=== PATIENT | male | born 1955 | race Caucasian/White ===

== ENCOUNTER 2018-03-05 14:26 | Inpatient (IN) | payer MEDICARE, MEDICAID ==
--- NOTE | 2018-03-05 14:53 | ED Physician Chart ---
ED Chief Complaint/HPI - Patient Information Date Seen:: 03/05/18 Time Seen:: 14:30 Chief Complaint:: Agitation History of Present Illness:: onset x 3 days of agitation and uncooperative behavior; no report of trauma, SIs , H/As, S/T, neck pain, C/P, SOB, Abd. Pain, A/N/V/D/C, fever,chills, or urinary s/s Allergies:: Allergies Allergy/AdvReac Type Severity Reaction Status Date / Time iodine Allergy Verified 03/05/18 14:30 Vitals:: Vital Signs - 8 hr 03/05/18 14:30 Temp 97.4 F HR 84 RR 16 BP 111/72 Historian:: Patient, EMS Review:: Nurse's Note Reviewed, Old Chart Reviewed, EMS run form Reviewed ED Review of Systems - Review of Systems General/Constitutional: Fever, No chills, No weight loss, No weakness, No diaphoresis, No edema, No loss of appetite Skin: No skin lesions, No rash, No bruising Head: No headache, No light-headedness Eyes: No loss of vision, No pain, No diplopia ENT: No earache, Nasal drainage, No sore throat, No tinnitus Neck: No neck pain, No swelling, No thyromegaly, No stiffness, No mass noted Cardio Vascular: No chest pain, No palpitations, No PND, No orthopnea, No edema Pulmonary: No SOB, Cough, No sputum, No wheezing GI: No nausea, No vomiting, No diarrhea, No pain, No melena, No hematochezia, No constipation, No hematemesis G/U: No dysuria, No frequency, No hematuria, No nacturia Musculoskeletal: No bone or joint pain, No back pain, No muscle pain Endocrine: No polyuria, No polydipsia Psychiatric: Prior psych history, No depression, Anxiety, No suicidal ideation, No homicidal ideation, Auditory hallucination, No visual hallucination Hematopoietic: No bruising, No lymphadenopathy Allergic/Immuno: No urticaria, No angioedema Neurological: No syncope, No focal symptoms, No weakness, No paresthesia, No headache, No seizure, No dizziness, No confusion, No vertigo ED Past Medical History - Past Medical History Obtainable: Yes Past Medical History: HTN Family History: HTN Social History: Smoker, Alcohol, No Drug Use, Single, Care Facility Surgical History: None Psychiatricy History: Schizophrenia Medication: Reviewed Family Medical History - Family Member Mother History Unknown: Yes ED Physical Exam - Physical Examination General/Constitutional: Awake, Well-developed, well-nourished, Alert, No distress, GCS 15, Non-toxic appearing, Ambulatory Head: Atraumatic Eyes: Lids, conjuctiva normal, PERRL, EOMI Skin: Nl inspection, No rash, No skin lesions, No ecchymosis, Well hydrated, No lymphadenopathy ENMT: External ears, nose nl, TM canals nl, Nasal exam nl, Lips, teeth, gums nl , Oropharynx nl, Tonsils nl Neck: Nontender, Full ROM w/o pain, No JVD, No nuchal rigidity, No bruit, No mass, No stridor Respiratory: Nl effort/Exclusion, Clear to Auscultation, No Wheeze/Rhonchi/Rales Cardio Vascular: RRR, No murmur, gallop, rubs, NL S1 S2, Carotid/Femoral/Distal pulses equal bilaterally GI: No tenderness/rebounding/guarding, No organomegaly, No hernia, Normal BS's, Nondistended, No mass/bruits, No McBurney tenderness Other GI comments:: no pulsatile masses : No CVA tenderness Extremities: No tenderness or effusion, Full ROM, normal strength in all extremities, No edema, Normal digits & nails Neuro/Psych: Alert/oriented, DTR's symmetric, Normal sensory exam, Normal motor strength, Judgement/insight normal, Mood normal, Normal gait, No focal deficits Other Neuro/Psych comments:: + Psychomotor Agitation; no SIs; Mood/Affect: Labile Misc: Normal back, No paraspinal tenderness ED Labs/Radiology/EKG Results - Lab Results Comments:: unremarkable - Radiology Results Comments:: NAD - EKG Interpretations EKG Time:: 14:59 Rate & Rhythm: 65; NSR Comments:: non-specific st-t changes ED Septic Shock - . Is Septic Shock (SBP<90, OR Lactate>4 mmol\L) present?: No - <6hrs of presentation: Vital Signs: Vital Signs - 8 hr 18 14:30 Temp 97.4 F HR 84 RR 16 BP 111/72 ED Reassessment (Disposition) - Reassessment Reassessment Condition:: Improved - Diagnosis Diagnosis:: Dx: Agitation; Psychosis; Medical Clearance; Paranoid Schizophrenia - Aftercare/Follow up Instructions Aftercare/Follow-Up Instructions:: Counseled pt regarding lab results/diagnosis & need follow up, Counseled pt & family regarding lab results/diagnosis & need follow up - Patient Disposition Discharge/Transfer:: Acute Care w/in this hosp Admitted to:: [facility] Condition at Disposition:: Stable, Improved
[2018-03-05 15:01] LABS: URINE MICROSCOPIC INDICATED? YES; URINE SOURCE MIDSTREAM
[2018-03-05 15:05] LABS: % BASOPHILS 0.7 % (0.0-2.0); % EOSINOPHILS 2.4 % (0.0-5.0); % LYMPHOCYTES 18.7 % (20.0-50.0); % MONOCYTES 7.6 % (2.0-10.0); % NEUTROPHILS 70.6 % (40.0-80.0); BASOPHILE ABSOLUTE 0.1 Th/cumm (0-0.2); EOSINOPHILE ABSOLUTE 0.2 Th/cmm (0.1-0.4); HEMATOCRIT 31.5 % (41.0-60); HEMOGLOBIN 10.6 gm/dL (12-16); LYMPHOCYTE ABSOLUTE 1.4 Th/cmm (1.5-3.0); MEAN CELL VOLUME 86.8 fl (80-99); MEAN CORPUSCULAR HEMOGLOBIN 29.1 pg (26.0-30.0); MEAN CORPUSCULAR HGB CONC 33.6 pg (28.0-36.0); MEAN PLATELET VOLUME 8.6 fl; MONOCYTE ABSOLUTE 0.6 Th/cmm (0.3-1.0); PLATELET COUNT 207 Th/cmm (150-400); RED BLOOD COUNT 3.63 Mil/cmm (4.30-5.70); RED CELL DISTRIBUTION WIDTH 13.7 % (11.5-20.0); WHITE BLOOD COUNT 7.3 Th/cmm (4.8-10.8)
[2018-03-05 15:06] LABS: URINE BILIRUBIN NEGATIVE (NEGATIVE); URINE BLOOD NEGATIVE (NEGATIVE); URINE GLUCOSE (UA) NEGATIVE (NEGATIVE); URINE KETONE NEGATIVE (NEGATIVE); URINE LEUKOCYTE ESTERASE NEGATIVE (NEGATIVE); URINE NITRATE NEGATIVE (NEGATIVE); URINE PROTEIN NEGATIVE (NEGATIVE); URINE UROBILINOGEN 0.2 E.U./dL (0.2 - 1.0)
[2018-03-05 15:07] LABS: URINE BACTERIA NONE SEEN /hpf (NONE SEEN); URINE CLARITY CLEAR (CLEAR); URINE COLOR YELLOW; URINE EPITHELIAL CELLS NONE SEEN /lpf (FEW); URINE RBC NONE SEEN /hpf (0-5); URINE WBC NONE SEEN /hpf (0-5)
[2018-03-05 15:20] LABS: INR 1.06 (0.5-1.4)
[2018-03-05 15:26] LABS: ALB/GLOB RATIO 1.7 (1.0-1.8); ALBUMIN 4.1 gm/dL (4.2-5.5); ALKALINE PHOSPHATASE 58 U/L (34-104); ANION GAP 10.8 (7.0-16.0); BILIRUBIN,TOTAL 0.4 mg/dL (0.3-1.0); BUN - UREA NITROGEN 27 mg/dL (7-25); CALCIUM SERUM 9.8 mg/dL (8.6-10.3); CARBON DIOXIDE 26.7 mEq/L (21.0-31.0); CHLORIDE 104 mEq/L (98-107); CREATININE KINASE 27 U/L (30-223); GFR AFRICAN-AMERICAN > 60.0 ml/min (>90); GFR NON AFRICAN-AMERICAN > 60.0 ml/min; GLUCOSE 138 mg/dL (70-105); POTASSIUM SERUM 4.5 mEq/L (3.5-5.1); SGOT 16 U/L (13-39); SGPT/ALT 21 U/L (7-52); SODIUM SERUM 137 mEq/L (136-145); TOTAL PROTEIN,SERUM 6.5 gm/dL (6.0-8.3)
[2018-03-05 17:48] LABS: ACETAMINOPHEN < 10.0 ug/mL (10.0-30.0); SALICYLATES (ASPIRIN) < 25.0 mg/L (30.0-100.0)
[2018-03-05 18:29] VITALS: BP 159/80
[2018-03-05 21:41] LABS: A1C % 4.7 % (4.0-6.0)
--- NOTE | 2018-03-05 22:41 | History & Physical ---
ADMIT DATE: 03/05/2018 HISTORY OF PRESENT ILLNESS: The patient is a 62-year-old male with long history of diabetes mellitus, hypertension, hyperlipidemia, dementia, and psychosis; admitted to [facility] under Dr. Joseph's service. The patient denies any chest pain, shortness of breath, nausea, vomiting, fever, or chills. PAST MEDICAL HISTORY: Significant for hypertension, diabetes mellitus, hyperlipidemia, dementia, and psychosis. PAST SURGICAL HISTORY: No recent surgery. ALLERGIES: IODINE. MEDICATIONS: Follow admission reconciliation. SOCIAL HISTORY: No smoking, no alcohol, no drug. FAMILY HISTORY: Noncontributory. REVIEW OF SYSTEMS: IMMUNOSYSTEM: No history of chronic renal disorder. CARDIOVASCULAR SYSTEM: No coronary artery disease. ENDOCRINE: He has diabetes mellitus. No thyroid problem. GASTROINTESTINAL SYSTEM: No upper or lower gastrointestinal bleed. NEUROLOGICAL SYSTEM: No seizure disorder. SKELETOMUSCULAR SYSTEM: No muscular dystrophy. HEMATOLOGICAL SYSTEM: History of anemia. GENITOURINARY: No dysuria or hematuria. PHYSICAL EXAMINATION: GENERAL: He is awake, mildly confused. VITAL SIGNS: Temperature is 98.9, heart rate 75, and blood pressure 145/65. HEENT: Normocephalic. Pupils reacting to light and accommodation. Sclerae clear. NECK: Supple. Negative for lymphadenopathy, JVD, or bruit. CHEST: Entry of air bilateral normal. No rhonchi or wheezing. HEART: S1, S2 normal, no gallop rhythm. ABDOMEN: Soft, bowel sounds positive. EXTREMITIES: No edema. NEUROLOGIC: Awake, not coherent. No focal motor or sensory deficits. LABORATORY DATA: White blood 7.3, hemoglobin 10.6, hematocrit 31.5, and platelet 207. Sodium 137, potassium 4.5, BUN 27, and creatinine 1.0. ASSESSMENT: 1. Diabetes mellitus. 2. Hypertension. 3. Hyperlipidemia. 4. Anemia. 5. Dementia. PLAN: The patient admitted to the hospital under Dr. Joseph's service. Medical problems addressed during hospitalization, psychosis and dementia problems. Medical problems to be addressed at discharge, diabetes mellitus, hypertension, hyperlipidemia, and anemia. The patient is medically stable for activity. Thank you Dr. Joseph for asking me to see your patient. JOB# [id number]
[2018-03-06] MEDS: INSULIN ASPART SLIDING SCALE 100 UNITS/ML UNIT SUBQ SCH ×4 (06:51→21:37)
--- NOTE | 2018-03-06 07:13 | Diagnostic Imaging Report ---
Portable chest x-ray HISTORY: Pain The heart size is normal. Atherosclerotic calcification seen in the aorta. The lungs are somewhat hyperexpanded that may be associated with changes of COPD. No acute focal pulmonary processes. Old right rib fractures noted. IMPRESSION: 1. No acute abnormalities 2. Pulmonary hyperexpansion. Findings may be associated with COPD 3. Atherosclerotic vascular changes
[2018-03-06] MEDS: Potassium Chloride 20 mEq ER Tab PO SCH (08:15)
[2018-03-06] MEDS: Benztropine 1 MG TAB PO SCH ×2 (08:15→16:58)
--- NOTE | 2018-03-06 14:35 | Psychosocial Evaluation ---
DATE OF SERVICE: 03/05/2018 PSYCHIATRIC INITIAL EVALUATION AND MENTAL STATUS EXAM PATIENT'S AGE: 62-year-old SEX: Male. PHYSICIAN: Junior Joseph MD, MPH CHIEF COMPLAINT: Agitation. HISTORY OF PRESENT ILLNESS: The patient is a 62-year-old male who is living in [facility]. The patient has been agitated and aggressive for the last 3 days prior to his admission and has not been cooperative with the staff and has been in angry and in irritable mood. The patient also has been not able to follow directions. He also has been suspicious and paranoid. PAST PSYCHIATRIC HISTORY: The patient has history of schizophrenia. PAST MEDICAL HISTORY: The patient has history of hypertension. SOCIAL HISTORY: The patient lives in [facility]. No known alcohol or drug use. MENTAL STATUS EXAMINATION: The patient appears slightly older than his stated age. Disheveled. Irritable mood. Angry. Seems to be suspicious and paranoid and thought processes are circumstantial and with flight of ideas. The patient denied auditory or visual hallucinations, but seems to be responding to stimuli. The patient denied suicidal or homicidal ideations. The patient is alert and oriented to time, place, person, and situation. Intact immediate, recent and remote memories. Poor insight and poor judgment. ASSESSMENT: PRIMARY DIAGNOSIS: Chronic paranoid schizophrenia with acute exacerbation. TREATMENT PLAN: We will monitor the patient's behavior and condition closely. We will adjust psychotropic medications. We will work on his poor impulse control. ESTIMATED LENGTH OF STAY: 5-7 days. THE PATIENT'S STRENGTHS AND WEAKNESSES: The patient seems to be in relatively fair health. Weaknesses is his poor impulse control and his psychosis. AFTER DISCHARGE PLAN: Outpatient treatment and followup will continue as an outpatient. CRITERIA FOR DISCHARGE: Better impulse control and stabilizing psychotropic medications and establish outpatient treatment plans. JOB# [id number]
--- NOTE | 2018-03-06 19:13 | Internal Medicine Prog Note ---
Internal Medicine Subjective - Subjective Service Date: 03/06/18 Patient seen and examined:: with staff Patient is:: awake, verbal, silke chair, talking Per staff patient has:: no adverse event Internal Medicine Objective - Results Result Diagrams: 03/05/18 14:50 03/05/18 14:50 Recent Labs: Laboratory Last Values WBC 7.3 Th/cmm (4.8-10.8) 03/05/18 14:50 RBC 3.63 Mil/cmm (4.30-5.70) L 03/05/18 14:50 Hgb 10.6 gm/dL (12-16) L 03/05/18 14:50 Hct 31.5 % (41.0-60) L 03/05/18 14:50 MCV 86.8 fl (80-99) 03/05/18 14:50 MCH 29.1 pg (26.0-30.0) 03/05/18 14:50 MCHC Differential 33.6 pg (28.0-36.0) 03/05/18 14:50 RDW 13.7 % (11.5-20.0) 03/05/18 14:50 Plt Count 207 Th/cmm (150-400) 03/05/18 14:50 MPV 8.6 fl 03/05/18 14:50 Neutrophils % 70.6 % (40.0-80.0) 03/05/18 14:50 Lymphocytes % 18.7 % (20.0-50.0) L 03/05/18 14:50 Monocytes % 7.6 % (2.0-10.0) 03/05/18 14:50 Eosinophils % 2.4 % (0.0-5.0) 03/05/18 14:50 Basophils % 0.7 % (0.0-2.0) 03/05/18 14:50 PT 11.0 SECONDS (9.5-11.5) 03/05/18 14:50 INR 1.06 (0.5-1.4) 03/05/18 14:50 PTT (Actin FS) 28.3 SECONDS (26.0-38.0) 03/05/18 14:50 Sodium 137 mEq/L (136-145) 03/05/18 14:50 Potassium 4.5 mEq/L (3.5-5.1) 03/05/18 14:50 Chloride 104 mEq/L (98-107) 03/05/18 14:50 Carbon Dioxide 26.7 mEq/L (21.0-31.0) 03/05/18 14:50 Anion Gap 10.8 (7.0-16.0) 03/05/18 14:50 BUN 27 mg/dL (7-25) H 03/05/18 14:50 Creatinine 1.0 mg/dL (0.7-1.3) 03/05/18 14:50 Est GFR ( Amer) > 60.0 ml/min (>90) 03/05/18 14:50 Est GFR (Non-Af Amer) > 60.0 ml/min 03/05/18 14:50 BUN/Creatinine Ratio 27.0 03/05/18 14:50 Glucose 138 mg/dL (70-105) H 03/05/18 14:50 POC Glucose 123 MG/DL (70 - 105) H 03/06/18 06:49 Hemoglobin A1c % 4.7 % (4.0-6.0) 03/05/18 14:50 Whole Bld Lactic Acid 1.13 mmol/L (0.60-1.99) 03/05/18 14:50 Calcium 9.8 mg/dL (8.6-10.3) 03/05/18 14:50 Total Bilirubin 0.4 mg/dL (0.3-1.0) 03/05/18 14:50 AST 16 U/L (13-39) 03/05/18 14:50 ALT 21 U/L (7-52) 03/05/18 14:50 Alkaline Phosphatase 58 U/L (34-104) 03/05/18 14:50 Creatine Kinase 27 U/L (30-223) L 03/05/18 14:50 Troponin I 0.01 ng/mL (0.01-0.05) 03/05/18 14:50 Total Protein 6.5 gm/dL (6.0-8.3) 03/05/18 14:50 Albumin 4.1 gm/dL (4.2-5.5) L 03/05/18 14:50 Globulin 2.4 gm/dL 03/05/18 14:50 Albumin/Globulin Ratio 1.7 (1.0-1.8) 03/05/18 14:50 TSH 1.03 uIU/ml (0.34-5.60) 03/05/18 14:50 Urine Source MIDSTREAM 03/05/18 14:30 Urine Color YELLOW 03/05/18 14:30 Urine Clarity CLEAR (CLEAR) 03/05/18 14:30 Urine pH 7.0 (4.6 - 8.0) 03/05/18 14:30 Ur Specific [place] 1.010 (1.005-1.030) 03/05/18 14:30 Urine Protein NEGATIVE mg/dL (NEGATIVE) 03/05/18 14:30 Urine Glucose (UA) NEGATIVE mg/dL (NEGATIVE) 03/05/18 14:30 Urine Ketones NEGATIVE mg/dL (NEGATIVE) 03/05/18 14:30 Urine Blood NEGATIVE (NEGATIVE) 03/05/18 14:30 Urine Nitrate NEGATIVE (NEGATIVE) 03/05/18 14:30 Urine Bilirubin NEGATIVE (NEGATIVE) 03/05/18 14:30 Urine Urobilinogen 0.2 E.U./dL (0.2 - 1.0) 03/05/18 14:30 Ur Leukocyte Esterase NEGATIVE (NEGATIVE) 03/05/18 14:30 Urine RBC NONE SEEN /hpf (0-5) 03/05/18 14:30 Urine WBC NONE SEEN /hpf (0-5) 03/05/18 14:30 Ur Epithelial Cells NONE SEEN /lpf (FEW) 03/05/18 14:30 Urine Bacteria NONE SEEN /hpf (NONE SEEN) 03/05/18 14:30 Salicylates < 25.0 mg/L (30.0-100.0) L 03/05/18 14:50 Acetaminophen < 10.0 ug/mL (10.0-30.0) L 03/05/18 14:50 Ethyl Alcohol < 10 mg/dL (0-10) 03/05/18 14:50 - Physical Exam Vitals and I&O: Vital Signs Temp 97.5 F 03/06/18 14:00 Pulse 67 03/06/18 16:39 Resp 18 03/06/18 14:00 BP 134/73 03/06/18 16:39 Pulse Ox 97 03/06/18 14:00 Intake & Output 03/06/18 03/06/18 03/07/18 06:59 18:59 06:59 Intake Total 240 1200 Balance 240 1200 Intake: Oral 240 1200 Other: # Voids 1 2 # Bowel Movements 0 Active Medications: Current Medications Acetaminophen (Tylenol) 350 mg PO Q12H PRN PRN Reason: Pain (Mild) Stop: 05/05/18 07:22 Aspirin (Ecotrin) 81 mg PO DAILY [facility] Stop: 05/05/18 08:59 Last Admin: 03/06/18 08:15 Dose: 81 mg Benazepril HCl (Lotensin) 10 mg PO DAILY [facility] Stop: 05/05/18 08:59 Last Admin: 03/06/18 08:16 Dose: 10 mg Benztropine Mesylate (Cogentin) 1 mg PO BID [facility] Stop: 05/05/18 08:59 Last Admin: 03/06/18 16:58 Dose: 1 mg Carvedilol (Coreg) 12.5 mg PO BID [facility] Stop: 05/05/18 08:59 Last Admin: 03/06/18 16:39 Dose: 12.5 mg Cyanocobalamin (Vitamin B12) 100 mcg PO DAILY [facility] Stop: 05/05/18 08:59 Last Admin: 03/06/18 08:16 Dose: 100 mcg Furosemide (Lasix) 40 mg PO MWF [facility] Stop: 05/05/18 08:59 Last Admin: 03/06/18 08:16 Dose: 40 mg Glipizide (Glucotrol) 5 mg PO BID [facility] Stop: 05/05/18 08:59 Last Admin: 03/06/18 16:39 Dose: 5 mg Insulin Aspart (Novolog Insulin Sliding Scale) 0 units SUBQ ACHS [facility]; Protocol Stop: 05/05/18 07:29 Last Admin: 03/06/18 16:58 Dose: Not Given Insulin Detemir (Levemir Insulin) 12 units SUBQ HS [facility] Stop: 05/05/18 20:59 Lorazepam (Ativan) 0.5 mg PO Q4HR PRN; Protocol PRN Reason: Anxiety Stop: 04/04/18 17:39 Last Admin: 03/06/18 16:38 Dose: 0.5 mg Metformin HCl (Glucophage) 1,000 mg PO BID [facility] Stop: 05/05/18 08:59 Last Admin: 03/06/18 16:38 Dose: 1,000 mg Miscellaneous (Paliperidone [Paliperidone Er]) 4.5 mg PO HS [facility] Stop: 05/05/18 20:59 Potassium Chloride (Klor-Con) 40 meq PO F [facility] Stop: 05/05/18 08:59 Last Admin: 03/06/18 08:15 Dose: 40 meq Simvastatin (Zocor) 20 mg PO HS [facility]; Protocol Stop: 05/05/18 20:59 Zolpidem Tartrate (Ambien) 5 mg PO HS PRN PRN Reason: Insomnia Stop: 05/04/18 17:39 General: demented HEENT: NC/AT, PERRLA, EOMI, anicteric sclerae, throat clear Neck: Supple, No JVD, No thyromegaly, +2 carotid pulse wo bruit, No LAD, + JVD Cardiovascular: Normal S1, Normal S2, without murmur Abdomen: non-tender Extremities: clear Neurological: no change Internal Medicine Assmt/Plan - Assessment Assessment: 1.DM. 2.HTN. 3.HYPERLIPIDEMIA. 4.DEMENTIA. - Plan Plan: CONTINUE ON CURRENT MEDICATION AND DIET.
[2018-03-06] MEDS ORDERED: PALIPERIDONE PO SCH (21:00)
[2018-03-06] MEDS: Insulin Detemir 100 units/mL 10mL Vial SUBQ SCH (21:38)
[2018-03-07] MEDS: INSULIN ASPART SLIDING SCALE 100 UNITS/ML UNIT SUBQ SCH ×4 (06:44→21:20)
[2018-03-07] MEDS: Benztropine 1 MG TAB PO SCH ×2 (08:58→17:27)
--- NOTE | 2018-03-07 10:17 | Progress Notes ---
DATE: 03/06/2018 SUBJECTIVE: Chart reviewed and the patient interviewed. Also discussed the patient's condition with the staff and reviewed records and labs. The patient is still agitated and he is still suspicious and paranoid. The patient also still seems to be responding to stimuli. Also, personal hygiene is poor. The patient also is in irritable mood. He also is still angry and he still needs lots of redirections. Otherwise, the patient is compliant with taking his medications with no side effects of medications. ASSESSMENT: The patient is agitated and is in irritable mood. TREATMENT PLAN: We will continue monitoring his behavior and his condition closely. Also, continue to work on his poor impulse control. Also, we will work on his poor impulse control and adjusting psychotropic medications. [facility]# [id number]
--- NOTE | 2018-03-07 17:36 | Internal Medicine Prog Note ---
Internal Medicine Subjective - Subjective Service Date: 03/07/18 Patient seen and examined:: with staff Patient is:: awake, verbal, silke chair, talking Per staff patient has:: no adverse event Internal Medicine Objective - Results Result Diagrams: 03/05/18 14:50 03/05/18 14:50 Recent Labs: Laboratory Last Values WBC 7.3 Th/cmm (4.8-10.8) 03/05/18 14:50 RBC 3.63 Mil/cmm (4.30-5.70) L 03/05/18 14:50 Hgb 10.6 gm/dL (12-16) L 03/05/18 14:50 Hct 31.5 % (41.0-60) L 03/05/18 14:50 MCV 86.8 fl (80-99) 03/05/18 14:50 MCH 29.1 pg (26.0-30.0) 03/05/18 14:50 MCHC Differential 33.6 pg (28.0-36.0) 03/05/18 14:50 RDW 13.7 % (11.5-20.0) 03/05/18 14:50 Plt Count 207 Th/cmm (150-400) 03/05/18 14:50 MPV 8.6 fl 03/05/18 14:50 Neutrophils % 70.6 % (40.0-80.0) 03/05/18 14:50 Lymphocytes % 18.7 % (20.0-50.0) L 03/05/18 14:50 Monocytes % 7.6 % (2.0-10.0) 03/05/18 14:50 Eosinophils % 2.4 % (0.0-5.0) 03/05/18 14:50 Basophils % 0.7 % (0.0-2.0) 03/05/18 14:50 PT 11.0 SECONDS (9.5-11.5) 03/05/18 14:50 INR 1.06 (0.5-1.4) 03/05/18 14:50 PTT (Actin FS) 28.3 SECONDS (26.0-38.0) 03/05/18 14:50 Sodium 137 mEq/L (136-145) 03/05/18 14:50 Potassium 4.5 mEq/L (3.5-5.1) 03/05/18 14:50 Chloride 104 mEq/L (98-107) 03/05/18 14:50 Carbon Dioxide 26.7 mEq/L (21.0-31.0) 03/05/18 14:50 Anion Gap 10.8 (7.0-16.0) 03/05/18 14:50 BUN 27 mg/dL (7-25) H 03/05/18 14:50 Creatinine 1.0 mg/dL (0.7-1.3) 03/05/18 14:50 Est GFR ( Amer) > 60.0 ml/min (>90) 03/05/18 14:50 Est GFR (Non-Af Amer) > 60.0 ml/min 03/05/18 14:50 BUN/Creatinine Ratio 27.0 03/05/18 14:50 Glucose 138 mg/dL (70-105) H 03/05/18 14:50 POC Glucose 140 MG/DL (70 - 105) H 03/07/18 11:54 Hemoglobin A1c % 4.7 % (4.0-6.0) 03/05/18 14:50 Whole Bld Lactic Acid 1.13 mmol/L (0.60-1.99) 03/05/18 14:50 Calcium 9.8 mg/dL (8.6-10.3) 03/05/18 14:50 Total Bilirubin 0.4 mg/dL (0.3-1.0) 03/05/18 14:50 AST 16 U/L (13-39) 03/05/18 14:50 ALT 21 U/L (7-52) 03/05/18 14:50 Alkaline Phosphatase 58 U/L (34-104) 03/05/18 14:50 Creatine Kinase 27 U/L (30-223) L 03/05/18 14:50 Troponin I 0.01 ng/mL (0.01-0.05) 03/05/18 14:50 Total Protein 6.5 gm/dL (6.0-8.3) 03/05/18 14:50 Albumin 4.1 gm/dL (4.2-5.5) L 03/05/18 14:50 Globulin 2.4 gm/dL 03/05/18 14:50 Albumin/Globulin Ratio 1.7 (1.0-1.8) 03/05/18 14:50 TSH 1.03 uIU/ml (0.34-5.60) 03/05/18 14:50 Urine Source MIDSTREAM 03/05/18 14:30 Urine Color YELLOW 03/05/18 14:30 Urine Clarity CLEAR (CLEAR) 03/05/18 14:30 Urine pH 7.0 (4.6 - 8.0) 03/05/18 14:30 Ur Specific [place] 1.010 (1.005-1.030) 03/05/18 14:30 Urine Protein NEGATIVE mg/dL (NEGATIVE) 03/05/18 14:30 Urine Glucose (UA) NEGATIVE mg/dL (NEGATIVE) 03/05/18 14:30 Urine Ketones NEGATIVE mg/dL (NEGATIVE) 03/05/18 14:30 Urine Blood NEGATIVE (NEGATIVE) 03/05/18 14:30 Urine Nitrate NEGATIVE (NEGATIVE) 03/05/18 14:30 Urine Bilirubin NEGATIVE (NEGATIVE) 03/05/18 14:30 Urine Urobilinogen 0.2 E.U./dL (0.2 - 1.0) 03/05/18 14:30 Ur Leukocyte Esterase NEGATIVE (NEGATIVE) 03/05/18 14:30 Urine RBC NONE SEEN /hpf (0-5) 03/05/18 14:30 Urine WBC NONE SEEN /hpf (0-5) 03/05/18 14:30 Ur Epithelial Cells NONE SEEN /lpf (FEW) 03/05/18 14:30 Urine Bacteria NONE SEEN /hpf (NONE SEEN) 03/05/18 14:30 Salicylates < 25.0 mg/L (30.0-100.0) L 03/05/18 14:50 Acetaminophen < 10.0 ug/mL (10.0-30.0) L 03/05/18 14:50 Ethyl Alcohol < 10 mg/dL (0-10) 03/05/18 14:50 - Physical Exam Vitals and I&O: Vital Signs Temp 97.5 F 03/07/18 14:02 Pulse 65 03/07/18 17:28 Resp 18 03/07/18 14:02 BP 101/58 03/07/18 17:28 Pulse Ox 97 03/07/18 14:02 Intake & Output 03/06/18 03/07/18 03/07/18 18:59 06:59 18:59 Intake Total 1200 1080 Balance 1200 1080 Intake: Oral 1200 1080 Other: # Voids 2 1 Active Medications: Current Medications Acetaminophen (Tylenol) 350 mg PO Q12H PRN PRN Reason: Pain (Mild) Stop: 05/05/18 07:22 Last Admin: 03/07/18 08:56 Dose: 325 mg Aspirin (Ecotrin) 81 mg PO DAILY [facility] Stop: 05/05/18 08:59 Last Admin: 03/07/18 08:57 Dose: 81 mg Benazepril HCl (Lotensin) 10 mg PO DAILY [facility] Stop: 05/05/18 08:59 Last Admin: 03/07/18 08:57 Dose: 10 mg Benztropine Mesylate (Cogentin) 1 mg PO BID [facility] Stop: 05/05/18 08:59 Last Admin: 03/07/18 17:27 Dose: 1 mg Carvedilol (Coreg) 12.5 mg PO BID [facility] Stop: 05/05/18 08:59 Last Admin: 03/07/18 17:28 Dose: Not Given Cyanocobalamin (Vitamin B12) 100 mcg PO DAILY [facility] Stop: 05/05/18 08:59 Last Admin: 03/07/18 08:57 Dose: 100 mcg Furosemide (Lasix) 40 mg PO MWF [facility] Stop: 05/05/18 08:59 Last Admin: 03/06/18 08:16 Dose: 40 mg Glipizide (Glucotrol) 5 mg PO BID [facility] Stop: 05/05/18 08:59 Last Admin: 03/07/18 17:27 Dose: Not Given Insulin Aspart (Novolog Insulin Sliding Scale) 0 units SUBQ ACHS [facility]; Protocol Stop: 05/05/18 07:29 Last Admin: 03/07/18 17:25 Dose: Not Given Insulin Detemir (Levemir Insulin) 12 units SUBQ HS [facility] Stop: 05/05/18 20:59 Last Admin: 03/06/18 21:38 Dose: 12 units Lorazepam (Ativan) 0.5 mg PO Q4HR PRN; Protocol PRN Reason: Anxiety Stop: 04/04/18 17:39 Last Admin: 03/06/18 16:38 Dose: 0.5 mg Metformin HCl (Glucophage) 1,000 mg PO BID [facility] Stop: 05/05/18 08:59 Last Admin: 03/07/18 17:27 Dose: 1,000 mg Miscellaneous (Paliperidone [Paliperidone Er]) 4.5 mg PO HS [facility] Stop: 05/05/18 20:59 Potassium Chloride (Klor-Con) 40 meq PO MWF [facility] Stop: 05/05/18 08:59 Last Admin: 03/06/18 08:15 Dose: 40 meq Quetiapine Fumarate (Seroquel) 50 mg PO BID [facility]; Protocol Stop: 05/06/18 08:59 Last Admin: 03/07/18 17:27 Dose: 50 mg Simvastatin (Zocor) 20 mg PO HS [facility]; Protocol Stop: 05/05/18 20:59 Last Admin: 03/06/18 21:22 Dose: 20 mg Zolpidem Tartrate (Ambien) 5 mg PO HS PRN PRN Reason: Insomnia Stop: 05/04/18 17:39 Last Admin: 03/06/18 21:22 Dose: 5 mg General: demented HEENT: NC/AT, PERRLA, EOMI, anicteric sclerae, throat clear Neck: Supple, No JVD, No thyromegaly, +2 carotid pulse wo bruit, No LAD, + JVD Cardiovascular: Normal S1, Normal S2, without murmur Abdomen: non-tender Extremities: clear Neurological: no change Internal Medicine Assmt/Plan - Assessment Assessment: 1.DM. 2.HTN. 3.HYPERLIPIDEMIA. 4.DEMENTIA. - Plan Plan: CONTINUE ON CURRENT MEDICATION AND DIET.
[2018-03-07] MEDS: Insulin Detemir 100 units/mL 10mL Vial SUBQ SCH (21:21)
[2018-03-08] MEDS: INSULIN ASPART SLIDING SCALE 100 UNITS/ML UNIT SUBQ SCH ×4 (06:33→20:21)
[2018-03-08] MEDS: Potassium Chloride 20 mEq ER Tab PO SCH (09:23)
[2018-03-08] MEDS: Benztropine 1 MG TAB PO SCH ×2 (09:24→16:30)
--- NOTE | 2018-03-08 11:08 | Progress Notes ---
DATE: 03/07/2018 SUBJECTIVE: Chart reviewed and the patient interviewed. Also discussed the patient's condition with the staff and reviewed records and labs. The patient is still anxious. The patient is still easily agitated and easily irritable. He also is still guarded and suspicious and paranoid. The patient also is demanding and he gets angry if his demand does not met. He also is still have difficulty carrying on current conversation. ASSESSMENT: The patient is still psychotic and is still agitated. TREATMENT PLAN: Continue to monitor his behavior and his condition closely and working on behavioral modifications. Also, we will start the patient on Seroquel 50 mg twice a day. Also continue to follow up for his safety and safety of others closely. [facility]# [id number]
--- NOTE | 2018-03-08 16:08 | Internal Medicine Prog Note ---
Internal Medicine Subjective - Subjective Service Date: 03/08/18 Patient seen and examined:: with staff Patient is:: awake, verbal, silke chair, talking Per staff patient has:: no adverse event Internal Medicine Objective - Results Result Diagrams: 03/05/18 14:50 03/05/18 14:50 Recent Labs: Laboratory Last Values WBC 7.3 Th/cmm (4.8-10.8) 03/05/18 14:50 RBC 3.63 Mil/cmm (4.30-5.70) L 03/05/18 14:50 Hgb 10.6 gm/dL (12-16) L 03/05/18 14:50 Hct 31.5 % (41.0-60) L 03/05/18 14:50 MCV 86.8 fl (80-99) 03/05/18 14:50 MCH 29.1 pg (26.0-30.0) 03/05/18 14:50 MCHC Differential 33.6 pg (28.0-36.0) 03/05/18 14:50 RDW 13.7 % (11.5-20.0) 03/05/18 14:50 Plt Count 207 Th/cmm (150-400) 03/05/18 14:50 MPV 8.6 fl 03/05/18 14:50 Neutrophils % 70.6 % (40.0-80.0) 03/05/18 14:50 Lymphocytes % 18.7 % (20.0-50.0) L 03/05/18 14:50 Monocytes % 7.6 % (2.0-10.0) 03/05/18 14:50 Eosinophils % 2.4 % (0.0-5.0) 03/05/18 14:50 Basophils % 0.7 % (0.0-2.0) 03/05/18 14:50 PT 11.0 SECONDS (9.5-11.5) 03/05/18 14:50 INR 1.06 (0.5-1.4) 03/05/18 14:50 PTT (Actin FS) 28.3 SECONDS (26.0-38.0) 03/05/18 14:50 Sodium 137 mEq/L (136-145) 03/05/18 14:50 Potassium 4.5 mEq/L (3.5-5.1) 03/05/18 14:50 Chloride 104 mEq/L (98-107) 03/05/18 14:50 Carbon Dioxide 26.7 mEq/L (21.0-31.0) 03/05/18 14:50 Anion Gap 10.8 (7.0-16.0) 03/05/18 14:50 BUN 27 mg/dL (7-25) H 03/05/18 14:50 Creatinine 1.0 mg/dL (0.7-1.3) 03/05/18 14:50 Est GFR ( Amer) > 60.0 ml/min (>90) 03/05/18 14:50 Est GFR (Non-Af Amer) > 60.0 ml/min 03/05/18 14:50 BUN/Creatinine Ratio 27.0 03/05/18 14:50 Glucose 138 mg/dL (70-105) H 03/05/18 14:50 POC Glucose 98 MG/DL (70 - 105) 03/08/18 06: Hemoglobin A1c % 4.7 % (4.0-6.0) 03/05/18 14:50 Whole Bld Lactic Acid 1.13 mmol/L (0.60-1.99) 03/05/18 14:50 Calcium 9.8 mg/dL (8.6-10.3) 03/05/18 14:50 Total Bilirubin 0.4 mg/dL (0.3-1.0) 03/05/18 14:50 AST 16 U/L (13-39) 03/05/18 14:50 ALT 21 U/L (7-52) 03/05/18 14:50 Alkaline Phosphatase 58 U/L (34-104) 03/05/18 14:50 Creatine Kinase 27 U/L (30-223) L 03/05/18 14:50 Troponin I 0.01 ng/mL (0.01-0.05) 03/05/18 14:50 Total Protein 6.5 gm/dL (6.0-8.3) 03/05/18 14:50 Albumin 4.1 gm/dL (4.2-5.5) L 03/05/18 14:50 Globulin 2.4 gm/dL 03/05/18 14:50 Albumin/Globulin Ratio 1.7 (1.0-1.8) 03/05/18 14:50 TSH 1.03 uIU/ml (0.34-5.60) 03/05/18 14:50 Urine Source MIDSTREAM 03/05/18 14:30 Urine Color YELLOW 03/05/18 14:30 Urine Clarity CLEAR (CLEAR) 03/05/18 14:30 Urine pH 7.0 (4.6 - 8.0) 03/05/18 14:30 Ur Specific [place] 1.010 (1.005-1.030) 03/05/18 14:30 Urine Protein NEGATIVE mg/dL (NEGATIVE) 03/05/18 14:30 Urine Glucose (UA) NEGATIVE mg/dL (NEGATIVE) 03/05/18 14:30 Urine Ketones NEGATIVE mg/dL (NEGATIVE) 03/05/18 14:30 Urine Blood NEGATIVE (NEGATIVE) 03/05/18 14:30 Urine Nitrate NEGATIVE (NEGATIVE) 03/05/18 14:30 Urine Bilirubin NEGATIVE (NEGATIVE) 03/05/18 14:30 Urine Urobilinogen 0.2 E.U./dL (0.2 - 1.0) 03/05/18 14:30 Ur Leukocyte Esterase NEGATIVE (NEGATIVE) 03/05/18 14:30 Urine RBC NONE SEEN /hpf (0-5) 03/05/18 14:30 Urine WBC NONE SEEN /hpf (0-5) 03/05/18 14:30 Ur Epithelial Cells NONE SEEN /lpf (FEW) 03/05/18 14:30 Urine Bacteria NONE SEEN /hpf (NONE SEEN) 03/05/18 14:30 Salicylates < 25.0 mg/L (30.0-100.0) L 03/05/18 14:50 Acetaminophen < 10.0 ug/mL (10.0-30.0) L 03/05/18 14:50 Ethyl Alcohol < 10 mg/dL (0-10) 03/05/18 14:50 RPR NONREACTIVE (NONREACTIVE) 03/05/18 14:50 - Physical Exam Vitals and I&O: Vital Signs Temp 98.3 F 03/08/18 14:00 Pulse 72 03/08/18 14:00 Resp 20 03/08/18 14:00 BP 109/61 03/08/18 14:00 Pulse Ox 95 03/08/18 14:00 Intake & Output 03/07/18 03/08/18 03/08/18 18:59 06:59 18:59 Intake Total 620 Balance 620 Intake: Oral 620 Other: # Voids 3 # Bowel Movements 0 Active Medications: Current Medications Acetaminophen (Tylenol) 350 mg PO Q12H PRN PRN Reason: Pain (Mild) Stop: 05/05/18 07:22 Last Admin: 03/07/18 08:56 Dose: 325 mg Aspirin (Ecotrin) 81 mg PO DAILY [facility] Stop: 05/05/18 08:59 Last Admin: 03/08/18 09:23 Dose: 81 mg Benazepril HCl (Lotensin) 10 mg PO DAILY [facility] Stop: 05/05/18 08:59 Last Admin: 03/08/18 09:22 Dose: 10 mg Benztropine Mesylate (Cogentin) 1 mg PO BID [facility] Stop: 05/05/18 08:59 Last Admin: 03/08/18 09:24 Dose: 1 mg Carvedilol (Coreg) 12.5 mg PO BID [facility] Stop: 05/05/18 08:59 Last Admin: 03/08/18 09:22 Dose: 12.5 mg Cyanocobalamin (Vitamin B12) 100 mcg PO DAILY [facility] Stop: 05/05/18 08:59 Last Admin: 03/08/18 09:24 Dose: 100 mcg Furosemide (Lasix) 40 mg PO MWF [facility] Stop: 05/05/18 08:59 Last Admin: 03/08/18 09:24 Dose: 40 mg Glipizide (Glucotrol) 5 mg PO BID [facility] Stop: 05/05/18 08:59 Last Admin: 03/08/18 09:22 Dose: 5 mg Insulin Aspart (Novolog Insulin Sliding Scale) 0 units SUBQ ACHS [facility]; Protocol Stop: 05/05/18 07:29 Last Admin: 03/08/18 11:55 Dose: Not Given Insulin Detemir (Levemir Insulin) 12 units SUBQ HS [facility] Stop: 05/05/18 20:59 Last Admin: 03/07/18 21:21 Dose: 12 units Lorazepam (Ativan) 0.5 mg PO Q4HR PRN; Protocol PRN Reason: Anxiety Stop: 04/04/18 17:39 Last Admin: 03/06/18 16:38 Dose: 0.5 mg Metformin HCl (Glucophage) 1,000 mg PO BID [facility] Stop: 05/05/18 08:59 Last Admin: 03/08/18 09:23 Dose: 1,000 mg Miscellaneous (Paliperidone [Paliperidone Er]) 4.5 mg PO HS [facility] Stop: 05/05/18 20:59 Potassium Chloride (Klor-Con) 40 meq PO MWF [facility] Stop: 05/05/18 08:59 Last Admin: 03/08/18 09:23 Dose: 40 meq Quetiapine Fumarate (Seroquel) 50 mg PO BID [facility]; Protocol Stop: 05/06/18 08:59 Last Admin: 03/08/18 09:23 Dose: 50 mg Simvastatin (Zocor) 20 mg PO HS [facility]; Protocol Stop: 05/05/18 20:59 Last Admin: 03/07/18 21:20 Dose: 20 mg Zolpidem Tartrate (Ambien) 5 mg PO HS PRN PRN Reason: Insomnia Stop: 05/04/18 17:39 Last Admin: 03/06/18 21:22 Dose: 5 mg General: demented HEENT: NC/AT, PERRLA, EOMI, anicteric sclerae, throat clear Neck: Supple, No JVD, No thyromegaly, +2 carotid pulse wo bruit, No LAD, + JVD Cardiovascular: Normal S1, Normal S2, without murmur Abdomen: non-tender Extremities: clear Neurological: no change Internal Medicine Assmt/Plan - Assessment Assessment: 1.DM. 2.HTN. 3.HYPERLIPIDEMIA. 4.DEMENTIA. - Plan Plan: CONTINUE ON CURRENT MEDICATION AND DIET. Nutritional Asmnt/Malnutr-PDOC - Dietary Evaluation Malnutrition Findings (Please click <Entered> for more info): Nutritional Asmnt/Malnutrition Start: 03/08/18 15: 04 Text: Status: Complete Freq: Protocol: Document 03/08/18 15:05 CALIN (Rec: 03/08/18 15:10 CALIN [email or web address]) Nutritional Asmnt/Malnutrition Patient General Information Nutritional Screening Moderate Risk Diagnosis psychosis Pertinent Medical Hx/Surgical Hx HTN, DM, hyperlipidemia, dementia, pscyhosis Subjective Information Pt seen eating in his room, stated "I am fine". Per EMR, PO intake 75-100%. Current Diet Order/ [facility] Pertinent Medications vit B12, lasix, glucotrol, novolog, levemir, glucophage, kcl, seroquel Pertinent Labs 03/05 BUN 27, Glucose 138, A1c 4.7, 03/06-03/08 POC 63-140 Nutritional Hx/Data Height 1.83 m Height (Calculated Centimeters) 182.9 Current Weight (lbs) 72.121 kg Weight (Calculated Kilograms) 72.1 Weight (Calculated Grams) 12940.2 [place] Body Weight 178 Body Mass Index (BMI) 21.5 Weight Status Approriate GI Symptoms GI Symptoms None Last BM none Difficult in: None Food Allergies Yes: iodine/shellfish Skin Integrity/Comment: intact Current %PO Good (75-100%) Estimated Nutritional Goals BEE in Kcals: Using Current wt Calories/Kcals/Kg 25-30 Kcals Calculated 6019-5650 Protein: Using Current wt Protein g/k Protein Calculated 72 Fluid: ml 1800-2160ml (1ml/kcal) Nutritional Problem No current Nutrition Prob Problem N/A Malnutrition Alert Is there a minimum of two criteria No selected? Query Text:Check all the applicable criteria. A minimum of two criteria are recommended for diagnosis of either severe or non-severe malnutrition. Malnutrition Related to Morbid Obesity Malnutrition related to morbid obesity No Intervention/Recommendation Comments 1. Recommend regular diet for liberalization since blood sugar WNL. Nurse notified. 2. Monitor PO intake, wt, labs and skin integrity 3. F/U as low risk in 7days, Expected Outcomes/Goals Expected Outcomes/Goals 1. PO intake to meet at least 75% of nutritional needs. 2. Wt stability, skin to remain intact, labs to approach WNL.
[2018-03-08] MEDS: Insulin Detemir 100 units/mL 10mL Vial SUBQ SCH (20:35)
[2018-03-09] MEDS: INSULIN ASPART SLIDING SCALE 100 UNITS/ML UNIT SUBQ SCH ×4 (06:31→20:52)
[2018-03-09] MEDS: Benztropine 1 MG TAB PO SCH ×2 (09:22→16:38)
--- NOTE | 2018-03-09 11:06 | Internal Medicine Prog Note ---
Internal Medicine Subjective - Subjective Service Date: 03/09/18 Patient seen and examined:: with staff Patient is:: awake, verbal, silke chair, talking Per staff patient has:: no adverse event Internal Medicine Objective - Results Result Diagrams: 03/05/18 14:50 03/05/18 14:50 Recent Labs: Laboratory Last Values WBC 7.3 Th/cmm (4.8-10.8) 03/05/18 14:50 RBC 3.63 Mil/cmm (4.30-5.70) L 03/05/18 14:50 Hgb 10.6 gm/dL (12-16) L 03/05/18 14:50 Hct 31.5 % (41.0-60) L 03/05/18 14:50 MCV 86.8 fl (80-99) 03/05/18 14:50 MCH 29.1 pg (26.0-30.0) 03/05/18 14:50 MCHC Differential 33.6 pg (28.0-36.0) 03/05/18 14:50 RDW 13.7 % (11.5-20.0) 03/05/18 14:50 Plt Count 207 Th/cmm (150-400) 03/05/18 14:50 MPV 8.6 fl 03/05/18 14:50 Neutrophils % 70.6 % (40.0-80.0) 03/05/18 14:50 Lymphocytes % 18.7 % (20.0-50.0) L 03/05/18 14:50 Monocytes % 7.6 % (2.0-10.0) 03/05/18 14:50 Eosinophils % 2.4 % (0.0-5.0) 03/05/18 14:50 Basophils % 0.7 % (0.0-2.0) 03/05/18 14:50 PT 11.0 SECONDS (9.5-11.5) 03/05/18 14:50 INR 1.06 (0.5-1.4) 03/05/18 14:50 PTT (Actin FS) 28.3 SECONDS (26.0-38.0) 03/05/18 14:50 Sodium 137 mEq/L (136-145) 03/05/18 14:50 Potassium 4.5 mEq/L (3.5-5.1) 03/05/18 14:50 Chloride 104 mEq/L (98-107) 03/05/18 14:50 Carbon Dioxide 26.7 mEq/L (21.0-31.0) 03/05/18 14:50 Anion Gap 10.8 (7.0-16.0) 03/05/18 14:50 BUN 27 mg/dL (7-25) H 03/05/18 14:50 Creatinine 1.0 mg/dL (0.7-1.3) 03/05/18 14:50 Est GFR ( Amer) > 60.0 ml/min (>90) 03/05/18 14:50 Est GFR (Non-Af Amer) > 60.0 ml/min 03/05/18 14:50 BUN/Creatinine Ratio 27.0 03/05/18 14:50 Glucose 138 mg/dL (70-105) H 03/05/18 14:50 POC Glucose 93 MG/DL (70 - 105) 03/09/18 06:19 Hemoglobin A1c % 4.7 % (4.0-6.0) 03/05/18 14:50 Whole Bld Lactic Acid 1.13 mmol/L (0.60-1.99) 03/05/18 14:50 Calcium 9.8 mg/dL (8.6-10.3) 03/05/18 14:50 Total Bilirubin 0.4 mg/dL (0.3-1.0) 03/05/18 14:50 AST 16 U/L (13-39) 03/05/18 14:50 ALT 21 U/L (7-52) 03/05/18 14:50 Alkaline Phosphatase 58 U/L (34-104) 03/05/18 14:50 Creatine Kinase 27 U/L (30-223) L 03/05/18 14:50 Troponin I 0.01 ng/mL (0.01-0.05) 03/05/18 14:50 Total Protein 6.5 gm/dL (6.0-8.3) 03/05/18 14:50 Albumin 4.1 gm/dL (4.2-5.5) L 03/05/18 14:50 Globulin 2.4 gm/dL 03/05/18 14:50 Albumin/Globulin Ratio 1.7 (1.0-1.8) 03/05/18 14:50 TSH 1.03 uIU/ml (0.34-5.60) 03/05/18 14:50 Urine Source MIDSTREAM 03/05/18 14:30 Urine Color YELLOW 03/05/18 14:30 Urine Clarity CLEAR (CLEAR) 03/05/18 14:30 Urine pH 7.0 (4.6 - 8.0) 03/05/18 14:30 Ur Specific [place] 1.010 (1.005-1.030) 03/05/18 14:30 Urine Protein NEGATIVE mg/dL (NEGATIVE) 03/05/18 14:30 Urine Glucose (UA) NEGATIVE mg/dL (NEGATIVE) 03/05/18 14:30 Urine Ketones NEGATIVE mg/dL (NEGATIVE) 03/05/18 14:30 Urine Blood NEGATIVE (NEGATIVE) 03/05/18 14:30 Urine Nitrate NEGATIVE (NEGATIVE) 03/05/18 14:30 Urine Bilirubin NEGATIVE (NEGATIVE) 03/05/18 14:30 Urine Urobilinogen 0.2 E.U./dL (0.2 - 1.0) 03/05/18 14:30 Ur Leukocyte Esterase NEGATIVE (NEGATIVE) 03/05/18 14:30 Urine RBC NONE SEEN /hpf (0-5) 03/05/18 14:30 Urine WBC NONE SEEN /hpf (0-5) 03/05/18 14:30 Ur Epithelial Cells NONE SEEN /lpf (FEW) 03/05/18 14:30 Urine Bacteria NONE SEEN /hpf (NONE SEEN) 03/05/18 14:30 Salicylates < 25.0 mg/L (30.0-100.0) L 03/05/18 14:50 Acetaminophen < 10.0 ug/mL (10.0-30.0) L 03/05/18 14:50 Ethyl Alcohol < 10 mg/dL (0-10) 03/05/18 14:50 RPR NONREACTIVE (NONREACTIVE) 03/05/18 14:50 - Physical Exam Vitals and I&O: Vital Signs Temp 97.7 F 03/08/18 19:56 Pulse 80 03/09/18 09:21 Resp 18 03/08/18 19:56 BP 118/76 03/09/18 09:21 Pulse Ox 93 03/08/18 19:56 Intake & Output 03/08/18 03/09/18 03/09/18 18:59 06:59 18:59 Intake Total 1640 Balance 1640 Intake: Oral 1640 Other: # Voids 2 # Bowel Movements 0 Active Medications: Current Medications Acetaminophen (Tylenol) 350 mg PO Q12H PRN PRN Reason: Pain (Mild) Stop: 05/05/18 07:22 Last Admin: 03/08/18 20:39 Dose: 350 mg Aspirin (Ecotrin) 81 mg PO DAILY [facility] Stop: 05/05/18 08:59 Last Admin: 03/09/18 09:20 Dose: 81 mg Benazepril HCl (Lotensin) 10 mg PO DAILY [facility] Stop: 05/05/18 08:59 Last Admin: 03/09/18 09:21 Dose: 10 mg Benztropine Mesylate (Cogentin) 1 mg PO BID [facility] Stop: 05/05/18 08:59 Last Admin: 03/09/18 09:22 Dose: 1 mg Carvedilol (Coreg) 12.5 mg PO BID [facility] Stop: 05/05/18 08:59 Last Admin: 03/09/18 09:19 Dose: 12.5 mg Cyanocobalamin (Vitamin B12) 100 mcg PO DAILY [facility] Stop: 05/05/18 08:59 Last Admin: 03/09/18 09:20 Dose: 100 mcg Furosemide (Lasix) 40 mg PO MWF [facility] Stop: 05/05/18 08:59 Last Admin: 03/08/18 09:24 Dose: 40 mg Glipizide (Glucotrol) 5 mg PO BID [facility] Stop: 05/05/18 08:59 Last Admin: 03/09/18 09:19 Dose: 5 mg Insulin Aspart (Novolog Insulin Sliding Scale) 0 units SUBQ ACHS [facility]; Protocol Stop: 05/05/18 07:29 Last Admin: 03/09/18 06:31 Dose: Not Given Insulin Detemir (Levemir Insulin) 12 units SUBQ HS [facility] Stop: 05/05/18 20:59 Last Admin: 03/08/18 20:35 Dose: 12 units Lorazepam (Ativan) 0.5 mg PO Q4HR PRN; Protocol PRN Reason: Anxiety Stop: 04/04/18 17:39 Last Admin: 03/06/18 16:38 Dose: 0.5 mg Metformin HCl (Glucophage) 1,000 mg PO BID [facility] Stop: 05/05/18 08:59 Last Admin: 03/09/18 09:21 Dose: 1,000 mg Miscellaneous (Paliperidone [Paliperidone Er]) 4.5 mg PO HS [facility] Stop: 05/05/18 20:59 Potassium Chloride (Klor-Con) 40 meq PO MWF [facility] Stop: 05/05/18 08:59 Last Admin: 03/08/18 09:23 Dose: 40 meq Quetiapine Fumarate (Seroquel) 50 mg PO BID [facility]; Protocol Stop: 05/06/18 08:59 Last Admin: 03/09/18 09:21 Dose: 50 mg Simvastatin (Zocor) 20 mg PO HS [facility]; Protocol Stop: 05/05/18 20:59 Last Admin: 03/08/18 20:22 Dose: 20 mg Zolpidem Tartrate (Ambien) 5 mg PO HS PRN PRN Reason: Insomnia Stop: 05/04/18 17:39 Last Admin: 03/08/18 20:23 Dose: 5 mg General: demented HEENT: NC/AT, PERRLA, EOMI, anicteric sclerae, throat clear Neck: Supple, No JVD, No thyromegaly, +2 carotid pulse wo bruit, No LAD, + JVD Cardiovascular: Normal S1, Normal S2, without murmur Abdomen: non-tender Extremities: clear Neurological: no change Internal Medicine Assmt/Plan - Assessment Assessment: 1.DM. 2.HTN. 3.HYPERLIPIDEMIA. 4.DEMENTIA. - Plan Plan: CONTINUE ON CURRENT MEDICATION AND DIET. Nutritional Asmnt/Malnutr-PDOC - Dietary Evaluation Malnutrition Findings (Please click <Entered> for more info): Nutritional Asmnt/Malnutrition Start: 03/08/18 15: 04 Text: Status: Complete Freq: Protocol: Document 03/08/18 15:05 CALIN (Rec: 03/08/18 15:10 CALIN [email or web address]) Nutritional Asmnt/Malnutrition Patient General Information Nutritional Screening Moderate Risk Diagnosis psychosis Pertinent Medical Hx/Surgical Hx HTN, DM, hyperlipidemia, dementia, pscyhosis Subjective Information Pt seen eating in his room, stated "I am fine". Per EMR, PO intake 75-100%. [facility]/ [facility] Pertinent Medications vit B12, lasix, glucotrol, novolog, levemir, glucophage, kcl, seroquel Pertinent Labs 03/05 BUN 27, Glucose 138, A1c 4.7, 03/06-03/08 POC 63-140 Nutritional Hx/Data Height 1.83 m Height (Calculated Centimeters) 182.9 Current Weight (lbs) 72.121 kg Weight (Calculated Kilograms) 72.1 Weight (Calculated Grams) 55825.2 [place] Body Weight 178 Body Mass Index (BMI) 21.5 Weight Status Approriate GI Symptoms GI Symptoms None Last BM none Difficult in: None Food Allergies Yes: iodine/shellfish Skin Integrity/Comment: intact Current %PO Good (75-100%) Estimated Nutritional Goals BEE in Kcals: Using Current wt Calories/Kcals/Kg 25-30 Kcals Calculated 5934-7420 Protein: Using Current wt Protein g/k Protein Calculated 72 Fluid: ml 1800-2160ml (1ml/kcal) Nutritional Problem No current Nutrition Prob Problem N/A Malnutrition Alert Is there a minimum of two criteria No selected? Query Text:Check all the applicable criteria. A minimum of two criteria are recommended for diagnosis of either severe or non-severe malnutrition. Malnutrition Related to Morbid Obesity Malnutrition related to morbid obesity No Intervention/Recommendation Comments 1. Recommend regular diet for liberalization since blood sugar WNL. Nurse notified. 2. Monitor PO intake, wt, labs and skin integrity 3. F/U as low risk in 7days, Expected Outcomes/Goals Expected Outcomes/Goals 1. PO intake to meet at least 75% of nutritional needs. 2. Wt stability, skin to remain intact, labs to approach WNL.
--- NOTE | 2018-03-09 20:29 | Progress Notes ---
DATE: 03/09/[address] Joseph. Case was discussed with staff of the patient, reviewed records. This is a 62-year-old male who was referred from [facility] because of agitation and aggressive behavior, has not been cooperative with the staff, angry, irritable, and unable to follow direction with a history of schizophrenia. No substance abuse. The patient continues to be irritable, continues to have poor insight, continues to be unable to follow directions, easily agitated, angry, demanding, needing redirection. His current medications include Seroquel 50 mg twice a day and that was increased yesterday with no side effects, no sedation, no nausea, no extrapyramidal symptoms and Cogentin 1 mg twice a day. He is also on benazepril, aspirin, insulin, metformin, potassium chloride. No side effects from the medication, no sedation, no nausea, no extrapyramidal symptoms. We will continue outpatient group therapy, milieu therapy, and adjust to the medications as needed. JOB# [id number]
[2018-03-09] MEDS: Insulin Detemir 100 units/mL 10mL Vial SUBQ SCH (20:59)
--- NOTE | 2018-03-10 03:20 | Progress Notes ---
DATE: 03/08/2018 SUBJECTIVE: Chart reviewed and the patient interviewed. Also discussed the patient's condition with the staff and reviewed records and labs. The patient is still easily agitated and is still have unpredictable behavior. The patient also is still in angry and in irritable mood. He also is still anxious and needs lots of redirections. ASSESSMENT: The patient is still agitated and psychotic. TREATMENT PLAN: Continue monitoring his behavior and his condition closely. We will continue Seroquel 50 mg twice a day. Also, continue monitoring his behavior and work on behavioral modification. JOB# [id number]
[2018-03-10] MEDS: INSULIN ASPART SLIDING SCALE 100 UNITS/ML UNIT SUBQ SCH ×4 (06:37→20:57)
[2018-03-10] MEDS: Benztropine 1 MG TAB PO SCH ×2 (09:14→17:37)
--- NOTE | 2018-03-10 13:35 | Internal Medicine Prog Note ---
Internal Medicine Subjective - Subjective Service Date: 03/10/18 Patient seen and examined:: with staff Patient is:: awake, verbal, silke chair, talking Per staff patient has:: no adverse event Internal Medicine Objective - Results Result Diagrams: 03/05/18 14:50 03/05/18 14:50 Recent Labs: Laboratory Last Values WBC 7.3 Th/cmm (4.8-10.8) 03/05/18 14:50 RBC 3.63 Mil/cmm (4.30-5.70) L 03/05/18 14:50 Hgb 10.6 gm/dL (12-16) L 03/05/18 14:50 Hct 31.5 % (41.0-60) L 03/05/18 14:50 MCV 86.8 fl (80-99) 03/05/18 14:50 MCH 29.1 pg (26.0-30.0) 03/05/18 14:50 MCHC Differential 33.6 pg (28.0-36.0) 03/05/18 14:50 RDW 13.7 % (11.5-20.0) 03/05/18 14:50 Plt Count 207 Th/cmm (150-400) 03/05/18 14:50 MPV 8.6 fl 03/05/18 14:50 Neutrophils % 70.6 % (40.0-80.0) 03/05/18 14:50 Lymphocytes % 18.7 % (20.0-50.0) L 03/05/18 14:50 Monocytes % 7.6 % (2.0-10.0) 03/05/18 14:50 Eosinophils % 2.4 % (0.0-5.0) 03/05/18 14:50 Basophils % 0.7 % (0.0-2.0) 03/05/18 14:50 PT 11.0 SECONDS (9.5-11.5) 03/05/18 14:50 INR 1.06 (0.5-1.4) 03/05/18 14:50 PTT (Actin FS) 28.3 SECONDS (26.0-38.0) 03/05/18 14:50 Sodium 137 mEq/L (136-145) 03/05/18 14:50 Potassium 4.5 mEq/L (3.5-5.1) 03/05/18 14:50 Chloride 104 mEq/L (98-107) 03/05/18 14:50 Carbon Dioxide 26.7 mEq/L (21.0-31.0) 03/05/18 14:50 Anion Gap 10.8 (7.0-16.0) 03/05/18 14:50 BUN 27 mg/dL (7-25) H 03/05/18 14:50 Creatinine 1.0 mg/dL (0.7-1.3) 03/05/18 14:50 Est GFR ( Amer) > 60.0 ml/min (>90) 03/05/18 14:50 Est GFR (Non-Af Amer) > 60.0 ml/min 03/05/18 14:50 BUN/Creatinine Ratio 27.0 03/05/18 14:50 Glucose 138 mg/dL (70-105) H 03/05/18 14:50 POC Glucose 89 MG/DL (70 - 105) 03/10/18 06:26 Hemoglobin A1c % 4.7 % (4.0-6.0) 03/05/18 14:50 Whole Bld Lactic Acid 1.13 mmol/L (0.60-1.99) 03/05/18 14:50 Calcium 9.8 mg/dL (8.6-10.3) 03/05/18 14:50 Total Bilirubin 0.4 mg/dL (0.3-1.0) 03/05/18 14:50 AST 16 U/L (13-39) 03/05/18 14:50 ALT 21 U/L (7-52) 03/05/18 14:50 Alkaline Phosphatase 58 U/L (34-104) 03/05/18 14:50 Creatine Kinase 27 U/L (30-223) L 03/05/18 14:50 Troponin I 0.01 ng/mL (0.01-0.05) 03/05/18 14:50 Total Protein 6.5 gm/dL (6.0-8.3) 03/05/18 14:50 Albumin 4.1 gm/dL (4.2-5.5) L 03/05/18 14:50 Globulin 2.4 gm/dL 03/05/18 14:50 Albumin/Globulin Ratio 1.7 (1.0-1.8) 03/05/18 14:50 TSH 1.03 uIU/ml (0.34-5.60) 03/05/18 14:50 Urine Source MIDSTREAM 03/05/18 14:30 Urine Color YELLOW 03/05/18 14:30 Urine Clarity CLEAR (CLEAR) 03/05/18 14:30 Urine pH 7.0 (4.6 - 8.0) 03/05/18 14:30 Ur Specific [place] 1.010 (1.005-1.030) 03/05/18 14:30 Urine Protein NEGATIVE mg/dL (NEGATIVE) 03/05/18 14:30 Urine Glucose (UA) NEGATIVE mg/dL (NEGATIVE) 03/05/18 14:30 Urine Ketones NEGATIVE mg/dL (NEGATIVE) 03/05/18 14:30 Urine Blood NEGATIVE (NEGATIVE) 03/05/18 14:30 Urine Nitrate NEGATIVE (NEGATIVE) 03/05/18 14:30 Urine Bilirubin NEGATIVE (NEGATIVE) 03/05/18 14:30 Urine Urobilinogen 0.2 E.U./dL (0.2 - 1.0) 03/05/18 14:30 Ur Leukocyte Esterase NEGATIVE (NEGATIVE) 03/05/18 14:30 Urine RBC NONE SEEN /hpf (0-5) 03/05/18 14:30 Urine WBC NONE SEEN /hpf (0-5) 03/05/18 14:30 Ur Epithelial Cells NONE SEEN /lpf (FEW) 03/05/18 14:30 Urine Bacteria NONE SEEN /hpf (NONE SEEN) 03/05/18 14:30 Salicylates < 25.0 mg/L (30.0-100.0) L 03/05/18 14:50 Acetaminophen < 10.0 ug/mL (10.0-30.0) L 03/05/18 14:50 Ethyl Alcohol < 10 mg/dL (0-10) 03/05/18 14:50 RPR NONREACTIVE (NONREACTIVE) 03/05/18 14:50 - Physical Exam Vitals and I&O: Vital Signs Temp 98.1 F 03/09/18 17:38 Pulse 65 03/10/18 09:14 Resp 18 03/10/18 08:00 BP 149/78 03/10/18 09:14 Pulse Ox 99 03/09/18 17:38 Intake & Output 03/09/18 03/10/18 03/10/18 18:59 06:59 18:59 Intake Total 1560 Balance 1560 Intake: Oral 1560 Other: # Voids 3 # Bowel Movements 1 Active Medications: Current Medications Acetaminophen (Tylenol) 350 mg PO Q12H PRN PRN Reason: Pain (Mild) Stop: 05/05/18 07:22 Last Admin: 03/08/18 20:39 Dose: 350 mg Aspirin (Ecotrin) 81 mg PO DAILY [facility] Stop: 05/05/18 08:59 Last Admin: 03/10/18 09:13 Dose: 81 mg Benazepril HCl (Lotensin) 10 mg PO DAILY [facility] Stop: 05/05/18 08:59 Last Admin: 03/10/18 09:14 Dose: 10 mg Benztropine Mesylate (Cogentin) 1 mg PO BID [facility] Stop: 05/05/18 08:59 Last Admin: 03/10/18 09:14 Dose: 1 mg Carvedilol (Coreg) 12.5 mg PO BID [facility] Stop: 05/05/18 08:59 Last Admin: 03/10/18 09:14 Dose: 12.5 mg Cyanocobalamin (Vitamin B12) 100 mcg PO DAILY [facility] Stop: 05/05/18 08:59 Last Admin: 03/10/18 09:14 Dose: 100 mcg Furosemide (Lasix) 40 mg PO MWF [facility] Stop: 05/05/18 08:59 Last Admin: 03/08/18 09:24 Dose: 40 mg Glipizide (Glucotrol) 5 mg PO BID [facility] Stop: 05/05/18 08:59 Last Admin: 03/10/18 09:13 Dose: 5 mg Insulin Aspart (Novolog Insulin Sliding Scale) 0 units SUBQ ACHS [facility]; Protocol Stop: 05/05/18 07:29 Last Admin: 03/10/18 12:04 Dose: Not Given Insulin Detemir (Levemir Insulin) 12 units SUBQ HS [facility] Stop: 05/05/18 20:59 Last Admin: 03/09/18 20:59 Dose: 12 units Lorazepam (Ativan) 0.5 mg PO Q4HR PRN; Protocol PRN Reason: Anxiety Stop: 04/04/18 17:39 Last Admin: 03/06/18 16:38 Dose: 0.5 mg Metformin HCl (Glucophage) 1,000 mg PO BID [facility] Stop: 05/05/18 08:59 Last Admin: 03/10/18 09:14 Dose: 1,000 mg Miscellaneous (Paliperidone [Paliperidone Er]) 4.5 mg PO HS [facility] Stop: 05/05/18 20:59 Potassium Chloride (Klor-Con) 40 meq PO MWF [facility] Stop: 05/05/18 08:59 Last Admin: 03/08/18 09:23 Dose: 40 meq Quetiapine Fumarate (Seroquel) 50 mg PO BID [facility]; Protocol Stop: 05/06/18 08:59 Last Admin: 03/10/18 09:13 Dose: 50 mg Simvastatin (Zocor) 20 mg PO HS [facility]; Protocol Stop: 05/05/18 20:59 Last Admin: 03/09/18 20:53 Dose: 20 mg Zolpidem Tartrate (Ambien) 5 mg PO HS PRN PRN Reason: Insomnia Stop: 05/04/18 17:39 Last Admin: 03/09/18 20:53 Dose: 5 mg General: demented HEENT: NC/AT, PERRLA, EOMI, anicteric sclerae, throat clear Neck: Supple, No JVD, No thyromegaly, +2 carotid pulse wo bruit, No LAD, + JVD Cardiovascular: Normal S1, Normal S2, without murmur Abdomen: non-tender Extremities: clear Neurological: no change Internal Medicine Assmt/Plan - Assessment Assessment: 1.DM. 2.HTN. 3.HYPERLIPIDEMIA. 4.DEMENTIA. - Plan Plan: CONTINUE ON CURRENT MEDICATION AND DIET. Nutritional Asmnt/Malnutr-PDOC - Dietary Evaluation Malnutrition Findings (Please click <Entered> for more info): Nutritional Asmnt/Malnutrition Start: 03/08/18 15: 04 Text: Status: Complete Freq: Protocol: Document 03/08/18 15:05 [email or web address] (Rec: 03/08/18 15:10 CALIN [email or web address]) Nutritional Asmnt/Malnutrition Patient General Information Nutritional Screening Moderate Risk Diagnosis psychosis Pertinent Medical Hx/Surgical Hx HTN, DM, hyperlipidemia, dementia, pscyhosis Subjective Information Pt seen eating in his room, stated "I am fine". Per EMR, PO intake 75-100%. Current Diet Order/ Nutrition Support CCHO-60gm Pertinent Medications vit B12, lasix, glucotrol, novolog, levemir, glucophage, kcl, seroquel Pertinent Labs 03/05 BUN 27, Glucose 138, A1c 4.7, 03/06-03/08 POC 63-140 Nutritional Hx/Data Height 1.83 m Height (Calculated Centimeters) 182.9 Current Weight (lbs) 72.121 kg Weight (Calculated Kilograms) 72.1 Weight (Calculated Grams) 45073.2 [place] Body Weight 178 Body Mass Index (BMI) 21.5 Weight Status Approriate GI Symptoms GI Symptoms None Last BM none Difficult in: None Food Allergies Yes: iodine/shellfish Skin Integrity/Comment: intact Current %PO Good (75-100%) Estimated Nutritional Goals BEE in Kcals: Using Current wt Calories/Kcals/Kg 25-30 Kcals Calculated 8369-8121 Protein: Using Current wt Protein g/k Protein Calculated 72 Fluid: ml 1800-2160ml (1ml/kcal) Nutritional Problem No current Nutrition Prob Problem N/A Malnutrition Alert Is there a minimum of two criteria No selected? Query Text:Check all the applicable criteria. A minimum of two criteria are recommended for diagnosis of either severe or non-severe malnutrition. Malnutrition Related to Morbid Obesity Malnutrition related to morbid obesity No Intervention/Recommendation Comments 1. Recommend regular diet for liberalization since blood sugar WNL. Nurse notified. 2. Monitor PO intake, wt, labs and skin integrity 3. F/U as low risk in 7days, Expected Outcomes/Goals Expected Outcomes/Goals 1. PO intake to meet at least 75% of nutritional needs. 2. Wt stability, skin to remain intact, labs to approach WNL.
--- NOTE | 2018-03-10 20:23 | Progress Notes ---
DATE: 03/10/[address] Joseph. SUBJECTIVE: Case discussed with staff of the patient, reviewed records. The patient continues to be uncooperative, continues to have poor insight, continue to have episodes of agitation and irritability, unable to follow staff directions, very poor insight. Continues to be demanding at times, needing redirection. MEDICATIONS: Reviewed. He is compliant with the medication with no side effects, no sedation, no nausea, no extrapyramidal symptoms. He is a high fall risk because of his age, medication. We will continue to work with the patient in group therapy, milieu therapy, and adjust the medication as needed. JOB# [id number]
[2018-03-10] MEDS: Insulin Detemir 100 units/mL 10mL Vial SUBQ SCH (20:58)
[2018-03-11] MEDS: INSULIN ASPART SLIDING SCALE 100 UNITS/ML UNIT SUBQ SCH ×4 (06:35→21:15)
--- NOTE | 2018-03-11 07:01 | Progress Notes ---
DATE: 03/11/2018 SUBJECTIVE: Chart reviewed and the patient interviewed. Also discussed the patient's condition with the staff and reviewed records and labs. The patient is still depressed and is still selectively mute. Also, labile affect. The patient also is unpredictable, but he seems to be calmer than before. The patient denies any side effects of Seroquel. ASSESSMENT: The patient is still psychotic and depressed. TREATMENT PLAN: Continue to monitor his behavior and his condition closely. Also, continue Seroquel 50 mg twice a day and continue adjusting psychotropic medications and follow up closely. JOB# [id number]
[2018-03-11] MEDS: Potassium Chloride 20 mEq ER Tab PO SCH (09:25)
[2018-03-11] MEDS: Benztropine 1 MG TAB PO SCH ×2 (09:26→17:59)
--- NOTE | 2018-03-11 18:20 | Internal Medicine Prog Note ---
Internal Medicine Subjective - Subjective Service Date: 03/11/18 Patient seen and examined:: with staff Patient is:: awake, verbal, silke chair, talking Per staff patient has:: no adverse event Internal Medicine Objective - Results Result Diagrams: 03/05/18 14:50 03/05/18 14:50 Recent Labs: Laboratory Last Values WBC 7.3 Th/cmm (4.8-10.8) 03/05/18 14:50 RBC 3.63 Mil/cmm (4.30-5.70) L 03/05/18 14:50 Hgb 10.6 gm/dL (12-16) L 03/05/18 14:50 Hct 31.5 % (41.0-60) L 03/05/18 14:50 MCV 86.8 fl (80-99) 03/05/18 14:50 MCH 29.1 pg (26.0-30.0) 03/05/18 14:50 MCHC Differential 33.6 pg (28.0-36.0) 03/05/18 14:50 RDW 13.7 % (11.5-20.0) 03/05/18 14:50 Plt Count 207 Th/cmm (150-400) 03/05/18 14:50 MPV 8.6 fl 03/05/18 14:50 Neutrophils % 70.6 % (40.0-80.0) 03/05/18 14:50 Lymphocytes % 18.7 % (20.0-50.0) L 03/05/18 14:50 Monocytes % 7.6 % (2.0-10.0) 03/05/18 14:50 Eosinophils % 2.4 % (0.0-5.0) 03/05/18 14:50 Basophils % 0.7 % (0.0-2.0) 03/05/18 14:50 PT 11.0 SECONDS (9.5-11.5) 03/05/18 14:50 INR 1.06 (0.5-1.4) 03/05/18 14:50 PTT (Actin FS) 28.3 SECONDS (26.0-38.0) 03/05/18 14:50 Sodium 137 mEq/L (136-145) 03/05/18 14:50 Potassium 4.5 mEq/L (3.5-5.1) 03/05/18 14:50 Chloride 104 mEq/L (98-107) 03/05/18 14:50 Carbon Dioxide 26.7 mEq/L (21.0-31.0) 03/05/18 14:50 Anion Gap 10.8 (7.0-16.0) 03/05/18 14:50 BUN 27 mg/dL (7-25) H 03/05/18 14:50 Creatinine 1.0 mg/dL (0.7-1.3) 03/05/18 14:50 Est GFR ( Amer) > 60.0 ml/min (>90) 03/05/18 14:50 Est GFR (Non-Af Amer) > 60.0 ml/min 03/05/18 14:50 BUN/Creatinine Ratio 27.0 03/05/18 14:50 Glucose 138 mg/dL (70-105) H 03/05/18 14:50 POC Glucose 85 MG/DL (70 - 105) 03/11/18 06:14 Hemoglobin A1c % 4.7 % (4.0-6.0) 03/05/18 14:50 Whole Bld Lactic Acid 1.13 mmol/L (0.60-1.99) 03/05/18 14:50 Calcium 9.8 mg/dL (8.6-10.3) 03/05/18 14:50 Total Bilirubin 0.4 mg/dL (0.3-1.0) 03/05/18 14:50 AST 16 U/L (13-39) 03/05/18 14:50 ALT 21 U/L (7-52) 03/05/18 14:50 Alkaline Phosphatase 58 U/L (34-104) 03/05/18 14:50 Creatine Kinase 27 U/L (30-223) L 03/05/18 14:50 Troponin I 0.01 ng/mL (0.01-0.05) 03/05/18 14:50 Total Protein 6.5 gm/dL (6.0-8.3) 03/05/18 14:50 Albumin 4.1 gm/dL (4.2-5.5) L 03/05/18 14:50 Globulin 2.4 gm/dL 03/05/18 14:50 Albumin/Globulin Ratio 1.7 (1.0-1.8) 03/05/18 14:50 TSH 1.03 uIU/ml (0.34-5.60) 03/05/18 14:50 Urine Source MIDSTREAM 03/05/18 14:30 Urine Color YELLOW 03/05/18 14:30 Urine Clarity CLEAR (CLEAR) 03/05/18 14:30 Urine pH 7.0 (4.6 - 8.0) 03/05/18 14:[address] 1.010 (1.005-1.030) 03/05/18 14:30 Urine Protein NEGATIVE mg/dL (NEGATIVE) 03/05/18 14:30 Urine Glucose (UA) NEGATIVE mg/dL (NEGATIVE) 03/05/18 14:30 Urine Ketones NEGATIVE mg/dL (NEGATIVE) 03/05/18 14:30 Urine Blood NEGATIVE (NEGATIVE) 03/05/18 14:30 Urine Nitrate NEGATIVE (NEGATIVE) 03/05/18 14:30 Urine Bilirubin NEGATIVE (NEGATIVE) 03/05/18 14:30 Urine Urobilinogen 0.2 E.U./dL (0.2 - 1.0) 03/05/18 14:30 Ur Leukocyte Esterase NEGATIVE (NEGATIVE) 03/05/18 14:30 Urine RBC NONE SEEN /hpf (0-5) 03/05/18 14:30 Urine WBC NONE SEEN /hpf (0-5) 03/05/18 14:30 Ur Epithelial Cells NONE SEEN /lpf (FEW) 03/05/18 14:30 Urine Bacteria NONE SEEN /hpf (NONE SEEN) 03/05/18 14:30 Salicylates < 25.0 mg/L (30.0-100.0) L 03/05/18 14:50 Acetaminophen < 10.0 ug/mL (10.0-30.0) L 03/05/18 14:50 Ethyl Alcohol < 10 mg/dL (0-10) 03/05/18 14:50 RPR NONREACTIVE (NONREACTIVE) 03/05/18 14:50 - Physical Exam Vitals and I&O: Vital Signs Temp 98.3 F 03/11/18 14:33 Pulse 68 03/11/18 14:33 Resp 20 03/11/18 14:33 BP 127/68 03/11/18 14:33 Pulse Ox 97 03/11/18 14:33 Intake & Output 03/10/18 03/11/18 03/11/18 18:59 06:59 18:59 Intake Total 1300 420 Balance 1300 420 Intake: Oral 1300 420 Other: # Voids 3 2 # Bowel Movements 0 0 Active Medications: Current Medications Acetaminophen (Tylenol) 350 mg PO Q12H PRN PRN Reason: Pain (Mild) Stop: 05/05/18 07:22 Last Admin: 03/08/18 20:39 Dose: 350 mg Aspirin (Ecotrin) 81 mg PO DAILY [facility] Stop: 05/05/18 08:59 Last Admin: 03/11/18 09:25 Dose: 81 mg Benazepril HCl (Lotensin) 10 mg PO DAILY [facility] Stop: 05/05/18 08:59 Last Admin: 03/11/18 09:25 Dose: Not Given Benztropine Mesylate (Cogentin) 1 mg PO BID [facility] Stop: 05/05/18 08:59 Last Admin: 03/11/18 17:59 Dose: Not Given Carvedilol (Coreg) 12.5 mg PO BID [facility] Stop: 05/05/18 08:59 Last Admin: 03/11/18 17:59 Dose: Not Given Cyanocobalamin (Vitamin B12) 100 mcg PO DAILY [facility] Stop: 05/05/18 08:59 Last Admin: 03/11/18 09:25 Dose: 100 mcg Furosemide (Lasix) 40 mg PO MWF [facility] Stop: 05/05/18 08:59 Last Admin: 03/11/18 09:26 Dose: Not Given Glipizide (Glucotrol) 5 mg PO BID [facility] Stop: 05/05/18 08:59 Last Admin: 03/11/18 17:59 Dose: Not Given Insulin Aspart (Novolog Insulin Sliding Scale) 0 units SUBQ ACHS [facility]; Protocol Stop: 05/05/18 07:29 Last Admin: 03/11/18 17:58 Dose: Not Given Insulin Detemir (Levemir Insulin) 12 units SUBQ HS [facility] Stop: 05/05/18 20:59 Last Admin: 03/10/18 20:58 Dose: Not Given Lorazepam (Ativan) 0.5 mg PO Q4HR PRN; Protocol PRN Reason: Anxiety Stop: 04/04/18 17:39 Last Admin: 03/06/18 16:38 Dose: 0.5 mg Metformin HCl (Glucophage) 1,000 mg PO BID [facility] Stop: 05/05/18 08:59 Last Admin: 03/11/18 17:59 Dose: Not Given Miscellaneous (Paliperidone [Paliperidone Er]) 4.5 mg PO HS [facility] Stop: 05/05/18 20:59 Potassium Chloride (Klor-Con) 40 meq PO MWF [facility] Stop: 05/05/18 08:59 Last Admin: 03/11/18 09:25 Dose: 40 meq Quetiapine Fumarate (Seroquel) 50 mg PO BID [facility]; Protocol Stop: 05/06/18 08:59 Last Admin: 03/11/18 17:59 Dose: Not Given Simvastatin (Zocor) 20 mg PO HS [facility]; Protocol Stop: 05/05/18 20:59 Last Admin: 03/10/18 20:59 Dose: 20 mg Zolpidem Tartrate (Ambien) 5 mg PO HS PRN PRN Reason: Insomnia Stop: 05/04/18 17:39 Last Admin: 03/09/18 20:53 Dose: 5 mg General: demented HEENT: NC/AT, PERRLA, EOMI, anicteric sclerae, throat clear Neck: Supple, No JVD, No thyromegaly, +2 carotid pulse wo bruit, No LAD, + JVD Cardiovascular: Normal S1, Normal S2, without murmur Abdomen: non-tender Extremities: clear Neurological: no change Internal Medicine Assmt/Plan - Assessment Assessment: 1.DM. 2.HTN. 3.HYPERLIPIDEMIA. 4.DEMENTIA. - Plan Plan: CONTINUE ON CURRENT MEDICATION AND DIET. Nutritional Asmnt/Malnutr-PDOC - Dietary Evaluation Malnutrition Findings (Please click <Entered> for more info): Nutritional Asmnt/Malnutrition Start: 03/08/18 15: 04 Text: Status: Complete Freq: Protocol: Document 03/08/18 15:05 [email or web address] (Rec: 03/08/18 15:10 CALIN OSMAN-[email or web address]) Nutritional Asmnt/Malnutrition Patient General Information Nutritional Screening Moderate Risk Diagnosis psychosis Pertinent Medical Hx/Surgical Hx HTN, DM, hyperlipidemia, dementia, pscyhosis Subjective Information Pt seen eating in his room, stated "I am fine". Per EMR, PO intake 75-100%. Current Diet Order/ [facility] Pertinent Medications vit B12, lasix, glucotrol, novolog, levemir, glucophage, kcl, seroquel Pertinent Labs 03/05 BUN 27, Glucose 138, A1c 4.7, 03/06-03/08 POC 63-140 Nutritional Hx/Data Height 1.83 m Height (Calculated Centimeters) 182.9 Current Weight (lbs) 72.121 kg Weight (Calculated Kilograms) 72.1 Weight (Calculated Grams) 52930.2 [place] Body Weight 178 Body Mass Index (BMI) 21.5 Weight Status Approriate GI Symptoms GI Symptoms None Last BM none Difficult in: None Food Allergies Yes: iodine/shellfish Skin Integrity/Comment: intact Current %PO Good (75-100%) Estimated Nutritional Goals BEE in Kcals: Using Current wt Calories/Kcals/Kg 25-30 Kcals Calculated 9708-8601 Protein: Using Current wt Protein g/k Protein Calculated 72 Fluid: ml 1800-2160ml (1ml/kcal) Nutritional Problem No current Nutrition Prob Problem N/A Malnutrition Alert Is there a minimum of two criteria No selected? Query Text:Check all the applicable criteria. A minimum of two criteria are recommended for diagnosis of either severe or non-severe malnutrition. Malnutrition Related to Morbid Obesity Malnutrition related to morbid obesity No Intervention/Recommendation Comments 1. Recommend regular diet for liberalization since blood sugar WNL. Nurse notified. 2. Monitor PO intake, wt, labs and skin integrity 3. F/U as low risk in 7days, Expected Outcomes/Goals Expected Outcomes/Goals 1. PO intake to meet at least 75% of nutritional needs. 2. Wt stability, skin to remain intact, labs to approach WNL.
--- NOTE | 2018-03-11 19:11 | Internal Medicine Prog Note ---
Internal Medicine Subjective - Subjective Service Date: 03/11/18 Patient seen and examined:: with staff Patient is:: awake, verbal, silke chair, talking Per staff patient has:: no adverse event Internal Medicine Objective - Results Result Diagrams: 03/05/18 14:50 03/05/18 14:50 Recent Labs: Laboratory Last Values WBC 7.3 Th/cmm (4.8-10.8) 03/05/18 14:50 RBC 3.63 Mil/cmm (4.30-5.70) L 03/05/18 14:50 Hgb 10.6 gm/dL (12-16) L 03/05/18 14:50 Hct 31.5 % (41.0-60) L 03/05/18 14:50 MCV 86.8 fl (80-99) 03/05/18 14:50 MCH 29.1 pg (26.0-30.0) 03/05/18 14:50 MCHC Differential 33.6 pg (28.0-36.0) 03/05/18 14:50 RDW 13.7 % (11.5-20.0) 03/05/18 14:50 Plt Count 207 Th/cmm (150-400) 03/05/18 14:50 MPV 8.6 fl 03/05/18 14:50 Neutrophils % 70.6 % (40.0-80.0) 03/05/18 14:50 Lymphocytes % 18.7 % (20.0-50.0) L 03/05/18 14:50 Monocytes % 7.6 % (2.0-10.0) 03/05/18 14:50 Eosinophils % 2.4 % (0.0-5.0) 03/05/18 14:50 Basophils % 0.7 % (0.0-2.0) 03/05/18 14:50 PT 11.0 SECONDS (9.5-11.5) 03/05/18 14:50 INR 1.06 (0.5-1.4) 03/05/18 14:50 PTT (Actin FS) 28.3 SECONDS (26.0-38.0) 03/05/18 14:50 Sodium 137 mEq/L (136-145) 03/05/18 14:50 Potassium 4.5 mEq/L (3.5-5.1) 03/05/18 14:50 Chloride 104 mEq/L (98-107) 03/05/18 14:50 Carbon Dioxide 26.7 mEq/L (21.0-31.0) 03/05/18 14:50 Anion Gap 10.8 (7.0-16.0) 03/05/18 14:50 BUN 27 mg/dL (7-25) H 03/05/18 14:50 Creatinine 1.0 mg/dL (0.7-1.3) 03/05/18 14:50 Est GFR ( Amer) > 60.0 ml/min (>90) 03/05/18 14:50 Est GFR (Non-Af Amer) > 60.0 ml/min 03/05/18 14:50 BUN/Creatinine Ratio 27.0 03/05/18 14:50 Glucose 138 mg/dL (70-105) H 03/05/18 14:50 POC Glucose 85 MG/DL (70 - 105) 03/11/18 06:14 Hemoglobin A1c % 4.7 % (4.0-6.0) 03/05/18 14:50 Whole Bld Lactic Acid 1.13 mmol/L (0.60-1.99) 03/05/18 14:50 Calcium 9.8 mg/dL (8.6-10.3) 03/05/18 14:50 Total Bilirubin 0.4 mg/dL (0.3-1.0) 03/05/18 14:50 AST 16 U/L (13-39) 03/05/18 14:50 ALT 21 U/L (7-52) 03/05/18 14:50 Alkaline Phosphatase 58 U/L (34-104) 03/05/18 14:50 Creatine Kinase 27 U/L (30-223) L 03/05/18 14:50 Troponin I 0.01 ng/mL (0.01-0.05) 03/05/18 14:50 Total Protein 6.5 gm/dL (6.0-8.3) 03/05/18 14:50 Albumin 4.1 gm/dL (4.2-5.5) L 03/05/18 14:50 Globulin 2.4 gm/dL 03/05/18 14:50 Albumin/Globulin Ratio 1.7 (1.0-1.8) 03/05/18 14:50 TSH 1.03 uIU/ml (0.34-5.60) 03/05/18 14:50 Urine Source MIDSTREAM 03/05/18 14:30 Urine Color YELLOW 03/05/18 14:30 Urine Clarity CLEAR (CLEAR) 03/05/18 14:30 Urine pH 7.0 (4.6 - 8.0) 03/05/18 14:30 Ur Specific [place] 1.010 (1.005-1.030) 03/05/18 14:30 Urine Protein NEGATIVE mg/dL (NEGATIVE) 03/05/18 14:30 Urine Glucose (UA) NEGATIVE mg/dL (NEGATIVE) 03/05/18 14:30 Urine Ketones NEGATIVE mg/dL (NEGATIVE) 03/05/18 14:30 Urine Blood NEGATIVE (NEGATIVE) 03/05/18 14:30 Urine Nitrate NEGATIVE (NEGATIVE) 03/05/18 14:30 Urine Bilirubin NEGATIVE (NEGATIVE) 03/05/18 14:30 Urine Urobilinogen 0.2 E.U./dL (0.2 - 1.0) 03/05/18 14:30 Ur Leukocyte Esterase NEGATIVE (NEGATIVE) 03/05/18 14:30 Urine RBC NONE SEEN /hpf (0-5) 03/05/18 14:30 Urine WBC NONE SEEN /hpf (0-5) 03/05/18 14:30 Ur Epithelial Cells NONE SEEN /lpf (FEW) 03/05/18 14:30 Urine Bacteria NONE SEEN /hpf (NONE SEEN) 03/05/18 14:30 Salicylates < 25.0 mg/L (30.0-100.0) L 03/05/18 14:50 Acetaminophen < 10.0 ug/mL (10.0-30.0) L 03/05/18 14:50 Ethyl Alcohol < 10 mg/dL (0-10) 03/05/18 14:50 RPR NONREACTIVE (NONREACTIVE) 03/05/18 14:50 - Physical Exam Vitals and I&O: Vital Signs Temp 98.3 F 03/11/18 14:33 Pulse 68 03/11/18 14:33 Resp 20 03/11/18 14:33 BP 127/68 03/11/18 14:33 Pulse Ox 97 03/11/18 14:33 Intake & Output 03/11/18 03/11/18 03/12/18 06:59 18:59 06:59 Intake Total 420 1300 Balance 420 1300 Intake: Oral 420 1300 Other: # Voids 2 4 # Bowel Movements 0 0 Active Medications: Current Medications Acetaminophen (Tylenol) 350 mg PO Q12H PRN PRN Reason: Pain (Mild) Stop: 05/05/18 07:22 Last Admin: 03/08/18 20:39 Dose: 350 mg Aspirin (Ecotrin) 81 mg PO DAILY [facility] Stop: 05/05/18 08:59 Last Admin: 03/11/18 09:25 Dose: 81 mg Benazepril HCl (Lotensin) 10 mg PO DAILY [facility] Stop: 05/05/18 08:59 Last Admin: 03/11/18 09:25 Dose: Not Given Benztropine Mesylate (Cogentin) 1 mg PO BID [facility] Stop: 05/05/18 08:59 Last Admin: 03/11/18 17:59 Dose: Not Given Carvedilol (Coreg) 12.5 mg PO BID [facility] Stop: 05/05/18 08:59 Last Admin: 03/11/18 17:59 Dose: Not Given Cyanocobalamin (Vitamin B12) 100 mcg PO DAILY [facility] Stop: 05/05/18 08:59 Last Admin: 03/11/18 09:25 Dose: 100 mcg Furosemide (Lasix) 40 mg PO MWF [facility] Stop: 05/05/18 08:59 Last Admin: 03/11/18 09:26 Dose: Not Given Glipizide (Glucotrol) 5 mg PO BID [facility] Stop: 05/05/18 08:59 Last Admin: 03/11/18 17:59 Dose: Not Given Insulin Aspart (Novolog Insulin Sliding Scale) 0 units SUBQ ACHS [facility]; Protocol Stop: 05/05/18 07:29 Last Admin: 03/11/18 17:58 Dose: Not Given Insulin Detemir (Levemir Insulin) 12 units SUBQ HS [facility] Stop: 05/05/18 20:59 Last Admin: 03/10/18 20:58 Dose: Not Given Lorazepam (Ativan) 0.5 mg PO Q4HR PRN; Protocol PRN Reason: Anxiety Stop: 04/04/18 17:39 Last Admin: 03/06/18 16:38 Dose: 0.5 mg Metformin HCl (Glucophage) 1,000 mg PO BID [facility] Stop: 05/05/18 08:59 Last Admin: 03/11/18 17:59 Dose: Not Given Miscellaneous (Paliperidone [Paliperidone Er]) 4.5 mg PO HS [facility] Stop: 05/05/18 20:59 Potassium Chloride (Klor-Con) 40 meq PO MWF [facility] Stop: 05/05/18 08:59 Last Admin: 03/11/18 09:25 Dose: 40 meq Quetiapine Fumarate (Seroquel) 50 mg PO BID [facility]; Protocol Stop: 05/06/18 08:59 Last Admin: 03/11/18 17:59 Dose: Not Given Simvastatin (Zocor) 20 mg PO HS [facility]; Protocol Stop: 05/05/18 20:59 Last Admin: 03/10/18 20:59 Dose: 20 mg Zolpidem Tartrate (Ambien) 5 mg PO HS PRN PRN Reason: Insomnia Stop: 05/04/18 17:39 Last Admin: 03/09/18 20:53 Dose: 5 mg General: demented HEENT: NC/AT, PERRLA, EOMI, anicteric sclerae, throat clear Neck: Supple, No JVD, No thyromegaly, +2 carotid pulse wo bruit, No LAD, + JVD Cardiovascular: Normal S1, Normal S2, without murmur Abdomen: non-tender Extremities: clear Neurological: no change Internal Medicine Assmt/Plan - Assessment Assessment: 1.DM. 2.HTN. 3.HYPERLIPIDEMIA. 4.DEMENTIA. - Plan Plan: CONTINUE ON CURRENT MEDICATION AND DIET. Nutritional Asmnt/Malnutr-PDOC - Dietary Evaluation Malnutrition Findings (Please click <Entered> for more info): Nutritional Asmnt/Malnutrition Start: 03/08/18 15: 04 Text: Status: Complete Freq: Protocol: Document 03/08/18 15:05 [email or web address] (Rec: 03/08/18 15:10 CALIN [email or web address]) Nutritional Asmnt/Malnutrition Patient General Information Nutritional Screening Moderate Risk Diagnosis psychosis Pertinent Medical Hx/Surgical Hx HTN, DM, hyperlipidemia, dementia, pscyhosis Subjective Information Pt seen eating in his room, stated "I am fine". Per EMR, PO intake 75-100%. Current Diet Order/ Nutrition [facility] Pertinent Medications vit B12, lasix, glucotrol, novolog, levemir, glucophage, kcl, seroquel Pertinent Labs 03/05 BUN 27, Glucose 138, A1c 4.7, 03/06-03/08 POC 63-140 Nutritional Hx/Data Height 1.83 m Height (Calculated Centimeters) 182.9 Current Weight (lbs) 72.121 kg Weight (Calculated Kilograms) 72.1 Weight (Calculated Grams) 25131.2 [place] Body Weight 178 Body Mass Index (BMI) 21.5 Weight Status Approriate GI Symptoms GI Symptoms None Last BM none Difficult in: None Food Allergies Yes: iodine/shellfish Skin Integrity/Comment: intact Current %PO Good (75-100%) Estimated Nutritional Goals BEE in Kcals: Using Current wt Calories/Kcals/Kg 25-30 Kcals Calculated 8656-9821 Protein: Using Current wt Protein g/k Protein Calculated 72 Fluid: ml 1800-2160ml (1ml/kcal) Nutritional Problem No current Nutrition Prob Problem N/A Malnutrition Alert Is there a minimum of two criteria No selected? Query Text:Check all the applicable criteria. A minimum of two criteria are recommended for diagnosis of either severe or non-severe malnutrition. Malnutrition Related to Morbid Obesity Malnutrition related to morbid obesity No Intervention/Recommendation Comments 1. Recommend regular diet for liberalization since blood sugar WNL. Nurse notified. 2. Monitor PO intake, wt, labs and skin integrity 3. F/U as low risk in 7days, Expected Outcomes/Goals Expected Outcomes/Goals 1. PO intake to meet at least 75% of nutritional needs. 2. Wt stability, skin to remain intact, labs to approach WNL.
[2018-03-11] MEDS: Insulin Detemir 100 units/mL 10mL Vial SUBQ SCH (21:16)
[2018-03-12] MEDS: INSULIN ASPART SLIDING SCALE 100 UNITS/ML UNIT SUBQ SCH ×4 (06:44→21:32)
--- NOTE | 2018-03-12 07:26 | Progress Notes ---
DATE: SUBJECTIVE: Chart reviewed and the patient interviewed. Also discussed the patient's condition with the staff and reviewed records and labs. The patient is still depressed and is still withdrawn. Also, is still selectively mute. The patient also is guarded and he is not communicating much. Also, still needs support and continue to work on his ineffective coping. Also, according to staff, he is at times easily agitated. On the other hand, the patient continued to comply with taking his medications with no side effect of medications. ASSESSMENT: The patient is still depressed and needs more support and working on his ineffective coping. TREATMENT PLAN: Continue monitoring his medications and continue to work on his ineffective coping and followup. JOB# [id number]
[2018-03-12] MEDS: Benztropine 1 MG TAB PO SCH ×2 (09:02→17:02)
--- NOTE | 2018-03-12 21:31 | Internal Medicine Prog Note ---
Internal Medicine Subjective - Subjective Service Date: 03/12/18 Patient seen and examined:: with staff Patient is:: awake, verbal, silke chair, talking Per staff patient has:: no adverse event Internal Medicine Objective - Results Result Diagrams: 03/05/18 14:50 03/05/18 14:50 Recent Labs: Laboratory Last Values WBC 7.3 Th/cmm (4.8-10.8) 03/05/18 14:50 RBC 3.63 Mil/cmm (4.30-5.70) L 03/05/18 14:50 Hgb 10.6 gm/dL (12-16) L 03/05/18 14:50 Hct 31.5 % (41.0-60) L 03/05/18 14:50 MCV 86.8 fl (80-99) 03/05/18 14:50 MCH 29.1 pg (26.0-30.0) 03/05/18 14:50 MCHC Differential 33.6 pg (28.0-36.0) 03/05/18 14:50 RDW 13.7 % (11.5-20.0) 03/05/18 14:50 Plt Count 207 Th/cmm (150-400) 03/05/18 14:50 MPV 8.6 fl 03/05/18 14:50 Neutrophils % 70.6 % (40.0-80.0) 03/05/18 14:50 Lymphocytes % 18.7 % (20.0-50.0) L 03/05/18 14:50 Monocytes % 7.6 % (2.0-10.0) 03/05/18 14:50 Eosinophils % 2.4 % (0.0-5.0) 03/05/18 14:50 Basophils % 0.7 % (0.0-2.0) 03/05/18 14:50 PT 11.0 SECONDS (9.5-11.5) 03/05/18 14:50 INR 1.06 (0.5-1.4) 03/05/18 14:50 PTT (Actin FS) 28.3 SECONDS (26.0-38.0) 03/05/18 14:50 Sodium 137 mEq/L (136-145) 03/05/18 14:50 Potassium 4.5 mEq/L (3.5-5.1) 03/05/18 14:50 Chloride 104 mEq/L (98-107) 03/05/18 14:50 Carbon Dioxide 26.7 mEq/L (21.0-31.0) 03/05/18 14:50 Anion Gap 10.8 (7.0-16.0) 03/05/18 14:50 BUN 27 mg/dL (7-25) H 03/05/18 14:50 Creatinine 1.0 mg/dL (0.7-1.3) 03/05/18 14:50 Est GFR ( Amer) > 60.0 ml/min (>90) 03/05/18 14:50 Est GFR (Non-Af Amer) > 60.0 ml/min 03/05/18 14:50 BUN/Creatinine Ratio 27.0 03/05/18 14:50 Glucose 138 mg/dL (70-105) H 03/05/18 14:50 POC Glucose 108 MG/DL (70 - 105) H 03/12/18 20:31 Hemoglobin A1c % 4.7 % (4.0-6.0) 03/05/18 14:50 Whole Bld Lactic Acid 1.13 mmol/L (0.60-1.99) 03/05/18 14:50 Calcium 9.8 mg/dL (8.6-10.3) 03/05/18 14:50 Total Bilirubin 0.4 mg/dL (0.3-1.0) 03/05/18 14:50 AST 16 U/L (13-39) 03/05/18 14:50 ALT 21 U/L (7-52) 03/05/18 14:50 Alkaline Phosphatase 58 U/L (34-104) 03/05/18 14:50 Creatine Kinase 27 U/L (30-223) L 03/05/18 14:50 Troponin I 0.01 ng/mL (0.01-0.05) 03/05/18 14:50 Total Protein 6.5 gm/dL (6.0-8.3) 03/05/18 14:50 Albumin 4.1 gm/dL (4.2-5.5) L 03/05/18 14:50 Globulin 2.4 gm/dL 03/05/18 14:50 Albumin/Globulin Ratio 1.7 (1.0-1.8) 03/05/18 14:50 TSH 1.03 uIU/ml (0.34-5.60) 03/05/18 14:50 Urine Source MIDSTREAM 03/05/18 14:30 Urine Color YELLOW 03/05/18 14:30 Urine Clarity CLEAR (CLEAR) 03/05/18 14:30 Urine pH 7.0 (4.6 - 8.0) 03/05/18 14:30 Ur Specific [place] 1.010 (1.005-1.030) 03/05/18 14:30 Urine Protein NEGATIVE mg/dL (NEGATIVE) 03/05/18 14:30 Urine Glucose (UA) NEGATIVE mg/dL (NEGATIVE) 03/05/18 14:30 Urine Ketones NEGATIVE mg/dL (NEGATIVE) 03/05/18 14:30 Urine Blood NEGATIVE (NEGATIVE) 03/05/18 14:30 Urine Nitrate NEGATIVE (NEGATIVE) 03/05/18 14:30 Urine Bilirubin NEGATIVE (NEGATIVE) 03/05/18 14:30 Urine Urobilinogen 0.2 E.U./dL (0.2 - 1.0) 03/05/18 14:30 Ur Leukocyte Esterase NEGATIVE (NEGATIVE) 03/05/18 14:30 Urine RBC NONE SEEN /hpf (0-5) 03/05/18 14:30 Urine WBC NONE SEEN /hpf (0-5) 03/05/18 14:30 Ur Epithelial Cells NONE SEEN /lpf (FEW) 03/05/18 14:30 Urine Bacteria NONE SEEN /hpf (NONE SEEN) 03/05/18 14:30 Salicylates < 25.0 mg/L (30.0-100.0) L 03/05/18 14:50 Acetaminophen < 10.0 ug/mL (10.0-30.0) L 03/05/18 14:50 Ethyl Alcohol < 10 mg/dL (0-10) 03/05/18 14:50 RPR NONREACTIVE (NONREACTIVE) 03/05/18 14:50 - Physical Exam Vitals and I&O: Vital Signs Temp 97.8 F 03/12/18 20:10 Pulse 71 03/12/18 20:10 Resp 19 03/12/18 20:10 BP 126/68 03/12/18 20:10 Pulse Ox 97 03/12/18 20:10 Intake & Output 03/12/18 03/12/18 03/13/18 06:59 18:59 06:59 Intake Total 240 1450 240 Balance 240 1450 240 Intake: Oral 240 1450 240 Other: # Voids 2 3 1 # Bowel Movements 0 Active Medications: Current Medications Acetaminophen (Tylenol) 350 mg PO Q12H PRN PRN Reason: Pain (Mild) Stop: 05/05/18 07:22 Last Admin: 03/08/18 20:39 Dose: 350 mg Aspirin (Ecotrin) 81 mg PO DAILY [facility] Stop: 05/05/18 08:59 Last Admin: 03/12/18 09:01 Dose: 81 mg Benazepril HCl (Lotensin) 10 mg PO DAILY [facility] Stop: 05/05/18 08:59 Last Admin: 03/12/18 09:01 Dose: 10 mg Benztropine Mesylate (Cogentin) 1 mg PO BID [facility] Stop: 05/05/18 08:59 Last Admin: 03/12/18 17:02 Dose: 1 mg Carvedilol (Coreg) 12.5 mg PO BID [facility] Stop: 05/05/18 08:59 Last Admin: 03/12/18 17:02 Dose: Not Given Cyanocobalamin (Vitamin B12) 100 mcg PO DAILY [facility] Stop: 05/05/18 08:59 Last Admin: 03/12/18 09:01 Dose: 100 mcg Furosemide (Lasix) 40 mg PO MWF [facility] Stop: 05/05/18 08:59 Last Admin: 03/11/18 09:26 Dose: Not Given Glipizide (Glucotrol) 5 mg PO BID [facility] Stop: 05/05/18 08:59 Last Admin: 03/12/18 17:02 Dose: 5 mg Insulin Aspart (Novolog Insulin Sliding Scale) 0 units SUBQ ACHS [facility]; Protocol Stop: 05/05/18 07:29 Last Admin: 03/12/18 17:02 Dose: Not Given Insulin Detemir (Levemir Insulin) 12 units SUBQ HS [facility] Stop: 05/05/18 20:59 Last Admin: 03/11/18 21:16 Dose: Not Given Lorazepam (Ativan) 0.5 mg PO Q4HR PRN; Protocol PRN Reason: Anxiety Stop: 04/04/18 17:39 Last Admin: 03/06/18 16:38 Dose: 0.5 mg Metformin HCl (Glucophage) 1,000 mg PO BID [facility] Stop: 05/05/18 08:59 Last Admin: 03/12/18 17:02 Dose: 1,000 mg Miscellaneous (Paliperidone [Paliperidone Er]) 4.5 mg PO HS [facility] Stop: 05/05/18 20:59 Potassium Chloride (Klor-Con) 40 meq PO MWF [facility] Stop: 05/05/18 08:59 Last Admin: 03/11/18 09:25 Dose: 40 meq Quetiapine Fumarate (Seroquel) 50 mg PO BID [facility]; Protocol Stop: 05/06/18 08:59 Last Admin: 03/12/18 17:02 Dose: 50 mg Simvastatin (Zocor) 20 mg PO HS [facility]; Protocol Stop: 05/05/18 20:59 Last Admin: 03/11/18 21:16 Dose: 20 mg Zolpidem Tartrate (Ambien) 5 mg PO HS PRN PRN Reason: Insomnia Stop: 05/04/18 17:39 Last Admin: 03/09/18 20:53 Dose: 5 mg General: demented HEENT: NC/AT, PERRLA, EOMI, anicteric sclerae, throat clear Neck: Supple, No JVD, No thyromegaly, +2 carotid pulse wo bruit, No LAD, + JVD Cardiovascular: Normal S1, Normal S2, without murmur Abdomen: non-tender Extremities: clear Neurological: no change Internal Medicine Assmt/Plan - Assessment Assessment: 1.DM. 2.HTN. 3.HYPERLIPIDEMIA. 4.DEMENTIA. - Plan Plan: CONTINUE ON CURRENT MEDICATION AND DIET. Nutritional Asmnt/Malnutr-PDOC - Dietary Evaluation Malnutrition Findings (Please click <Entered> for more info): Nutritional Asmnt/Malnutrition Start: 03/08/18 15: 04 Text: Status: Complete Freq: Protocol: Document 03/08/18 15:05 [email or web address] (Rec: 03/08/18 15:10 [email or web address]) Nutritional Asmnt/Malnutrition Patient General Information Nutritional Screening Moderate Risk Diagnosis psychosis Pertinent Medical Hx/Surgical Hx HTN, DM, hyperlipidemia, dementia, pscyhosis Subjective Information Pt seen eating in his room, stated "I am fine". Per EMR, PO intake 75-100%. Current Diet Order/ [facility] Pertinent Medications vit B12, lasix, glucotrol, novolog, levemir, glucophage, kcl, seroquel Pertinent Labs 03/05 BUN 27, Glucose 138, A1c 4.7, 03/06-03/08 POC 63-140 Nutritional Hx/Data Height 1.83 m Height (Calculated Centimeters) 182.9 Current Weight (lbs) 72.121 kg Weight (Calculated Kilograms) 72.1 Weight (Calculated Grams) 03814.2 [place] Body Weight 178 Body Mass Index (BMI) 21.5 Weight Status Approriate GI Symptoms GI Symptoms None Last BM none Difficult in: None Food Allergies Yes: iodine/shellfish Skin Integrity/Comment: intact Current %PO Good (75-100%) Estimated Nutritional Goals BEE in Kcals: Using Current wt Calories/Kcals/Kg 25-30 Kcals Calculated 4152-9391 Protein: Using Current wt Protein g/k Protein Calculated 72 Fluid: ml 1800-2160ml (1ml/kcal) Nutritional Problem No current Nutrition Prob Problem N/A Malnutrition Alert Is there a minimum of two criteria No selected? Query Text:Check all the applicable criteria. A minimum of two criteria are recommended for diagnosis of either severe or non-severe malnutrition. Malnutrition Related to Morbid Obesity Malnutrition related to morbid obesity No Intervention/Recommendation Comments 1. Recommend regular diet for liberalization since blood sugar WNL. Nurse notified. 2. Monitor PO intake, wt, labs and skin integrity 3. F/U as low risk in 7days, Expected Outcomes/Goals Expected Outcomes/Goals 1. PO intake to meet at least 75% of nutritional needs. 2. Wt stability, skin to remain intact, labs to approach WNL.
[2018-03-12] MEDS: Insulin Detemir 100 units/mL 10mL Vial SUBQ SCH (21:32)
[2018-03-13] MEDS: INSULIN ASPART SLIDING SCALE 100 UNITS/ML UNIT SUBQ SCH ×4 (06:44→20:39)
[2018-03-13] MEDS: Potassium Chloride 20 mEq ER Tab PO SCH (08:45)
[2018-03-13] MEDS: Benztropine 1 MG TAB PO SCH ×2 (08:47→17:29)
[2018-03-13] MEDS: Insulin Detemir 100 units/mL 10mL Vial SUBQ SCH (20:40)
--- NOTE | 2018-03-13 20:55 | Internal Medicine Prog Note ---
Internal Medicine Subjective - Subjective Service Date: 03/13/18 Patient seen and examined:: with staff Patient is:: awake, verbal, silke chair, talking Per staff patient has:: no adverse event Internal Medicine Objective - Results Result Diagrams: 03/05/18 14:50 03/05/18 14:50 Recent Labs: Laboratory Last Values WBC 7.3 Th/cmm (4.8-10.8) 03/05/18 14:50 RBC 3.63 Mil/cmm (4.30-5.70) L 03/05/18 14:50 Hgb 10.6 gm/dL (12-16) L 03/05/18 14:50 Hct 31.5 % (41.0-60) L 03/05/18 14:50 MCV 86.8 fl (80-99) 03/05/18 14:50 MCH 29.1 pg (26.0-30.0) 03/05/18 14:50 MCHC Differential 33.6 pg (28.0-36.0) 03/05/18 14:50 RDW 13.7 % (11.5-20.0) 03/05/18 14:50 Plt Count 207 Th/cmm (150-400) 03/05/18 14:50 MPV 8.6 fl 03/05/18 14:50 Neutrophils % 70.6 % (40.0-80.0) 03/05/18 14:50 Lymphocytes % 18.7 % (20.0-50.0) L 03/05/18 14:50 Monocytes % 7.6 % (2.0-10.0) 03/05/18 14:50 Eosinophils % 2.4 % (0.0-5.0) 03/05/18 14:50 Basophils % 0.7 % (0.0-2.0) 03/05/18 14:50 PT 11.0 SECONDS (9.5-11.5) 03/05/18 14:50 INR 1.06 (0.5-1.4) 03/05/18 14:50 PTT (Actin FS) 28.3 SECONDS (26.0-38.0) 03/05/18 14:50 Sodium 137 mEq/L (136-145) 03/05/18 14:50 Potassium 4.5 mEq/L (3.5-5.1) 03/05/18 14:50 Chloride 104 mEq/L (98-107) 03/05/18 14:50 Carbon Dioxide 26.7 mEq/L (21.0-31.0) 03/05/18 14:50 Anion Gap 10.8 (7.0-16.0) 03/05/18 14:50 BUN 27 mg/dL (7-25) H 03/05/18 14:50 Creatinine 1.0 mg/dL (0.7-1.3) 03/05/18 14:50 Est GFR ( Amer) > 60.0 ml/min (>90) 03/05/18 14:50 Est GFR (Non-Af Amer) > 60.0 ml/min 03/05/18 14:50 BUN/Creatinine Ratio 27.0 03/05/18 14:50 Glucose 138 mg/dL (70-105) H 03/05/18 14:50 POC Glucose 75 MG/DL (70 - 105) 03/13/18 20:00 Hemoglobin A1c % 4.7 % (4.0-6.0) 03/05/18 14:50 Whole Bld Lactic Acid 1.13 mmol/L (0.60-1.99) 03/05/18 14:50 Calcium 9.8 mg/dL (8.6-10.3) 03/05/18 14:50 Total Bilirubin 0.4 mg/dL (0.3-1.0) 03/05/18 14:50 AST 16 U/L (13-39) 03/05/18 14:50 ALT 21 U/L (7-52) 03/05/18 14:50 Alkaline Phosphatase 58 U/L (34-104) 03/05/18 14:50 Creatine Kinase 27 U/L (30-223) L 03/05/18 14:50 Troponin I 0.01 ng/mL (0.01-0.05) 03/05/18 14:50 Total Protein 6.5 gm/dL (6.0-8.3) 03/05/18 14:50 Albumin 4.1 gm/dL (4.2-5.5) L 03/05/18 14:50 Globulin 2.4 gm/dL 03/05/18 14:50 Albumin/Globulin Ratio 1.7 (1.0-1.8) 03/05/18 14:50 TSH 1.03 uIU/ml (0.34-5.60) 03/05/18 14:50 Urine Source MIDSTREAM 03/05/18 14:30 Urine Color YELLOW 03/05/18 14:30 Urine Clarity CLEAR (CLEAR) 03/05/18 14:30 Urine pH 7.0 (4.6 - 8.0) 03/05/18 14:30 Ur Specific [place] 1.010 (1.005-1.030) 03/05/18 14:30 Urine Protein NEGATIVE mg/dL (NEGATIVE) 03/05/18 14:30 Urine Glucose (UA) NEGATIVE mg/dL (NEGATIVE) 03/05/18 14:30 Urine Ketones NEGATIVE mg/dL (NEGATIVE) 03/05/18 14:30 Urine Blood NEGATIVE (NEGATIVE) 03/05/18 14:30 Urine Nitrate NEGATIVE (NEGATIVE) 03/05/18 14:30 Urine Bilirubin NEGATIVE (NEGATIVE) 03/05/18 14:30 Urine Urobilinogen 0.2 E.U./dL (0.2 - 1.0) 03/05/18 14:30 Ur Leukocyte Esterase NEGATIVE (NEGATIVE) 03/05/18 14:30 Urine RBC NONE SEEN /hpf (0-5) 03/05/18 14:30 Urine WBC NONE SEEN /hpf (0-5) 03/05/18 14:30 Ur Epithelial Cells NONE SEEN /lpf (FEW) 03/05/18 14:30 Urine Bacteria NONE SEEN /hpf (NONE SEEN) 03/05/18 14:30 Salicylates < 25.0 mg/L (30.0-100.0) L 03/05/18 14:50 Acetaminophen < 10.0 ug/mL (10.0-30.0) L 03/05/18 14:50 Ethyl Alcohol < 10 mg/dL (0-10) 03/05/18 14:50 RPR NONREACTIVE (NONREACTIVE) 03/05/18 14:50 - Physical Exam Vitals and I&O: Vital Signs Temp 98.6 F 03/13/18 15:17 Pulse 80 03/13/18 17:29 Resp 19 03/13/18 15:17 BP 148/62 03/13/18 17:29 Pulse Ox 98 03/13/18 15:17 Intake & Output 03/13/18 03/13/18 03/14/18 06:59 18:59 06:59 Intake Total 360 Balance 360 Intake: Oral 360 Other: # Voids 1 # Bowel Movements 0 Active Medications: Current Medications Acetaminophen (Tylenol) 350 mg PO Q12H PRN PRN Reason: Pain (Mild) Stop: 05/05/18 07:22 Last Admin: 03/08/18 20:39 Dose: 350 mg Aspirin (Ecotrin) 81 mg PO DAILY PENDING SALE TO [facility] Stop: 05/05/18 08:59 Last Admin: 03/13/18 08:46 Dose: 81 mg Benazepril HCl (Lotensin) 10 mg PO DAILY PENDING S[facility] TO [facility] Stop: 05/05/18 08:59 Last Admin: 03/13/18 08:42 Dose: 10 mg Benztropine Mesylate (Cogentin) 1 mg PO BID PENDING SALE TO [facility] Stop: 05/05/18 08:59 Last Admin: 03/13/18 17:29 Dose: 1 mg Carvedilol (Coreg) 12.5 mg PO BID PENDING S[facility] TO [facility] Stop: 05/05/18 08:59 Last Admin: 03/13/18 17:29 Dose: 12.5 mg Cyanocobalamin (Vitamin B12) 100 mcg PO DAILY PENDING SALE TO [facility] Stop: 05/05/18 08:59 Last Admin: 03/13/18 08:41 Dose: 100 mcg Furosemide (Lasix) 40 mg PO MWF PENDING S[facility] TO [facility] Stop: 05/05/18 08:59 Last Admin: 03/13/18 08:44 Dose: 40 mg Glipizide (Glucotrol) 5 mg PO BID [facility]END[facility] TO [facility] Stop: 05/05/18 08:59 Last Admin: 03/13/18 17:29 Dose: 5 mg Insulin Aspart (Novolog Insulin Sliding Scale) 0 units SUBQ ACHS PENDING SALE TO [facility]; Protocol Stop: 05/05/18 07:29 Last Admin: 03/13/18 20:39 Dose: Not Given Insulin Detemir (Levemir Insulin) 12 units SUBQ HS [facility]END[facility] S[facility] TO [facility] Stop: 05/05/18 20:59 Last Admin: 03/13/18 20:40 Dose: Not Given Lorazepam (Ativan) 0.5 mg PO Q4HR PRN; Protocol PRN Reason: Anxiety Stop: 04/04/18 17:39 Last Admin: 03/06/18 16:38 Dose: 0.5 mg Metformin HCl (Glucophage) 1,000 mg PO BID JOSELYN Stop: 05/05/18 08:59 Last Admin: 03/13/18 17:29 Dose: 1,000 mg Miscellaneous (Paliperidone [Paliperidone Er]) 4.5 mg PO HS JOSELYN Stop: 05/05/18 20:59 Potassium Chloride (Klor-Con) 40 meq PO MWF JOSELYN Stop: 05/05/18 08:59 Last Admin: 03/13/18 08:45 Dose: 40 meq Quetiapine Fumarate (Seroquel) 75 mg PO BID JOSELYN; Protocol Stop: 05/12/18 08:59 Last Admin: 03/13/18 17:28 Dose: 75 mg Simvastatin (Zocor) 20 mg PO HS JOSELYN; Protocol Stop: 05/05/18 20:59 Last Admin: 03/13/18 20:41 Dose: 20 mg Zolpidem Tartrate (Ambien) 5 mg PO HS PRN PRN Reason: Insomnia Stop: 05/04/18 17:39 Last Admin: 03/09/18 20:53 Dose: 5 mg General: demented HEENT: NC/AT, PERRLA, EOMI, anicteric sclerae, throat clear Neck: Supple, No JVD, No thyromegaly, +2 carotid pulse wo bruit, No LAD, + JVD Cardiovascular: Normal S1, Normal S2, without murmur Abdomen: non-tender Extremities: clear Neurological: no change Internal Medicine Assmt/Plan - Assessment Assessment: 1.DM. 2.HTN. 3.HYPERLIPIDEMIA. 4.DEMENTIA. - Plan Plan: CONTINUE ON CURRENT MEDICATION AND DIET. Nutritional Asmnt/Malnutr-PDOC - Dietary Evaluation Malnutrition Findings (Please click <Entered> for more info): Nutritional Asmnt/Malnutrition Start: 03/08/18 15: 04 Text: Status: Complete Freq: Protocol: Document 03/08/18 15:05 CALIN (Rec: 03/08/18 15:10 CALIN [email or web address]) Nutritional Asmnt/Malnutrition Patient General Information Nutritional Screening Moderate Risk Diagnosis psychosis Pertinent Medical Hx/Surgical Hx HTN, DM, hyperlipidemia, dementia, pscyhosis Subjective Information Pt seen eating in his room, stated "I am fine". Per EMR, PO intake 75-100%. Current Diet Order/ Nutrition Support [facility]-60gm Pertinent Medications vit B12, lasix, glucotrol, novolog, levemir, glucophage, kcl, seroquel Pertinent Labs 03/05 BUN 27, Glucose 138, A1c 4.7, 03/06-03/08 POC 63-140 Nutritional Hx/Data Height 1.83 m Height (Calculated Centimeters) 182.9 Current Weight (lbs) 72.121 kg Weight (Calculated Kilograms) 72.1 Weight (Calculated Grams) 42992.2 [place] Body Weight 178 Body Mass Index (BMI) 21.5 Weight Status Approriate GI Symptoms GI Symptoms None Last BM none Difficult in: None Food Allergies Yes: iodine/shellfish Skin Integrity/Comment: intact Current %PO Good (75-100%) Estimated Nutritional Goals BEE in Kcals: Using Current wt Calories/Kcals/Kg 25-30 Kcals Calculated 3500-9824 Protein: Using Current wt Protein g/k Protein Calculated 72 Fluid: ml 1800-2160ml (1ml/kcal) Nutritional Problem No current Nutrition Prob Problem N/A Malnutrition Alert Is there a minimum of two criteria No selected? Query Text:Check all the applicable criteria. A minimum of two criteria are recommended for diagnosis of either severe or non-severe malnutrition. Malnutrition Related to Morbid Obesity Malnutrition related to morbid obesity No Intervention/Recommendation Comments 1. Recommend regular diet for liberalization since blood sugar WNL. Nurse notified. 2. Monitor PO intake, wt, labs and skin integrity 3. F/U as low risk in 7days, Expected Outcomes/Goals Expected Outcomes/Goals 1. PO intake to meet at least 75% of nutritional needs. 2. Wt stability, skin to remain intact, labs to approach WNL.
--- NOTE | 2018-03-14 00:58 | Progress Notes ---
DATE: 03/13/2018 SUBJECTIVE: Chart reviewed and the patient interviewed. Also discussed the patient's condition with the staff and reviewed records and labs. The patient continued to be agitated and in irritable mood. The patient also is still uncooperative with the staff and today he is refusing to get his blood drawn to check his blood sugar and also refused to take his insulin. He is easily agitated, angry mood, and still has difficulty following directions. ASSESSMENT: The patient is still agitated and psychotic. TREATMENT PLAN: Continue to monitor his behavior and his condition closely. Also, we will increase Seroquel to 75 mg at bedtime and we will continue to follow up. [facility]# [id number]
[2018-03-14] MEDS: INSULIN ASPART SLIDING SCALE 100 UNITS/ML UNIT SUBQ SCH ×2 (08:39→11:55)
[2018-03-14] MEDS: Benztropine 1 MG TAB PO SCH (08:42)
--- NOTE | 2018-03-14 17:14 | Internal Medicine Prog Note ---
Internal Medicine Subjective - Subjective Service Date: 03/14/18 Patient is:: awake, verbal, silke chair, talking Per staff patient has:: no adverse event Internal Medicine Objective - Results Result Diagrams: 03/05/18 14:50 03/05/18 14:50 Recent Labs: Laboratory Last Values WBC 7.3 Th/cmm (4.8-10.8) 03/05/18 14:50 RBC 3.63 Mil/cmm (4.30-5.70) L 03/05/18 14:50 Hgb 10.6 gm/dL (12-16) L 03/05/18 14:50 Hct 31.5 % (41.0-60) L 03/05/18 14:50 MCV 86.8 fl (80-99) 03/05/18 14:50 MCH 29.1 pg (26.0-30.0) 03/05/18 14:50 MCHC Differential 33.6 pg (28.0-36.0) 03/05/18 14:50 RDW 13.7 % (11.5-20.0) 03/05/18 14:50 Plt Count 207 Th/cmm (150-400) 03/05/18 14:50 MPV 8.6 fl 03/05/18 14:50 Neutrophils % 70.6 % (40.0-80.0) 03/05/18 14:50 Lymphocytes % 18.7 % (20.0-50.0) L 03/05/18 14:50 Monocytes % 7.6 % (2.0-10.0) 03/05/18 14:50 Eosinophils % 2.4 % (0.0-5.0) 03/05/18 14:50 Basophils % 0.7 % (0.0-2.0) 03/05/18 14:50 PT 11.0 SECONDS (9.5-11.5) 03/05/18 14:50 INR 1.06 (0.5-1.4) 03/05/18 14:50 PTT (Actin FS) 28.3 SECONDS (26.0-38.0) 03/05/18 14:50 Sodium 137 mEq/L (136-145) 03/05/18 14:50 Potassium 4.5 mEq/L (3.5-5.1) 03/05/18 14:50 Chloride 104 mEq/L (98-107) 03/05/18 14:50 Carbon Dioxide 26.7 mEq/L (21.0-31.0) 03/05/18 14:50 Anion Gap 10.8 (7.0-16.0) 03/05/18 14:50 BUN 27 mg/dL (7-25) H 03/05/18 14:50 Creatinine 1.0 mg/dL (0.7-1.3) 03/05/18 14:50 Est GFR ( Amer) > 60.0 ml/min (>90) 03/05/18 14:50 Est GFR (Non-Af Amer) > 60.0 ml/min 03/05/18 14:50 BUN/Creatinine Ratio 27.0 03/05/18 14:50 Glucose 138 mg/dL (70-105) H 03/05/18 14:50 POC Glucose 129 MG/DL (70 - 105) H 03/14/18 12:04 Hemoglobin A1c % 4.7 % (4.0-6.0) 03/05/18 14:50 Whole Bld Lactic Acid 1.13 mmol/L (0.60-1.99) 03/05/18 14:50 Calcium 9.8 mg/dL (8.6-10.3) 03/05/18 14:50 Total Bilirubin 0.4 mg/dL (0.3-1.0) 03/05/18 14:50 AST 16 U/L (13-39) 03/05/18 14:50 ALT 21 U/L (7-52) 03/05/18 14:50 Alkaline Phosphatase 58 U/L (34-104) 03/05/18 14:50 Creatine Kinase 27 U/L (30-223) L 03/05/18 14:50 Troponin I 0.01 ng/mL (0.01-0.05) 03/05/18 14:50 Total Protein 6.5 gm/dL (6.0-8.3) 03/05/18 14:50 Albumin 4.1 gm/dL (4.2-5.5) L 03/05/18 14:50 Globulin 2.4 gm/dL 03/05/18 14:50 Albumin/Globulin Ratio 1.7 (1.0-1.8) 03/05/18 14:50 TSH 1.03 uIU/ml (0.34-5.60) 03/05/18 14:50 Urine Source MIDSTREAM 03/05/18 14:30 Urine Color YELLOW 03/05/18 14:30 Urine Clarity CLEAR (CLEAR) 03/05/18 14:30 Urine pH 7.0 (4.6 - 8.0) 03/05/18 14:30 Ur Specific [place] 1.010 (1.005-1.030) 03/05/18 14:30 Urine Protein NEGATIVE mg/dL (NEGATIVE) 03/05/18 14:30 Urine Glucose (UA) NEGATIVE mg/dL (NEGATIVE) 03/05/18 14:30 Urine Ketones NEGATIVE mg/dL (NEGATIVE) 03/05/18 14:30 Urine Blood NEGATIVE (NEGATIVE) 03/05/18 14:30 Urine Nitrate NEGATIVE (NEGATIVE) 03/05/18 14:30 Urine Bilirubin NEGATIVE (NEGATIVE) 03/05/18 14:30 Urine Urobilinogen 0.2 E.U./dL (0.2 - 1.0) 03/05/18 14:30 Ur Leukocyte Esterase NEGATIVE (NEGATIVE) 03/05/18 14:30 Urine RBC NONE SEEN /hpf (0-5) 03/05/18 14:30 Urine WBC NONE SEEN /hpf (0-5) 03/05/18 14:30 Ur Epithelial Cells NONE SEEN /lpf (FEW) 03/05/18 14:30 Urine Bacteria NONE SEEN /hpf (NONE SEEN) 03/05/18 14:30 Salicylates < 25.0 mg/L (30.0-100.0) L 03/05/18 14:50 Acetaminophen < 10.0 ug/mL (10.0-30.0) L 03/05/18 14:50 Ethyl Alcohol < 10 mg/dL (0-10) 03/05/18 14:50 RPR NONREACTIVE (NONREACTIVE) 03/05/18 14:50 - Physical Exam Vitals and I&O: Vital Signs Temp 97.6 F 03/14/18 14:00 Pulse 63 03/14/18 14:00 Resp 20 03/14/18 14:00 BP 112/67 03/14/18 14:00 Pulse Ox 94 03/14/18 14:00 General: demented HEENT: NC/AT, PERRLA, EOMI, anicteric sclerae, throat clear Neck: Supple, No JVD, No thyromegaly, +2 carotid pulse wo bruit, No LAD, + JVD Cardiovascular: Normal S1, Normal S2, without murmur Abdomen: non-tender Extremities: clear Neurological: no change Internal Medicine Assmt/Plan - Assessment Assessment: 1.DM. 2.HTN. 3.HYPERLIPIDEMIA. 4.DEMENTIA. - Plan Plan: CONTINUE ON CURRENT MEDICATION AND DIET. Nutritional Asmnt/Malnutr-PDOC - Dietary Evaluation Malnutrition Findings (Please click <Entered> for more info): Nutritional Asmnt/Malnutrition Start: 03/08/18 15: 04 Text: Status: Complete Freq: Protocol: Document 03/08/18 15:05 CALIN (Rec: 03/08/18 15:10 CALIN [email or web address]) Nutritional Asmnt/Malnutrition Patient General Information Nutritional Screening Moderate Risk Diagnosis psychosis Pertinent Medical Hx/Surgical Hx HTN, DM, hyperlipidemia, dementia, pscyhosis Subjective Information Pt seen eating in his room, stated "I am fine". Per EMR, PO intake 75-100%. Current Diet Order/ Nutrition Support [facility] Pertinent Medications vit B12, lasix, glucotrol, novolog, levemir, glucophage, kcl, seroquel Pertinent Labs 03/05 BUN 27, Glucose 138, A1c 4.7, 03/06-03/08 POC 63-140 Nutritional Hx/Data Height 1.83 m Height (Calculated Centimeters) 182.9 Current Weight (lbs) 72.121 kg Weight (Calculated Kilograms) 72.1 Weight (Calculated Grams) 01209.2 [place] Body Weight 178 Body Mass Index (BMI) 21.5 Weight Status Approriate GI Symptoms GI Symptoms None Last BM none Difficult in: None Food Allergies Yes: iodine/shellfish Skin Integrity/Comment: intact Current %PO Good (75-100%) Estimated Nutritional Goals BEE in Kcals: Using Current wt Calories/Kcals/Kg 25-30 Kcals Calculated 2602-9283 Protein: Using Current wt Protein g/k Protein Calculated 72 Fluid: ml 1800-2160ml (1ml/kcal) Nutritional Problem No current Nutrition Prob Problem N/A Malnutrition Alert Is there a minimum of two criteria No selected? Query Text:Check all the applicable criteria. A minimum of two criteria are recommended for diagnosis of either severe or non-severe malnutrition. Malnutrition Related to Morbid Obesity Malnutrition related to morbid obesity No Intervention/Recommendation Comments 1. Recommend regular diet for liberalization since blood sugar WNL. Nurse notified. 2. Monitor PO intake, wt, labs and skin integrity 3. F/U as low risk in 7days, 7 /6 Expected Outcomes/Goals Expected Outcomes/Goals 1. PO intake to meet at least 75% of nutritional needs. 2. Wt stability, skin to remain intact, labs to approach WNL.
--- NOTE | 2018-03-14 18:44 | Discharge Summary ---
DATE OF DISCHARGE: 03/14/2018 PSYCHIATRIC DISCHARGE SUMMARY PATIENT'S AGE: 62-year-old. SEX: Male. PHYSICIAN: Junior Joseph MD, MPH FINAL DIAGNOSIS: PRIMARY DIAGNOSIS: Chronic paranoid schizophrenia with acute exacerbation. REASON FOR HOSPITALIZATION: The patient was admitted to the hospital from [facility] because of increased agitation and irritability. The patient was paranoid and aggressive with the staff for 3 days prior to his admission. HOSPITAL COURSE: The patient continued to be agitated and ____. The patient's affect was brighter. The patient was less irritable and less agitated. ____. The patient was discharged from the hospital to [place] with plans for follow him up there. DISCHARGE ACTIVITY: No restrictions. DISCHARGE RESTRICTIONS: None. EXPECTED OUTCOME AFTER DISCHARGE: Fair if the patient will continue to take his psychotropic medications and follow up with discharge plans. [facility]# [id number]
== END 2018-03-14 16:45 | DRG 885 ==
LOC: ER 14:26 → GERO2 17:20
PROVIDERS: ADMIT Psychiatry & Neurology Psychiatry; ATTEND Psychiatry & Neurology Psychiatry
DX: F20.0 Paranoid schizophrenia (principal); I10 Essential (primary) hypertension; F17.200 Nicotine dependence, unspecified, uncomplicated; E11.9 Type 2 diabetes mellitus without complications; E78.5 Hyperlipidemia, unspecified; F03.90 Unspecified dementia, unspecified severity, without behavioral disturbance, psychotic disturbance, mood disturbance, and anxiety; F29 Unspecified psychosis not due to a substance or known physiological condition; D64.9 Anemia, unspecified; Z91.041 Radiographic dye allergy status; Z82.49 Family history of ischemic heart disease and other diseases of the circulatory system
CPT/HCPCS: 36415-UA; 71045-TC; 80053-TC; 80320-TC; 80329-TC; 81001-TC; 82550-TC; 82948-90; 83036-90; 83605; 84443-TC; 84484-TC; 85025-TC; 85610-TC; 85730-TC; 86592-TC; 93005; J1815; Z7610

== ENCOUNTER 2018-08-30 22:53 | Inpatient (IN) | payer MEDICARE, MEDICAID ==
--- NOTE | 2018-08-30 23:20 | ED Physician Chart ---
ED Chief Complaint/HPI - Patient Information Date Seen:: 08/30/18 Time Seen:: 23:15 Chief Complaint:: agitation History of Present Illness:: 63 yr old male for geropsych eval pt awake verbal calm answering questions and no acute distress Allergies:: Allergies Allergy/AdvReac Type Severity Reaction Status Date / Time iodine Allergy Verified 03/05/18 14:30 ED Review of Systems - Review of Systems General/Constitutional: No fever, No chills, No weight loss, No weakness, No diaphoresis, No edema, No loss of appetite Skin: No skin lesions, No rash, No bruising Head: No headache, No light-headedness Eyes: No loss of vision, No pain, No diplopia ENT: No earache, No nasal drainage, No sore throat, No tinnitus Neck: No neck pain, No swelling, No thyromegaly, No stiffness, No mass noted Cardio Vascular: No chest pain, No palpitations, No PND, No orthopnea, No edema Pulmonary: No SOB, No cough, No sputum, No wheezing GI: No nausea, No vomiting, No diarrhea, No pain, No melena, No hematochezia, No constipation, No hematemesis G/U: No dysuria, No frequency, No hematuria Musculoskeletal: No bone or joint pain, No back pain, No muscle pain Endocrine: No polyuria, No polydipsia Psychiatric: No prior psych history, No depression, No anxiety, No suicidal ideation Hematopoietic: No bruising, No lymphadenopathy Allergic/Immuno: No urticaria, No angioedema Neurological: No syncope, No focal symptoms, No weakness, No paresthesia, No headache, No seizure, No dizziness, No confusion, No vertigo ED Past Medical History - Past Medical History Past Medical History: HTN, DM, CHF (paranoid schizophrenia), Dyslipidemia, Other (paranoid schizophrenia ) Family Medical History - Family Member Mother History Unknown: Yes ED Physical Exam - Physical Examination General/Constitutional: Awake (mid line which he states is a suicidal attempt), Well-developed, well-nourished, Alert, No distress, GCS 15, Non-toxic appearing , Ambulatory Head: Atraumatic Eyes: Lids, conjuctiva normal, PERRL, EOMI Skin: Nl inspection, No rash, No skin lesions, No ecchymosis, Well hydrated, No lymphadenopathy ENMT: External ears, nose nl, Nasal exam nl, Lips, teeth, gums nl Neck: Nontender, Full ROM w/o pain, No JVD, No nuchal rigidity, No bruit, No mass, No stridor Respiratory: Nl effort/Exclusion, Clear to Auscultation, No Wheeze/Rhonchi/Rales Cardio Vascular: RRR, No murmur, gallop, rubs, NL S1 S2 GI: No tenderness/rebounding/guarding, No organomegaly, No hernia, Normal BS's, Nondistended, No mass/bruits, No McBurney tenderness : No CVA tenderness Extremities: No tenderness or effusion, Full ROM, normal strength in all extremities, No edema, Normal digits & nails Neuro/Psych: Alert/oriented, DTR's symmetric, Normal sensory exam, Normal motor strength, Judgement/insight normal, Mood normal, Normal gait, No focal deficits Misc: Normal back, No paraspinal tenderness ED Assessment - Assessment General Assessment: paranoid schizophrenia agitation for geropsych evaluation ED Septic Shock - . Is Septic Shock (SBP<90, OR Lactate>4 mmol\L) present?: No ED Reassessment (Disposition) - Reassessment Reassessment Condition:: Unchanged - Diagnosis Diagnosis:: paranoid schizophrenia with agitation for beti psych evaluation - Patient Disposition Discharge/Transfer:: Acute Care w/in this hosp Admitted to:: Med/Surg Condition at Disposition:: Stable
[2018-08-30 23:41] LABS: % LYMPHOCYTES 27.8 % (20.0-50.0); % MONOCYTES 6.5 % (2.0-10.0); % NEUTROPHILS 59.7 % (40.0-80.0); BASOPHILE ABSOLUTE 0.1 Th/cumm (0-0.2); EOSINOPHILE ABSOLUTE 0.3 Th/cmm (0.1-0.4); HEMATOCRIT 31.7 % (41.0-60); HEMOGLOBIN 10.3 gm/dL (12-16); LYMPHOCYTE ABSOLUTE 1.9 Th/cmm (1.5-3.0); MEAN CELL VOLUME 87.5 fl (80-99); MEAN CORPUSCULAR HEMOGLOBIN 28.5 pg (26.0-30.0); MEAN CORPUSCULAR HGB CONC 32.6 pg (28.0-36.0); MEAN PLATELET VOLUME 8.7 fl; MONOCYTE ABSOLUTE 0.4 Th/cmm (0.3-1.0); PLATELET COUNT 160 Th/cmm (150-400); RED BLOOD COUNT 3.62 Mil/cmm (4.30-5.70); WHITE BLOOD COUNT 6.7 Th/cmm (4.8-10.8)
[2018-08-30 23:42] LABS: URINE SOURCE CLEAN C
[2018-08-30 23:50] LABS: URINE BILIRUBIN NEGATIVE (NEGATIVE); URINE BLOOD NEGATIVE (NEGATIVE); URINE GLUCOSE (UA) NEGATIVE (NEGATIVE); URINE KETONE NEGATIVE (NEGATIVE); URINE LEUKOCYTE ESTERASE NEGATIVE (NEGATIVE); URINE NITRATE NEGATIVE (NEGATIVE); URINE PH 5.5 (4.6 - 8.0); URINE PROTEIN NEGATIVE (NEGATIVE); URINE UROBILINOGEN 0.2 E.U./dL (0.2 - 1.0)
[2018-08-30 23:55] LABS: URINE CLARITY CLEAR (CLEAR); URINE COLOR YELLOW
[2018-08-30 23:56] LABS: URINE BACTERIA OCCASIONAL /hpf (NONE SEEN); URINE EPITHELIAL CELLS NONE SEEN /lpf (FEW); URINE MICROSCOPIC INDICATED? YES; URINE RBC NONE SEEN /hpf (0-5); URINE WBC 0-2 /hpf (0-5)
[2018-08-30 23:58] LABS: ALB/GLOB RATIO 1.5 (1.0-1.8); ALBUMIN 3.8 gm/dL (4.2-5.5); ALKALINE PHOSPHATASE 62 U/L (34-104); ANION GAP 12.2 (7.0-16.0); BILIRUBIN,TOTAL 0.3 mg/dL (0.3-1.0); BUN - UREA NITROGEN 30 mg/dL (7-25); CALCIUM SERUM 9.8 mg/dL (8.6-10.3); CARBON DIOXIDE 24.9 mEq/L (21.0-31.0); CHLORIDE 110 mEq/L (98-107); CREATININE - SERUM 1.5 mg/dL (0.7-1.3); GFR AFRICAN-AMERICAN > 60.0 ml/min (>90); GFR NON AFRICAN-AMERICAN 50.1 ml/min; GLUCOSE 85 mg/dL (70-105); POTASSIUM SERUM 4.1 mEq/L (3.5-5.1); SGOT 19 U/L (13-39); SGPT/ALT 25 U/L (7-52); SODIUM SERUM 143 mEq/L (136-145); TOTAL PROTEIN,SERUM 6.3 gm/dL (6.0-8.3)
[2018-08-31 00:49] VITALS: BP 133/90
[2018-08-31 01:38] LABS: CHOLESTEROL 104 mg/dL (<200); HDL -HIGH DENSITY LIPOPROTEIN 45 mg/dL (23-92); TRIGLYCERIDES 62 mg/dL (<150)
[2018-08-31] MEDS: Benztropine 1 MG TAB PO SCH ×2 (10:19→17:18)
[2018-08-31] MEDS: INSULIN ASPART, RECOMBINANT 100 UNITS/ML SUBQ SCH ×3 (11:35→20:49)
--- NOTE | 2018-08-31 11:53 | History & Physical ---
ADMIT DATE: 08/31/2018 CHIEF COMPLAINT: Increasing agitation. HISTORY OF PRESENT ILLNESS: This is a 63-year-old male with a history of CHF, diabetes, hypertension, hypercholesterolemia and seizure, admitted from a nursing facility secondary to above complaint under the service of Dr. Joseph. The patient denies chest pain or shortness of breath. Complains of joint pains. PAST MEDICAL HISTORY: As mentioned in history of present illness. PAST SURGICAL HISTORY: Status post abdominal wall surgery secondary to trauma. ALLERGIES: IODINE. MEDICATIONS: Tylenol, aspirin, Cogentin, Coreg, vitamin B12, Lexapro, Lasix, glipizide, insulin sliding scale, Keppra, metformin, potassium, Seroquel, simvastatin, Ambien. FAMILY HISTORY: Denies diabetes or coronary artery disease. SOCIAL HISTORY: The patient was a heavy smoker and drinker when he was younger. The patient did some farming, unmarried, no children. REVIEW OF SYSTEMS: GENERAL: Complains of not feeling well. HEENT: No blurred vision or eye pain. LUNGS: No diagnosis of COPD or asthma. HEART: The patient has diabetes and hypertension. ABDOMEN: No nausea, vomiting, or pain. GENITOURINARY: The patient denies increased frequency or dysuria. NEUROLOGIC: The patient ____ . PSYCHIATRIC: Stable. PHYSICAL EXAMINATION: VITAL SIGNS: Blood pressure 160/73, respirations 20, pulse 76, temperature 98.9. GENERAL: Elderly male, appears chronically ill. NECK: Supple. LUNGS: Equal breath sounds, a few rhonchi. HEART: Regular rate and rhythm with systolic ejection murmur. ABDOMEN: Soft, globular. EXTREMITIES: Positive excoriations. NEUROLOGIC: Limited. LABORATORY DATA: WBC 6, hemoglobin 10.3, platelets 160. Sodium 142, potassium 4.1, BUN 30, creatinine 1.5. Albumin 3.8. UA essentially negative. ASSESSMENT: 1. Anemia. 2. Renal insufficiency. 3. Low albumin. 4. Congestive heart failure. 5. Diabetes. 6. Hypertension. 7. Hypercholesterolemia. 8. Seizure. PLAN: We will continue to monitor hemoglobin and hematocrit as well as renal function. Continue on diuretics as well as potassium. Continue ADA diet, insulin sliding scale. Continue on antiepileptic medications. We will continue to follow. JOB# [id number]
[2018-08-31] MEDS: Insulin Detemir 100 units/mL 10mL Vial SUBQ SCH (20:51)
[2018-09-01] MEDS: INSULIN ASPART, RECOMBINANT 100 UNITS/ML SUBQ SCH ×4 (06:44→21:00)
[2018-09-01] MEDS: Benztropine 1 MG TAB PO SCH ×2 (09:29→16:35)
--- NOTE | 2018-09-01 12:20 | Consultation ---
DATE OF CONSULTATION: 08/31/2018 The patient was seen and evaluated. The patient's chart reviewed. COVERING FOR: Dr. Joseph IDENTIFYING DATA: He is a 63-year-old male who was brought in here after the patient presented irritable, agitated, suicidal. Today on [id number] evaluation, the patient reported being dull and sad, observed to be easily irritable and on interview disengaged and feeling like he does not want to be alive. PAST MEDICAL HISTORY: Includes CHF, diabetes, hypertension, hyperlipidemia, history of seizure disorder. PAST PSYCHIATRIC HISTORY: History of dementia, depression. ALLERGIES: IODINE. PAST SURGICAL HISTORY: None. SOCIAL HISTORY: Currently lives in a shelter. He used to be a heavy smoker and drinker when he was young. Reports that he is not drinking or using drugs. LEGAL HISTORY: None. HOME MEDICATIONS: Include aspirin, Lotensin, Cogentin, Coreg, Lexapro 10 mg a day, Lasix, Keppra, Seroquel 75 mg p.o. b.i.d. MENTAL STATUS EXAMINATION: In his room, calm, disengaged, withdrawn, depressed, overwhelmed, ambivalence about his safety. Living with suicidal ideation. No auditory hallucinations. No homicidal ideations. ASSESSMENT: The patient is a 63-year-old male with a history of severe depression. We will continue with the current medication regimen. We will continue to obtain more collateral baseline information. PRIMARY DIAGNOSIS: Major depressive disorder. SECONDARY DIAGNOSIS: None. MEDICAL DIAGNOSIS: As noted above. PLAN: 1. Admit the patient. 2. Continue with supportive therapy and both individual and group therapy to target the patient's symptoms. 3. Continue with the Seroquel and Lexapro. We will continue to monitor and evaluate. ESTIMATED LENGTH OF STAY: Between 5-10 days. STRENGTHS: Motivated for treatment. WEAKNESSES: Poor coping skills. JOB# [id number]
--- NOTE | 2018-09-01 14:20 | Internal Medicine Prog Note ---
Internal Medicine Subjective - Subjective Patient seen and examined:: with staff, chart reviewed Patient is:: awake, verbal, interactive, in bed Per staff patient has:: no adverse event, no episodes of fall, poor appetite, tolerating meds Internal Medicine Objective - Results Result Diagrams: 08/30/18 23:25 08/30/18 23:25 Recent Labs: Laboratory Last Values WBC 6.7 Th/cmm (4.8-10.8) 08/30/18 23:25 RBC 3.62 Mil/cmm (4.30-5.70) L 08/30/18 23:25 Hgb 10.3 gm/dL (12-16) L 08/30/18 23:25 Hct 31.7 % (41.0-60) L 08/30/18 23:25 MCV 87.5 fl (80-99) 08/30/18 23:25 MCH 28.5 pg (26.0-30.0) 08/30/18 23:25 MCHC Differential 32.6 pg (28.0-36.0) 08/30/18 23:25 RDW 13.0 % (11.5-20.0) 08/30/18 23:25 Plt Count 160 Th/cmm (150-400) 08/30/18 23:25 MPV 8.7 fl 08/30/18 23:25 Neutrophils % 59.7 % (40.0-80.0) 08/30/18 23:25 Lymphocytes % 27.8 % (20.0-50.0) 08/30/18 23:25 Monocytes % 6.5 % (2.0-10.0) 08/30/18 23:25 Eosinophils % 5.0 % (0.0-5.0) 08/30/18 23:25 Basophils % 1.0 % (0.0-2.0) 08/30/18 23:25 Sodium 143 mEq/L (136-145) 08/30/18 23:25 Potassium 4.1 mEq/L (3.5-5.1) 08/30/18 23:25 Chloride 110 mEq/L (98-107) H 08/30/18 23:25 Carbon Dioxide 24.9 mEq/L (21.0-31.0) 08/30/18 23:25 Anion Gap 12.2 (7.0-16.0) 08/30/18 23:25 BUN 30 mg/dL (7-25) H 08/30/18 23:25 Creatinine 1.5 mg/dL (0.7-1.3) H 08/30/18 23:25 Est GFR ( Amer) > 60.0 ml/min (>90) 08/30/18 23:25 Est GFR (Non-Af Amer) 50.1 ml/min 08/30/18 23:25 BUN/Creatinine Ratio 20.0 08/30/18 23:25 Glucose 85 mg/dL (70-105) 08/30/18 23:25 POC Glucose 114 MG/DL (70 - 105) H 08/31/18 11:29 Calcium 9.8 mg/dL (8.6-10.3) 08/30/18 23:25 Total Bilirubin 0.3 mg/dL (0.3-1.0) 08/30/18 23:25 AST 19 U/L (13-39) 08/30/18 23:25 ALT 25 U/L (7-52) 08/30/18 23:25 Alkaline Phosphatase 62 U/L (34-104) 08/30/18 23:25 Total Protein 6.3 gm/dL (6.0-8.3) 08/30/18 23:25 Albumin 3.8 gm/dL (4.2-5.5) L 08/30/18 23:25 Globulin 2.5 gm/dL 08/30/18 23:25 Albumin/Globulin Ratio 1.5 (1.0-1.8) 08/30/18 23:25 Triglycerides 62 mg/dL (<150) 08/31/18 01:25 Cholesterol 104 mg/dL (<200) 08/31/18 01:25 LDL Cholesterol Direct 47 mg/dL (75-193) L 08/31/18 01:25 HDL Cholesterol 45 mg/dL (23-92) 08/31/18 01:25 Urine Source CLEAN C 08/30/18 23:20 Urine Color YELLOW 08/30/18 23:20 Urine Clarity CLEAR (CLEAR) 08/30/18 23:20 Urine pH 5.5 (4.6 - 8.0) 08/30/18 23:20 Ur Specific [place] 1.020 (1.005-1.030) 08/30/18 23:20 Urine Protein NEGATIVE mg/dL (NEGATIVE) 08/30/18 23:20 Urine Glucose (UA) NEGATIVE mg/dL (NEGATIVE) 08/30/18 23:20 Urine Ketones NEGATIVE mg/dL (NEGATIVE) 08/30/18 23:20 Urine Blood NEGATIVE (NEGATIVE) 08/30/18 23:20 Urine Nitrate NEGATIVE (NEGATIVE) 08/30/18 23:20 Urine Bilirubin NEGATIVE (NEGATIVE) 08/30/18 23:20 Urine Urobilinogen 0.2 E.U./dL (0.2 - 1.0) 08/30/18 23:20 Ur Leukocyte Esterase NEGATIVE (NEGATIVE) 08/30/18 23:20 Urine RBC NONE SEEN /hpf (0-5) 08/30/18 23:20 Urine WBC 0-2 /hpf (0-5) 08/30/18 23:20 Ur Epithelial Cells NONE SEEN /lpf (FEW) 08/30/18 23:20 Urine Bacteria OCCASIONAL /hpf (NONE SEEN) 08/30/18 23:20 - Physical Exam Vitals and I&O: Vital Signs Temp 97.6 F 09/01/18 06:36 Pulse 72 09/01/18 09:29 Resp 18 09/01/18 06:36 BP 138/78 09/01/18 09:29 Pulse Ox 98 09/01/18 06:36 Intake & Output 08/31/18 09/01/18 09/01/18 18:59 06:59 18:59 Intake Total 900 240 Balance 900 240 Intake: Oral 900 240 Other: # Voids 3 1 # Bowel Movements 1 Active Medications: Current Medications Acetaminophen (Tylenol) 650 mg PO Q12H PRN PRN Reason: Pain (Mild) Stop: 10/30/18 01:00 Aspirin (Ecotrin) 81 mg PO DAILY [facility] Stop: 10/30/18 08:59 Last Admin: 09/01/18 09:28 Dose: 81 mg Benazepril HCl (Lotensin) 10 mg PO DAILY [facility] Stop: 10/30/18 08:59 Last Admin: 09/01/18 09:29 Dose: 10 mg Benztropine Mesylate (Cogentin) 1 mg PO BID [facility] Stop: 10/30/18 08:59 Last Admin: 09/01/18 09:29 Dose: 1 mg Carvedilol (Coreg) 12.5 mg PO BID [facility] Stop: 10/30/18 08:59 Last Admin: 09/01/18 09:28 Dose: 12.5 mg Cyanocobalamin (Vitamin B12) 100 mcg PO DAILY [facility] Stop: 10/30/18 08:59 Last Admin: 09/01/18 09:29 Dose: 100 mcg Escitalopram Oxalate (Lexapro) 10 mg PO DAILY [facility]; Protocol Stop: 10/30/18 08:59 Last Admin: 09/01/18 09:29 Dose: 10 mg Furosemide (Lasix) 40 mg PO [facility] Stop: 11/01/18 08:59 Glipizide (Glucotrol) 5 mg PO BID [facility] Stop: 10/30/18 08:59 Last Admin: 09/01/18 09:29 Dose: 5 mg Insulin Aspart (Novolog) 0 units SUBQ [facility]; Protocol Stop: 10/30/18 11:29 Last Admin: 09/01/18 12:15 Dose: Not Given Insulin Detemir (Levemir Insulin) 12 units SUBQ [facility]; Protocol Stop: 10/30/18 20:59 Last Admin: 08/31/18 20:51 Dose: 12 unit Levetiracetam (Keppra) 500 mg PO BID [facility] Stop: 10/30/18 08:59 Last Admin: 09/01/18 09:29 Dose: 500 mg [facility] Stop: 10/30/18 07:59 Last Admin: 09/01/18 09:27 Dose: 1,000 mg Potassium Chloride (Klor-Con) 40 meq PO [facility] Stop: 11/01/18 08:59 Quetiapine Fumarate (Seroquel) 75 mg PO BID [facility]; Protocol Stop: 10/30/18 08:59 Last Admin: 09/01/18 09:28 Dose: 75 mg Simvastatin (Zocor) 20 mg PO [facility]; Protocol Stop: 10/30/18 20:59 Last Admin: 08/31/18 20:53 Dose: 20 mg Zolpidem Tartrate (Ambien) 5 mg PO PRN PRN Reason: Insomnia Stop: 10/30/18 01:00 Last Admin: 08/31/18 20:52 Dose: 5 mg General: alert, appears older HEENT: NC/AT, PERRLA Neck: Supple, No JVD Lungs: congested, rales, ronchi Cardiovascular: RRR, Normal S1, Normal S2, with murmur Abdomen: soft, tender, globular, positive bowel sound Extremities: excoriation, contracture Neurological: no change, muscle weakness Internal Medicine Assmt/Plan - Assessment Assessment: ASSESSMENT: 1. Anemia. 2. Renal insufficiency. 3. Low albumin. 4. Congestive heart failure. 5. Diabetes. 6. Hypertension. 7. Hypercholesterolemia. 8. Seizure. - Plan Plan: PLAN: We will continue to monitor hemoglobin and hematocrit as well as renal function. Continue on diuretics as well as potassium. Continue ADA diet, insulin sliding scale. Continue on antiepileptic medications. We will continue to follow.
[2018-09-01] MEDS: Insulin Detemir 100 units/mL 10mL Vial SUBQ SCH (20:48)
--- NOTE | 2018-09-02 05:59 | Progress Notes ---
DATE: The patient was seen and evaluated. The patient's chart reviewed. No acute events reported overnight. Today on [id number] evaluation, the patient continues to feel depressed, easily agitated, stressful on interview. MENTAL STATUS EXAMINATION: Depressed, melancholic. ASSESSMENT AND PLAN: The patient is a 63-year-old male. We will continue with Lexapro and Seroquel, continue to target the patient's depression and agitation that comes with the patient's depression. JOB# [id number]
[2018-09-02] MEDS: INSULIN ASPART, RECOMBINANT 100 UNITS/ML SUBQ SCH ×4 (07:04→20:55)
[2018-09-02] MEDS: Benztropine 1 MG TAB PO SCH ×2 (10:04→17:34)
[2018-09-02] MEDS: Potassium Chloride 20 mEq ER Tab PO SCH (10:06)
--- NOTE | 2018-09-02 14:47 | Internal Medicine Prog Note ---
Internal Medicine Subjective - Subjective Patient seen and examined:: with staff, chart reviewed Patient is:: awake, verbal, interactive, in bed Per staff patient has:: no adverse event, no episodes of fall, poor appetite, tolerating meds Internal Medicine Objective - Results Result Diagrams: 08/30/18 23:25 08/30/18 23:25 Recent Labs: Laboratory Last Values WBC 6.7 Th/cmm (4.8-10.8) 08/30/18 23:25 RBC 3.62 Mil/cmm (4.30-5.70) L 08/30/18 23:25 Hgb 10.3 gm/dL (12-16) L 08/30/18 23:25 Hct 31.7 % (41.0-60) L 08/30/18 23:25 MCV 87.5 fl (80-99) 08/30/18 23:25 MCH 28.5 pg (26.0-30.0) 08/30/18 23:25 MCHC Differential 32.6 pg (28.0-36.0) 08/30/18 23:25 RDW 13.0 % (11.5-20.0) 08/30/18 23:25 Plt Count 160 Th/cmm (150-400) 08/30/18 23:25 MPV 8.7 fl 08/30/18 23:25 Neutrophils % 59.7 % (40.0-80.0) 08/30/18 23:25 Lymphocytes % 27.8 % (20.0-50.0) 08/30/18 23:25 Monocytes % 6.5 % (2.0-10.0) 08/30/18 23:25 Eosinophils % 5.0 % (0.0-5.0) 08/30/18 23:25 Basophils % 1.0 % (0.0-2.0) 08/30/18 23:25 Sodium 143 mEq/L (136-145) 08/30/18 23:25 Potassium 4.1 mEq/L (3.5-5.1) 08/30/18 23:25 Chloride 110 mEq/L (98-107) H 08/30/18 23:25 Carbon Dioxide 24.9 mEq/L (21.0-31.0) 08/30/18 23:25 Anion Gap 12.2 (7.0-16.0) 08/30/18 23:25 BUN 30 mg/dL (7-25) H 08/30/18 23:25 Creatinine 1.5 mg/dL (0.7-1.3) H 08/30/18 23:25 Est GFR ( Amer) > 60.0 ml/min (>90) 08/30/18 23:25 Est GFR (Non-Af Amer) 50.1 ml/min 08/30/18 23:25 BUN/Creatinine Ratio 20.0 08/30/18 23:25 Glucose 85 mg/dL (70-105) 08/30/18 23:25 POC Glucose 156 MG/DL (70 - 105) H 08/31/18 19:39 Calcium 9.8 mg/dL (8.6-10.3) 08/30/18 23:25 Total Bilirubin 0.3 mg/dL (0.3-1.0) 08/30/18 23:25 AST 19 U/L (13-39) 08/30/18 23:25 ALT 25 U/L (7-52) 08/30/18 23:25 Alkaline Phosphatase 62 U/L (34-104) 08/30/18 23:25 Total Protein 6.3 gm/dL (6.0-8.3) 08/30/18 23:25 Albumin 3.8 gm/dL (4.2-5.5) L 08/30/18 23:25 Globulin 2.5 gm/dL 08/30/18 23:25 Albumin/Globulin Ratio 1.5 (1.0-1.8) 08/30/18 23:25 Triglycerides 62 mg/dL (<150) 08/31/18 01:25 Cholesterol 104 mg/dL (<200) 08/31/18 01:25 LDL Cholesterol Direct 47 mg/dL (75-193) L 08/31/18 01:25 HDL Cholesterol 45 mg/dL (23-92) 08/31/18 01:25 Urine Source CLEAN C 08/30/18 23:20 Urine Color YELLOW 08/30/18 23:20 Urine Clarity CLEAR (CLEAR) 08/30/18 23:20 Urine pH 5.5 (4.6 - 8.0) 08/30/18 23:20 Ur Specific [place] 1.020 (1.005-1.030) 08/30/18 23:20 Urine Protein NEGATIVE mg/dL (NEGATIVE) 08/30/18 23:20 Urine Glucose (UA) NEGATIVE mg/dL (NEGATIVE) 08/30/18 23:20 Urine Ketones NEGATIVE mg/dL (NEGATIVE) 08/30/18 23:20 Urine Blood NEGATIVE (NEGATIVE) 08/30/18 23:20 Urine Nitrate NEGATIVE (NEGATIVE) 08/30/18 23:20 Urine Bilirubin NEGATIVE (NEGATIVE) 08/30/18 23:20 Urine Urobilinogen 0.2 E.U./dL (0.2 - 1.0) 08/30/18 23:20 Ur Leukocyte Esterase NEGATIVE (NEGATIVE) 08/30/18 23:20 Urine RBC NONE SEEN /hpf (0-5) 08/30/18 23:20 Urine WBC 0-2 /hpf (0-5) 08/30/18 23:20 Ur Epithelial Cells NONE SEEN /lpf (FEW) 08/30/18 23:20 Urine Bacteria OCCASIONAL /hpf (NONE SEEN) 08/30/18 23:20 - Physical Exam Vitals and I&O: Vital Signs Temp 97.7 F 09/02/18 06:47 Pulse 59 09/02/18 10:05 Resp 20 09/02/18 10:58 BP 138/65 09/02/18 10:06 Pulse Ox 98 09/02/18 06:47 Intake & Output 09/01/18 09/02/18 09/02/18 18:59 06:59 18:59 Intake Total 240 Balance 240 Intake: Oral 240 Other: # Voids 3 # Bowel Movements 0 Active Medications: Current Medications Acetaminophen (Tylenol) 650 mg PO Q12H PRN PRN Reason: Pain (Mild) Stop: 10/30/18 01:00 Aspirin (Ecotrin) 81 mg PO DAILY [facility] Stop: 10/30/18 08:59 Last Admin: 09/02/18 10:04 Dose: 81 mg Benazepril HCl (Lotensin) 10 mg PO DAILY [facility] Stop: 10/30/18 08:59 Last Admin: 09/02/18 10:04 Dose: Not Given Benztropine Mesylate (Cogentin) 1 mg PO BID [facility] Stop: 10/30/18 08:59 Last Admin: 09/02/18 10:04 Dose: 1 mg Carvedilol (Coreg) 12.5 mg PO BID [facility] Stop: 10/30/18 08:59 Last Admin: 09/02/18 10:05 Dose: Not Given Cyanocobalamin (Vitamin B12) 100 mcg PO DAILY [facility] Stop: 10/30/18 08:59 Last Admin: 09/02/18 10:04 Dose: 100 mcg Escitalopram Oxalate (Lexapro) 10 mg PO DAILY [facility]; Protocol Stop: 10/30/18 08:59 Last Admin: 09/02/18 10:06 Dose: 10 mg Furosemide (Lasix) 40 mg PO [facility] Stop: 11/01/18 08:59 Last Admin: 09/02/18 10:06 Dose: 40 mg Glipizide (Glucotrol) 5 mg PO BID [facility] Stop: 10/30/18 08:59 Last Admin: 09/02/18 10:04 Dose: 5 mg Insulin Aspart (Novolog) 0 units SUBQ [facility]; Protocol Stop: 10/30/18 11:29 Last Admin: 09/02/18 12:17 Dose: Not Given Insulin Detemir (Levemir Insulin) 12 units SUBQ [facility]; Protocol Stop: 10/30/18 20:59 Last Admin: 09/01/18 20:48 Dose: 12 unit Levetiracetam (Keppra) 500 mg PO BID [facility] Stop: 10/30/18 08:59 Last Admin: 09/02/18 10:04 Dose: 500 mg [facility] ([facility] Stop: 10/30/18 07:59 Last Admin: 09/02/18 10:03 Dose: 1,000 mg Potassium Chloride (Klor-Con) 40 meq PO [facility] Stop: 11/01/18 08:59 Last Admin: 09/02/18 10:06 Dose: Not Given Quetiapine Fumarate (Seroquel) 75 mg PO BID [facility]; Protocol Stop: 10/30/18 08:59 Last Admin: 09/02/18 10:03 Dose: 75 mg Simvastatin (Zocor) 20 mg PO [facility]; Protocol Stop: 10/30/18 20:59 Last Admin: 09/01/18 20:47 Dose: 20 mg Zolpidem Tartrate (Ambien) 5 mg PO PRN PRN Reason: Insomnia Stop: 10/30/18 01:00 Last Admin: 09/01/18 20:48 Dose: 5 mg General: alert, appears older HEENT: NC/AT, PERRLA Neck: Supple, No JVD Lungs: congested, rales, ronchi Cardiovascular: RRR, Normal S1, Normal S2, with murmur Abdomen: soft, tender, globular, positive bowel sound Extremities: excoriation, contracture Neurological: no change, muscle weakness Internal Medicine Assmt/Plan - Assessment Assessment: ASSESSMENT: 1. Anemia. 2. Renal insufficiency. 3. Low albumin. 4. Congestive heart failure. 5. Diabetes. 6. Hypertension. 7. Hypercholesterolemia. 8. Seizure. - Plan Plan: PLAN: We will continue to monitor hemoglobin and hematocrit as well as renal function. Continue on diuretics as well as potassium. Continue ADA diet, insulin sliding scale. Continue on antiepileptic medications. We will continue to follow.
--- NOTE | 2018-09-02 20:19 | Progress Notes ---
DATE: 09/02/2018 SUBJECTIVE: Chart reviewed and the patient interviewed. Also, discussed the patient's condition with the staff and reviewed records and labs. The patient is still in a depressed mood. The patient also is still guarded and still has slow response and reluctant to answer questions. The patient also answers questions by shaking his head with yes or no. He also still wants to be left alone. Otherwise, the patient is compliant with taking medications with no side effects of medications. ASSESSMENT: The patient is still depressed and guarded. TREATMENT PLAN: We will continue Lexapro 10 mg every day and Seroquel 75 mg twice a day. Also, continue to work on his ineffective coping and follow up closely. [facility]# [id number]
[2018-09-02] MEDS: Insulin Detemir 100 units/mL 10mL Vial SUBQ SCH (20:56)
[2018-09-03] MEDS: INSULIN ASPART, RECOMBINANT 100 UNITS/ML SUBQ SCH ×4 (06:43→20:39)
[2018-09-03] MEDS: Benztropine 1 MG TAB PO SCH ×2 (08:49→16:30)
--- NOTE | 2018-09-03 10:23 | Internal Medicine Prog Note ---
Internal Medicine Subjective - Subjective Service Date: 09/03/18 Patient seen and examined:: with staff Patient is:: awake, verbal, interactive, in bed Per staff patient has:: no adverse event, no episodes of fall, poor appetite, tolerating meds Internal Medicine Objective - Results Result Diagrams: 08/30/18 23:25 08/30/18 23:25 Recent Labs: Laboratory Last Values WBC 6.7 Th/cmm (4.8-10.8) 08/30/18 23:25 RBC 3.62 Mil/cmm (4.30-5.70) L 08/30/18 23:25 Hgb 10.3 gm/dL (12-16) L 08/30/18 23:25 Hct 31.7 % (41.0-60) L 08/30/18 23:25 MCV 87.5 fl (80-99) 08/30/18 23:25 MCH 28.5 pg (26.0-30.0) 08/30/18 23:25 MCHC Differential 32.6 pg (28.0-36.0) 08/30/18 23:25 RDW 13.0 % (11.5-20.0) 08/30/18 23:25 Plt Count 160 Th/cmm (150-400) 08/30/18 23:25 MPV 8.7 fl 08/30/18 23:25 Neutrophils % 59.7 % (40.0-80.0) 08/30/18 23:25 Lymphocytes % 27.8 % (20.0-50.0) 08/30/18 23:25 Monocytes % 6.5 % (2.0-10.0) 08/30/18 23:25 Eosinophils % 5.0 % (0.0-5.0) 08/30/18 23:25 Basophils % 1.0 % (0.0-2.0) 08/30/18 23:25 Sodium 143 mEq/L (136-145) 08/30/18 23:25 Potassium 4.1 mEq/L (3.5-5.1) 08/30/18 23:25 Chloride 110 mEq/L (98-107) H 08/30/18 23:25 Carbon Dioxide 24.9 mEq/L (21.0-31.0) 08/30/18 23:25 Anion Gap 12.2 (7.0-16.0) 08/30/18 23:25 BUN 30 mg/dL (7-25) H 08/30/18 23:25 Creatinine 1.5 mg/dL (0.7-1.3) H 08/30/18 23:25 Est GFR ( Amer) > 60.0 ml/min (>90) 08/30/18 23:25 Est GFR (Non-Af Amer) 50.1 ml/min 08/30/18 23:25 BUN/Creatinine Ratio 20.0 08/30/18 23:25 Glucose 85 mg/dL (70-105) 08/30/18 23:25 POC Glucose 96 MG/DL (70 - 105) 09/03/18 06:41 Calcium 9.8 mg/dL (8.6-10.3) 08/30/18 23:25 Total Bilirubin 0.3 mg/dL (0.3-1.0) 08/30/18 23:25 AST 19 U/L (13-39) 08/30/18 23:25 ALT 25 U/L (7-52) 08/30/18 23:25 Alkaline Phosphatase 62 U/L (34-104) 08/30/18 23:25 Total Protein 6.3 gm/dL (6.0-8.3) 08/30/18 23:25 Albumin 3.8 gm/dL (4.2-5.5) L 08/30/18 23:25 Globulin 2.5 gm/dL 08/30/18 23:25 Albumin/Globulin Ratio 1.5 (1.0-1.8) 08/30/18 23:25 Triglycerides 62 mg/dL (<150) 08/31/18 01:25 Cholesterol 104 mg/dL (<200) 08/31/18 01:25 LDL Cholesterol Direct 47 mg/dL (75-193) L 08/31/18 01:25 HDL Cholesterol 45 mg/dL (23-92) 08/31/18 01:25 Urine Source CLEAN C 08/30/18 23:20 Urine Color YELLOW 08/30/18 23:20 Urine Clarity CLEAR (CLEAR) 08/30/18 23:20 Urine pH 5.5 (4.6 - 8.0) 08/30/18 23:20 Ur Specific [place] 1.020 (1.005-1.030) 08/30/18 23:20 Urine Protein NEGATIVE mg/dL (NEGATIVE) 08/30/18 23:20 Urine Glucose (UA) NEGATIVE mg/dL (NEGATIVE) 08/30/18 23:20 Urine Ketones NEGATIVE mg/dL (NEGATIVE) 08/30/18 23:20 Urine Blood NEGATIVE (NEGATIVE) 08/30/18 23:20 Urine Nitrate NEGATIVE (NEGATIVE) 08/30/18 23:20 Urine Bilirubin NEGATIVE (NEGATIVE) 08/30/18 23:20 Urine Urobilinogen 0.2 E.U./dL (0.2 - 1.0) 08/30/18 23:20 Ur Leukocyte Esterase NEGATIVE (NEGATIVE) 08/30/18 23:20 Urine RBC NONE SEEN /hpf (0-5) 08/30/18 23:20 Urine WBC 0-2 /hpf (0-5) 08/30/18 23:20 Ur Epithelial Cells NONE SEEN /lpf (FEW) 08/30/18 23:20 Urine Bacteria OCCASIONAL /hpf (NONE SEEN) 08/30/18 23:20 - Physical Exam Vitals and I&O: Vital Signs Temp 97.3 F 09/03/18 06:27 Pulse 67 09/03/18 08:47 Resp 18 09/03/18 06:27 BP 145/72 09/03/18 08:47 Pulse Ox 98 09/03/18 06:27 Intake & Output 09/02/18 09/03/18 09/03/18 18:59 06:59 18:59 Intake Total 1400 240 Balance 1400 240 Intake: Oral 1400 240 Other: # Voids 4 2 # Bowel Movements 0 Active Medications: Current Medications Acetaminophen (Tylenol) 650 mg PO Q12H PRN PRN Reason: Pain (Mild) Stop: 10/30/18 01:00 Aspirin (Ecotrin) 81 mg PO DAILY [facility] Stop: 10/30/18 08:59 Last Admin: 09/03/18 08:44 Dose: 81 mg Benazepril HCl (Lotensin) 10 mg PO DAILY [facility] Stop: 10/30/18 08:59 Last Admin: 09/03/18 08:44 Dose: 10 mg Benztropine Mesylate (Cogentin) 1 mg PO BID [facility] Stop: 10/30/18 08:59 Last Admin: 09/03/18 08:49 Dose: 1 mg Carvedilol (Coreg) 12.5 mg PO BID [facility] Stop: 10/30/18 08:59 Last Admin: 09/03/18 08:47 Dose: 12.5 mg Cyanocobalamin (Vitamin B12) 100 mcg PO DAILY [facility] Stop: 10/30/18 08:59 Last Admin: 09/03/18 08:44 Dose: 100 mcg Escitalopram Oxalate (Lexapro) 10 mg PO DAILY [facility]; Protocol Stop: 10/30/18 08:59 Last Admin: 09/03/18 08:45 Dose: 10 mg Furosemide (Lasix) 40 mg [place] [facility]: 11/01/18 08:59 Last Admin: 09/02/18 10:06 Dose: 40 mg Glipizide (Glucotrol) 5 mg PO BID [facility] Stop: 10/30/18 08:59 Last Admin: 09/03/18 08:44 Dose: 5 mg Insulin Aspart (Novolog) 0 units SUBQ [facility]; Protocol Stop: 10/30/18 11:29 Last Admin: 09/03/18 06:43 Dose: Not Given Insulin Detemir (Levemir Insulin) 12 units SUBQ [facility]; Protocol Stop: 10/30/18 20:59 Last Admin: 09/02/18 20:56 Dose: 12 unit Levetiracetam (Keppra) 500 mg PO BID [facility] Stop: 10/30/18 08:59 Last Admin: 09/03/18 08:47 Dose: 500 mg [facility] Stop: 10/30/18 07:59 Last Admin: 09/03/18 07:58 Dose: 1,000 mg Potassium Chloride (Klor-Con) 40 meq PO [facility]: 11/01/18 08:59 Last Admin: 09/02/18 10:06 Dose: Not Given Quetiapine Fumarate (Seroquel) 75 mg PO BID [facility]; Protocol Stop: 10/30/18 08:59 Last Admin: 09/03/18 08:43 Dose: 75 mg Simvastatin (Zocor) 20 mg PO [facility]; Protocol Stop: 10/30/18 20:59 Last Admin: 09/02/18 20:56 Dose: 20 mg Zolpidem Tartrate (Ambien) 5 mg PO PRN PRN Reason: Insomnia Stop: 10/30/18 01:00 Last Admin: 09/01/18 20:48 Dose: 5 mg General: alert, appears older HEENT: NC/AT, PERRLA, EOMI, anicteric sclerae, throat clear Neck: Supple, No JVD, No thyromegaly Lungs: congested, rales, ronchi Cardiovascular: RRR, Normal S1, Normal S2, with murmur Abdomen: soft, tender, globular, positive bowel sound Extremities: excoriation, contracture Neurological: no change, muscle weakness Internal Medicine Assmt/Plan - Assessment Assessment: 1.DM. 2.HTN. 3.CHF. 4.SEIZURE DISORDER. 5.DEMENTIA. - Plan Plan: CONTINUE ON CURRENT MEDICATION AND DIET.
--- NOTE | 2018-09-03 13:25 | Progress Notes ---
DATE: 09/03/2018 SUBJECTIVE: Chart reviewed and the patient interviewed. Also discussed the patient's condition with the staff and reviewed records and labs. The patient seems to be confused and forgetful. The patient also is cooperative with his treatment, but he still needs redirections because of his confusion. The patient on the other hand seems to be less agitated and interacting slightly more. Also is compliant with taking medications with no side effects of medications. ASSESSMENT: The patient is still confused and agitated. TREATMENT PLAN: Continue to monitor behavior and condition closely. Also, continue Lexapro and Seroquel same dose and monitor behavior and work on his poor impulse control. JOB# [id number]
[2018-09-03] MEDS: Insulin Detemir 100 units/mL 10mL Vial SUBQ SCH (20:40)
[2018-09-04] MEDS: INSULIN ASPART, RECOMBINANT 100 UNITS/ML SUBQ SCH ×4 (06:35→20:45)
[2018-09-04] MEDS: Benztropine 1 MG TAB PO SCH ×2 (09:05→16:38)
[2018-09-04] MEDS: Potassium Chloride 20 mEq ER Tab PO SCH (09:06)
--- NOTE | 2018-09-04 12:20 | Internal Medicine Prog Note ---
Internal Medicine Subjective - Subjective Service Date: 09/04/18 Patient seen and examined:: with staff Patient is:: awake, verbal, interactive, in bed Per staff patient has:: no adverse event, no episodes of fall, poor appetite, tolerating meds Internal Medicine Objective - Results Result Diagrams: 08/30/18 23:25 08/30/18 23:25 Recent Labs: Laboratory Last Values WBC 6.7 Th/cmm (4.8-10.8) 08/30/18 23:25 RBC 3.62 Mil/cmm (4.30-5.70) L 08/30/18 23:25 Hgb 10.3 gm/dL (12-16) L 08/30/18 23:25 Hct 31.7 % (41.0-60) L 08/30/18 23:25 MCV 87.5 fl (80-99) 08/30/18 23:25 MCH 28.5 pg (26.0-30.0) 08/30/18 23:25 MCHC Differential 32.6 pg (28.0-36.0) 08/30/18 23:25 RDW 13.0 % (11.5-20.0) 08/30/18 23:25 Plt Count 160 Th/cmm (150-400) 08/30/18 23:25 MPV 8.7 fl 08/30/18 23:25 Neutrophils % 59.7 % (40.0-80.0) 08/30/18 23:25 Lymphocytes % 27.8 % (20.0-50.0) 08/30/18 23:25 Monocytes % 6.5 % (2.0-10.0) 08/30/18 23:25 Eosinophils % 5.0 % (0.0-5.0) 08/30/18 23:25 Basophils % 1.0 % (0.0-2.0) 08/30/18 23:25 Sodium 143 mEq/L (136-145) 08/30/18 23:25 Potassium 4.1 mEq/L (3.5-5.1) 08/30/18 23:25 Chloride 110 mEq/L (98-107) H 08/30/18 23:25 Carbon Dioxide 24.9 mEq/L (21.0-31.0) 08/30/18 23:25 Anion Gap 12.2 (7.0-16.0) 08/30/18 23:25 BUN 30 mg/dL (7-25) H 08/30/18 23:25 Creatinine 1.5 mg/dL (0.7-1.3) H 08/30/18 23:25 Est GFR ( Amer) > 60.0 ml/min (>90) 08/30/18 23:25 Est GFR (Non-Af Amer) 50.1 ml/min 08/30/18 23:25 BUN/Creatinine Ratio 20.0 08/30/18 23:25 Glucose 85 mg/dL (70-105) 08/30/18 23:25 POC Glucose 68 MG/DL (70 - 105) L 09/04/18 06:44 Calcium 9.8 mg/dL (8.6-10.3) 08/30/18 23:25 Total Bilirubin 0.3 mg/dL (0.3-1.0) 08/30/18 23:25 AST 19 U/L (13-39) 08/30/18 23:25 ALT 25 U/L (7-52) 08/30/18 23:25 Alkaline Phosphatase 62 U/L (34-104) 08/30/18 23:25 Total Protein 6.3 gm/dL (6.0-8.3) 08/30/18 23:25 Albumin 3.8 gm/dL (4.2-5.5) L 08/30/18 23:25 Globulin 2.5 gm/dL 08/30/18 23:25 Albumin/Globulin Ratio 1.5 (1.0-1.8) 08/30/18 23:25 Triglycerides 62 mg/dL (<150) 08/31/18 01:25 Cholesterol 104 mg/dL (<200) 08/31/18 01:25 LDL Cholesterol Direct 47 mg/dL (75-193) L 08/31/18 01:25 HDL Cholesterol 45 mg/dL (23-92) 08/31/18 01:25 Urine Source CLEAN C 08/30/18 23:20 Urine Color YELLOW 08/30/18 23:20 Urine Clarity CLEAR (CLEAR) 08/30/18 23:20 Urine pH 5.5 (4.6 - 8.0) 08/30/18 23:20 Ur Specific [place] 1.020 (1.005-1.030) 08/30/18 23:20 Urine Protein NEGATIVE mg/dL (NEGATIVE) 08/30/18 23:20 Urine Glucose (UA) NEGATIVE mg/dL (NEGATIVE) 08/30/18 23:20 Urine Ketones NEGATIVE mg/dL (NEGATIVE) 08/30/18 23:20 Urine Blood NEGATIVE (NEGATIVE) 08/30/18 23:20 Urine Nitrate NEGATIVE (NEGATIVE) 08/30/18 23:20 Urine Bilirubin NEGATIVE (NEGATIVE) 08/30/18 23:20 Urine Urobilinogen 0.2 E.U./dL (0.2 - 1.0) 08/30/18 23:20 Ur Leukocyte Esterase NEGATIVE (NEGATIVE) 08/30/18 23:20 Urine RBC NONE SEEN /hpf (0-5) 08/30/18 23:20 Urine WBC 0-2 /hpf (0-5) 08/30/18 23:20 Ur Epithelial Cells NONE SEEN /lpf (FEW) 08/30/18 23:20 Urine Bacteria OCCASIONAL /hpf (NONE SEEN) 08/30/18 23:20 - Physical Exam Vitals and I&O: Vital Signs Temp 97.1 F 09/04/18 06:33 Pulse 69 09/04/18 09:07 Resp 20 09/04/18 06:33 BP 139/79 09/04/18 09:07 Pulse Ox 98 09/04/18 06:33 Intake & Output 09/03/18 09/04/18 09/04/18 18:59 06:59 18:59 Intake Total 300 Balance 300 Intake: Oral 300 Other: # Voids 1 # Bowel Movements 0 Active Medications: Current Medications Acetaminophen (Tylenol) 650 mg PO Q12H PRN PRN Reason: Pain (Mild) Stop: 10/30/18 01:00 Aspirin (Ecotrin) 81 mg PO DAILY [facility] Stop: 10/30/18 08:59 Last Admin: 09/04/18 09:05 Dose: 81 mg Benazepril HCl (Lotensin) 10 mg PO DAILY [facility] Stop: 10/30/18 08:59 Last Admin: 09/04/18 09:07 Dose: 10 mg Benztropine Mesylate (Cogentin) 1 mg PO BID [facility] Stop: 10/30/18 08:59 Last Admin: 09/04/18 09:05 Dose: 1 mg Carvedilol (Coreg) 12.5 mg PO BID [facility] Stop: 10/30/18 08:59 Last Admin: 09/04/18 09:06 Dose: 12.5 mg Cyanocobalamin (Vitamin B12) 100 mcg PO DAILY [facility] Stop: 10/30/18 08:59 Last Admin: 09/04/18 09:05 Dose: 100 mcg Escitalopram Oxalate (Lexapro) 10 mg PO DAILY [facility]; Protocol Stop: 10/30/18 08:59 Last Admin: 09/04/18 09:05 Dose: 10 mg Furosemide (Lasix) 40 mg PO [facility] Stop: 11/01/18 08:59 Last Admin: 09/04/18 09:07 Dose: 40 mg Glipizide (Glucotrol) 5 mg PO BID [facility] Stop: 10/30/18 08:59 Last Admin: 09/04/18 09:06 Dose: 5 mg Insulin Aspart (Novolog) 0 units SUBQ [facility]; Protocol Stop: 10/30/18 11:29 Last Admin: 09/04/18 11:35 Dose: Not Given Insulin Detemir (Levemir Insulin) [address] [facility]; Protocol Stop: 10/30/18 20:59 Last Admin: 09/03/18 20:40 Dose: 12 unit Levetiracetam (Keppra) 500 mg PO BID [facility] Stop: 10/30/18 08:59 Last Admin: 09/04/18 09:04 Dose: 500 mg [facility] Stop: 10/30/18 07:59 Last Admin: 09/04/18 09:04 Dose: 1,000 mg Potassium Chloride (Klor-Con) 40 meq PO [facility] Stop: 11/01/18 08:59 Last Admin: 09/04/18 09:06 Dose: 40 meq Quetiapine Fumarate (Seroquel) 75 mg PO BID [facility]; Protocol Stop: 10/30/18 08:59 Last Admin: 09/04/18 09:07 Dose: 75 mg Simvastatin (Zocor) [address] [facility]; Protocol Stop: 10/30/18 20:59 Last Admin: 09/03/18 20:39 Dose: 20 mg Zolpidem Tartrate (Ambien) 5 mg PO PRN PRN Reason: Insomnia Stop: 10/30/18 01:00 Last Admin: 09/01/18 20:48 Dose: 5 mg General: alert, appears older HEENT: NC/AT, PERRLA, EOMI, anicteric sclerae, throat clear Neck: Supple, No JVD, No thyromegaly Lungs: congested, rales, ronchi Cardiovascular: RRR, Normal S1, Normal S2, with murmur Abdomen: soft, tender, globular, positive bowel sound Extremities: excoriation, contracture Neurological: no change, muscle weakness Internal Medicine Assmt/Plan - Assessment Assessment: 1.DM. 2.HTN. 3.CHF. 4.SEIZURE DISORDER. 5.DEMENTIA. - Plan Plan: CONTINUE ON CURRENT MEDICATION AND DIET.
[2018-09-04] MEDS: Insulin Detemir 100 units/mL 10mL Vial SUBQ SCH (20:25)
--- NOTE | 2018-09-05 00:29 | Progress Notes ---
DATE: 09/04/2018 SUBJECTIVE: Chart reviewed and the patient interviewed. Also, discussed the patient's condition with the staff and reviewed records and labs. The patient's affect is brighter, but the patient is still confused and is still forgetful. The patient also has been showing unpredictable behavior. Also, is suspicious and is still paranoid. Otherwise, the patient continued to take Lexapro in a dose of 10 mg every day and Seroquel 75 mg twice a day and we will continue to follow up. JOB# [id number]
[2018-09-05] MEDS: INSULIN ASPART, RECOMBINANT 100 UNITS/ML SUBQ SCH ×4 (07:49→21:09)
[2018-09-05] MEDS: Benztropine 1 MG TAB PO SCH ×2 (08:42→16:08)
--- NOTE | 2018-09-05 16:28 | Progress Notes ---
DATE: 09/05/2018 SUBJECTIVE: Chart reviewed and the patient interviewed. Also, discussed the patient's condition with the staff and reviewed the records and labs. The patient is cooperative and has active responses. The patient also is quite and he has flat affect. The patient also has minimum communication. He has ____. Otherwise, the patient is compliant with taking his medications with no side effects. ASSESSMENT: The patient is less agitated and less psychotic. TREATMENT PLAN: Continue to monitor his behavior closely and continue to work on discharge plans as the patient ____. JOB# [id number]
--- NOTE | 2018-09-05 20:30 | Internal Medicine Prog Note ---
Internal Medicine Subjective - Subjective Service Date: 09/05/18 Patient seen and examined:: with staff Patient is:: awake, verbal, interactive, in bed Per staff patient has:: no adverse event, no episodes of fall, poor appetite, tolerating meds Internal Medicine Objective - Results Result Diagrams: 08/30/18 23:25 08/30/18 23:25 Recent Labs: Laboratory Last Values WBC 6.7 Th/cmm (4.8-10.8) 08/30/18 23:25 RBC 3.62 Mil/cmm (4.30-5.70) L 08/30/18 23:25 Hgb 10.3 gm/dL (12-16) L 08/30/18 23:25 Hct 31.7 % (41.0-60) L 08/30/18 23:25 MCV 87.5 fl (80-99) 08/30/18 23:25 MCH 28.5 pg (26.0-30.0) 08/30/18 23:25 MCHC Differential 32.6 pg (28.0-36.0) 08/30/18 23:25 RDW 13.0 % (11.5-20.0) 08/30/18 23:25 Plt Count 160 Th/cmm (150-400) 08/30/18 23:25 MPV 8.7 fl 08/30/18 23:25 Neutrophils % 59.7 % (40.0-80.0) 08/30/18 23:25 Lymphocytes % 27.8 % (20.0-50.0) 08/30/18 23:25 Monocytes % 6.5 % (2.0-10.0) 08/30/18 23:25 Eosinophils % 5.0 % (0.0-5.0) 08/30/18 23:25 Basophils % 1.0 % (0.0-2.0) 08/30/18 23:25 Sodium 143 mEq/L (136-145) 08/30/18 23:25 Potassium 4.1 mEq/L (3.5-5.1) 08/30/18 23:25 Chloride 110 mEq/L (98-107) H 08/30/18 23:25 Carbon Dioxide 24.9 mEq/L (21.0-31.0) 08/30/18 23:25 Anion Gap 12.2 (7.0-16.0) 08/30/18 23:25 BUN 30 mg/dL (7-25) H 08/30/18 23:25 Creatinine 1.5 mg/dL (0.7-1.3) H 08/30/18 23:25 Est GFR ( Amer) > 60.0 ml/min (>90) 08/30/18 23:25 Est GFR (Non-Af Amer) 50.1 ml/min 08/30/18 23:25 BUN/Creatinine Ratio 20.0 08/30/18 23:25 Glucose 85 mg/dL (70-105) 08/30/18 23:25 POC Glucose 70 MG/DL (70 - 105) 09/05/18 16:18 Calcium 9.8 mg/dL (8.6-10.3) 08/30/18 23:25 Total Bilirubin 0.3 mg/dL (0.3-1.0) 08/30/18 23:25 AST 19 U/L (13-39) 08/30/18 23:25 ALT 25 U/L (7-52) 08/30/18 23:25 Alkaline Phosphatase 62 U/L (34-104) 08/30/18 23:25 Total Protein 6.3 gm/dL (6.0-8.3) 08/30/18 23:25 Albumin 3.8 gm/dL (4.2-5.5) L 08/30/18 23:25 Globulin 2.5 gm/dL 08/30/18 23:25 Albumin/Globulin Ratio 1.5 (1.0-1.8) 08/30/18 23:25 Triglycerides 62 mg/dL (<150) 08/31/18 01:25 Cholesterol 104 mg/dL (<200) 08/31/18 01:25 LDL Cholesterol Direct 47 mg/dL (75-193) L 08/31/18 01:25 HDL Cholesterol 45 mg/dL (23-92) 08/31/18 01:25 Urine Source CLEAN C 08/30/18 23:20 Urine Color YELLOW 08/30/18 23:20 Urine Clarity CLEAR (CLEAR) 08/30/18 23:20 Urine pH 5.5 (4.6 - 8.0) 08/30/18 23:20 Ur Specific [place] 1.020 (1.005-1.030) 08/30/18 23:20 Urine Protein NEGATIVE mg/dL (NEGATIVE) 08/30/18 23:20 Urine Glucose (UA) NEGATIVE mg/dL (NEGATIVE) 08/30/18 23:20 Urine Ketones NEGATIVE mg/dL (NEGATIVE) 08/30/18 23:20 Urine Blood NEGATIVE (NEGATIVE) 08/30/18 23:20 Urine Nitrate NEGATIVE (NEGATIVE) 08/30/18 23:20 Urine Bilirubin NEGATIVE (NEGATIVE) 08/30/18 23:20 Urine Urobilinogen 0.2 E.U./dL (0.2 - 1.0) 08/30/18 23:20 Ur Leukocyte Esterase NEGATIVE (NEGATIVE) 08/30/18 23:20 Urine RBC NONE SEEN /hpf (0-5) 08/30/18 23:20 Urine WBC 0-2 /hpf (0-5) 08/30/18 23:20 Ur Epithelial Cells NONE SEEN /lpf (FEW) 08/30/18 23:20 Urine Bacteria OCCASIONAL /hpf (NONE SEEN) 08/30/18 23:20 - Physical Exam Vitals and I&O: Vital Signs Temp 97.8 F 09/05/18 14:00 Pulse 60 09/05/18 16:08 Resp 18 09/05/18 14:00 BP 130/65 09/05/18 16:08 Pulse Ox 98 09/05/18 14:00 Intake & Output 09/05/18 09/05/18 09/06/18 06:59 18:59 06:59 Intake Total 120 1200 Balance 120 1200 Intake: Oral 120 1200 Other: # Voids 3 # Bowel Movements 1 Active Medications: Current Medications Acetaminophen (Tylenol) 650 mg PO Q12H PRN PRN Reason: Pain (Mild) Stop: 10/30/18 01:00 Last Admin: 09/05/18 06:46 Dose: 650 mg Aspirin (Ecotrin) 81 mg PO DAILY [facility] Stop: 10/30/18 08:59 Last Admin: 09/05/18 08:42 Dose: 81 mg Benazepril HCl (Lotensin) 10 mg PO DAILY [facility] Stop: 10/30/18 08:59 Last Admin: 09/05/18 08:42 Dose: 10 mg Benztropine Mesylate (Cogentin) 1 mg PO BID [facility] Stop: 10/30/18 08:59 Last Admin: 09/05/18 16:08 Dose: 1 mg Carvedilol (Coreg) 12.5 mg PO BID [facility] Stop: 10/30/18 08:59 Last Admin: 09/05/18 16:08 Dose: 12.5 mg Cyanocobalamin (Vitamin B12) 100 mcg PO DAILY [facility] Stop: 10/30/18 08:59 Last Admin: 09/05/18 08:43 Dose: 100 mcg Escitalopram Oxalate (Lexapro) 10 mg PO DAILY [facility]; Protocol Stop: 10/30/18 08:59 Last Admin: 09/05/18 08:44 Dose: 10 mg Furosemide (Lasix) 40 mg PO [facility] [place]: 11/01/18 08:59 Last Admin: 09/04/18 09:07 Dose: 40 mg Glipizide (Glucotrol) 5 mg PO BID [facility] Stop: 10/30/18 08:59 Last Admin: 09/05/18 16:09 Dose: 5 mg Insulin Aspart (Novolog) 0 units SUBQ [facility]; Protocol Stop: 10/30/18 11:29 Last Admin: 09/05/18 16:25 Dose: Not Given Insulin Detemir (Levemir Insulin) 12 units SUBQ [facility]; Protocol Stop: 10/30/18 20:59 Last Admin: 09/04/18 20:25 Dose: 12 units Levetiracetam (Keppra) 500 mg PO BID [facility] Stop: 10/30/18 08:59 Last Admin: 09/05/18 16:09 Dose: 500 mg [facility] Stop: 10/30/18 07:59 Last Admin: 09/05/18 17:18 Dose: 1,000 mg Potassium Chloride (Klor-Con) 40 meq PO [facility] [place] Stop: 11/01/18 08:59 Last Admin: 09/04/18 09:06 Dose: 40 meq Quetiapine Fumarate (Seroquel) 75 mg PO BID [facility]; Protocol Stop: 10/30/18 08:59 Last Admin: 09/05/18 16:09 Dose: 75 mg Simvastatin (Zocor) 20 mg PO [facility]; Protocol Stop: 10/30/18 20:59 Last Admin: 09/04/18 20:25 Dose: 20 mg Zolpidem Tartrate (Ambien) 5 mg PO HS PRN PRN Reason: Insomnia Stop: 10/30/18 01:00 Last Admin: 09/04/18 20:25 Dose: 5 mg General: alert, appears older HEENT: NC/AT, PERRLA, EOMI, anicteric sclerae, throat clear Neck: Supple, No JVD, No thyromegaly Lungs: congested, rales, ronchi Cardiovascular: RRR, Normal S1, Normal S2, with murmur Abdomen: soft, tender, globular, positive bowel sound Extremities: excoriation, contracture Neurological: no change, muscle weakness Internal Medicine Assmt/Plan - Assessment Assessment: 1.DM. 2.HTN. 3.CHF. 4.SEIZURE DISORDER. 5.DEMENTIA. - Plan Plan: CONTINUE ON CURRENT MEDICATION AND DIET. Nutritional Asmnt/Malnutr-PDOC - Dietary Evaluation Malnutrition Findings (Please click <Entered> for more info): Nutritional Asmnt/Malnutrition Start: 09/05/18 15: 21 Text: Status: Complete Freq: Protocol: Document 09/05/18 15:21 LCHENG (Rec: 09/05/18 15:38 [email or web address] [email or web address]) Nutritional Asmnt/Malnutrition Patient General Information Nutritional Screening Moderate Risk Diagnosis psychosis, increased agitation Pertinent Medical Hx/Surgical Hx CHF, DM, HTN, hypercholesterolemia, seizure Subjective Information Pt seen in dining room, oriented to self only. Per EMR , PO intake 100% since admitted. Current Diet Order/ Nutrition Support [facility] soft ground, BEN, CCHO, large portion, nectar thick Pertinent Medications vit B12, lasix, glucotrol, novolog, levemir, glucophage, kcl, seroquel Pertinent Labs 09/03-09/05 POC 54-156 08/30 Cl 110, BUN 30, Cr, 1.5, glucose 85 Nutritional Hx/Data Height 1.73 m Height (Calculated Centimeters) 172.7 Current Weight (lbs) 65.771 kg Weight (Calculated Kilograms) 65.8 Weight (Calculated Grams) 30033.9 [place] Body Weight 154 Body Mass Index (BMI) 22.0 Weight Status Approriate GI Symptoms GI Symptoms None Last BM 09/04 Difficult in: None Skin Integrity/Comment: intact Current %PO Good (75-100%) Estimated Nutritional Goals BEE in Kcals: Using Current wt Calories/Kcals/Kg 25-30 Kcals Calculated 8580-3996 Protein: Using Current wt Protein g/k Protein Calculated 66 Fluid: ml 1650-1980ml (1ml/kcal) Nutritional Problem No current Nutrition Prob Problem N/A Malnutrition Alert Is there a minimum of two criteria No selected? Query Text:Check all the applicable criteria. A minimum of two criteria are recommended for diagnosis of either severe or non-severe malnutrition. Malnutrition Related to Morbid Obesity Malnutrition related to morbid obesity No Intervention/Recommendation Comments 1. Continue with [facility] soft ground, BEN, CCHO, large portion, nectar thick diet as ordered. 2. Monitor PO intake, wt, labs and skin integrity 3. F/U as low risk in 7 days Expected Outcomes/Goals Expected Outcomes/Goals 1. PO intake to meet at least 75% of nutritional needs. 2. Wt stability, skin to remain intact, labs to approach WNL.
[2018-09-05] MEDS: Insulin Detemir 100 units/mL 10mL Vial SUBQ SCH (21:10)
[2018-09-06] MEDS: INSULIN ASPART, RECOMBINANT 100 UNITS/ML SUBQ SCH ×4 (06:54→20:58)
[2018-09-06] MEDS: Potassium Chloride 20 mEq ER Tab PO SCH (10:13)
[2018-09-06] MEDS: Benztropine 1 MG TAB PO SCH ×2 (10:15→16:54)
--- NOTE | 2018-09-06 18:57 | Internal Medicine Prog Note ---
Internal Medicine Subjective - Subjective Service Date: 09/06/18 Patient seen and examined:: with staff Patient is:: awake, verbal, interactive, in bed Per staff patient has:: no adverse event, no episodes of fall, poor appetite, tolerating meds Internal Medicine Objective - Results Result Diagrams: 08/30/18 23:25 08/30/18 23:25 Recent Labs: Laboratory Last Values WBC 6.7 Th/cmm (4.8-10.8) 08/30/18 23:25 RBC 3.62 Mil/cmm (4.30-5.70) L 08/30/18 23:25 Hgb 10.3 gm/dL (12-16) L 08/30/18 23:25 Hct 31.7 % (41.0-60) L 08/30/18 23:25 MCV 87.5 fl (80-99) 08/30/18 23:25 MCH 28.5 pg (26.0-30.0) 08/30/18 23:25 MCHC Differential 32.6 pg (28.0-36.0) 08/30/18 23:25 RDW 13.0 % (11.5-20.0) 08/30/18 23:25 Plt Count 160 Th/cmm (150-400) 08/30/18 23:25 MPV 8.7 fl 08/30/18 23:25 Neutrophils % 59.7 % (40.0-80.0) 08/30/18 23:25 Lymphocytes % 27.8 % (20.0-50.0) 08/30/18 23:25 Monocytes % 6.5 % (2.0-10.0) 08/30/18 23:25 Eosinophils % 5.0 % (0.0-5.0) 08/30/18 23:25 Basophils % 1.0 % (0.0-2.0) 08/30/18 23:25 Sodium 143 mEq/L (136-145) 08/30/18 23:25 Potassium 4.1 mEq/L (3.5-5.1) 08/30/18 23:25 Chloride 110 mEq/L (98-107) H 08/30/18 23:25 Carbon Dioxide 24.9 mEq/L (21.0-31.0) 08/30/18 23:25 Anion Gap 12.2 (7.0-16.0) 08/30/18 23:25 BUN 30 mg/dL (7-25) H 08/30/18 23:25 Creatinine 1.5 mg/dL (0.7-1.3) H 08/30/18 23:25 Est GFR ( Amer) > 60.0 ml/min (>90) 08/30/18 23:25 Est GFR (Non-Af Amer) 50.1 ml/min 08/30/18 23:25 BUN/Creatinine Ratio 20.0 08/30/18 23:25 Glucose 85 mg/dL (70-105) 08/30/18 23:25 POC Glucose 77 MG/DL (70 - 105) 09/06/18 11:56 Calcium 9.8 mg/dL (8.6-10.3) 08/30/18 23:25 Total Bilirubin 0.3 mg/dL (0.3-1.0) 08/30/18 23:25 AST 19 U/L (13-39) 08/30/18 23:25 ALT 25 U/L (7-52) 08/30/18 23:25 Alkaline Phosphatase 62 U/L (34-104) 08/30/18 23:25 Total Protein 6.3 gm/dL (6.0-8.3) 08/30/18 23:25 Albumin 3.8 gm/dL (4.2-5.5) L 08/30/18 23:25 Globulin 2.5 gm/dL 08/30/18 23:25 Albumin/Globulin Ratio 1.5 (1.0-1.8) 08/30/18 23:25 Triglycerides 62 mg/dL (<150) 08/31/18 01:25 Cholesterol 104 mg/dL (<200) 08/31/18 01:25 LDL Cholesterol Direct 47 mg/dL (75-193) L 08/31/18 01:25 HDL Cholesterol 45 mg/dL (23-92) 08/31/18 01:25 Urine Source CLEAN C 08/30/18 23:20 Urine Color YELLOW 08/30/18 23:20 Urine Clarity CLEAR (CLEAR) 08/30/18 23:20 Urine pH 5.5 (4.6 - 8.0) 08/30/18 23:20 Ur Specific [place] 1.020 (1.005-1.030) 08/30/18 23:20 Urine Protein NEGATIVE mg/dL (NEGATIVE) 08/30/18 23:20 Urine Glucose (UA) NEGATIVE mg/dL (NEGATIVE) 08/30/18 23:20 Urine Ketones NEGATIVE mg/dL (NEGATIVE) 08/30/18 23:20 Urine Blood NEGATIVE (NEGATIVE) 08/30/18 23:20 Urine Nitrate NEGATIVE (NEGATIVE) 08/30/18 23:20 Urine Bilirubin NEGATIVE (NEGATIVE) 08/30/18 23:20 Urine Urobilinogen 0.2 E.U./dL (0.2 - 1.0) 08/30/18 23:20 Ur Leukocyte Esterase NEGATIVE (NEGATIVE) 08/30/18 23:20 Urine RBC NONE SEEN /hpf (0-5) 08/30/18 23:20 Urine WBC 0-2 /hpf (0-5) 08/30/18 23:20 Ur Epithelial Cells NONE SEEN /lpf (FEW) 08/30/18 23:20 Urine Bacteria OCCASIONAL /hpf (NONE SEEN) 08/30/18 23:20 - Physical Exam Vitals and I&O: Vital Signs Temp 98.8 F 09/06/18 14:00 Pulse 67 09/06/18 16:55 Resp 18 09/06/18 14:00 BP 138/72 09/06/18 16:55 Pulse Ox 97 09/06/18 14:00 Intake & Output 09/05/18 09/06/18 09/06/18 18:59 06:59 18:59 Intake Total 7665 382 6099 Balance 5592 212 4010 Intake: Oral 0905 413 2397 Other: # Voids 3 # Bowel Movements 1 0 1 Active Medications: Current Medications Acetaminophen (Tylenol) 650 mg PO Q12H PRN PRN Reason: Pain (Mild) Stop: 10/30/18 01:00 Last Admin: 09/05/18 06:46 Dose: 650 mg Aspirin (Ecotrin) 81 mg PO DAILY [facility] Stop: 10/30/18 08:59 Last Admin: 09/06/18 10:15 Dose: 81 mg Benazepril HCl (Lotensin) 10 mg PO DAILY [facility] Stop: 10/30/18 08:59 Last Admin: 09/06/18 10:14 Dose: 10 mg Benztropine Mesylate (Cogentin) 1 mg PO BID [facility] Stop: 10/30/18 08:59 Last Admin: 09/06/18 16:54 Dose: 1 mg Carvedilol (Coreg) 12.5 mg PO BID [facility] Stop: 10/30/18 08:59 Last Admin: 09/06/18 16:55 Dose: 12.5 mg Cyanocobalamin (Vitamin B12) 100 mcg PO DAILY [facility] Stop: 10/30/18 08:59 Last Admin: 09/06/18 10:13 Dose: 100 mcg Escitalopram Oxalate (Lexapro) 10 mg PO DAILY [facility]; Protocol Stop: 10/30/18 08:59 Last Admin: 09/06/18 10:15 Dose: 10 mg Furosemide (Lasix) 40 mg PO [facility] [place] [place] Stop: 11/01/18 08:59 Last Admin: 09/06/18 10:14 Dose: 40 mg Glipizide (Glucotrol) 5 mg PO BID [facility] Stop: 10/30/18 08:59 Last Admin: 09/06/18 16:54 Dose: 5 mg Insulin Aspart (Novolog) 0 units SUBQ [facility]; Protocol Stop: 10/30/18 11:29 Last Admin: 09/06/18 16:56 Dose: Not Given Insulin Detemir (Levemir Insulin) 12 units SUBQ [facility]; Protocol Stop: 10/30/18 20:59 Last Admin: 09/05/18 21:10 Dose: 12 units Levetiracetam (Keppra) 500 mg PO BID [facility] Stop: 10/30/18 08:59 Last Admin: 09/06/18 16:54 Dose: 500 mg [facility] Stop: 10/30/18 07:59 Last Admin: 09/06/18 17:00 Dose: 1,000 mg Potassium Chloride (Klor-Con) 40 meq PO [facility] [place] [place] Stop: 11/01/18 08:59 Last Admin: 09/06/18 10:13 Dose: 40 meq Quetiapine Fumarate (Seroquel) 75 mg PO BID [facility]; Protocol Stop: 10/30/18 08:59 Last Admin: 09/06/18 16:55 Dose: 75 mg Simvastatin (Zocor) 20 mg PO [facility]; Protocol Stop: 10/30/18 20:59 Last Admin: 09/05/18 21:09 Dose: 20 mg Zolpidem Tartrate (Ambien) 5 mg PO HS PRN PRN Reason: Insomnia Stop: 10/30/18 01:00 Last Admin: 09/04/18 20:25 Dose: 5 mg General: alert, appears older HEENT: NC/AT, PERRLA, EOMI, anicteric sclerae, throat clear Neck: Supple, No JVD, No thyromegaly Lungs: congested, rales, ronchi Cardiovascular: RRR, Normal S1, Normal S2, with murmur Abdomen: soft, tender, globular, positive bowel sound Extremities: excoriation, contracture Neurological: no change, muscle weakness Internal Medicine Assmt/Plan - Assessment Assessment: 1.DM. 2.HTN. 3.CHF. 4.SEIZURE DISORDER. 5.DEMENTIA. - Plan Plan: CONTINUE ON CURRENT MEDICATION AND DIET. Nutritional Asmnt/Malnutr-PDOC - Dietary Evaluation Malnutrition Findings (Please click <Entered> for more info): Nutritional Asmnt/Malnutrition Start: 09/05/18 15: 21 Text: Status: Complete Freq: Protocol: Document 09/05/18 15:21 LCHENG (Rec: 09/05/18 15:38 [id number] Nutritional Asmnt/Malnutrition Patient General Information Nutritional Screening Moderate Risk Diagnosis psychosis, increased agitation Pertinent Medical Hx/Surgical Hx CHF, DM, HTN, hypercholesterolemia, seizure Subjective Information Pt seen in dining room, oriented to self only. Per EMR , PO intake 100% since admitted. Current Diet Order/ [facility], BEN, CCHO, large portion, nectar thick Pertinent Medications vit B12, lasix, glucotrol, novolog, levemir, glucophage, kcl, seroquel Pertinent Labs 09/03-09/05 POC 54-156 08/30 Cl 110, BUN 30, Cr, 1.5, glucose 85 Nutritional Hx/Data Height 1.73 m Height (Calculated Centimeters) 172.7 Current Weight (lbs) 65.771 kg Weight (Calculated Kilograms) 65.8 Weight (Calculated Grams) 95390.9 [place] Body Weight 154 Body Mass Index (BMI) 22.0 Weight Status Approriate GI Symptoms GI Symptoms None Last BM 09/04 Difficult in: None Skin Integrity/Comment: intact Current %PO Good (75-100%) Estimated Nutritional Goals BEE in Kcals: Using Current wt Calories/Kcals/Kg 25-30 Kcals Calculated 5005-2201 Protein: Using Current wt Protein g/k Protein Calculated 66 Fluid: ml 1650-1980ml (1ml/kcal) Nutritional Problem No current Nutrition Prob Problem N/A Malnutrition Alert Is there a minimum of two criteria No selected? Query Text:Check all the applicable criteria. A minimum of two criteria are recommended for diagnosis of either severe or non-severe malnutrition. Malnutrition Related to Morbid Obesity Malnutrition related to morbid obesity No Intervention/Recommendation Comments 1. Continue with [facility] soft ground, BEN, CCHO, large portion, nectar thick diet as ordered. 2. Monitor PO intake, wt, labs and skin integrity 3. F/U as low risk in 7 days Expected Outcomes/Goals Expected Outcomes/Goals 1. PO intake to meet at least 75% of nutritional needs. 2. Wt stability, skin to remain intact, labs to approach WNL.
[2018-09-06] MEDS: Insulin Detemir 100 units/mL 10mL Vial SUBQ SCH (21:04)
--- NOTE | 2018-09-06 21:11 | Progress Notes ---
DATE: 09/06/2018 Case was discussed with staff of the patient, reviewed records. Covering for Dr. Joseph. A 63-year-old male who was admitted on 08/31/2018. He was irritable, agitated, and suicidal. The patient was easily agitated. He is with a history of congestive heart failure, diabetes, hypertension, hyperlipidemia and history of seizure disorder. The patient came from a nursing facility. The patient has been more cooperative. He is quiet, isolating himself, flat affect, poor communication. He is compliant with the medication with no side effects, seemed to be showing progress. He is on Lexapro 10 mg daily. He is on Lipitor, Keppra 500 mg twice a day, Seroquel 75 mg twice a day with no side effects, no sedation, no nausea, no extrapyramidal symptoms. We will continue outpatient group therapy, milieu therapy, and adjust medications as needed. JOB# [id number]
[2018-09-07] MEDS: Benztropine 1 MG TAB PO SCH ×2 (08:53→16:19)
[2018-09-07] MEDS: INSULIN ASPART, RECOMBINANT 100 UNITS/ML SUBQ SCH ×4 (08:54→20:29)
--- NOTE | 2018-09-07 16:58 | Internal Medicine Prog Note ---
Internal Medicine Subjective - Subjective Service Date: 09/07/18 Patient seen and examined:: without staff Patient is:: awake, verbal, interactive, in bed Per staff patient has:: no adverse event, no episodes of fall, poor appetite, tolerating meds Internal Medicine Objective - Results Result Diagrams: 08/30/18 23:25 08/30/18 23:25 Recent Labs: Laboratory Last Values WBC 6.7 Th/cmm (4.8-10.8) 08/30/18 23:25 RBC 3.62 Mil/cmm (4.30-5.70) L 08/30/18 23:25 Hgb 10.3 gm/dL (12-16) L 08/30/18 23:25 Hct 31.7 % (41.0-60) L 08/30/18 23:25 MCV 87.5 fl (80-99) 08/30/18 23:25 MCH 28.5 pg (26.0-30.0) 08/30/18 23:25 MCHC Differential 32.6 pg (28.0-36.0) 08/30/18 23:25 RDW 13.0 % (11.5-20.0) 08/30/18 23:25 Plt Count 160 Th/cmm (150-400) 08/30/18 23:25 MPV 8.7 fl 08/30/18 23:25 Neutrophils % 59.7 % (40.0-80.0) 08/30/18 23:25 Lymphocytes % 27.8 % (20.0-50.0) 08/30/18 23:25 Monocytes % 6.5 % (2.0-10.0) 08/30/18 23:25 Eosinophils % 5.0 % (0.0-5.0) 08/30/18 23:25 Basophils % 1.0 % (0.0-2.0) 08/30/18 23:25 Sodium 143 mEq/L (136-145) 08/30/18 23:25 Potassium 4.1 mEq/L (3.5-5.1) 08/30/18 23:25 Chloride 110 mEq/L (98-107) H 08/30/18 23:25 Carbon Dioxide 24.9 mEq/L (21.0-31.0) 08/30/18 23:25 Anion Gap 12.2 (7.0-16.0) 08/30/18 23:25 BUN 30 mg/dL (7-25) H 08/30/18 23:25 Creatinine 1.5 mg/dL (0.7-1.3) H 08/30/18 23:25 Est GFR ( Amer) > 60.0 ml/min (>90) 08/30/18 23:25 Est GFR (Non-Af Amer) 50.1 ml/min 08/30/18 23:25 BUN/Creatinine Ratio 20.0 08/30/18 23:25 Glucose 85 mg/dL (70-105) 08/30/18 23:25 POC Glucose 83 MG/DL (70 - 105) 09/07/18 16:40 Calcium 9.8 mg/dL (8.6-10.3) 08/30/18 23:25 Total Bilirubin 0.3 mg/dL (0.3-1.0) 08/30/18 23:25 AST 19 U/L (13-39) 08/30/18 23:25 ALT 25 U/L (7-52) 08/30/18 23:25 Alkaline Phosphatase 62 U/L (34-104) 08/30/18 23:25 Total Protein 6.3 gm/dL (6.0-8.3) 08/30/18 23:25 Albumin 3.8 gm/dL (4.2-5.5) L 08/30/18 23:25 Globulin 2.5 gm/dL 08/30/18 23:25 Albumin/Globulin Ratio 1.5 (1.0-1.8) 08/30/18 23:25 Triglycerides 62 mg/dL (<150) 08/31/18 01:25 Cholesterol 104 mg/dL (<200) 08/31/18 01:25 LDL Cholesterol Direct 47 mg/dL (75-193) L 08/31/18 01:25 HDL Cholesterol 45 mg/dL (23-92) 08/31/18 01:25 Urine Source CLEAN C 08/30/18 23:20 Urine Color YELLOW 08/30/18 23:20 Urine Clarity CLEAR (CLEAR) 08/30/18 23:20 Urine pH 5.5 (4.6 - 8.0) 08/30/18 23:20 Ur Specific [place] 1.020 (1.005-1.030) 08/30/18 23:20 Urine Protein NEGATIVE mg/dL (NEGATIVE) 08/30/18 23:20 Urine Glucose (UA) NEGATIVE mg/dL (NEGATIVE) 08/30/18 23:20 Urine Ketones NEGATIVE mg/dL (NEGATIVE) 08/30/18 23:20 Urine Blood NEGATIVE (NEGATIVE) 08/30/18 23:20 Urine Nitrate NEGATIVE (NEGATIVE) 08/30/18 23:20 Urine Bilirubin NEGATIVE (NEGATIVE) 08/30/18 23:20 Urine Urobilinogen 0.2 E.U./dL (0.2 - 1.0) 08/30/18 23:20 Ur Leukocyte Esterase NEGATIVE (NEGATIVE) 08/30/18 23:20 Urine RBC NONE SEEN /hpf (0-5) 08/30/18 23:20 Urine WBC 0-2 /hpf (0-5) 08/30/18 23:20 Ur Epithelial Cells NONE SEEN /lpf (FEW) 08/30/18 23:20 Urine Bacteria OCCASIONAL /hpf (NONE SEEN) 08/30/18 23:20 - Physical Exam Vitals and I&O: Vital Signs Temp 98.0 F 09/07/18 14:00 Pulse 69 09/07/18 16:19 Resp 18 09/07/18 14:00 BP 144/74 09/07/18 16:19 Pulse Ox 99 09/07/18 14:00 Intake & Output 09/06/18 09/07/18 09/07/18 18:59 06:59 18:59 Intake Total 1200 Balance 1200 Intake: Oral 1200 Other: # Bowel Movements 1 Active Medications: Current Medications Acetaminophen (Tylenol) 650 mg PO Q12H PRN PRN Reason: Pain (Mild) Stop: 10/30/18 01:00 Last Admin: 09/05/18 06:46 Dose: 650 mg Aspirin (Ecotrin) 81 mg PO DAILY [facility] Stop: 10/30/18 08:59 Last Admin: 09/07/18 08:53 Dose: 81 mg Benazepril HCl (Lotensin) 10 mg PO DAILY [facility] Stop: 10/30/18 08:59 Last Admin: 09/07/18 08:53 Dose: 10 mg Benztropine Mesylate (Cogentin) 1 mg PO BID [facility] Stop: 10/30/18 08:59 Last Admin: 09/07/18 16:19 Dose: 1 mg Carvedilol (Coreg) 12.5 mg PO BID [facility] Stop: 10/30/18 08:59 Last Admin: 09/07/18 16:19 Dose: 12.5 mg Cyanocobalamin (Vitamin B12) 100 mcg PO DAILY [facility] Stop: 10/30/18 08:59 Last Admin: 09/07/18 08:52 Dose: 100 mcg Escitalopram Oxalate (Lexapro) 10 mg PO DAILY [facility]; Protocol Stop: 10/30/18 08:59 Last Admin: 09/07/18 08:52 Dose: 10 mg Furosemide (Lasix) 40 mg PO [facility] [place] Stop: 11/01/18 08:59 Last Admin: 09/06/18 10:14 Dose: 40 mg Glipizide (Glucotrol) 5 mg PO BID [facility] Stop: 10/30/18 08:59 Last Admin: 09/07/18 16:24 Dose: 5 mg Insulin Aspart (Novolog) 0 units SUBQ [facility]; Protocol Stop: 10/30/18 11:29 Last Admin: 09/07/18 16:42 Dose: Not Given Insulin Detemir (Levemir Insulin) 12 units SUBQ [facility]; Protocol Stop: 10/30/18 20:59 Last Admin: 09/06/18 21:04 Dose: 12 units Levetiracetam (Keppra) 500 mg PO BID [facility] Stop: 10/30/18 08:59 Last Admin: 09/07/18 16:24 Dose: 500 mg [facility] Stop: 10/30/18 07:59 Last Admin: 09/07/18 08:48 Dose: 1,000 mg Potassium Chloride (Klor-Con) 40 meq PO [facility] Stop: 11/01/18 08:59 Last Admin: 09/06/18 10:13 Dose: 40 meq Quetiapine Fumarate (Seroquel) 75 mg PO BID [facility]; Protocol Stop: 10/30/18 08:59 Last Admin: 09/07/18 16:18 Dose: 75 mg Simvastatin (Zocor) 20 mg PO [facility]; Protocol Stop: 10/30/18 20:59 Last Admin: 09/06/18 20:58 Dose: 20 mg Zolpidem Tartrate (Ambien) 5 mg PO HS PRN PRN Reason: Insomnia Stop: 10/30/18 01:00 Last Admin: 09/04/18 20:25 Dose: 5 mg General: alert, appears older HEENT: NC/AT, PERRLA, EOMI, anicteric sclerae, throat clear Neck: Supple, No JVD, No thyromegaly Lungs: congested, rales, ronchi Cardiovascular: RRR, Normal S1, Normal S2, with murmur Abdomen: soft, tender, globular, positive bowel sound Extremities: excoriation, contracture Neurological: no change, muscle weakness Internal Medicine Assmt/Plan - Assessment Assessment: 1.DM. 2.HTN. 3.CHF. 4.SEIZURE DISORDER. 5.DEMENTIA. - Plan Plan: CONTINUE ON CURRENT MEDICATION AND DIET. Nutritional Asmnt/Malnutr-PDOC - Dietary Evaluation Malnutrition Findings (Please click <Entered> for more info): Nutritional Asmnt/Malnutrition Start: 09/05/18 15: 21 Text: Status: Complete Freq: Protocol: Document 09/05/18 15:21 LCHENG (Rec: 09/05/18 15:38 LCALANISG [email or web address]) Nutritional Asmnt/Malnutrition Patient General Information Nutritional Screening Moderate Risk Diagnosis psychosis, increased agitation Pertinent Medical Hx/Surgical Hx CHF, DM, HTN, hypercholesterolemia, seizure Subjective Information Pt seen in dining room, oriented to self only. Per EMR , PO intake 100% since admitted. Current Diet Order/ Nutrition Support [facility] soft ground, BEN, CCHO, large portion, nectar thick Pertinent Medications vit B12, lasix, glucotrol, novolog, levemir, glucophage, kcl, seroquel Pertinent Labs 09/03-09/05 POC 54-156 08/30 Cl 110, BUN 30, Cr, 1.5, glucose 85 Nutritional Hx/Data Height 1.73 m Height (Calculated Centimeters) 172.7 Current Weight (lbs) 65.771 kg Weight (Calculated Kilograms) 65.8 Weight (Calculated Grams) 43294.9 [place] Body Weight 154 Body Mass Index (BMI) 22.0 Weight Status Approriate GI Symptoms GI Symptoms None Last BM 09/04 Difficult in: None Skin Integrity/Comment: intact Current %PO Good (75-100%) Estimated Nutritional Goals BEE in Kcals: Using Current wt Calories/Kcals/Kg 25-30 Kcals Calculated 6844-9501 Protein: Using Current wt Protein g/k Protein Calculated 66 Fluid: ml 1650-1980ml (1ml/kcal) Nutritional Problem No current Nutrition Prob Problem N/A Malnutrition Alert Is there a minimum of two criteria No selected? Query Text:Check all the applicable criteria. A minimum of two criteria are recommended for diagnosis of either severe or non-severe malnutrition. Malnutrition Related to Morbid Obesity Malnutrition related to morbid obesity No Intervention/Recommendation Comments 1. Continue with [facility] soft ground, BEN, CCHO, large portion, nectar thick diet as ordered. 2. Monitor PO intake, wt, labs and skin integrity 3. F/U as low risk in 7 days Expected Outcomes/Goals Expected Outcomes/Goals 1. PO intake to meet at least 75% of nutritional needs. 2. Wt stability, skin to remain intact, labs to approach WNL.
[2018-09-07] MEDS: Insulin Detemir 100 units/mL 10mL Vial SUBQ SCH (20:29)
--- NOTE | 2018-09-07 21:47 | Progress Notes ---
DATE: 09/07/2018 SUBJECTIVE: A 63-year-old male patient presented as irritable, agitated, suicidal, noted to be sad, disengaged, states he is in the hospital, has no idea of the year, the month, stating that his left side hurts a lot that is mostly with his focus on, history of dementia, poor historian, not able to give me a viable plan. go, noted by staff to be easily agitated, currently on Lexapro, Lipitor, Keppra. No side effects noted. Sleeping fairly well with manager produce awakenings. ASSESSMENT: The patient remains symptomatic, very confused, poor historian, easily agitated, impulsive, unpredictable. PLAN: We will continue to monitor given ongoing symptoms, he is not safe for a lower level of care. JOB# [id number]
[2018-09-08] MEDS: INSULIN ASPART, RECOMBINANT 100 UNITS/ML SUBQ SCH ×4 (06:51→21:19)
[2018-09-08] MEDS: Benztropine 1 MG TAB PO SCH ×2 (08:59→16:15)
--- NOTE | 2018-09-08 16:28 | Progress Notes ---
DATE: 09/08/2018 SUBJECTIVE: The patient slept fairly well last night. Awake on exam, has no idea where he is going to go or how he is going to get better. Not answering some questions, mostly withdrawn, keeps to himself, episodes of confusion, disorientation. Per Architect Manager notes apparently public guardian is involved. The patient resides at a detention. Medications were noted including dosages and frequencies. ASSESSMENT: The patient remains symptomatic, still some confusional episodes, disorganized, withdrawn. PLAN: We will continue to monitor. Continue Seroquel dosing of Lexapro. The patient with ongoing behaviors. JOB# [id number]
[2018-09-08] MEDS: Insulin Detemir 100 units/mL 10mL Vial SUBQ SCH (21:19)
--- NOTE | 2018-09-08 22:18 | Internal Medicine Prog Note ---
Internal Medicine Subjective - Subjective Service Date: 09/08/18 Patient seen and examined:: without staff Patient is:: awake, verbal, interactive, in bed Per staff patient has:: no adverse event, no episodes of fall, poor appetite, tolerating meds Internal Medicine Objective - Results Result Diagrams: 08/30/18 23:25 08/30/18 23:25 Recent Labs: Laboratory Last Values WBC 6.7 Th/cmm (4.8-10.8) 08/30/18 23:25 RBC 3.62 Mil/cmm (4.30-5.70) L 08/30/18 23:25 Hgb 10.3 gm/dL (12-16) L 08/30/18 23:25 Hct 31.7 % (41.0-60) L 08/30/18 23:25 MCV 87.5 fl (80-99) 08/30/18 23:25 MCH 28.5 pg (26.0-30.0) 08/30/18 23:25 MCHC Differential 32.6 pg (28.0-36.0) 08/30/18 23:25 RDW 13.0 % (11.5-20.0) 08/30/18 23:25 Plt Count 160 Th/cmm (150-400) 08/30/18 23:25 MPV 8.7 fl 08/30/18 23:25 Neutrophils % 59.7 % (40.0-80.0) 08/30/18 23:25 Lymphocytes % 27.8 % (20.0-50.0) 08/30/18 23:25 Monocytes % 6.5 % (2.0-10.0) 08/30/18 23:25 Eosinophils % 5.0 % (0.0-5.0) 08/30/18 23:25 Basophils % 1.0 % (0.0-2.0) 08/30/18 23:25 Sodium 143 mEq/L (136-145) 08/30/18 23:25 Potassium 4.1 mEq/L (3.5-5.1) 08/30/18 23:25 Chloride 110 mEq/L (98-107) H 08/30/18 23:25 Carbon Dioxide 24.9 mEq/L (21.0-31.0) 08/30/18 23:25 Anion Gap 12.2 (7.0-16.0) 08/30/18 23:25 BUN 30 mg/dL (7-25) H 08/30/18 23:25 Creatinine 1.5 mg/dL (0.7-1.3) H 08/30/18 23:25 Est GFR ( Amer) > 60.0 ml/min (>90) 08/30/18 23:25 Est GFR (Non-Af Amer) 50.1 ml/min 08/30/18 23:25 BUN/Creatinine Ratio 20.0 08/30/18 23:25 Glucose 85 mg/dL (70-105) 08/30/18 23:25 POC Glucose 83 MG/DL (70 - 105) 09/07/18 16:40 Calcium 9.8 mg/dL (8.6-10.3) 08/30/18 23:25 Total Bilirubin 0.3 mg/dL (0.3-1.0) 08/30/18 23:25 AST 19 U/L (13-39) 08/30/18 23:25 ALT 25 U/L (7-52) 08/30/18 23:25 Alkaline Phosphatase 62 U/L (34-104) 08/30/18 23:25 Total Protein 6.3 gm/dL (6.0-8.3) 08/30/18 23:25 Albumin 3.8 gm/dL (4.2-5.5) L 08/30/18 23:25 Globulin 2.5 gm/dL 08/30/18 23:25 Albumin/Globulin Ratio 1.5 (1.0-1.8) 08/30/18 23:25 Triglycerides 62 mg/dL (<150) 08/31/18 01:25 Cholesterol 104 mg/dL (<200) 08/31/18 01:25 LDL Cholesterol Direct 47 mg/dL (75-193) L 08/31/18 01:25 HDL Cholesterol 45 mg/dL (23-92) 08/31/18 01:25 Urine Source CLEAN C 08/30/18 23:20 Urine Color YELLOW 08/30/18 23:20 Urine Clarity CLEAR (CLEAR) 08/30/18 23:20 Urine pH 5.5 (4.6 - 8.0) 08/30/18 23:20 Ur Specific [place] 1.020 (1.005-1.030) 08/30/18 23:20 Urine Protein NEGATIVE mg/dL (NEGATIVE) 08/30/18 23:20 Urine Glucose (UA) NEGATIVE mg/dL (NEGATIVE) 08/30/18 23:20 Urine Ketones NEGATIVE mg/dL (NEGATIVE) 08/30/18 23:20 Urine Blood NEGATIVE (NEGATIVE) 08/30/18 23:20 Urine Nitrate NEGATIVE (NEGATIVE) 08/30/18 23:20 Urine Bilirubin NEGATIVE (NEGATIVE) 08/30/18 23:20 Urine Urobilinogen 0.2 E.U./dL (0.2 - 1.0) 08/30/18 23:20 Ur Leukocyte Esterase NEGATIVE (NEGATIVE) 08/30/18 23:20 Urine RBC NONE SEEN /hpf (0-5) 08/30/18 23:20 Urine WBC 0-2 /hpf (0-5) 08/30/18 23:20 Ur Epithelial Cells NONE SEEN /lpf (FEW) 08/30/18 23:20 Urine Bacteria OCCASIONAL /hpf (NONE SEEN) 08/30/18 23:20 - Physical Exam Vitals and I&O: Vital Signs Temp 97.3 F 09/08/18 20:00 Pulse 79 09/08/18 20:00 Resp 18 09/08/18 20:00 BP 141/79 09/08/18 20:00 Pulse Ox 98 09/08/18 20:00 Intake & Output 09/08/18 09/08/18 09/09/18 06:59 18:59 06:59 Intake Total 120 1350 Balance 120 1350 Intake: Oral 120 1350 Other: # Voids 2 Active Medications: Current Medications Acetaminophen (Tylenol) 650 mg PO Q12H PRN PRN Reason: Pain (Mild) Stop: 10/30/18 01:00 Last Admin: 09/05/18 06:46 Dose: 650 mg Aspirin (Ecotrin) 81 mg PO DAILY [facility] Stop: 10/30/18 08:59 Last Admin: 09/08/18 08:59 Dose: 81 mg Benazepril HCl (Lotensin) 10 mg PO DAILY [facility] Stop: 10/30/18 08:59 Last Admin: 09/08/18 08:59 Dose: 10 mg Benztropine Mesylate (Cogentin) 1 mg PO BID [facility] Stop: 10/30/18 08:59 Last Admin: 09/08/18 16:15 Dose: 1 mg Carvedilol (Coreg) 12.5 mg PO BID [facility] Stop: 10/30/18 08:59 Last Admin: 09/08/18 16:14 Dose: 12.5 mg Cyanocobalamin (Vitamin B12) 100 mcg PO DAILY [facility] Stop: 10/30/18 08:59 Last Admin: 09/08/18 09:00 Dose: 100 mcg Escitalopram Oxalate (Lexapro) 10 mg PO DAILY [facility]; Protocol Stop: 10/30/18 08:59 Last Admin: 09/08/18 08:59 Dose: 10 mg Furosemide (Lasix) 40 mg PO [facility] Stop: 11/01/18 08:59 Last Admin: 09/06/18 10:14 Dose: 40 mg Glipizide (Glucotrol) 5 mg PO BID [facility] Stop: 10/30/18 08:59 Last Admin: 09/08/18 16:14 Dose: 5 mg Insulin Aspart (Novolog) 0 units SUBQ [facility]; Protocol Stop: 10/30/18 11:29 Last Admin: 09/08/18 21:19 Dose: Not Given Insulin Detemir (Levemir Insulin) 12 units SUBQ [facility]; Protocol Stop: 10/30/18 20:59 Last Admin: 09/08/18 21:19 Dose: 12 units Levetiracetam (Keppra) 500 mg PO BID [facility] Stop: 10/30/18 08:59 Last Admin: 09/08/18 16:15 Dose: 500 mg [facility]: 10/30/18 07:59 Last Admin: 09/08/18 17:49 Dose: 1,000 mg Potassium Chloride (Klor-Con) 40 meq PO [facility] Stop: 11/01/18 08:59 Last Admin: 09/06/18 10:13 Dose: 40 meq Quetiapine Fumarate (Seroquel) 75 mg PO BID [facility]; Protocol Stop: 10/30/18 08:59 Last Admin: 09/08/18 16:15 Dose: 75 mg Simvastatin (Zocor) 20 mg PO [facility]; Protocol Stop: 10/30/18 20:59 Last Admin: 09/08/18 21:19 Dose: 20 mg Zolpidem Tartrate (Ambien) 5 mg PO HS PRN PRN Reason: Insomnia Stop: 10/30/18 01:00 Last Admin: 09/08/18 21:19 Dose: 5 mg General: alert, appears older HEENT: NC/AT, PERRLA, EOMI, anicteric sclerae, throat clear Neck: Supple, No JVD, No thyromegaly Lungs: congested, rales, ronchi Cardiovascular: RRR, Normal S1, Normal S2, with murmur Abdomen: soft, tender, globular, positive bowel sound Extremities: excoriation, contracture Neurological: no change, muscle weakness Internal Medicine Assmt/Plan - Assessment Assessment: 1.DM. 2.HTN. 3.CHF. 4.SEIZURE DISORDER. 5.DEMENTIA. - Plan Plan: CONTINUE ON CURRENT MEDICATION AND DIET. Nutritional Asmnt/Malnutr-PDOC - Dietary Evaluation Malnutrition Findings (Please click <Entered> for more info): Nutritional Asmnt/Malnutrition Start: 09/05/18 15: 21 Text: Status: Complete Freq: Protocol: Document 09/05/18 15:21 LCHENG (Rec: 09/05/18 15:38 [email or web address] [email or web address]) Nutritional Asmnt/Malnutrition Patient General Information Nutritional Screening Moderate Risk Diagnosis psychosis, increased agitation Pertinent Medical Hx/Surgical Hx CHF, DM, HTN, hypercholesterolemia, seizure Subjective Information Pt seen in dining room, oriented to self only. Per EMR , PO intake 100% since admitted. Current Diet Order/ Nutrition Support [facility] soft ground, BEN, CCHO, large portion, nectar thick Pertinent Medications vit B12, lasix, glucotrol, novolog, levemir, glucophage, kcl, seroquel Pertinent Labs 09/03-09/05 POC 54-156 08/30 Cl 110, BUN 30, Cr, 1.5, glucose 85 Nutritional Hx/Data Height 1.73 m Height (Calculated Centimeters) 172.7 Current Weight (lbs) 65.771 kg Weight (Calculated Kilograms) 65.8 Weight (Calculated Grams) 79284.9 [place] Body Weight 154 Body Mass Index (BMI) 22.0 Weight Status Approriate GI Symptoms GI Symptoms None Last BM 09/04 Difficult in: None Skin Integrity/Comment: intact Current %PO Good (75-100%) Estimated Nutritional Goals BEE in Kcals: Using Current wt Calories/Kcals/Kg 25-30 Kcals Calculated 7837-3915 Protein: Using Current wt Protein g/k Protein Calculated 66 Fluid: ml 1650-1980ml (1ml/kcal) Nutritional Problem No current Nutrition Prob Problem N/A Malnutrition Alert Is there a minimum of two criteria No selected? Query Text:Check all the applicable criteria. A minimum of two criteria are recommended for diagnosis of either severe or non-severe malnutrition. Malnutrition Related to Morbid Obesity Malnutrition related to morbid obesity No Intervention/Recommendation Comments 1. Continue with [facility] soft ground, BEN, CCHO, large portion, nectar thick diet as ordered. 2. Monitor PO intake, wt, labs and skin integrity 3. F/U as low risk in 7 days Expected Outcomes/Goals Expected Outcomes/Goals 1. PO intake to meet at least 75% of nutritional needs. 2. Wt stability, skin to remain intact, labs to approach WNL.
[2018-09-09] MEDS: INSULIN ASPART, RECOMBINANT 100 UNITS/ML SUBQ SCH ×4 (06:53→20:53)
[2018-09-09] MEDS: Benztropine 1 MG TAB PO SCH ×2 (09:07→17:48)
[2018-09-09] MEDS: Potassium Chloride 20 mEq ER Tab PO SCH (09:10)
--- NOTE | 2018-09-09 16:10 | General Progress Note ---
Subjective - Review of Systems Service Date: 09/09/18 Subjective: sitting comfortably no distress Objective - Results Result Diagrams: 08/30/18 23:25 08/30/18 23:25 Recent Labs: Laboratory Last Values WBC 6.7 Th/cmm (4.8-10.8) 08/30/18 23:25 RBC 3.62 Mil/cmm (4.30-5.70) L 08/30/18 23:25 Hgb 10.3 gm/dL (12-16) L 08/30/18 23:25 Hct 31.7 % (41.0-60) L 08/30/18 23:25 MCV 87.5 fl (80-99) 08/30/18 23:25 MCH 28.5 pg (26.0-30.0) 08/30/18 23:25 MCHC Differential 32.6 pg (28.0-36.0) 08/30/18 23:25 RDW 13.0 % (11.5-20.0) 08/30/18 23:25 Plt Count 160 Th/cmm (150-400) 08/30/18 23:25 MPV 8.7 fl 08/30/18 23:25 Neutrophils % 59.7 % (40.0-80.0) 08/30/18 23:25 Lymphocytes % 27.8 % (20.0-50.0) 08/30/18 23:25 Monocytes % 6.5 % (2.0-10.0) 08/30/18 23:25 Eosinophils % 5.0 % (0.0-5.0) 08/30/18 23:25 Basophils % 1.0 % (0.0-2.0) 08/30/18 23:25 Sodium 143 mEq/L (136-145) 08/30/18 23:25 Potassium 4.1 mEq/L (3.5-5.1) 08/30/18 23:25 Chloride 110 mEq/L (98-107) H 08/30/18 23:25 Carbon Dioxide 24.9 mEq/L (21.0-31.0) 08/30/18 23:25 Anion Gap 12.2 (7.0-16.0) 08/30/18 23:25 BUN 30 mg/dL (7-25) H 08/30/18 23:25 Creatinine 1.5 mg/dL (0.7-1.3) H 08/30/18 23:25 Est GFR ( Amer) > 60.0 ml/min (>90) 08/30/18 23:25 Est GFR (Non-Af Amer) 50.1 ml/min 08/30/18 23:25 BUN/Creatinine Ratio 20.0 08/30/18 23:25 Glucose 85 mg/dL (70-105) 08/30/18 23:25 POC Glucose 70 MG/DL (70 - 105) 09/09/18 06:40 Calcium 9.8 mg/dL (8.6-10.3) 08/30/18 23:25 Total Bilirubin 0.3 mg/dL (0.3-1.0) 08/30/18 23:25 AST 19 U/L (13-39) 08/30/18 23:25 ALT 25 U/L (7-52) 08/30/18 23:25 Alkaline Phosphatase 62 U/L (34-104) 08/30/18 23:25 Total Protein 6.3 gm/dL (6.0-8.3) 08/30/18 23:25 Albumin 3.8 gm/dL (4.2-5.5) L 08/30/18 23:25 Globulin 2.5 gm/dL 08/30/18 23:25 Albumin/Globulin Ratio 1.5 (1.0-1.8) 08/30/18 23:25 Triglycerides 62 mg/dL (<150) 08/31/18 01:25 Cholesterol 104 mg/dL (<200) 08/31/18 01:25 LDL Cholesterol Direct 47 mg/dL (75-193) L 08/31/18 01:25 HDL Cholesterol 45 mg/dL (23-92) 08/31/18 01:25 Urine Source CLEAN C 08/30/18 23:20 Urine Color YELLOW 08/30/18 23:20 Urine Clarity CLEAR (CLEAR) 08/30/18 23:20 Urine pH 5.5 (4.6 - 8.0) 08/30/18 23:20 Ur Specific [place] 1.020 (1.005-1.030) 08/30/18 23:20 Urine Protein NEGATIVE mg/dL (NEGATIVE) 08/30/18 23:20 Urine Glucose (UA) NEGATIVE mg/dL (NEGATIVE) 08/30/18 23:20 Urine Ketones NEGATIVE mg/dL (NEGATIVE) 08/30/18 23:20 Urine Blood NEGATIVE (NEGATIVE) 08/30/18 23:20 Urine Nitrate NEGATIVE (NEGATIVE) 08/30/18 23:20 Urine Bilirubin NEGATIVE (NEGATIVE) 08/30/18 23:20 Urine Urobilinogen 0.2 E.U./dL (0.2 - 1.0) 08/30/18 23:20 Ur Leukocyte Esterase NEGATIVE (NEGATIVE) 08/30/18 23:20 Urine RBC NONE SEEN /hpf (0-5) 08/30/18 23:20 Urine WBC 0-2 /hpf (0-5) 08/30/18 23:20 Ur Epithelial Cells NONE SEEN /lpf (FEW) 08/30/18 23:20 Urine Bacteria OCCASIONAL /hpf (NONE SEEN) 08/30/18 23:20 - Physical Exam Vitals and I&O: Vital Signs Temp 97.9 F 09/09/18 14:00 Pulse 70 09/09/18 14:00 Resp 18 09/09/18 14:00 BP 121/63 09/09/18 14:00 Pulse Ox 97 09/09/18 14:00 Intake & Output 09/08/18 09/09/18 09/09/18 18:59 06:59 18:59 Intake Total 1350 Balance 1350 Intake: Oral 1350 Active Medications: Current Medications Acetaminophen (Tylenol) 650 mg PO Q12H PRN PRN Reason: Pain (Mild) Stop: 10/30/18 01:00 Last Admin: 09/05/18 06:46 Dose: 650 mg Aspirin (Ecotrin) 81 mg PO DAILY [facility] Stop: 10/30/18 08:59 Last Admin: 09/09/18 09:10 Dose: 81 mg Benazepril HCl (Lotensin) 10 mg PO DAILY [facility] Stop: 10/30/18 08:59 Last Admin: 09/09/18 09:10 Dose: Not Given Benztropine Mesylate (Cogentin) 1 mg PO BID [facility] Stop: 10/30/18 08:59 Last Admin: 09/09/18 09:07 Dose: 1 mg Carvedilol (Coreg) 12.5 mg PO BID [facility] Stop: 10/30/18 08:59 Last Admin: 09/09/18 09:11 Dose: Not Given Cyanocobalamin (Vitamin B12) 100 mcg PO DAILY [facility] Stop: 10/30/18 08:59 Last Admin: 09/09/18 09:07 Dose: 100 mcg Escitalopram Oxalate (Lexapro) 10 mg PO DAILY [facility]; Protocol Stop: 10/30/18 08:59 Last Admin: 09/09/18 09:09 Dose: 10 mg Furosemide (Lasix) 40 mg PO F [facility] Stop: 11/01/18 08:59 Last Admin: 09/09/18 09:11 Dose: Not Given Glipizide (Glucotrol) 5 mg PO BID [facility] Stop: 10/30/18 08:59 Last Admin: 09/09/18 09:10 Dose: 5 mg Insulin Aspart (Novolog) 0 units SUBQ [facility]; Protocol Stop: 10/30/18 11:29 Last Admin: 09/09/18 12:58 Dose: Not Given Insulin Detemir (Levemir Insulin) 12 units SUBQ [facility]; Protocol Stop: 10/30/18 20:59 Last Admin: 09/08/18 21:19 Dose: 12 units Levetiracetam (Keppra) 500 mg PO BID [facility] Stop: 10/30/18 08:59 Last Admin: 09/09/18 09:07 Dose: 500 mg Metformin [facility] (Glucophage) [facility] [place] Stop: 10/30/18 07:59 Last Admin: 09/09/18 09:07 Dose: 1,000 mg Potassium Chloride (Klor-Con) 40 meq PO [facility] Stop: 11/01/18 08:59 Last Admin: 09/09/18 09:10 Dose: 40 meq Quetiapine Fumarate (Seroquel) 75 mg PO BID [facility]; Protocol Stop: 10/30/18 08:59 Last Admin: 09/09/18 09:09 Dose: 75 mg Simvastatin (Zocor) 20 mg PO [facility]; Protocol Stop: 10/30/18 20:59 Last Admin: 09/08/18 21:19 Dose: 20 mg Zolpidem Tartrate (Ambien) 5 mg PO HS PRN PRN Reason: Insomnia Stop: 10/30/18 01:00 Last Admin: 09/08/18 21:19 Dose: 5 mg General: Cooperative HEENT: Atraumatic, PERRLA Neck: Supple, JVD Cardiovascular: Regular rate, Normal S1, Normal S2 Lungs: Clear to auscultation Abdomen: Bowel sounds, Soft Assessment/Plan - Assessment Assessment: 1.DM. 2.HTN. 3.CHF. 4.SEIZURE DISORDER. 5.DEMENTIA. - Plan Plan: continue current treatment Nutritional Asmnt/Malnutr-PDOC - Dietary Evaluation Malnutrition Findings (Please click <Entered> for more info): Nutritional Asmnt/Malnutrition Start: 09/05/18 15: 21 Text: Status: Complete Freq: Protocol: Document 09/05/18 15:21 LCHENG (Rec: 09/05/18 15:38 LCHENG [email or web address]) Nutritional Asmnt/Malnutrition Patient General Information Nutritional Screening Moderate Risk Diagnosis psychosis, increased agitation Pertinent Medical Hx/Surgical Hx CHF, DM, HTN, hypercholesterolemia, seizure Subjective Information Pt seen in dining room, oriented to self only. Per EMR , PO intake 100% since admitted. Current Diet Order/ Nutrition Support [facility] soft ground, BEN, CCHO, large portion, nectar thick Pertinent Medications vit B12, lasix, glucotrol, novolog, levemir, glucophage, kcl, seroquel Pertinent Labs 09/03-09/05 POC 54-156 08/30 Cl 110, BUN 30, Cr, 1.5, glucose 85 Nutritional Hx/Data Height 1.73 m Height (Calculated Centimeters) 172.7 Current Weight (lbs) 65.771 kg Weight (Calculated Kilograms) 65.8 Weight (Calculated Grams) 04740.9 [place] Body Weight 154 Body Mass Index (BMI) 22.0 Weight Status Approriate GI Symptoms GI Symptoms None Last BM 09/04 Difficult in: None Skin Integrity/Comment: intact Current %PO Good (75-100%) Estimated Nutritional Goals BEE in Kcals: Using Current wt Calories/Kcals/Kg 25-30 Kcals Calculated 2420-3195 Protein: Using Current wt Protein g/k Protein Calculated 66 Fluid: ml 1650-1980ml (1ml/kcal) Nutritional Problem No current Nutrition Prob Problem N/A Malnutrition Alert Is there a minimum of two criteria No selected? Query Text:Check all the applicable criteria. A minimum of two criteria are recommended for diagnosis of either severe or non-severe malnutrition. Malnutrition Related to Morbid Obesity Malnutrition related to morbid obesity No Intervention/Recommendation Comments 1. Continue with [facility] soft ground, BEN, CCHO, large portion, nectar thick diet as ordered. 2. Monitor PO intake, wt, labs and skin integrity 3. F/U as low risk in 7 days Expected Outcomes/Goals Expected Outcomes/Goals 1. PO intake to meet at least 75% of nutritional needs. 2. Wt stability, skin to remain intact, labs to approach WNL.
[2018-09-09] MEDS: Insulin Detemir 100 units/mL 10mL Vial SUBQ SCH (20:44)
--- NOTE | 2018-09-09 23:41 | Progress Notes ---
DATE: 09/09/2018 SUBJECTIVE: The patient is currently in the hospital, slept fairly well last night, withdrawn, mostly keeps to himself, ongoing periods of some forgetfulness. No distress noted, slept fairly well. Unable to tell me exactly where he is going to go. Still withdrawn, isolative, appearing depressed, melancholic. Medications were noted including dosages and frequencies. ASSESSMENT: The patient remains isolative, withdrawn at times, not answering questions mostly keeps to himself, appears depressed. PLAN: We will continue to monitor. We will attempt to confirm safe discharge plan. Per [facility] notes the patient has a public guardian who resides at the shelter. JOB# [id number]
[2018-09-10] MEDS: INSULIN ASPART, RECOMBINANT 100 UNITS/ML SUBQ SCH ×4 (06:30→21:17)
[2018-09-10] MEDS: Benztropine 1 MG TAB PO SCH ×2 (08:54→16:37)
--- NOTE | 2018-09-10 16:48 | Progress Notes ---
DATE: 09/10/2018 The patient is refusing interview on exam noted to be confused, withdrawn, disoriented, mostly keeps to himself, isolative, sometimes gets agitated, irritable, unruly, otherwise mostly keeps himself, appearing depressed, withdrawn, melancholic. Medications were noted. ASSESSMENT: The patient is a poor historian, refusing interview today, ongoing symptoms, irritability, withdrawn and isolation. PLAN: We will continue to monitor concerns about poor impulsivity. We will attempt to reestablish rapport with the patient at a later time given he refused to speak with me. [facility]# [id number]
--- NOTE | 2018-09-10 18:50 | General Progress Note ---
Subjective - Review of Systems Service Date: 09/10/18 Subjective: resting comfortably no distress Objective - Results Result Diagrams: 08/30/18 23:25 08/30/18 23:25 Recent Labs: Laboratory Last Values WBC 6.7 Th/cmm (4.8-10.8) 08/30/18 23:25 RBC 3.62 Mil/cmm (4.30-5.70) L 08/30/18 23:25 Hgb 10.3 gm/dL (12-16) L 08/30/18 23:25 Hct 31.7 % (41.0-60) L 08/30/18 23:25 MCV 87.5 fl (80-99) 08/30/18 23:25 MCH 28.5 pg (26.0-30.0) 08/30/18 23:25 MCHC Differential 32.6 pg (28.0-36.0) 08/30/18 23:25 RDW 13.0 % (11.5-20.0) 08/30/18 23:25 Plt Count 160 Th/cmm (150-400) 08/30/18 23:25 MPV 8.7 fl 08/30/18 23:25 Neutrophils % 59.7 % (40.0-80.0) 08/30/18 23:25 Lymphocytes % 27.8 % (20.0-50.0) 08/30/18 23:25 Monocytes % 6.5 % (2.0-10.0) 08/30/18 23:25 Eosinophils % 5.0 % (0.0-5.0) 08/30/18 23:25 Basophils % 1.0 % (0.0-2.0) 08/30/18 23:25 Sodium 143 mEq/L (136-145) 08/30/18 23:25 Potassium 4.1 mEq/L (3.5-5.1) 08/30/18 23:25 Chloride 110 mEq/L (98-107) H 08/30/18 23:25 Carbon Dioxide 24.9 mEq/L (21.0-31.0) 08/30/18 23:25 Anion Gap 12.2 (7.0-16.0) 08/30/18 23:25 BUN 30 mg/dL (7-25) H 08/30/18 23:25 Creatinine 1.5 mg/dL (0.7-1.3) H 08/30/18 23:25 Est GFR ( Amer) > 60.0 ml/min (>90) 08/30/18 23:25 Est GFR (Non-Af Amer) 50.1 ml/min 08/30/18 23:25 BUN/Creatinine Ratio 20.0 08/30/18 23:25 Glucose 85 mg/dL (70-105) 08/30/18 23:25 POC Glucose 70 MG/DL (70 - 105) 09/09/18 06:40 Calcium 9.8 mg/dL (8.6-10.3) 08/30/18 23:25 Total Bilirubin 0.3 mg/dL (0.3-1.0) 08/30/18 23:25 AST 19 U/L (13-39) 08/30/18 23:25 ALT 25 U/L (7-52) 08/30/18 23:25 Alkaline Phosphatase 62 U/L (34-104) 08/30/18 23:25 Total Protein 6.3 gm/dL (6.0-8.3) 08/30/18 23:25 Albumin 3.8 gm/dL (4.2-5.5) L 08/30/18 23:25 Globulin 2.5 gm/dL 08/30/18 23:25 Albumin/Globulin Ratio 1.5 (1.0-1.8) 08/30/18 23:25 Triglycerides 62 mg/dL (<150) 08/31/18 01:25 Cholesterol 104 mg/dL (<200) 08/31/18 01:25 LDL Cholesterol Direct 47 mg/dL (75-193) L 08/31/18 01:25 HDL Cholesterol 45 mg/dL (23-92) 08/31/18 01:25 Urine Source CLEAN C 08/30/18 23:20 Urine Color YELLOW 08/30/18 23:20 Urine Clarity CLEAR (CLEAR) 08/30/18 23:20 Urine pH 5.5 (4.6 - 8.0) 08/30/18 23:20 Ur Specific [place] 1.020 (1.005-1.030) 08/30/18 23:20 Urine Protein NEGATIVE mg/dL (NEGATIVE) 08/30/18 23:20 Urine Glucose (UA) NEGATIVE mg/dL (NEGATIVE) 08/30/18 23:20 Urine Ketones NEGATIVE mg/dL (NEGATIVE) 08/30/18 23:20 Urine Blood NEGATIVE (NEGATIVE) 08/30/18 23:20 Urine Nitrate NEGATIVE (NEGATIVE) 08/30/18 23:20 Urine Bilirubin NEGATIVE (NEGATIVE) 08/30/18 23:20 Urine Urobilinogen 0.2 E.U./dL (0.2 - 1.0) 08/30/18 23:20 Ur Leukocyte Esterase NEGATIVE (NEGATIVE) 08/30/18 23:20 Urine RBC NONE SEEN /hpf (0-5) 08/30/18 23:20 Urine WBC 0-2 /hpf (0-5) 08/30/18 23:20 Ur Epithelial Cells NONE SEEN /lpf (FEW) 08/30/18 23:20 Urine Bacteria OCCASIONAL /hpf (NONE SEEN) 08/30/18 23:20 - Physical Exam Vitals and I&O: Vital Signs Temp 98.4 F 09/10/18 14:00 Pulse 76 09/10/18 16:38 Resp 20 09/10/18 14:00 BP 162/75 09/10/18 16:38 Pulse Ox 97 09/10/18 14:00 Intake & Output 09/09/18 09/10/18 09/10/18 18:59 06:59 18:59 Intake Total 900 400 900 Balance 900 400 900 Intake: Oral 900 400 900 Other: # Voids 3 2 3 # Bowel Movements 1 0 1 Active Medications: Current Medications Acetaminophen (Tylenol) 650 mg PO Q12H PRN PRN Reason: Pain (Mild) Stop: 10/30/18 01:00 Last Admin: 09/10/18 08:54 Dose: 650 mg Aspirin (Ecotrin) 81 mg PO DAILY [facility] Stop: 10/30/18 08:59 Last Admin: 09/10/18 08:54 Dose: 81 mg Benazepril HCl (Lotensin) 10 mg PO DAILY [facility] Stop: 10/30/18 08:59 Last Admin: 09/10/18 08:53 Dose: 10 mg Benztropine Mesylate (Cogentin) 1 mg PO BID [facility] Stop: 10/30/18 08:59 Last Admin: 09/10/18 16:37 Dose: 1 mg Carvedilol (Coreg) 12.5 mg PO BID [facility] Stop: 10/30/18 08:59 Last Admin: 09/10/18 16:38 Dose: 12.5 mg Cyanocobalamin (Vitamin B12) 100 mcg PO DAILY [facility] Stop: 10/30/18 08:59 Last Admin: 09/10/18 08:54 Dose: 100 mcg Escitalopram Oxalate (Lexapro) 10 mg PO DAILY [facility]; Protocol Stop: 10/30/18 08:59 Last Admin: 09/10/18 08:54 Dose: 10 mg Furosemide (Lasix) 40 mg PO F [facility] Stop: 11/01/18 08:59 Last Admin: 09/09/18 09:11 Dose: Not Given Glipizide (Glucotrol) 5 mg PO BID [facility] Stop: 10/30/18 08:59 Last Admin: 09/10/18 16:38 Dose: 5 mg Insulin Aspart (Novolog) 0 units SUBQ [facility]; Protocol Stop: 10/30/18 11:29 Last Admin: 09/10/18 16:15 Dose: Not Given Insulin Detemir (Levemir Insulin) 12 units SUBQ [facility]; Protocol Stop: 10/30/18 20:59 Last Admin: 09/09/18 20:44 Dose: 12 units Levetiracetam (Keppra) 500 mg PO BID [facility] Stop: 10/30/18 08:59 Last Admin: 09/10/18 16:38 Dose: 500 mg Metformin HCl (Glucophage) 1,000 mg PO BIDM [facility] Stop: 10/30/18 07:59 Last Admin: 09/10/18 18:08 Dose: 1,000 mg Potassium Chloride (Klor-Con) 40 meq PO F [facility] Stop: 11/01/18 08:59 Last Admin: 09/09/18 09:10 Dose: 40 meq Quetiapine Fumarate (Seroquel) 75 mg PO BID [facility]; Protocol Stop: 10/30/18 08:59 Last Admin: 09/10/18 16:37 Dose: 75 mg Simvastatin (Zocor) 20 mg PO [facility]; Protocol Stop: 10/30/18 20:59 Last Admin: 09/09/18 20:44 Dose: 20 mg Zolpidem Tartrate (Ambien) 5 mg PO HS PRN PRN Reason: Insomnia Stop: 10/30/18 01:00 Last Admin: 09/10/18 00:29 Dose: 5 mg General: Cooperative HEENT: Atraumatic, PERRLA Neck: Supple, JVD Cardiovascular: Regular rate, Normal S1, Normal S2 Lungs: Clear to auscultation Abdomen: Bowel sounds, Soft Assessment/Plan - Assessment Assessment: 1.DM. 2.HTN. 3.CHF. 4.SEIZURE DISORDER. 5.DEMENTIA. - Plan Plan: continue current treatment Nutritional Asmnt/Malnutr-PDOC - Dietary Evaluation Malnutrition Findings (Please click <Entered> for more info): Nutritional Asmnt/Malnutrition Start: 09/05/18 15: 21 Text: Status: Complete Freq: Protocol: Document 09/05/18 15:21 LCHENG (Rec: 09/05/18 15:38 LCHENG [email or web address]) Nutritional Asmnt/Malnutrition Patient General Information Nutritional Screening Moderate Risk Diagnosis psychosis, increased agitation Pertinent Medical Hx/Surgical Hx CHF, DM, HTN, hypercholesterolemia, seizure Subjective Information Pt seen in dining room, oriented to self only. Per EMR , PO intake 100% since admitted. Current Diet Order/ Nutrition Support [facility] soft ground, BEN, CCHO, large portion, nectar thick Pertinent Medications vit B12, lasix, glucotrol, novolog, levemir, glucophage, kcl, seroquel Pertinent Labs 09/03-09/05 POC 54-156 08/30 Cl 110, BUN 30, Cr, 1.5, glucose 85 Nutritional Hx/Data Height 1.73 m Height (Calculated Centimeters) 172.7 Current Weight (lbs) 65.771 kg Weight (Calculated Kilograms) 65.8 Weight (Calculated Grams) 68161.9 [place] Body Weight 154 Body Mass Index (BMI) 22.0 Weight Status Approriate GI Symptoms GI Symptoms None Last BM 09/04 Difficult in: None Skin Integrity/Comment: intact Current %PO Good (75-100%) Estimated Nutritional Goals BEE in Kcals: Using Current wt Calories/Kcals/Kg 25-30 Kcals Calculated 5329-4875 Protein: Using Current wt Protein g/k Protein Calculated 66 Fluid: ml 1650-1980ml (1ml/kcal) Nutritional Problem No current Nutrition Prob Problem N/A Malnutrition Alert Is there a minimum of two criteria No selected? Query Text:Check all the applicable criteria. A minimum of two criteria are recommended for diagnosis of either severe or non-severe malnutrition. Malnutrition Related to Morbid Obesity Malnutrition related to morbid obesity No Intervention/Recommendation Comments 1. Continue with [facility] soft ground, BEN, CCHO, large portion, nectar thick diet as ordered. 2. Monitor PO intake, wt, labs and skin integrity 3. F/U as low risk in 7 days Expected Outcomes/Goals Expected Outcomes/Goals 1. PO intake to meet at least 75% of nutritional needs. 2. Wt stability, skin to remain intact, labs to approach WNL.
[2018-09-10] MEDS: Insulin Detemir 100 units/mL 10mL Vial SUBQ SCH (21:22)
[2018-09-11] MEDS: INSULIN ASPART, RECOMBINANT 100 UNITS/ML SUBQ SCH ×4 (06:31→20:31)
[2018-09-11] MEDS: Benztropine 1 MG TAB PO SCH ×2 (08:34→16:15)
[2018-09-11] MEDS: Potassium Chloride 20 mEq ER Tab PO SCH (08:36)
--- NOTE | 2018-09-11 20:00 | Progress Notes ---
DATE: 09/11/2018 SUMMARY: Case was discussed with staff of the patient and reviewed records. I am covering for Dr. Joseph. This is a well-known case to me, I have seen him last week. He continues to isolate himself, staying in his room, hardly answering any questions. He continues to appear to be depressed, withdrawn, melancholic, and continues to be unpredictable and impulsive, needing redirection. He is staying in his bed most of the time. He is on Lexapro 10 mg daily and Seroquel was increased to 75 mg twice a day with no side effects, no sedation, no nausea, and no extrapyramidal symptoms. I will be increasing his Seroquel further to 100 mg twice a day, and so far, no side effects with the medication, no sedation, no nausea, and no extrapyramidal symptoms. I will continue to have the patient in group therapy, milieu therapy, and adjust the medication as needed. JOB# [id number]
--- NOTE | 2018-09-11 20:13 | Internal Medicine Prog Note ---
Internal Medicine Subjective - Subjective Service Date: 09/11/18 Patient seen and examined:: with staff Patient is:: awake, verbal, interactive, in bed Per staff patient has:: no adverse event, no episodes of fall, poor appetite, tolerating meds Internal Medicine Objective - Results Result Diagrams: 08/30/18 23:25 08/30/18 23:25 Recent Labs: Laboratory Last Values WBC 6.7 Th/cmm (4.8-10.8) 08/30/18 23:25 RBC 3.62 Mil/cmm (4.30-5.70) L 08/30/18 23:25 Hgb 10.3 gm/dL (12-16) L 08/30/18 23:25 Hct 31.7 % (41.0-60) L 08/30/18 23:25 MCV 87.5 fl (80-99) 08/30/18 23:25 MCH 28.5 pg (26.0-30.0) 08/30/18 23:25 MCHC Differential 32.6 pg (28.0-36.0) 08/30/18 23:25 RDW 13.0 % (11.5-20.0) 08/30/18 23:25 Plt Count 160 Th/cmm (150-400) 08/30/18 23:25 MPV 8.7 fl 08/30/18 23:25 Neutrophils % 59.7 % (40.0-80.0) 08/30/18 23:25 Lymphocytes % 27.8 % (20.0-50.0) 08/30/18 23:25 Monocytes % 6.5 % (2.0-10.0) 08/30/18 23:25 Eosinophils % 5.0 % (0.0-5.0) 08/30/18 23:25 Basophils % 1.0 % (0.0-2.0) 08/30/18 23:25 Sodium 143 mEq/L (136-145) 08/30/18 23:25 Potassium 4.1 mEq/L (3.5-5.1) 08/30/18 23:25 Chloride 110 mEq/L (98-107) H 08/30/18 23:25 Carbon Dioxide 24.9 mEq/L (21.0-31.0) 08/30/18 23:25 Anion Gap 12.2 (7.0-16.0) 08/30/18 23:25 BUN 30 mg/dL (7-25) H 08/30/18 23:25 Creatinine 1.5 mg/dL (0.7-1.3) H 08/30/18 23:25 Est GFR ( Amer) > 60.0 ml/min (>90) 08/30/18 23:25 Est GFR (Non-Af Amer) 50.1 ml/min 08/30/18 23:25 BUN/Creatinine Ratio 20.0 08/30/18 23:25 Glucose 85 mg/dL (70-105) 08/30/18 23:25 POC Glucose 70 MG/DL (70 - 105) 09/09/18 06:40 Calcium 9.8 mg/dL (8.6-10.3) 08/30/18 23:25 Total Bilirubin 0.3 mg/dL (0.3-1.0) 08/30/18 23:25 AST 19 U/L (13-39) 08/30/18 23:25 ALT 25 U/L (7-52) 08/30/18 23:25 Alkaline Phosphatase 62 U/L (34-104) 08/30/18 23:25 Total Protein 6.3 gm/dL (6.0-8.3) 08/30/18 23:25 Albumin 3.8 gm/dL (4.2-5.5) L 08/30/18 23:25 Globulin 2.5 gm/dL 08/30/18 23:25 Albumin/Globulin Ratio 1.5 (1.0-1.8) 08/30/18 23:25 Triglycerides 62 mg/dL (<150) 08/31/18 01:25 Cholesterol 104 mg/dL (<200) 08/31/18 01:25 LDL Cholesterol Direct 47 mg/dL (75-193) L 08/31/18 01:25 HDL Cholesterol 45 mg/dL (23-92) 08/31/18 01:25 Urine Source CLEAN C 08/30/18 23:20 Urine Color YELLOW 08/30/18 23:20 Urine Clarity CLEAR (CLEAR) 08/30/18 23:20 Urine pH 5.5 (4.6 - 8.0) 08/30/18 23:20 Ur Specific [place] 1.020 (1.005-1.030) 08/30/18 23:20 Urine Protein NEGATIVE mg/dL (NEGATIVE) 08/30/18 23:20 Urine Glucose (UA) NEGATIVE mg/dL (NEGATIVE) 08/30/18 23:20 Urine Ketones NEGATIVE mg/dL (NEGATIVE) 08/30/18 23:20 Urine Blood NEGATIVE (NEGATIVE) 08/30/18 23:20 Urine Nitrate NEGATIVE (NEGATIVE) 08/30/18 23:20 Urine Bilirubin NEGATIVE (NEGATIVE) 08/30/18 23:20 Urine Urobilinogen 0.2 E.U./dL (0.2 - 1.0) 08/30/18 23:20 Ur Leukocyte Esterase NEGATIVE (NEGATIVE) 08/30/18 23:20 Urine RBC NONE SEEN /hpf (0-5) 08/30/18 23:20 Urine WBC 0-2 /hpf (0-5) 08/30/18 23:20 Ur Epithelial Cells NONE SEEN /lpf (FEW) 08/30/18 23:20 Urine Bacteria OCCASIONAL /hpf (NONE SEEN) 08/30/18 23:20 - Physical Exam Vitals and I&O: Vital Signs Temp 97.7 F 09/11/18 14:00 Pulse 78 09/11/18 16:12 Resp 18 09/11/18 14:00 BP 139/77 09/11/18 16:12 Pulse Ox 99 09/11/18 14:00 Intake & Output 09/11/18 09/11/18 09/12/18 06:59 18:59 06:59 Intake Total 220 800 Balance 220 800 Intake: Oral 220 800 Other: # Voids 1 4 # Bowel Movements 0 0 Active Medications: Current Medications Acetaminophen (Tylenol) 650 mg PO Q12H PRN PRN Reason: Pain (Mild) Stop: 10/30/18 01:00 Last Admin: 09/11/18 16:14 Dose: 650 mg Aspirin (Ecotrin) 81 mg PO DAILY [facility] Stop: 10/30/18 08:59 Last Admin: 09/11/18 08:42 Dose: 81 mg Benazepril HCl (Lotensin) 10 mg PO DAILY [facility] Stop: 10/30/18 08:59 Last Admin: 09/11/18 08:41 Dose: 10 mg Benztropine Mesylate (Cogentin) 1 mg PO BID [facility] Stop: 10/30/18 08:59 Last Admin: 09/11/18 16:15 Dose: 1 mg Carvedilol (Coreg) 12.5 mg PO BID [facility] Stop: 10/30/18 08:59 Last Admin: 09/11/18 16:12 Dose: 12.5 mg Cyanocobalamin (Vitamin B12) 100 mcg PO DAILY [facility] Stop: 10/30/18 08:59 Last Admin: 09/11/18 08:36 Dose: 100 mcg Escitalopram Oxalate (Lexapro) 10 mg PO DAILY [facility]; Protocol Stop: 10/30/18 08:59 Last Admin: 09/11/18 08:35 Dose: 10 mg Furosemide (Lasix) 40 mg PO [facility] Stop: 11/01/18 08:59 Last Admin: 09/11/18 08:43 Dose: 40 mg Glipizide (Glucotrol) 5 mg PO BID [facility] Stop: 10/30/18 08:59 Last Admin: 09/11/18 16:15 Dose: 5 mg Insulin Aspart (Novolog) 0 units SUBQ [facility]; Protocol Stop: 10/30/18 11:29 Last Admin: 09/11/18 18:11 Dose: Not Given Insulin Detemir (Levemir Insulin) 12 units SUBQ [facility]; Protocol Stop: 10/30/18 20:59 Last Admin: 09/10/18 21:22 Dose: 12 units Levetiracetam (Keppra) 500 mg PO BID [facility] Stop: 10/30/18 08:59 Last Admin: 09/11/18 16:13 Dose: 500 mg [facility]: 10/30/18 07:59 Last Admin: 09/11/18 18:11 Dose: 1,000 mg Potassium Chloride (Klor-Con) 40 meq PO [facility] Stop: 11/01/18 08:59 Last Admin: 09/11/18 08:36 Dose: 40 meq Quetiapine Fumarate (Seroquel) 100 mg PO BID [facility]; Protocol Stop: 11/10/18 16:59 Last Admin: 09/11/18 16:14 Dose: 100 mg Simvastatin (Zocor) 20 mg PO [facility]; Protocol Stop: 10/30/18 20:59 Last Admin: 09/10/18 21:16 Dose: 20 mg Zolpidem Tartrate (Ambien) 5 mg PO HS PRN PRN Reason: Insomnia Stop: 10/30/18 01:00 Last Admin: 09/10/18 00:29 Dose: 5 mg General: alert, appears older HEENT: NC/AT, PERRLA, EOMI, anicteric sclerae, throat clear Neck: Supple, No JVD, No thyromegaly Lungs: congested, rales, ronchi Cardiovascular: RRR, Normal S1, Normal S2, with murmur Abdomen: soft, tender, globular, positive bowel sound Extremities: excoriation, contracture Neurological: no change, muscle weakness Internal Medicine Assmt/Plan - Assessment Assessment: 1.DM. 2.HTN. 3.CHF. 4.SEIZURE DISORDER. 5.DEMENTIA. - Plan Plan: CONTINUE ON CURRENT MEDICATION AND DIET. Nutritional Asmnt/Malnutr-PDOC - Dietary Evaluation Malnutrition Findings (Please click <Entered> for more info): Nutritional Asmnt/Malnutrition Start: 09/05/18 15: 21 Text: Status: Complete Freq: Protocol: Document 09/05/18 15:21 [facility] (Rec: 09/05/18 15:38 [email or web address] Nutritional Asmnt/Malnutrition Patient General Information Nutritional Screening Moderate Risk Diagnosis psychosis, increased agitation Pertinent Medical Hx/Surgical Hx CHF, DM, HTN, hypercholesterolemia, seizure Subjective Information Pt seen in dining room, oriented to self only. Per EMR , PO intake 100% since admitted. Current Diet Order/ [facility], BEN, CCHO, large portion, nectar thick Pertinent Medications vit B12, lasix, glucotrol, novolog, levemir, glucophage, kcl, seroquel Pertinent Labs 09/03-09/05 POC 54-156 08/30 Cl 110, BUN 30, Cr, 1.5, glucose 85 Nutritional Hx/Data Height 1.73 m Height (Calculated Centimeters) 172.7 Current Weight (lbs) 65.771 kg Weight (Calculated Kilograms) 65.8 Weight (Calculated Grams) 17510.9 [place] Body Weight 154 Body Mass Index (BMI) 22.0 Weight Status Approriate GI Symptoms GI Symptoms None Last BM 09/04 Difficult in: None Skin Integrity/Comment: intact Current %PO Good (75-100%) Estimated Nutritional Goals BEE in Kcals: Using Current wt Calories/Kcals/Kg 25-30 Kcals Calculated 5357-1189 Protein: Using Current wt Protein g/k Protein Calculated 66 Fluid: ml 1650-1980ml (1ml/kcal) Nutritional Problem No current Nutrition Prob Problem N/A Malnutrition Alert Is there a minimum of two criteria No selected? Query Text:Check all the applicable criteria. A minimum of two criteria are recommended for diagnosis of either severe or non-severe malnutrition. Malnutrition Related to Morbid Obesity Malnutrition related to morbid obesity No Intervention/Recommendation Comments 1. Continue with [facility] soft ground, BEN, CCHO, large portion, nectar thick diet as ordered. 2. Monitor PO intake, wt, labs and skin integrity 3. F/U as low risk in 7 days Expected Outcomes/Goals Expected Outcomes/Goals 1. PO intake to meet at least 75% of nutritional needs. 2. Wt stability, skin to remain intact, labs to approach WNL.
[2018-09-11] MEDS: Insulin Detemir 100 units/mL 10mL Vial SUBQ SCH (20:31)
[2018-09-12] MEDS: INSULIN ASPART, RECOMBINANT 100 UNITS/ML SUBQ SCH ×4 (06:45→21:15)
[2018-09-12] MEDS: Benztropine 1 MG TAB PO SCH ×2 (08:20→16:30)
--- NOTE | 2018-09-12 18:03 | Internal Medicine Prog Note ---
Internal Medicine Subjective - Subjective Service Date: 09/12/18 Patient seen and examined:: with staff Patient is:: awake, verbal, interactive, in bed Per staff patient has:: no adverse event, no episodes of fall, poor appetite, tolerating meds Internal Medicine Objective - Results Result Diagrams: 08/30/18 23:25 08/30/18 23:25 Recent Labs: Laboratory Last Values WBC 6.7 Th/cmm (4.8-10.8) 08/30/18 23:25 RBC 3.62 Mil/cmm (4.30-5.70) L 08/30/18 23:25 Hgb 10.3 gm/dL (12-16) L 08/30/18 23:25 Hct 31.7 % (41.0-60) L 08/30/18 23:25 MCV 87.5 fl (80-99) 08/30/18 23:25 MCH 28.5 pg (26.0-30.0) 08/30/18 23:25 MCHC Differential 32.6 pg (28.0-36.0) 08/30/18 23:25 RDW 13.0 % (11.5-20.0) 08/30/18 23:25 Plt Count 160 Th/cmm (150-400) 08/30/18 23:25 MPV 8.7 fl 08/30/18 23:25 Neutrophils % 59.7 % (40.0-80.0) 08/30/18 23:25 Lymphocytes % 27.8 % (20.0-50.0) 08/30/18 23:25 Monocytes % 6.5 % (2.0-10.0) 08/30/18 23:25 Eosinophils % 5.0 % (0.0-5.0) 08/30/18 23:25 Basophils % 1.0 % (0.0-2.0) 08/30/18 23:25 Sodium 143 mEq/L (136-145) 08/30/18 23:25 Potassium 4.1 mEq/L (3.5-5.1) 08/30/18 23:25 Chloride 110 mEq/L (98-107) H 08/30/18 23:25 Carbon Dioxide 24.9 mEq/L (21.0-31.0) 08/30/18 23:25 Anion Gap 12.2 (7.0-16.0) 08/30/18 23:25 BUN 30 mg/dL (7-25) H 08/30/18 23:25 Creatinine 1.5 mg/dL (0.7-1.3) H 08/30/18 23:25 Est GFR ( Amer) > 60.0 ml/min (>90) 08/30/18 23:25 Est GFR (Non-Af Amer) 50.1 ml/min 08/30/18 23:25 BUN/Creatinine Ratio 20.0 08/30/18 23:25 Glucose 85 mg/dL (70-105) 08/30/18 23:25 POC Glucose 70 MG/DL (70 - 105) 09/09/18 06:40 Calcium 9.8 mg/dL (8.6-10.3) 08/30/18 23:25 Total Bilirubin 0.3 mg/dL (0.3-1.0) 08/30/18 23:25 AST 19 U/L (13-39) 08/30/18 23:25 ALT 25 U/L (7-52) 08/30/18 23:25 Alkaline Phosphatase 62 U/L (34-104) 08/30/18 23:25 Total Protein 6.3 gm/dL (6.0-8.3) 08/30/18 23:25 Albumin 3.8 gm/dL (4.2-5.5) L 08/30/18 23:25 Globulin 2.5 gm/dL 08/30/18 23:25 Albumin/Globulin Ratio 1.5 (1.0-1.8) 08/30/18 23:25 Triglycerides 62 mg/dL (<150) 08/31/18 01:25 Cholesterol 104 mg/dL (<200) 08/31/18 01:25 LDL Cholesterol Direct 47 mg/dL (75-193) L 08/31/18 01:25 HDL Cholesterol 45 mg/dL (23-92) 08/31/18 01:25 Urine Source CLEAN C 08/30/18 23:20 Urine Color YELLOW 08/30/18 23:20 Urine Clarity CLEAR (CLEAR) 08/30/18 23:20 Urine pH 5.5 (4.6 - 8.0) 08/30/18 23:20 Ur Specific [place] 1.020 (1.005-1.030) 08/30/18 23:20 Urine Protein NEGATIVE mg/dL (NEGATIVE) 08/30/18 23:20 Urine Glucose (UA) NEGATIVE mg/dL (NEGATIVE) 08/30/18 23:20 Urine Ketones NEGATIVE mg/dL (NEGATIVE) 08/30/18 23:20 Urine Blood NEGATIVE (NEGATIVE) 08/30/18 23:20 Urine Nitrate NEGATIVE (NEGATIVE) 08/30/18 23:20 Urine Bilirubin NEGATIVE (NEGATIVE) 08/30/18 23:20 Urine Urobilinogen 0.2 E.U./dL (0.2 - 1.0) 08/30/18 23:20 Ur Leukocyte Esterase NEGATIVE (NEGATIVE) 08/30/18 23:20 Urine RBC NONE SEEN /hpf (0-5) 08/30/18 23:20 Urine WBC 0-2 /hpf (0-5) 08/30/18 23:20 Ur Epithelial Cells NONE SEEN /lpf (FEW) 08/30/18 23:20 Urine Bacteria OCCASIONAL /hpf (NONE SEEN) 08/30/18 23:20 - Physical Exam Vitals and I&O: Vital Signs Temp 98.2 F 09/12/18 14:00 Pulse 61 09/12/18 16:31 Resp 18 09/12/18 14:00 BP 153/61 09/12/18 16:31 Pulse Ox 96 09/12/18 14:00 Intake & Output 09/11/18 09/12/18 09/12/18 18:59 06:59 18:59 Intake Total 800 120 Balance 800 120 Intake: Oral 800 120 Other: # Voids 4 3 # Bowel Movements 0 Active Medications: Current Medications Acetaminophen (Tylenol) 650 mg PO Q12H PRN PRN Reason: Pain (Mild) Stop: 10/30/18 01:00 Last Admin: 09/11/18 16:14 Dose: 650 mg Aspirin (Ecotrin) 81 mg PO DAILY [facility] Stop: 10/30/18 08:59 Last Admin: 09/12/18 08:20 Dose: 81 mg Benazepril HCl (Lotensin) 10 mg PO DAILY [facility] Stop: 10/30/18 08:59 Last Admin: 09/12/18 08:20 Dose: 10 mg Benztropine Mesylate (Cogentin) 1 mg PO BID [facility] Stop: 10/30/18 08:59 Last Admin: 09/12/18 16:30 Dose: 1 mg Carvedilol (Coreg) 12.5 mg PO BID [facility] Stop: 10/30/18 08:59 Last Admin: 09/12/18 16:31 Dose: 12.5 mg Cyanocobalamin (Vitamin B12) 100 mcg PO DAILY [facility] Stop: 10/30/18 08:59 Last Admin: 09/12/18 08:21 Dose: 100 mcg Escitalopram Oxalate (Lexapro) 10 mg PO DAILY [facility]; Protocol Stop: 10/30/18 08:59 Last Admin: 09/12/18 08:21 Dose: 10 mg Furosemide (Lasix) 40 mg PO [facility] [place] Stop: 11/01/18 08:59 Last Admin: 09/11/18 08:43 Dose: 40 mg Glipizide (Glucotrol) 5 mg PO BID [facility] Stop: 10/30/18 08:59 Last Admin: 09/12/18 16:31 Dose: 5 mg Insulin Aspart (Novolog) 0 units SUBQ [facility]; Protocol Stop: 10/30/18 11:29 Last Admin: 09/12/18 16:27 Dose: Not Given Insulin Detemir (Levemir Insulin) 12 units SUBQ [facility]; Protocol Stop: 10/30/18 20:59 Last Admin: 09/11/18 20:31 Dose: 12 units Levetiracetam (Keppra) 500 mg PO BID [facility] Stop: 10/30/18 08:59 Last Admin: 09/12/18 16:31 Dose: 500 mg [facility] ([facility]) [facility] Stop: 10/30/18 07:59 Last Admin: 09/12/18 17:19 Dose: 1,000 mg Potassium Chloride (Klor-Con) 40 meq PO [facility] [place] Stop: 11/01/18 08:59 Last Admin: 09/11/18 08:36 Dose: 40 meq Quetiapine Fumarate (Seroquel) 100 mg PO BID [facility]; Protocol Stop: 11/10/18 16:59 Last Admin: 09/12/18 16:32 Dose: 100 mg Simvastatin (Zocor) 20 mg PO [facility]; Protocol Stop: 10/30/18 20:59 Last Admin: 09/11/18 20:32 Dose: 20 mg Zolpidem Tartrate (Ambien) 5 mg PO HS PRN PRN Reason: Insomnia Stop: 10/30/18 01:00 Last Admin: 09/10/18 00:29 Dose: 5 mg General: alert, appears older HEENT: NC/AT, PERRLA, EOMI, anicteric sclerae, throat clear Neck: Supple, No JVD, No thyromegaly Lungs: congested, rales, ronchi Cardiovascular: RRR, Normal S1, Normal S2, with murmur Abdomen: soft, tender, globular, positive bowel sound Extremities: excoriation, contracture Neurological: no change, muscle weakness Internal Medicine Assmt/Plan - Assessment Assessment: 1.DM. 2.HTN. 3.CHF. 4.SEIZURE DISORDER. 5.DEMENTIA. - Plan Plan: CONTINUE ON CURRENT MEDICATION AND DIET. Nutritional Asmnt/Malnutr-PDOC - Dietary Evaluation Malnutrition Findings (Please click <Entered> for more info): Nutritional Asmnt/Malnutrition Start: 09/05/18 15: 21 Text: Status: Complete Freq: Protocol: Document 09/05/18 15:21 LCHENG (Rec: 09/05/18 15:38 [id number] Nutritional Asmnt/Malnutrition Patient General Information Nutritional Screening Moderate Risk Diagnosis psychosis, increased agitation Pertinent Medical Hx/Surgical Hx CHF, DM, HTN, hypercholesterolemia, seizure Subjective Information Pt seen in dining room, oriented to self only. Per EMR , PO intake 100% since admitted. Current Diet Order/ [facility], BEN, CCHO, large portion, nectar thick Pertinent Medications vit B12, lasix, glucotrol, novolog, levemir, glucophage, kcl, seroquel Pertinent Labs 09/03-09/05 POC 54-156 08/30 Cl 110, BUN 30, Cr, 1.5, glucose 85 Nutritional Hx/Data Height 1.73 m Height (Calculated Centimeters) 172.7 Current Weight (lbs) 65.771 kg Weight (Calculated Kilograms) 65.8 Weight (Calculated Grams) 12859.9 [place] Body Weight 154 Body Mass Index (BMI) 22.0 Weight Status Approriate GI Symptoms GI Symptoms None Last BM 09/04 Difficult in: None Skin Integrity/Comment: intact Current %PO Good (75-100%) Estimated Nutritional Goals BEE in Kcals: Using Current wt Calories/Kcals/Kg 25-30 Kcals Calculated 0145-9324 Protein: Using Current wt Protein g/k Protein Calculated 66 Fluid: ml 1650-1980ml (1ml/kcal) Nutritional Problem No current Nutrition Prob Problem N/A Malnutrition Alert Is there a minimum of two criteria No selected? Query Text:Check all the applicable criteria. A minimum of two criteria are recommended for diagnosis of either severe or non-severe malnutrition. Malnutrition Related to Morbid Obesity Malnutrition related to morbid obesity No Intervention/Recommendation Comments 1. Continue with [facility] soft ground, BEN, CCHO, large portion, nectar thick diet as ordered. 2. Monitor PO intake, wt, labs and skin integrity 3. F/U as low risk in 7 days Expected Outcomes/Goals Expected Outcomes/Goals 1. PO intake to meet at least 75% of nutritional needs. 2. Wt stability, skin to remain intact, labs to approach WNL.
[2018-09-12] MEDS: Insulin Detemir 100 units/mL 10mL Vial SUBQ SCH (21:15)
--- NOTE | 2018-09-12 23:23 | Progress Notes ---
DATE: 09/12/2018 Case was discussed with staff of the patient, reviewed records. The patient continues to isolate himself. Continues to be disengaged, not answering questions. Continues to be depressed, withdrawn, continues to have poor insight. Unable to make safe plan for self-care. He is compliant with the medication with no side effects, no sedation, no nausea, no extrapyramidal symptoms. I increased his Seroquel dose to 100 mg twice a day and we will continue to work with the patient in group therapy, milieu therapy, and adjust the medications as needed. JOB# [id number]
[2018-09-13] MEDS: INSULIN ASPART, RECOMBINANT 100 UNITS/ML SUBQ SCH ×4 (06:40→20:33)
[2018-09-13] MEDS: Potassium Chloride 20 mEq ER Tab PO SCH (09:39)
[2018-09-13] MEDS: Benztropine 1 MG TAB PO SCH ×2 (09:42→17:18)
--- NOTE | 2018-09-13 13:32 | Internal Medicine Prog Note ---
Internal Medicine Subjective - Subjective Service Date: 09/13/18 Patient seen and examined:: with staff Patient is:: awake, verbal, interactive, in bed Per staff patient has:: no adverse event, no episodes of fall, poor appetite, tolerating meds Internal Medicine Objective - Results Result Diagrams: 08/30/18 23:25 08/30/18 23:25 Recent Labs: Laboratory Last Values WBC 6.7 Th/cmm (4.8-10.8) 08/30/18 23:25 RBC 3.62 Mil/cmm (4.30-5.70) L 08/30/18 23:25 Hgb 10.3 gm/dL (12-16) L 08/30/18 23:25 Hct 31.7 % (41.0-60) L 08/30/18 23:25 MCV 87.5 fl (80-99) 08/30/18 23:25 MCH 28.5 pg (26.0-30.0) 08/30/18 23:25 MCHC Differential 32.6 pg (28.0-36.0) 08/30/18 23:25 RDW 13.0 % (11.5-20.0) 08/30/18 23:25 Plt Count 160 Th/cmm (150-400) 08/30/18 23:25 MPV 8.7 fl 08/30/18 23:25 Neutrophils % 59.7 % (40.0-80.0) 08/30/18 23:25 Lymphocytes % 27.8 % (20.0-50.0) 08/30/18 23:25 Monocytes % 6.5 % (2.0-10.0) 08/30/18 23:25 Eosinophils % 5.0 % (0.0-5.0) 08/30/18 23:25 Basophils % 1.0 % (0.0-2.0) 08/30/18 23:25 Sodium 143 mEq/L (136-145) 08/30/18 23:25 Potassium 4.1 mEq/L (3.5-5.1) 08/30/18 23:25 Chloride 110 mEq/L (98-107) H 08/30/18 23:25 Carbon Dioxide 24.9 mEq/L (21.0-31.0) 08/30/18 23:25 Anion Gap 12.2 (7.0-16.0) 08/30/18 23:25 BUN 30 mg/dL (7-25) H 08/30/18 23:25 Creatinine 1.5 mg/dL (0.7-1.3) H 08/30/18 23:25 Est GFR ( Amer) > 60.0 ml/min (>90) 08/30/18 23:25 Est GFR (Non-Af Amer) 50.1 ml/min 08/30/18 23:25 BUN/Creatinine Ratio 20.0 08/30/18 23:25 Glucose 85 mg/dL (70-105) 08/30/18 23:25 POC Glucose 70 MG/DL (70 - 105) 09/09/18 06:40 Calcium 9.8 mg/dL (8.6-10.3) 08/30/18 23:25 Total Bilirubin 0.3 mg/dL (0.3-1.0) 08/30/18 23:25 AST 19 U/L (13-39) 08/30/18 23:25 ALT 25 U/L (7-52) 08/30/18 23:25 Alkaline Phosphatase 62 U/L (34-104) 08/30/18 23:25 Total Protein 6.3 gm/dL (6.0-8.3) 08/30/18 23:25 Albumin 3.8 gm/dL (4.2-5.5) L 08/30/18 23:25 Globulin 2.5 gm/dL 08/30/18 23:25 Albumin/Globulin Ratio 1.5 (1.0-1.8) 08/30/18 23:25 Triglycerides 62 mg/dL (<150) 08/31/18 01:25 Cholesterol 104 mg/dL (<200) 08/31/18 01:25 LDL Cholesterol Direct 47 mg/dL (75-193) L 08/31/18 01:25 HDL Cholesterol 45 mg/dL (23-92) 08/31/18 01:25 Urine Source CLEAN C 08/30/18 23:20 Urine Color YELLOW 08/30/18 23:20 Urine Clarity CLEAR (CLEAR) 08/30/18 23:20 Urine pH 5.5 (4.6 - 8.0) 08/30/18 23:20 Ur Specific [place] 1.020 (1.005-1.030) 08/30/18 23:20 Urine Protein NEGATIVE mg/dL (NEGATIVE) 08/30/18 23:20 Urine Glucose (UA) NEGATIVE mg/dL (NEGATIVE) 08/30/18 23:20 Urine Ketones NEGATIVE mg/dL (NEGATIVE) 08/30/18 23:20 Urine Blood NEGATIVE (NEGATIVE) 08/30/18 23:20 Urine Nitrate NEGATIVE (NEGATIVE) 08/30/18 23:20 Urine Bilirubin NEGATIVE (NEGATIVE) 08/30/18 23:20 Urine Urobilinogen 0.2 E.U./dL (0.2 - 1.0) 08/30/18 23:20 Ur Leukocyte Esterase NEGATIVE (NEGATIVE) 08/30/18 23:20 Urine RBC NONE SEEN /hpf (0-5) 08/30/18 23:20 Urine WBC 0-2 /hpf (0-5) 08/30/18 23:20 Ur Epithelial Cells NONE SEEN /lpf (FEW) 08/30/18 23:20 Urine Bacteria OCCASIONAL /hpf (NONE SEEN) 08/30/18 23:20 - Physical Exam Vitals and I&O: Vital Signs Temp 97 F 09/12/18 20:00 Pulse 72 09/13/18 09:42 Resp 19 09/12/18 20:00 BP 142/79 09/13/18 09:42 Pulse Ox 97 09/12/18 20:00 Intake & Output 09/12/18 09/13/18 09/13/18 18:59 06:59 18:59 Intake Total 1000 Balance 1000 Intake: Oral 1000 Other: # Voids 4 # Bowel Movements 1 Active Medications: Current Medications Acetaminophen (Tylenol) 650 mg PO Q12H PRN PRN Reason: Pain (Mild) Stop: 10/30/18 01:00 Last Admin: 09/11/18 16:14 Dose: 650 mg Aspirin (Ecotrin) 81 mg PO DAILY [facility] Stop: 10/30/18 08:59 Last Admin: 09/13/18 09:43 Dose: 81 mg Benazepril HCl (Lotensin) 10 mg PO DAILY [facility] Stop: 10/30/18 08:59 Last Admin: 09/13/18 09:40 Dose: 10 mg Benztropine Mesylate (Cogentin) 1 mg PO BID [facility] Stop: 10/30/18 08:59 Last Admin: 09/13/18 09:42 Dose: 1 mg Carvedilol (Coreg) 12.5 mg PO BID [facility] Stop: 10/30/18 08:59 Last Admin: 09/13/18 09:42 Dose: 12.5 mg Cyanocobalamin (Vitamin B12) 100 mcg PO DAILY [facility] Stop: 10/30/18 08:59 Last Admin: 09/13/18 09:42 Dose: 100 mcg Escitalopram Oxalate (Lexapro) 10 mg PO DAILY [facility]; Protocol Stop: 10/30/18 08:59 Last Admin: 09/13/18 09:42 Dose: 10 mg Furosemide (Lasix) 40 mg [place] [facility] [place]: 11/01/18 08:59 Last Admin: 09/13/18 09:42 Dose: 40 mg Glipizide (Glucotrol) 5 mg PO BID [facility] Stop: 10/30/18 08:59 Last Admin: 09/13/18 09:43 Dose: Not Given Insulin Aspart (Novolog) 0 units SUBQ [facility]; Protocol Stop: 10/30/18 11:29 Last Admin: 09/13/18 12:34 Dose: Not Given Insulin Detemir (Levemir Insulin) 12 units SUBQ [facility]; Protocol Stop: 10/30/18 20:59 Last Admin: 09/12/18 21:15 Dose: 12 units Levetiracetam (Keppra) 500 mg PO BID [facility] Stop: 10/30/18 08:59 Last Admin: 09/13/18 10:18 Dose: 500 mg [facility] ([facility]) [facility] Stop: 10/30/18 07:59 Last Admin: 09/13/18 09:43 Dose: Not Given Potassium Chloride (Klor-Con) 40 meq [place] [facility] [place]: 11/01/18 08:59 Last Admin: 09/13/18 09:39 Dose: 40 meq Quetiapine Fumarate (Seroquel) 100 mg PO BID [facility]; Protocol Stop: 11/10/18 16:59 Last Admin: 09/13/18 09:42 Dose: 100 mg Simvastatin (Zocor) 20 mg PO [facility]; Protocol Stop: 10/30/18 20:59 Last Admin: 09/12/18 21:15 Dose: 20 mg Zolpidem Tartrate (Ambien) 5 mg PO HS PRN PRN Reason: Insomnia Stop: 10/30/18 01:00 Last Admin: 09/10/18 00:29 Dose: 5 mg General: alert, appears older HEENT: NC/AT, PERRLA, EOMI, anicteric sclerae, throat clear Neck: Supple, No JVD, No thyromegaly Lungs: congested, rales, ronchi Cardiovascular: RRR, Normal S1, Normal S2, with murmur Abdomen: soft, tender, globular, positive bowel sound Extremities: excoriation, contracture Neurological: no change, muscle weakness Internal Medicine Assmt/Plan - Assessment Assessment: 1.DM. 2.HTN. 3.CHF. 4.SEIZURE DISORDER. 5.DEMENTIA. - Plan Plan: CONTINUE ON CURRENT MEDICATION AND DIET. Nutritional Asmnt/Malnutr-PDOC - Dietary Evaluation Malnutrition Findings (Please click <Entered> for more info): Nutritional Asmnt/Malnutrition Start: 09/05/18 15: 21 Text: Status: Complete Freq: Protocol: Document 09/05/18 15:21 LCHENG (Rec: 09/05/18 15:38 LCHENG [email or web address]) Nutritional Asmnt/Malnutrition Patient General Information Nutritional Screening Moderate Risk Diagnosis psychosis, increased agitation Pertinent Medical Hx/Surgical Hx CHF, DM, HTN, hypercholesterolemia, seizure Subjective Information Pt seen in dining room, oriented to self only. Per EMR , PO intake 100% since admitted. Current Diet Order/ Nutrition Support [facility] soft ground, BEN, CCHO, large portion, nectar thick Pertinent Medications vit B12, lasix, glucotrol, novolog, levemir, glucophage, kcl, seroquel Pertinent Labs 09/03-09/05 POC 54-156 08/30 Cl 110, BUN 30, Cr, 1.5, glucose 85 Nutritional Hx/Data Height 1.73 m Height (Calculated Centimeters) 172.7 Current Weight (lbs) 65.771 kg Weight (Calculated Kilograms) 65.8 Weight (Calculated Grams) 54263.9 [place] Body Weight 154 Body Mass Index (BMI) 22.0 Weight Status Approriate GI Symptoms GI Symptoms None Last BM 09/04 Difficult in: None Skin Integrity/Comment: intact Current %PO Good (75-100%) Estimated Nutritional Goals BEE in Kcals: Using Current wt Calories/Kcals/Kg 25-30 Kcals Calculated 9734-4920 Protein: Using Current wt Protein g/k Protein Calculated 66 Fluid: ml 1650-1980ml (1ml/kcal) Nutritional Problem No current Nutrition Prob Problem N/A Malnutrition Alert Is there a minimum of two criteria No selected? Query Text:Check all the applicable criteria. A minimum of two criteria are recommended for diagnosis of either severe or non-severe malnutrition. Malnutrition Related to Morbid Obesity Malnutrition related to morbid obesity No Intervention/Recommendation Comments 1. Continue with [facility] soft ground, BEN, CCHO, large portion, nectar thick diet as ordered. 2. Monitor PO intake, wt, labs and skin integrity 3. F/U as low risk in 7 days Expected Outcomes/Goals Expected Outcomes/Goals 1. PO intake to meet at least 75% of nutritional needs. 2. Wt stability, skin to remain intact, labs to approach WNL.
--- NOTE | 2018-09-13 14:24 | Progress Notes ---
DATE: 09/13/2018 Case was discussed with staff of the patient, reviewed records. Today, I was able to talk to him. He is more alert. He is confused. He believes he lives in a board and care. He is not sure where, unable to express, tell me much about his whereabouts or any substance information on him. He is sleeping better, eating better, compliant with the medication with no side effects, tolerated the increase in Seroquel and we will continue the patient in group therapy, milieu therapy, adjust medication as needed. JOB# [id number]
[2018-09-13] MEDS: Insulin Detemir 100 units/mL 10mL Vial SUBQ SCH (20:35)
[2018-09-14] MEDS: INSULIN ASPART, RECOMBINANT 100 UNITS/ML SUBQ SCH ×4 (06:31→20:37)
[2018-09-14] MEDS: Benztropine 1 MG TAB PO SCH ×2 (08:57→17:24)
--- NOTE | 2018-09-14 19:01 | General Progress Note ---
Subjective - Review of Systems Service Date: 09/14/18 Subjective: resting comfortably c/o left hip pain, fell on it a year ago no distress Objective - Results Result Diagrams: 08/30/18 23:25 08/30/18 23:25 Recent Labs: Laboratory Last Values WBC 6.7 Th/cmm (4.8-10.8) 08/30/18 23:25 RBC 3.62 Mil/cmm (4.30-5.70) L 08/30/18 23:25 Hgb 10.3 gm/dL (12-16) L 08/30/18 23:25 Hct 31.7 % (41.0-60) L 08/30/18 23:25 MCV 87.5 fl (80-99) 08/30/18 23:25 MCH 28.5 pg (26.0-30.0) 08/30/18 23:25 MCHC Differential 32.6 pg (28.0-36.0) 08/30/18 23:25 RDW 13.0 % (11.5-20.0) 08/30/18 23:25 Plt Count 160 Th/cmm (150-400) 08/30/18 23:25 MPV 8.7 fl 08/30/18 23:25 Neutrophils % 59.7 % (40.0-80.0) 08/30/18 23:25 Lymphocytes % 27.8 % (20.0-50.0) 08/30/18 23:25 Monocytes % 6.5 % (2.0-10.0) 08/30/18 23:25 Eosinophils % 5.0 % (0.0-5.0) 08/30/18 23:25 Basophils % 1.0 % (0.0-2.0) 08/30/18 23:25 Sodium 143 mEq/L (136-145) 08/30/18 23:25 Potassium 4.1 mEq/L (3.5-5.1) 08/30/18 23:25 Chloride 110 mEq/L (98-107) H 08/30/18 23:25 Carbon Dioxide 24.9 mEq/L (21.0-31.0) 08/30/18 23:25 Anion Gap 12.2 (7.0-16.0) 08/30/18 23:25 BUN 30 mg/dL (7-25) H 08/30/18 23:25 Creatinine 1.5 mg/dL (0.7-1.3) H 08/30/18 23:25 Est GFR ( Amer) > 60.0 ml/min (>90) 08/30/18 23:25 Est GFR (Non-Af Amer) 50.1 ml/min 08/30/18 23:25 BUN/Creatinine Ratio 20.0 08/30/18 23:25 Glucose 85 mg/dL (70-105) 08/30/18 23:25 POC Glucose 70 MG/DL (70 - 105) 09/09/18 06:40 Calcium 9.8 mg/dL (8.6-10.3) 08/30/18 23:25 Total Bilirubin 0.3 mg/dL (0.3-1.0) 08/30/18 23:25 AST 19 U/L (13-39) 08/30/18 23:25 ALT 25 U/L (7-52) 08/30/18 23:25 Alkaline Phosphatase 62 U/L (34-104) 08/30/18 23:25 Total Protein 6.3 gm/dL (6.0-8.3) 08/30/18 23:25 Albumin 3.8 gm/dL (4.2-5.5) L 08/30/18 23:25 Globulin 2.5 gm/dL 08/30/18 23:25 Albumin/Globulin Ratio 1.5 (1.0-1.8) 08/30/18 23:25 Triglycerides 62 mg/dL (<150) 08/31/18 01:25 Cholesterol 104 mg/dL (<200) 08/31/18 01:25 LDL Cholesterol Direct 47 mg/dL (75-193) L 08/31/18 01:25 HDL Cholesterol 45 mg/dL (23-92) 08/31/18 01:25 Urine Source CLEAN C 08/30/18 23:20 Urine Color YELLOW 08/30/18 23:20 Urine Clarity CLEAR (CLEAR) 08/30/18 23:20 Urine pH 5.5 (4.6 - 8.0) 08/30/18 23:20 Ur Specific [place] 1.020 (1.005-1.030) 08/30/18 23:20 Urine Protein NEGATIVE mg/dL (NEGATIVE) 08/30/18 23:20 Urine Glucose (UA) NEGATIVE mg/dL (NEGATIVE) 08/30/18 23:20 Urine Ketones NEGATIVE mg/dL (NEGATIVE) 08/30/18 23:20 Urine Blood NEGATIVE (NEGATIVE) 08/30/18 23:20 Urine Nitrate NEGATIVE (NEGATIVE) 08/30/18 23:20 Urine Bilirubin NEGATIVE (NEGATIVE) 08/30/18 23:20 Urine Urobilinogen 0.2 E.U./dL (0.2 - 1.0) 08/30/18 23:20 Ur Leukocyte Esterase NEGATIVE (NEGATIVE) 08/30/18 23:20 Urine RBC NONE SEEN /hpf (0-5) 08/30/18 23:20 Urine WBC 0-2 /hpf (0-5) 08/30/18 23:20 Ur Epithelial Cells NONE SEEN /lpf (FEW) 08/30/18 23:20 Urine Bacteria OCCASIONAL /hpf (NONE SEEN) 08/30/18 23:20 - Physical Exam Vitals and I&O: Vital Signs Temp 97.2 F 09/14/18 14:00 Pulse 76 09/14/18 17:24 Resp 20 09/14/18 14:00 BP 124/56 09/14/18 17:24 Pulse Ox 97 09/14/18 14:00 Intake & Output 09/13/18 09/14/18 09/14/18 18:59 06:59 18:59 Intake Total 2438 399 5890 Balance 0822 631 9067 Intake: Oral 3908 586 4390 Other: # Voids 2 3 # Bowel Movements 1 0 0 Active Medications: Current Medications Acetaminophen (Tylenol) 650 mg PO Q12H PRN PRN Reason: Pain (Mild) Stop: 10/30/18 01:00 Last Admin: 09/11/18 16:14 Dose: 650 mg Aspirin (Ecotrin) 81 mg PO DAILY [facility] Stop: 10/30/18 08:59 Last Admin: 09/14/18 08:56 Dose: 81 mg Benazepril HCl (Lotensin) 10 mg PO DAILY [facility] Stop: 10/30/18 08:59 Last Admin: 09/14/18 08:56 Dose: 10 mg Benztropine Mesylate (Cogentin) 1 mg PO BID [facility] Stop: 10/30/18 08:59 Last Admin: 09/14/18 17:24 Dose: 1 mg Carvedilol (Coreg) 12.5 mg PO BID [facility] Stop: 10/30/18 08:59 Last Admin: 09/14/18 17:24 Dose: 12.5 mg Cyanocobalamin (Vitamin B12) 100 mcg PO DAILY [facility] Stop: 10/30/18 08:59 Last Admin: 09/14/18 08:57 Dose: 100 mcg Escitalopram Oxalate (Lexapro) 10 mg PO DAILY [facility]; Protocol Stop: 10/30/18 08:59 Last Admin: 09/14/18 08:57 Dose: 10 mg Furosemide (Lasix) 40 mg PO [facility] Stop: 11/01/18 08:59 Last Admin: 09/13/18 09:42 Dose: 40 mg Glipizide (Glucotrol) 5 mg PO BID [facility] Stop: 10/30/18 08:59 Last Admin: 09/14/18 17:24 Dose: 5 mg Insulin Aspart (Novolog) 0 units SUBQ [facility]; Protocol Stop: 10/30/18 11:29 Last Admin: 09/14/18 17:32 Dose: Not Given Insulin Detemir (Levemir Insulin) 12 units SUBQ [facility]; Protocol Stop: 10/30/18 20:59 Last Admin: 09/13/18 20:35 Dose: 12 units Levetiracetam (Keppra) 500 mg PO BID [facility] Stop: 10/30/18 08:59 Last Admin: 09/14/18 17:24 Dose: 500 mg [facility] Stop: 10/30/18 07:59 Last Admin: 09/14/18 18:50 Dose: Not Given Potassium Chloride (Klor-Con) 40 meq PO [facility] Stop: 11/01/18 08:59 Last Admin: 09/13/18 09:39 Dose: 40 meq Quetiapine Fumarate (Seroquel) 100 mg PO BID [facility]; Protocol Stop: 11/10/18 16:59 Last Admin: 09/14/18 17:24 Dose: 100 mg Simvastatin (Zocor) 20 mg PO [facility]; Protocol Stop: 10/30/18 20:59 Last Admin: 09/13/18 20:35 Dose: 20 mg Zolpidem Tartrate (Ambien) 5 mg PO PRN PRN Reason: Insomnia Stop: 10/30/18 01:00 Last Admin: 09/10/18 00:29 Dose: 5 mg General: Cooperative HEENT: Atraumatic, PERRLA Neck: Supple, JVD Cardiovascular: Regular rate, Normal S1, Normal S2 Lungs: Clear to auscultation Abdomen: Bowel sounds, Soft Assessment/Plan - Assessment Assessment: 1.DM. 2.HTN. 3.CHF. 4.SEIZURE DISORDER. 5.DEMENTIA. - Plan Plan: continue current treatment Nutritional Asmnt/Malnutr-PDOC - Dietary Evaluation Malnutrition Findings (Please click <Entered> for more info): Nutritional Asmnt/Malnutrition Start: 09/05/18 15: 21 Text: Status: Complete Freq: Protocol: Document 09/05/18 15:21 LCHENG (Rec: 09/05/18 15:38 [email or web address]) Nutritional Asmnt/Malnutrition Patient General Information Nutritional Screening Moderate Risk Diagnosis psychosis, increased agitation Pertinent Medical Hx/Surgical Hx CHF, DM, HTN, hypercholesterolemia, seizure Subjective Information Pt seen in dining room, oriented to self only. Per EMR , PO intake 100% since admitted. Current Diet Order/ Nutrition Support [facility] soft ground, BEN, CCHO, large portion, nectar thick Pertinent Medications vit B12, lasix, glucotrol, novolog, levemir, glucophage, kcl, seroquel Pertinent Labs 09/03-09/05 POC 54-156 08/30 Cl 110, BUN 30, Cr, 1.5, glucose 85 Nutritional Hx/Data Height 1.73 m Height (Calculated Centimeters) 172.7 Current Weight (lbs) 65.771 kg Weight (Calculated Kilograms) 65.8 Weight (Calculated Grams) 89095.9 [place] Body Weight 154 Body Mass Index (BMI) 22.0 Weight Status Approriate GI Symptoms GI Symptoms None Last BM 09/04 Difficult in: None Skin Integrity/Comment: intact Current %PO Good (75-100%) Estimated Nutritional Goals BEE in Kcals: Using Current wt Calories/Kcals/Kg 25-30 Kcals Calculated 5990-5042 Protein: Using Current wt Protein g/k Protein Calculated 66 Fluid: ml 1650-1980ml (1ml/kcal) Nutritional Problem No current Nutrition Prob Problem N/A Malnutrition Alert Is there a minimum of two criteria No selected? Query Text:Check all the applicable criteria. A minimum of two criteria are recommended for diagnosis of either severe or non-severe malnutrition. Malnutrition Related to Morbid Obesity Malnutrition related to morbid obesity No Intervention/Recommendation Comments 1. Continue with [facility] soft ground, BEN, CCHO, large portion, nectar thick diet as ordered. 2. Monitor PO intake, wt, labs and skin integrity 3. F/U as low risk in 7 days Expected Outcomes/Goals Expected Outcomes/Goals 1. PO intake to meet at least 75% of nutritional needs. 2. Wt stability, skin to remain intact, labs to approach WNL.
[2018-09-14] MEDS: Insulin Detemir 100 units/mL 10mL Vial SUBQ SCH (20:38)
--- NOTE | 2018-09-15 02:26 | Progress Notes ---
DATE: 09/14/2018 SUBJECTIVE: The patient was seen and evaluated. The patient's chart reviewed. Covering for Dr. Joseph. Overnight, nursing staff reported that the patient ____ withdrawn, but calm. Today on [id number] evaluation, the patient reports no side effects to medications, presentable, coherent but does report some pain, but unable to localize the pain. He is sleeping better, eating better. MENTAL STATUS EXAMINATION: Better. Thought process is more calm. ASSESSMENT AND PLAN: History of depression starting to show some mild improvement in regard to his thought process and also his mood. We will continue working very closely with medical case management for safe disposition once the patient further stabilized. REVIEW OF CURRENT MEDICATIONS: Include Coreg, vitamin B12, Lexapro 10 mg a day, glipizide, Keppra, quetiapine 100 mg p.o. b.i.d. No side effects reported. JOB# [id number]
[2018-09-15] MEDS: INSULIN ASPART, RECOMBINANT 100 UNITS/ML SUBQ SCH ×4 (06:35→21:28)
[2018-09-15] MEDS: Benztropine 1 MG TAB PO SCH ×2 (09:35→17:58)
--- NOTE | 2018-09-15 10:50 | Diagnostic Imaging Report ---
Pelvis and left hip 2 views Indication: pain Comparison: none Findings: There is severe deformity of the left hip with diffuse resorption of the left femoral head and portions of the neck. Chronic appearing healed fracture of the left inferior pubic bone is noted. Otherwise no gross acute fracture. Mild degenerative changes of right hip joint is noted. 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 Abnormal shape of the acetabulum is also noted. Findings may have been due to old trauma or previous infectious or inflammatory process. Please correlate with clinical findings. Chronic appearing healed fracture of the left inferior pubic bone is noted. Please correlate with clinical findings and old exams. In the setting of trauma, if clinical symptoms persist and there is continued concern for an occult fracture, follow up exams in 5-7 days is suggested.
--- NOTE | 2018-09-15 14:08 | General Progress Note ---
Subjective - Review of Systems Service Date: 09/15/18 Subjective: resting comfortably no distress Objective - Results Result Diagrams: 08/30/18 23:25 08/30/18 23:25 Recent Labs: Laboratory Last Values WBC 6.7 Th/cmm (4.8-10.8) 08/30/18 23:25 RBC 3.62 Mil/cmm (4.30-5.70) L 08/30/18 23:25 Hgb 10.3 gm/dL (12-16) L 08/30/18 23:25 Hct 31.7 % (41.0-60) L 08/30/18 23:25 MCV 87.5 fl (80-99) 08/30/18 23:25 MCH 28.5 pg (26.0-30.0) 08/30/18 23:25 MCHC Differential 32.6 pg (28.0-36.0) 08/30/18 23:25 RDW 13.0 % (11.5-20.0) 08/30/18 23:25 Plt Count 160 Th/cmm (150-400) 08/30/18 23:25 MPV 8.7 fl 08/30/18 23:25 Neutrophils % 59.7 % (40.0-80.0) 08/30/18 23:25 Lymphocytes % 27.8 % (20.0-50.0) 08/30/18 23:25 Monocytes % 6.5 % (2.0-10.0) 08/30/18 23:25 Eosinophils % 5.0 % (0.0-5.0) 08/30/18 23:25 Basophils % 1.0 % (0.0-2.0) 08/30/18 23:25 Sodium 143 mEq/L (136-145) 08/30/18 23:25 Potassium 4.1 mEq/L (3.5-5.1) 08/30/18 23:25 Chloride 110 mEq/L (98-107) H 08/30/18 23:25 Carbon Dioxide 24.9 mEq/L (21.0-31.0) 08/30/18 23:25 Anion Gap 12.2 (7.0-16.0) 08/30/18 23:25 BUN 30 mg/dL (7-25) H 08/30/18 23:25 Creatinine 1.5 mg/dL (0.7-1.3) H 08/30/18 23:25 Est GFR ( Amer) > 60.0 ml/min (>90) 08/30/18 23:25 Est GFR (Non-Af Amer) 50.1 ml/min 08/30/18 23:25 BUN/Creatinine Ratio 20.0 08/30/18 23:25 Glucose 85 mg/dL (70-105) 08/30/18 23:25 POC Glucose 70 MG/DL (70 - 105) 09/09/18 06:40 Calcium 9.8 mg/dL (8.6-10.3) 08/30/18 23:25 Total Bilirubin 0.3 mg/dL (0.3-1.0) 08/30/18 23:25 AST 19 U/L (13-39) 08/30/18 23:25 ALT 25 U/L (7-52) 08/30/18 23:25 Alkaline Phosphatase 62 U/L (34-104) 08/30/18 23:25 Total Protein 6.3 gm/dL (6.0-8.3) 08/30/18 23:25 Albumin 3.8 gm/dL (4.2-5.5) L 08/30/18 23:25 Globulin 2.5 gm/dL 08/30/18 23:25 Albumin/Globulin Ratio 1.5 (1.0-1.8) 08/30/18 23:25 Triglycerides 62 mg/dL (<150) 08/31/18 01:25 Cholesterol 104 mg/dL (<200) 08/31/18 01:25 LDL Cholesterol Direct 47 mg/dL (75-193) L 08/31/18 01:25 HDL Cholesterol 45 mg/dL (23-92) 08/31/18 01:25 Urine Source CLEAN C 08/30/18 23:20 Urine Color YELLOW 08/30/18 23:20 Urine Clarity CLEAR (CLEAR) 08/30/18 23:20 Urine pH 5.5 (4.6 - 8.0) 08/30/18 23:20 Ur Specific [place] 1.020 (1.005-1.030) 08/30/18 23:20 Urine Protein NEGATIVE mg/dL (NEGATIVE) 08/30/18 23:20 Urine Glucose (UA) NEGATIVE mg/dL (NEGATIVE) 08/30/18 23:20 Urine Ketones NEGATIVE mg/dL (NEGATIVE) 08/30/18 23:20 Urine Blood NEGATIVE (NEGATIVE) 08/30/18 23:20 Urine Nitrate NEGATIVE (NEGATIVE) 08/30/18 23:20 Urine Bilirubin NEGATIVE (NEGATIVE) 08/30/18 23:20 Urine Urobilinogen 0.2 E.U./dL (0.2 - 1.0) 08/30/18 23:20 Ur Leukocyte Esterase NEGATIVE (NEGATIVE) 08/30/18 23:20 Urine RBC NONE SEEN /hpf (0-5) 08/30/18 23:20 Urine WBC 0-2 /hpf (0-5) 08/30/18 23:20 Ur Epithelial Cells NONE SEEN /lpf (FEW) 08/30/18 23:20 Urine Bacteria OCCASIONAL /hpf (NONE SEEN) 08/30/18 23:20 - Physical Exam Vitals and I&O: Vital Signs Temp 96.8 F 09/15/18 06:46 Pulse 75 09/15/18 09:35 Resp 20 09/15/18 06:46 BP 146/74 09/15/18 09:35 Pulse Ox 95 09/15/18 06:46 Intake & Output 09/14/18 09/15/18 09/15/18 18:59 06:59 18:59 Intake Total 1400 240 Balance 1400 240 Intake: Oral 1400 240 Other: # Voids 3 3 # Bowel Movements 0 0 Active Medications: Current Medications Acetaminophen (Tylenol) 650 mg PO Q12H PRN PRN Reason: Pain (Mild) Stop: 10/30/18 01:00 Last Admin: 09/11/18 16:14 Dose: 650 mg Aspirin (Ecotrin) 81 mg PO DAILY [facility] Stop: 10/30/18 08:59 Last Admin: 09/15/18 09:34 Dose: 81 mg Benazepril HCl (Lotensin) 10 mg PO DAILY [facility] Stop: 10/30/18 08:59 Last Admin: 09/15/18 09:39 Dose: Not Given Benztropine Mesylate (Cogentin) 1 mg PO BID [facility] Stop: 10/30/18 08:59 Last Admin: 09/15/18 09:35 Dose: 1 mg Carvedilol (Coreg) 12.5 mg PO BID [facility] Stop: 10/30/18 08:59 Last Admin: 09/15/18 09:35 Dose: 12.5 mg Cyanocobalamin (Vitamin B12) 100 mcg PO DAILY [facility] Stop: 10/30/18 08:59 Last Admin: 09/15/18 09:36 Dose: 100 mcg Escitalopram Oxalate (Lexapro) 10 mg PO DAILY [facility]; Protocol Stop: 10/30/18 08:59 Last Admin: 09/15/18 09:35 Dose: 10 mg Furosemide (Lasix) 40 mg PO [facility] Stop: 11/01/18 08:59 Last Admin: 09/13/18 09:42 Dose: 40 mg Glipizide (Glucotrol) 5 mg PO BID [facility] Stop: 10/30/18 08:59 Last Admin: 09/15/18 09:34 Dose: 5 mg Insulin Aspart (Novolog) 0 units SUBQ [facility]; Protocol Stop: 10/30/18 11:29 Last Admin: 09/15/18 11:39 Dose: Not Given Insulin Detemir (Levemir Insulin) 12 units SUBQ [facility]; Protocol Stop: 10/30/18 20:59 Last Admin: 09/14/18 20:38 Dose: Not Given Levetiracetam (Keppra) 500 mg PO BID [facility] Stop: 10/30/18 08:59 Last Admin: 09/15/18 09:35 Dose: 500 mg [facility] Stop: 10/30/18 07:59 Last Admin: 09/15/18 08:36 Dose: 1,000 mg Potassium Chloride (Klor-Con) 40 meq PO [facility] Stop: 11/01/18 08:59 Last Admin: 09/13/18 09:39 Dose: 40 meq Quetiapine Fumarate (Seroquel) 100 mg PO BID [facility]; Protocol Stop: 11/10/18 16:59 Last Admin: 09/15/18 09:39 Dose: 100 mg Simvastatin (Zocor) 20 mg PO [facility]; Protocol Stop: 10/30/18 20:59 Last Admin: 09/14/18 20:38 Dose: 20 mg Zolpidem Tartrate (Ambien) 5 mg PO HS PRN PRN Reason: Insomnia Stop: 10/30/18 01:00 Last Admin: 01/01/19 00:29 Dose: 5 mg General: Cooperative HEENT: Atraumatic, PERRLA Neck: Supple, JVD Cardiovascular: Regular rate, Normal S1, Normal S2 Lungs: Clear to auscultation Abdomen: Bowel sounds, Soft Assessment/Plan - Assessment Assessment: 1.DM. 2.HTN. 3.CHF. 4.SEIZURE DISORDER. 5.DEMENTIA. - Plan Plan: continue current treatment Nutritional Asmnt/Malnutr-PDOC - Dietary Evaluation Malnutrition Findings (Please click <Entered> for more info): Nutritional Asmnt/Malnutrition Start: 09/05/18 15: 21 Text: Status: Complete Freq: Protocol: Document 09/05/18 15:21 LCHENG (Rec: 09/05/18 15:38 [email or web address] [email or web address]) Nutritional Asmnt/Malnutrition Patient General Information Nutritional Screening Moderate Risk Diagnosis psychosis, increased agitation Pertinent Medical Hx/Surgical Hx CHF, DM, HTN, hypercholesterolemia, seizure Subjective Information Pt seen in dining room, oriented to self only. Per EMR , PO intake 100% since admitted. Current Diet Order/ Nutrition Support [facility] soft ground, BEN, CCHO, large portion, nectar thick Pertinent Medications vit B12, lasix, glucotrol, novolog, levemir, glucophage, kcl, seroquel Pertinent Labs 09/03-09/05 POC 54-156 08/30 Cl 110, BUN 30, Cr, 1.5, glucose 85 Nutritional Hx/Data Height 1.73 m Height (Calculated Centimeters) 172.7 Current Weight (lbs) 65.771 kg Weight (Calculated Kilograms) 65.8 Weight (Calculated Grams) 30469.9 [place] Body Weight 154 Body Mass Index (BMI) 22.0 Weight Status Approriate GI Symptoms GI Symptoms None Last BM 09/04 Difficult in: None Skin Integrity/Comment: intact Current %PO Good (75-100%) Estimated Nutritional Goals BEE in Kcals: Using Current wt Calories/Kcals/Kg 25-30 Kcals Calculated 2304-7743 Protein: Using Current wt Protein g/k Protein Calculated 66 Fluid: ml 1650-1980ml (1ml/kcal) Nutritional Problem No current Nutrition Prob Problem N/A Malnutrition Alert Is there a minimum of two criteria No selected? Query Text:Check all the applicable criteria. A minimum of two criteria are recommended for diagnosis of either severe or non-severe malnutrition. Malnutrition Related to Morbid Obesity Malnutrition related to morbid obesity No Intervention/Recommendation Comments 1. Continue with [facility] soft ground, BEN, CCHO, large portion, nectar thick diet as ordered. 2. Monitor PO intake, wt, labs and skin integrity 3. F/U as low risk in 7 days Expected Outcomes/Goals Expected Outcomes/Goals 1. PO intake to meet at least 75% of nutritional needs. 2. Wt stability, skin to remain intact, labs to approach WNL.
[2018-09-15] MEDS: Insulin Detemir 100 units/mL 10mL Vial SUBQ SCH (21:30)
--- NOTE | 2018-09-15 22:04 | Progress Notes ---
DATE: 09/15/[address] Joseph. The patient was seen and evaluated. Nursing staff reported that the patient is a little bit less agitated, less withdrawn. Today on [id number] evaluation, denies any side effects to medications. He reports his appetite and sleep are better and although at times finds himself disorganized. He is more redirectable. MENTAL STATUS EXAMINATION: Better thought process, more calm. ASSESSMENT AND PLAN: History of depression, some mild improvement is noted, also with his thought process and mood. We will continue monitoring and evaluating and continue with the current medication regimen. We will continue to work closely with mental pillowcase maker and continue with primary psychiatrist's treatment plan and goals. JOB# [id number]
[2018-09-16] MEDS: INSULIN ASPART, RECOMBINANT 100 UNITS/ML SUBQ SCH ×4 (06:31→21:41)
[2018-09-16] MEDS: Potassium Chloride 20 mEq ER Tab PO SCH (09:45)
[2018-09-16] MEDS: Benztropine 1 MG TAB PO SCH ×2 (09:46→17:30)
--- NOTE | 2018-09-16 19:11 | Internal Medicine Prog Note ---
Internal Medicine Subjective - Subjective Service Date: 09/16/18 Patient seen and examined:: with staff Patient is:: awake, verbal, interactive, in bed Per staff patient has:: no adverse event, no episodes of fall, poor appetite, tolerating meds Internal Medicine Objective - Results Result Diagrams: 08/30/18 23:25 08/30/18 23:25 Recent Labs: Laboratory Last Values WBC 6.7 Th/cmm (4.8-10.8) 08/30/18 23:25 RBC 3.62 Mil/cmm (4.30-5.70) L 08/30/18 23:25 Hgb 10.3 gm/dL (12-16) L 08/30/18 23:25 Hct 31.7 % (41.0-60) L 08/30/18 23:25 MCV 87.5 fl (80-99) 08/30/18 23:25 MCH 28.5 pg (26.0-30.0) 08/30/18 23:25 MCHC Differential 32.6 pg (28.0-36.0) 08/30/18 23:25 RDW 13.0 % (11.5-20.0) 08/30/18 23:25 Plt Count 160 Th/cmm (150-400) 08/30/18 23:25 MPV 8.7 fl 08/30/18 23:25 Neutrophils % 59.7 % (40.0-80.0) 08/30/18 23:25 Lymphocytes % 27.8 % (20.0-50.0) 08/30/18 23:25 Monocytes % 6.5 % (2.0-10.0) 08/30/18 23:25 Eosinophils % 5.0 % (0.0-5.0) 08/30/18 23:25 Basophils % 1.0 % (0.0-2.0) 08/30/18 23:25 Sodium 143 mEq/L (136-145) 08/30/18 23:25 Potassium 4.1 mEq/L (3.5-5.1) 08/30/18 23:25 Chloride 110 mEq/L (98-107) H 08/30/18 23:25 Carbon Dioxide 24.9 mEq/L (21.0-31.0) 08/30/18 23:25 Anion Gap 12.2 (7.0-16.0) 08/30/18 23:25 BUN 30 mg/dL (7-25) H 08/30/18 23:25 Creatinine 1.5 mg/dL (0.7-1.3) H 08/30/18 23:25 Est GFR ( Amer) > 60.0 ml/min (>90) 08/30/18 23:25 Est GFR (Non-Af Amer) 50.1 ml/min 08/30/18 23:25 BUN/Creatinine Ratio 20.0 08/30/18 23:25 Glucose 85 mg/dL (70-105) 08/30/18 23:25 POC Glucose 70 MG/DL (70 - 105) 09/09/18 06:40 Calcium 9.8 mg/dL (8.6-10.3) 08/30/18 23:25 Total Bilirubin 0.3 mg/dL (0.3-1.0) 08/30/18 23:25 AST 19 U/L (13-39) 08/30/18 23:25 ALT 25 U/L (7-52) 08/30/18 23:25 Alkaline Phosphatase 62 U/L (34-104) 08/30/18 23:25 Total Protein 6.3 gm/dL (6.0-8.3) 08/30/18 23:25 Albumin 3.8 gm/dL (4.2-5.5) L 08/30/18 23:25 Globulin 2.5 gm/dL 08/30/18 23:25 Albumin/Globulin Ratio 1.5 (1.0-1.8) 08/30/18 23:25 Triglycerides 62 mg/dL (<150) 08/31/18 01:25 Cholesterol 104 mg/dL (<200) 08/31/18 01:25 LDL Cholesterol Direct 47 mg/dL (75-193) L 08/31/18 01:25 HDL Cholesterol 45 mg/dL (23-92) 08/31/18 01:25 Urine Source CLEAN C 08/30/18 23:20 Urine Color YELLOW 08/30/18 23:20 Urine Clarity CLEAR (CLEAR) 08/30/18 23:20 Urine pH 5.5 (4.6 - 8.0) 08/30/18 23:20 Ur Specific [place] 1.020 (1.005-1.030) 08/30/18 23:20 Urine Protein NEGATIVE mg/dL (NEGATIVE) 08/30/18 23:20 Urine Glucose (UA) NEGATIVE mg/dL (NEGATIVE) 08/30/18 23:20 Urine Ketones NEGATIVE mg/dL (NEGATIVE) 08/30/18 23:20 Urine Blood NEGATIVE (NEGATIVE) 08/30/18 23:20 Urine Nitrate NEGATIVE (NEGATIVE) 08/30/18 23:20 Urine Bilirubin NEGATIVE (NEGATIVE) 08/30/18 23:20 Urine Urobilinogen 0.2 E.U./dL (0.2 - 1.0) 08/30/18 23:20 Ur Leukocyte Esterase NEGATIVE (NEGATIVE) 08/30/18 23:20 Urine RBC NONE SEEN /hpf (0-5) 08/30/18 23:20 Urine WBC 0-2 /hpf (0-5) 08/30/18 23:20 Ur Epithelial Cells NONE SEEN /lpf (FEW) 08/30/18 23:20 Urine Bacteria OCCASIONAL /hpf (NONE SEEN) 08/30/18 23:20 - Physical Exam Vitals and I&O: Vital Signs Temp 97.1 F 09/16/18 14:51 Pulse 63 09/16/18 17:30 Resp 20 09/16/18 14:51 BP 151/74 09/16/18 17:30 Pulse Ox 100 09/16/18 14:51 Intake & Output 09/16/18 09/16/18 09/17/18 06:59 18:59 06:59 Intake Total 300 Balance 300 Intake: Oral 300 Other: # Voids 1 2 # Bowel Movements 0 0 Active Medications: Current Medications Acetaminophen (Tylenol) 650 mg PO Q12H PRN PRN Reason: Pain (Mild) Stop: 10/30/18 01:00 Last Admin: 09/11/18 16:14 Dose: 650 mg Aspirin (Ecotrin) 81 mg PO DAILY [facility] Stop: 10/30/18 08:59 Last Admin: 09/16/18 09:45 Dose: 81 mg Benazepril HCl (Lotensin) 10 mg PO DAILY [facility] Stop: 10/30/18 08:59 Last Admin: 09/16/18 09:45 Dose: 10 mg Benztropine Mesylate (Cogentin) 1 mg PO BID [facility] Stop: 10/30/18 08:59 Last Admin: 09/16/18 17:30 Dose: 1 mg Carvedilol (Coreg) 12.5 mg PO BID [facility] Stop: 10/30/18 08:59 Last Admin: 09/16/18 17:30 Dose: 12.5 mg Cyanocobalamin (Vitamin B12) 100 mcg PO DAILY [facility] Stop: 10/30/18 08:59 Last Admin: 09/16/18 09:46 Dose: 100 mcg Escitalopram Oxalate (Lexapro) 10 mg PO DAILY [facility]; Protocol Stop: 10/30/18 08:59 Last Admin: 09/16/18 09:46 Dose: 10 mg Furosemide (Lasix) 40 mg PO [facility] Stop: 11/01/18 08:59 Last Admin: 09/16/18 09:46 Dose: 40 mg Glipizide (Glucotrol) 5 mg PO BID [facility] Stop: 10/30/18 08:59 Last Admin: 09/16/18 17:32 Dose: 5 mg Insulin Aspart (Novolog) 0 units SUBQ [facility]; Protocol Stop: 10/30/18 11:29 Last Admin: 09/16/18 17:29 Dose: Not Given Insulin Detemir (Levemir Insulin) 12 units SUBQ [facility]; Protocol Stop: 10/30/18 20:59 Last Admin: 09/15/18 21:30 Dose: Not Given Levetiracetam (Keppra) 500 mg PO BID [facility] Stop: 10/30/18 08:59 Last Admin: 09/16/18 17:30 Dose: 500 mg [facility] Stop: 10/30/18 07:59 Last Admin: 09/16/18 17:32 Dose: 1,000 mg Potassium Chloride (Klor-Con) 40 meq PO [facility] Stop: 11/01/18 08:59 Last Admin: 09/16/18 09:45 Dose: 40 meq Quetiapine Fumarate (Seroquel) 100 mg PO BID [facility]; Protocol Stop: 11/10/18 16:59 Last Admin: 09/16/18 17:31 Dose: 100 mg Simvastatin (Zocor) 20 mg PO [facility]; Protocol Stop: 10/30/18 20:59 Last Admin: 09/15/18 21:30 Dose: 20 mg Zolpidem Tartrate (Ambien) 5 mg PO HS PRN PRN Reason: Insomnia Stop: 10/30/18 01:00 Last Admin: 09/10/18 00:29 Dose: 5 mg General: alert, appears older HEENT: NC/AT, PERRLA, EOMI, anicteric sclerae, throat clear Neck: Supple, No JVD, No thyromegaly Lungs: congested, rales, ronchi Cardiovascular: RRR, Normal S1, Normal S2, with murmur Abdomen: soft, tender, globular, positive bowel sound Extremities: excoriation, contracture Neurological: no change, muscle weakness Internal Medicine Assmt/Plan - Assessment Assessment: 1.DM. 2.HTN. 3.CHF. 4.SEIZURE DISORDER. 5.DEMENTIA. - Plan Plan: CONTINUE ON CURRENT MEDICATION AND DIET. Nutritional Asmnt/Malnutr-PDOC - Dietary Evaluation Malnutrition Findings (Please click <Entered> for more info): Nutritional Asmnt/Malnutrition Start: 09/05/18 15: 21 Text: Status: Complete Freq: Protocol: Document 09/05/18 15:21 LCHENG (Rec: 09/05/18 15:38 [email or web address] [id number]) Nutritional Asmnt/Malnutrition Patient General Information Nutritional Screening Moderate Risk Diagnosis psychosis, increased agitation Pertinent Medical Hx/Surgical Hx CHF, DM, HTN, hypercholesterolemia, seizure Subjective Information Pt seen in dining room, oriented to self only. Per EMR , PO intake 100% since admitted. Current Diet Order/ Nutrition Support [facility] soft ground, BEN, CCHO, large portion, nectar thick Pertinent Medications vit B12, lasix, glucotrol, novolog, levemir, glucophage, kcl, seroquel Pertinent Labs 09/03-09/05 POC 54-156 08/30 Cl 110, BUN 30, Cr, 1.5, glucose 85 Nutritional Hx/Data Height 1.73 m Height (Calculated Centimeters) 172.7 Current Weight (lbs) 65.771 kg Weight (Calculated Kilograms) 65.8 Weight (Calculated Grams) 42525.9 [place] Body Weight 154 Body Mass Index (BMI) 22.0 Weight Status Approriate GI Symptoms GI Symptoms None Last BM 09/04 Difficult in: None Skin Integrity/Comment: intact Current %PO Good (75-100%) Estimated Nutritional Goals BEE in Kcals: Using Current wt Calories/Kcals/Kg 25-30 Kcals Calculated 5242-6756 Protein: Using Current wt Protein g/k Protein Calculated 66 Fluid: ml 1650-1980ml (1ml/kcal) Nutritional Problem No current Nutrition Prob Problem N/A Malnutrition Alert Is there a minimum of two criteria No selected? Query Text:Check all the applicable criteria. A minimum of two criteria are recommended for diagnosis of either severe or non-severe malnutrition. Malnutrition Related to Morbid Obesity Malnutrition related to morbid obesity No Intervention/Recommendation Comments 1. Continue with [facility] soft ground, BEN, CCHO, large portion, nectar thick diet as ordered. 2. Monitor PO intake, wt, labs and skin integrity 3. F/U as low risk in 7 days Expected Outcomes/Goals Expected Outcomes/Goals 1. PO intake to meet at least 75% of nutritional needs. 2. Wt stability, skin to remain intact, labs to approach WNL.
[2018-09-16] MEDS: Insulin Detemir 100 units/mL 10mL Vial SUBQ SCH (21:40)
--- NOTE | 2018-09-16 23:28 | Progress Notes ---
DATE: 09/16/2018 Case was discussed with staff of the patient, reviewed records. The patient seems to be showing progress. He is no longer staying in bed. He is able to express himself, though he is not able to tell me the date, where he is sleeping better, eating better. Working on discharge plan. He is sometimes disorganized, in general responding well to redirection. Compliant with the medication with no side effects, no sedation, no nausea and no extrapyramidal symptoms. He is on Lexapro 10 mg daily and Seroquel 100 mg twice a day and if he continues to do well, I do have plan to let him go tomorrow. We will continue outpatient group therapy, milieu therapy and adjust medications. JOB# [id number]
[2018-09-17] MEDS: INSULIN ASPART, RECOMBINANT 100 UNITS/ML SUBQ SCH ×2 (07:04→12:39)
[2018-09-17] MEDS: Benztropine 1 MG TAB PO SCH (09:35)
--- NOTE | 2018-09-17 21:26 | Progress Notes ---
DATE: 09/17/2018 SUBJECTIVE: Case was discussed with staff of the patient, reviewed records. The patient is doing well, sleeping well, and eating well. The patient is currently stable. He would be going back to [employer]. He has been stable. No acting out behavior. He denies any current intent to harm himself or anybody. He denies any auditory or visual hallucination or paranoia. He denies having any side effects. He is no longer meeting criteria for further inpatient treatment and ready to go to a lesser level of care and followup with the psychiatrist, primary care physician at the nursing facility. JOB# [id number]
--- NOTE | 2018-09-17 21:31 | Progress Notes ---
DATE: 09/17/2018 SUMMARY: After we wrote a discharge order, we saw there was an x-ray in his records indicating there is some deformity and occult fracture, which he told me Dr. Johnston is aware of it; however, I told him not to discharge the patient until we get further recommendation and it is recommended to have a followup x-ray in 5-7 days and he agreed to do so. So, if Dr. Johnston clears him, we will discharge; otherwise, we will keep him, so he is medically cleared from that point of view. JOB# [id number]
== END 2018-09-17 15:45 | DRG 884 ==
LOC: ER 22:53 → GERO 08-31 00:18
PROVIDERS: ADMIT Psychiatry & Neurology Psychiatry; ATTEND Psychiatry & Neurology Psychiatry
DX: F03.90 Unspecified dementia, unspecified severity, without behavioral disturbance, psychotic disturbance, mood disturbance, and anxiety (principal); I11.0 Hypertensive heart disease with heart failure; F20.0 Paranoid schizophrenia; D64.9 Anemia, unspecified; E11.9 Type 2 diabetes mellitus without complications; I50.9 Heart failure, unspecified; E78.5 Hyperlipidemia, unspecified; E78.00 Pure hypercholesterolemia, unspecified; N28.9 Disorder of kidney and ureter, unspecified; G40.909 Epilepsy, unspecified, not intractable, without status epilepticus; F32.9 Major depressive disorder, single episode, unspecified; Z91.041 Radiographic dye allergy status
CPT/HCPCS: 36415-UA; 73501; 80053-TC; 80061-TC; 81001-TC; 82948-90; 83036-90; 85025-TC; G0410; J1815; Z7610

== ENCOUNTER 2019-07-15 15:45 | Inpatient (IN) | payer MEDICARE, MEDICAID ==
[2019-07-15] MEDS ORDERED: GLUCAGON HCl 1 MG KIT IM PRN (20:16)
--- NOTE | 2019-07-15 20:25 | History & Physical ---
ADMIT DATE: 07/15/2019 HISTORY OF PRESENT ILLNESS: The patient is a 64-year-old male with long history of diabetes mellitus, hypertension, hyperlipidemia, seizure disorder, psychosis, admitted to [facility] under Dr. Gan's service for evaluation and treatment. The patient denies any chest pain, shortness of breath, nausea, vomiting, fever or chills. PAST MEDICAL HISTORY: Significant for diabetes mellitus, hypertension, hyperlipidemia, seizure disorder, psychosis. PAST SURGICAL HISTORY: No recent surgery. ALLERGIES: IODINE. MEDICATIONS: Follow admission reconciliation. SOCIAL HISTORY: No smoking, no alcohol, no drug. FAMILY HISTORY: Noncontributory. REVIEW OF SYSTEMS: RENAL SYSTEM: No history of chronic renal disorder. CARDIOVASCULAR SYSTEM: No coronary artery disease. ENDOCRINE SYSTEM: Has history of diabetes mellitus. GASTROINTESTINAL SYSTEM: No upper or lower gastrointestinal bleed. NEUROLOGICAL SYSTEM: Has history of seizure disorder. SKELETOMUSCULAR SYSTEM: No muscular dystrophy. HEMATOLOGICAL SYSTEM: No bleeding tendencies. RESPIRATORY SYSTEM: No asthma. GENITOURINARY SYSTEM: No hematuria. PHYSICAL EXAMINATION: GENERAL: He is awake, alert, confused. VITAL SIGNS: Temperature 98.6, heart rate 88, blood pressure 134/70. HEENT: Normocephalic. Pupils reactive to light and accommodation. Sclerae clear. NECK: Supple. Negative for lymphadenopathy, JVD or bruit. CHEST: Bilaterally normal. No rhonchi or wheezing. HEART: S1, S2 normal. No gallop rhythm. ABDOMEN: Soft, bowel sounds positive. EXTREMITIES: No edema. BACK: No vertebra. GENITALIA AND RECTAL: Done by primary care physician, no complaint. NEUROLOGIC: He is awake, alert, mildly confused. No focal motor or sensory deficit. Cranial nerves 2-12 are intact. ASSESSMENT: 1. Diabetes mellitus. 2. Hypertension. 3. Hyperlipidemia. 4. Seizure disorder. 5. Psychosis. PLAN: The patient in the hospital under Dr. Gan's service. Medical problems addressed during hospitalization is psychosis. Medical problems addressed at discharge, diabetes mellitus, hypertension, seizure disorder. The patient is medically stable for activity. Thank you, Dr. Gan, for asking me to see your patient. The patient is a full code. JOB# [id number]
[2019-07-15 21:06] VITALS: BP 142/68
[2019-07-15] MEDS: INSULIN LISPRO SLIDING SCALE 100 UNITS/ML UNIT SUBQ SCH (21:29)
[2019-07-15] MEDS: Insulin Glargine 100 units/ml 10ml Vial SUBQ SCH (21:30)
[2019-07-16] MEDS: INSULIN LISPRO SLIDING SCALE 100 UNITS/ML UNIT SUBQ SCH ×4 (06:43→21:42)
[2019-07-16] MEDS: Benztropine 1 MG TAB PO SCH ×2 (10:29→17:08)
[2019-07-16] MEDS: Insulin Glargine 100 units/ml 10ml Vial SUBQ SCH ×2 (10:32→17:16)
--- NOTE | 2019-07-16 12:15 | History & Physical ---
ADMIT DATE: 07/15/2019 IDENTIFYING INFORMATION: The patient is a 64-year-old male. CHIEF COMPLAINT: "I don't know." HISTORY OF PRESENT ILLNESS: The patient was sent from [place] because of agitation. The patient with a history of schizophrenia. The patient himself was a poor historian. He admitted a prior suicide attempt; however, he refused to tell me when I asked him, The patient is conserved. The patient unable to make safe plan for self-care, unpredictable and impulsive. PAST PSYCHIATRIC HISTORY: Schizophrenia with prior hospitalizations in many facilities. The patient admitted a prior suicide attempt; however, he was unable to tell me the reason for his prior hospitalizations or how he tried to harm himself or why he tried to harm himself. MEDICAL HISTORY: I will defer to the medical doctor. ALLERGIES: THE PATIENT IS ALLERGIC TO IODINE. MEDICATIONS: The patient has been on Seroquel 100 mg twice a day. He is on Lexapro 10 mg daily. He is also on thiamine, metformin, insulin, glucagon, iron, B12, dextrose, carvedilol, benztropine, benazepril, and aspirin. FAMILY AND SOCIAL HISTORY: Unobtainable. The patient is not willing to participate in meaningful conversation, easily agitated. MENTAL STATUS EXAMINATION: The patient is appropriately dressed, not very well groomed. He was in a wheelchair, who is alert. He knew he was in the hospital, some sort of hospital. . He was unable to tell me the date, unable to tell me the reason for his admission, so he has been acting out. He is delusional, tend to get paranoid, unable to make safe plan for self-care. Long or short term memory is poor, unable tell me his age, where he is, why he is here. Short term memory is poor, does not know the date, where he is, how long he has been here. Insight about his illness is poor, does not realize what problem he has. Judgment is poor with his acting out behavior. IMPRESSION: Chronic schizoaffective disorder. MEDICAL DIAGNOSES: Deferred to the medical doctor. His asset is accepting treatment. Negative poor coping skills. INITIAL TREATMENT PLAN: The patient was brought back on medication. We will do group therapy, milieu therapy, and individual therapy. ESTIMATED LENGTH OF STAY: 3-7 days. DISCHARGE CRITERIA: Decrease in psychosis, agitation after discharge. [facility]# [id number] [facility]
--- NOTE | 2019-07-16 19:21 | Internal Medicine Prog Note ---
Internal Medicine Subjective - Subjective Service Date: 07/16/19 Patient seen and examined:: with staff Patient is:: awake, verbal, silke chair, talking, confused Per staff patient has:: no adverse event Internal Medicine Objective - Physical Exam Vitals and I&O: Vital Signs Temp 97.9 F 07/16/19 14:00 Pulse 66 07/16/19 17:08 Resp 20 07/16/19 14:00 BP 150/75 07/16/19 17:08 Pulse Ox 97 07/16/19 14:00 Intake & Output 07/16/19 07/16/19 07/17/19 06:59 18:59 06:59 Intake Total 240 1100 Balance 240 1100 Intake: Oral 240 1100 Other: # Voids 2 3 # Bowel Movements 1 0 Weight Source Estimated Active Medications: Current Medications Acetaminophen (Tylenol) 650 mg PO Q4H PRN PRN Reason: Pain (Mild 1-3) Stop: 09/13/19 20:11 Last Admin: 07/15/19 21:36 Dose: 650 mg Aspirin (Ecotrin) 81 mg PO DAILY [facility] Stop: 09/14/19 08:59 Last Admin: 07/16/19 10:28 Dose: 81 mg Benazepril HCl (Lotensin) 10 mg PO DAILY [facility] Stop: 09/14/19 08:59 Last Admin: 07/16/19 10:29 Dose: 10 mg Benztropine Mesylate (Cogentin) 1 mg PO BID [facility] Stop: 09/14/19 08:59 Last Admin: 07/16/19 17:08 Dose: 1 mg Carvedilol (Coreg) 12.5 mg PO BID [facility] Stop: 09/14/19 08:59 Last Admin: 07/16/19 17:08 Dose: 12.5 mg Cyanocobalamin (Vitamin B12) 1,000 mcg PO DAILY [facility] Stop: 09/14/19 08:59 Last Admin: 07/16/19 10:28 Dose: 1,000 mcg Dextrose (Glutose 40%) 18.75 gm PO PRN PRN PRN Reason: Blood Glucose less than 70 Stop: 09/13/19 20:15 Escitalopram Oxalate (Lexapro) 10 mg PO DAILY [facility]; Protocol Stop: 09/14/19 08:59 Furosemide (Lasix) 40 mg PO MWF [facility] Stop: 09/14/19 08:59 Last Admin: 07/16/19 10:30 Dose: 40 mg Glipizide (Glucotrol) 5 mg PO BID [facility] Stop: 09/14/19 08:59 Last Admin: 07/16/19 17:08 Dose: 5 mg Glucagon (Glucagen) 1 mg IM PRN PRN PRN Reason: Blood Glucose less than 70 Stop: 09/13/19 20:15 Insulin Glargine (Lantus Insulin) 12 units SUBQ [facility] Stop: 09/13/19 20:29 Last Admin: 07/16/19 17:16 Dose: 12 units Insulin Human Lispro (Humalog Insulin Sliding Scale) 0 units SUBQ [facility]; Protocol Stop: 09/13/19 20:59 Last Admin: 07/16/19 17:05 Dose: Not Given Levetiracetam (Keppra) 500 mg PO BID [facility] Stop: 09/14/19 08:59 Last Admin: 07/16/19 17:08 Dose: 500 mg Lorazepam (Ativan) 0.5 mg PO Q4HR PRN; Protocol PRN Reason: Anxiety Stop: 08/14/19 20:27 Metformin HCl (Glucophage) 1,000 mg PO BIDWM [facility] Stop: 09/14/19 07:59 Last Admin: 07/16/19 17:08 Dose: 1,000 mg Quetiapine Fumarate (Seroquel) 100 mg PO BID [facility]; Protocol Stop: 09/14/19 08:59 Simvastatin (Zocor) 20 mg PO HS [facility]; Protocol Stop: 09/13/19 20:59 Last Admin: 07/15/19 21:25 Dose: 20 mg Thiamine HCl (Vitamin B1) 100 mg PO DAILY [facility] Stop: 09/14/19 08:59 Last Admin: 07/16/19 10:29 Dose: 100 mg Zolpidem Tartrate (Ambien) 5 mg PO HS PRN PRN Reason: Insomnia Stop: 09/13/19 19:41 Last Admin: 07/15/19 21:36 Dose: 5 mg General: demented HEENT: NC/AT, PERRLA, EOMI, anicteric sclerae, throat clear Neck: Supple, No JVD, No thyromegaly, +2 carotid pulse wo bruit, No LAD Lungs: CTAB Cardiovascular: RRR, Normal S1, Normal S2, without murmur Abdomen: soft, non-tender, non-distended Extremities: clear Neurological: no change Internal Medicine Assmt/Plan - Assessment Assessment: 1.DM. 2.HTN. 3.HYPERLIPIDEMIA 4.SEIZURE DISORDER 5.PSYCHOSIS - Plan Plan: CONTINUE ON CURRENT MEDICATION AND DIET.
[2019-07-17] MEDS: INSULIN LISPRO SLIDING SCALE 100 UNITS/ML UNIT SUBQ SCH ×5 (06:47→21:19)
[2019-07-17] MEDS: Benztropine 1 MG TAB PO SCH ×2 (09:08→16:15)
[2019-07-17] MEDS: Insulin Glargine 100 units/ml 10ml Vial SUBQ SCH ×2 (09:08→16:58)
--- NOTE | 2019-07-17 13:58 | Progress Notes ---
DATE: 07/17/2019 Case was discussed with staff of the patient, reviewed records. The patient continues to be confused, unpredictable, impulsive, needing redirection, internally preoccupied, unable to make safe plan for self-care. He has been compliant with the medication with no side effects, no sedation, no nausea, or no extrapyramidal symptoms. Continues to be at risk because of his continued agitation and out of control behavior. We will continue outpatient group therapy, milieu therapy, and adjust the medication as needed. There is no lab work available on his records at this point. JOB# [id number]
--- NOTE | 2019-07-17 20:44 | General Progress Note ---
Subjective - Review of Systems Service Date: 07/17/19 Subjective: resting comfortably no distress Objective - Physical Exam Vitals and I&O: Vital Signs Temp 96.8 F 07/17/19 14:14 Pulse 97 07/17/19 16:16 Resp 18 07/17/19 14:14 BP 113/73 07/17/19 16:16 Pulse Ox 93 07/17/19 14:14 Intake & Output 07/17/19 07/17/19 07/18/19 06:59 18:59 06:59 Intake Total 240 Balance 240 Intake: Oral 240 Other: # Voids 2 4 # Bowel Movements 1 1 Active Medications: Current Medications Acetaminophen (Tylenol) 650 mg PO Q4H PRN PRN Reason: Pain (Mild 1-3) Stop: 09/13/19 20:11 Last Admin: 07/15/19 21:36 Dose: 650 mg Aspirin (Ecotrin) 81 mg PO DAILY [facility] Stop: 09/14/19 08:59 Last Admin: 07/17/19 09:07 Dose: 81 mg Benazepril HCl (Lotensin) 10 mg PO DAILY [facility] Stop: 09/14/19 08:59 Last Admin: 07/17/19 09:09 Dose: 10 mg Benztropine Mesylate (Cogentin) 1 mg PO BID [facility] Stop: 09/14/19 08:59 Last Admin: 07/17/19 16:15 Dose: 1 mg Carvedilol (Coreg) 12.5 mg PO BID [facility] Stop: 09/14/19 08:59 Last Admin: 07/17/19 16:16 Dose: 12.5 mg Cyanocobalamin (Vitamin B12) 1,000 mcg PO DAILY [facility] Stop: 09/14/19 08:59 Last Admin: 07/17/19 09:07 Dose: 1,000 mcg Dextrose (Glutose 40%) 18.75 gm PO PRN PRN PRN Reason: Blood Glucose less than 70 Stop: 09/13/19 20:15 Escitalopram Oxalate (Lexapro) 10 mg PO DAILY [facility]; Protocol Stop: 09/14/19 08:59 Last Admin: 07/17/19 09:19 Dose: Not Given Furosemide (Lasix) 40 mg PO MWF [facility] Stop: 09/14/19 08:59 Last Admin: 07/16/19 10:30 Dose: 40 mg Glipizide (Glucotrol) 5 mg PO BID [facility] Stop: 09/14/19 08:59 Last Admin: 07/17/19 16:15 Dose: 5 mg Glucagon (Glucagen) 1 mg IM PRN PRN PRN Reason: Blood Glucose less than 70 Stop: 09/13/19 20:15 Insulin Glargine (Lantus Insulin) 12 units SUBQ BID [facility] Stop: 09/13/19 20:29 Last Admin: 07/17/19 16:58 Dose: 12 units Insulin Human Lispro (Humalog Insulin Sliding Scale) 0 units SUBQ [facility]; Protocol Stop: 09/13/19 20:59 Last Admin: 07/17/19 16:59 Dose: Not Given Levetiracetam (Keppra) 500 mg PO BID [facility] Stop: 09/14/19 08:59 Last Admin: 07/17/19 16:17 Dose: 500 mg Lorazepam (Ativan) 0.5 mg PO Q4HR PRN; Protocol PRN Reason: Anxiety Stop: 08/14/19 20:27 Metformin HCl (Glucophage) 1,000 mg PO BIDWM [facility] Stop: 09/14/19 07:59 Last Admin: 07/17/19 17:00 Dose: 1,000 mg Quetiapine Fumarate (Seroquel) 100 mg PO BID [facility]; Protocol Stop: 09/14/19 08:59 Last Admin: 07/17/19 16:16 Dose: 100 mg Simvastatin (Zocor) 20 mg PO HS [facility]; Protocol Stop: 09/13/19 20:59 Last Admin: 07/16/19 21:43 Dose: 20 mg Thiamine HCl (Vitamin B1) 100 mg PO DAILY [facility] Stop: 09/14/19 08:59 Last Admin: 07/17/19 09:07 Dose: 100 mg Zolpidem Tartrate (Ambien) 5 mg PO HS PRN PRN Reason: Insomnia Stop: 09/13/19 19:41 Last Admin: 07/16/19 21:43 Dose: 5 mg General: No acute distress HEENT: PERRLA Neck: Supple, JVD, Thyromegaly Cardiovascular: Regular rate, Normal S1, Normal S2 Lungs: Clear to auscultation Abdomen: Bowel sounds, Soft Assessment/Plan - Assessment Assessment: 1.DM. 2.HTN. 3.HYPERLIPIDEMIA 4.SEIZURE DISORDER 5.PSYCHOSIS - Plan Plan: continue current treatment
[2019-07-18] MEDS: INSULIN LISPRO SLIDING SCALE 100 UNITS/ML UNIT SUBQ SCH ×4 (06:30→20:25)
[2019-07-18] MEDS: Benztropine 1 MG TAB PO SCH ×2 (08:41→17:36)
[2019-07-18] MEDS: Insulin Glargine 100 units/ml 10ml Vial SUBQ SCH ×2 (12:00→17:23)
--- NOTE | 2019-07-18 16:44 | Progress Notes ---
DATE: 07/18/2019 Case was discussed with staff of the patient, reviewed records. The patient continues to be confused. He is on a wheelchair, unable to make safe plan for self-care. Continues to be easily agitated. He needs prompting by the staff to do to help with his ADLs. Continues to have poor insight, unpredictable, impulsive, needing redirection long history of mental illness will be increasing his Seroquel to 125 mg twice a day. No side effects with the medication, no sedation, no nausea, no extrapyramidal symptoms. We will continue outpatient group therapy, milieu therapy, adjust medication as needed. JOB# [id number]
--- NOTE | 2019-07-18 19:01 | General Progress Note ---
Subjective - Review of Systems Service Date: 07/18/19 Subjective: resting comfortably no distress Objective - Physical Exam Vitals and I&O: Vital Signs Temp 97.8 F 07/18/19 14:00 Pulse 75 07/18/19 17:45 Resp 18 07/18/19 14:00 BP 107/59 07/18/19 17:45 Pulse Ox 98 07/18/19 14:00 Intake & Output 07/18/19 07/18/19 07/19/19 06:59 18:59 06:59 Intake Total 240 960 Balance 240 960 Intake: Oral 240 960 Other: # Voids 2 4 # Bowel Movements 0 1 Active Medications: Current Medications Acetaminophen (Tylenol) 650 mg PO Q4H PRN PRN Reason: Pain (Mild 1-3) Stop: 09/13/19 20:11 Last Admin: 07/18/19 06:43 Dose: 650 mg Aspirin (Ecotrin) 81 mg PO DAILY [facility] Stop: 09/14/19 08:59 Last Admin: 07/18/19 08:41 Dose: 81 mg Benazepril HCl (Lotensin) 10 mg PO DAILY [facility] Stop: 09/14/19 08:59 Last Admin: 07/18/19 08:40 Dose: 10 mg Benztropine Mesylate (Cogentin) 1 mg PO BID [facility] Stop: 09/14/19 08:59 Last Admin: 07/18/19 17:36 Dose: 1 mg Carvedilol (Coreg) 12.5 mg PO BID [facility] Stop: 09/14/19 08:59 Last Admin: 07/18/19 17:45 Dose: Not Given Cyanocobalamin (Vitamin B12) 1,000 mcg PO DAILY [facility] Stop: 09/14/19 08:59 Last Admin: 07/18/19 08:41 Dose: 1,000 mcg Dextrose (Glutose 40%) 18.75 gm PO PRN PRN PRN Reason: Blood Glucose less than 70 Stop: 09/13/19 20:15 Escitalopram Oxalate (Lexapro) 10 mg PO DAILY [facility]; Protocol Stop: 09/14/19 08:59 Last Admin: 07/18/19 08:41 Dose: 10 mg Furosemide (Lasix) 40 mg PO MWF [facility] Stop: 09/14/19 08:59 Last Admin: 07/18/19 08:42 Dose: 40 mg Glipizide (Glucotrol) 5 mg PO BID [facility] Stop: 09/14/19 08:59 Last Admin: 07/18/19 17:36 Dose: 5 mg Glucagon (Glucagen) 1 mg IM PRN PRN PRN Reason: Blood Glucose less than 70 Stop: 09/13/19 20:15 Insulin Glargine (Lantus Insulin) 12 units SUBQ BID [facility] Stop: 09/13/19 20:29 Last Admin: 07/18/19 17:23 Dose: Not Given Insulin Human Lispro (Humalog Insulin Sliding Scale) 0 units SUBQ ACHS [facility]; Protocol Stop: 09/13/19 20:59 Last Admin: 07/18/19 17:22 Dose: Not Given Levetiracetam (Keppra) 500 mg PO BID [facility] Stop: 09/14/19 08:59 Last Admin: 07/18/19 17:36 Dose: 500 mg Lorazepam (Ativan) 0.5 mg PO Q4HR PRN; Protocol PRN Reason: Anxiety Stop: 08/14/19 20:27 Metformin HCl (Glucophage) 1,000 mg PO BIDWM [facility] Stop: 09/14/19 07:59 Last Admin: 07/18/19 17:45 Dose: Not Given Quetiapine Fumarate 100 mg/ (Quetiapine Fumarate 25 mg) 125 mg PO BID [facility] Stop: 09/16/19 16:59 Last Admin: 07/18/19 17:37 Dose: 125 mg Simvastatin (Zocor) 20 mg PO HS [facility]; Protocol Stop: 09/13/19 20:59 Last Admin: 07/17/19 21:17 Dose: 20 mg Thiamine HCl (Vitamin B1) 100 mg PO DAILY [facility] Stop: 09/14/19 08:59 Last Admin: 07/18/19 08:42 Dose: 100 mg Zolpidem Tartrate (Ambien) 5 mg PO HS PRN PRN Reason: Insomnia Stop: 09/13/19 19:41 Last Admin: 07/16/19 21:43 Dose: 5 mg General: No acute distress HEENT: PERRLA Neck: Supple, JVD, Thyromegaly Cardiovascular: Regular rate, Normal S1, Normal S2 Lungs: Clear to auscultation Abdomen: Bowel sounds, Soft Assessment/Plan - Assessment Assessment: 1.DM. 2.HTN. 3.HYPERLIPIDEMIA 4.SEIZURE DISORDER 5.PSYCHOSIS - Plan Plan: continue current treatment
[2019-07-19] MEDS: INSULIN LISPRO SLIDING SCALE 100 UNITS/ML UNIT SUBQ SCH ×4 (06:50→21:01)
[2019-07-19] MEDS: Benztropine 1 MG TAB PO SCH ×2 (08:53→17:30)
[2019-07-19] MEDS: Insulin Glargine 100 units/ml 10ml Vial SUBQ SCH ×2 (08:55→17:31)
--- NOTE | 2019-07-19 15:21 | General Progress Note ---
Subjective - Review of Systems Service Date: 07/19/19 Subjective: resting comfortably no distress Objective - Physical Exam Vitals and I&O: Vital Signs Temp 97.8 F 07/19/19 14:55 Pulse 66 07/19/19 14:55 Resp 18 07/19/19 14:55 BP 126/78 07/19/19 14:55 Pulse Ox 97 07/19/19 14:55 Intake & Output 07/18/19 07/19/19 07/19/19 18:59 06:59 18:59 Intake Total 960 240 Balance 960 240 Intake: Oral 960 240 Other: # Voids 4 2 # Bowel Movements 1 0 Active Medications: Current Medications Acetaminophen (Tylenol) 650 mg PO Q4H PRN PRN Reason: Pain (Mild 1-3) Stop: 09/13/19 20:11 Last Admin: 07/18/19 06:43 Dose: 650 mg Aspirin (Ecotrin) 81 mg PO DAILY [facility] Stop: 09/14/19 08:59 Last Admin: 07/19/19 08:52 Dose: 81 mg Benazepril HCl (Lotensin) 10 mg PO DAILY [facility] Stop: 09/14/19 08:59 Last Admin: 07/19/19 08:52 Dose: 10 mg Benztropine Mesylate (Cogentin) 1 mg PO BID [facility] Stop: 09/14/19 08:59 Last Admin: 07/19/19 08:53 Dose: 1 mg Carvedilol (Coreg) 12.5 mg PO BID [facility] Stop: 09/14/19 08:59 Last Admin: 07/19/19 08:52 Dose: 12.5 mg Cyanocobalamin (Vitamin B12) 1,000 mcg PO DAILY [facility] Stop: 09/14/19 08:59 Last Admin: 07/19/19 08:52 Dose: 1,000 mcg Dextrose (Glutose 40%) 18.75 gm PO PRN PRN PRN Reason: Blood Glucose less than 70 Stop: 09/13/19 20:15 Escitalopram Oxalate (Lexapro) 10 mg PO DAILY [facility]; Protocol Stop: 09/14/19 08:59 Last Admin: 07/19/19 08:51 Dose: 10 mg Furosemide (Lasix) 40 mg PO MWF [facility] Stop: 09/14/19 08:59 Last Admin: 07/18/19 08:42 Dose: 40 mg Glipizide (Glucotrol) 5 mg PO BID [facility] Stop: 09/14/19 08:59 Last Admin: 07/19/19 08:53 Dose: 5 mg Glucagon (Glucagen) 1 mg IM PRN PRN PRN Reason: Blood Glucose less than 70 Stop: 09/13/19 20:15 Insulin Glargine (Lantus Insulin) 12 units SUBQ BID [facility] Stop: 09/13/19 20:29 Last Admin: 07/19/19 08:55 Dose: Not Given Insulin Human Lispro (Humalog Insulin Sliding Scale) 0 units SUBQ ACHS [facility]; Protocol Stop: 09/13/19 20:59 Last Admin: 07/19/19 06:50 Dose: Not Given Levetiracetam (Keppra) 500 mg PO BID [facility] Stop: 09/14/19 08:59 Last Admin: 07/19/19 08:53 Dose: 500 mg Lorazepam (Ativan) 0.5 mg PO Q4HR PRN; Protocol PRN Reason: Anxiety Stop: 08/14/19 20:27 Metformin HCl (Glucophage) 1,000 mg PO BIDWM [facility] Stop: 09/14/19 07:59 Last Admin: 07/19/19 08:52 Dose: 1,000 mg Quetiapine Fumarate 100 mg/ (Quetiapine Fumarate 25 mg) 125 mg PO BID [facility] Stop: 09/16/19 16:59 Last Admin: 07/19/19 08:54 Dose: 125 mg Simvastatin (Zocor) 20 mg PO HS [facility]; Protocol Stop: 09/13/19 20:59 Last Admin: 07/18/19 20:25 Dose: 20 mg Thiamine HCl (Vitamin B1) 100 mg PO DAILY [facility] Stop: 09/14/19 08:59 Last Admin: 07/19/19 08:53 Dose: 100 mg Zolpidem Tartrate (Ambien) 5 mg PO HS PRN PRN Reason: Insomnia Stop: 09/13/19 19:41 Last Admin: 07/16/19 21:43 Dose: 5 mg General: No acute distress HEENT: PERRLA Neck: Supple, JVD, Thyromegaly Cardiovascular: Regular rate, Normal S1, Normal S2 Lungs: Clear to auscultation Abdomen: Bowel sounds, Soft Assessment/Plan - Assessment Assessment: 1.DM. 2.HTN. 3.HYPERLIPIDEMIA 4.SEIZURE DISORDER 5.PSYCHOSIS - Plan Plan: continue current treatment Nutritional Asmnt/Malnutr-PDOC - Dietary Evaluation Malnutrition Findings (Please click <Entered> for more info): Nutritional Asmnt/Malnutrition Start: 07/19/19 15: 16 Text: Status: Active Freq: Protocol: Document 07/19/19 15:16 SHAMEKA (Rec: 07/19/19 15:19 [email or web address]) Nutritional Asmnt/Malnutrition Patient General Information Nutritional Screening Moderate Risk Diagnosis Psychosis Pertinent Medical Hx/Surgical Hx HTN, DM, Hyperlipidemia, Seizure Disorder, Psychosis Subjective Information Pt is a 64-year-old male admitted on 07/15 d/t agitation . Pt is eating 86% of meals Per Meal/Nutrition Activity Record. Dietary is currently providing an estimated 1800 kcals and 86 gm Pro, per Pt PO intake this is providing an estimated 1570 kcals and 74gm Pro to meet 95% kcal and 100+% Pro needs- adequate. Anthropometrics HT: 58 WT: 145 LB (65.91 kg) BMI: 22.05 (Normal) GI/ Skin Integrity GI: WNL, Soft, Non-tender BM: 07/17 x1 I/O: 1200/Not Noted Skin: WNL, Intact Durga: 18 Diet Order: Mechanical Soft, CCHO 60gm, BEN Estimated Energy Needs: ( Geriatric, CBW) 9910-4189 kcals (25-30 kcals/ kg) 53-66g Pro (0.8-1.0 g/kg) 4634-3301 ml (25-30 ml/kg) Current Diet Order/ Nutrition Support Mechanical Soft, CCHO 60gm, BEN Pertinent Medications Coreg, Vitamin B12, Glutose 40 % (PRN), Glucotrol, Glucagen ( PRN), Lantus, INS-SS, Glucophage, Lasix Pertinent Labs POC glucose (last 24 hours): 107, 123, 104, 130, 95 07/15: A1c 5.0%, BUN/Cr 33/1.41 , GFR 54 Nutritional Hx/Data Height 1.73 m Height (Calculated Centimeters) 172.7 Current Weight (lbs) 65.771 kg Weight (Calculated Kilograms) 65.8 Weight (Calculated Grams) 97241.9 [place] Body Weight 154 LB (70 kg) % [place] Body Weight 94 Body Mass Index (BMI) 22.0 Weight Status Approriate GI Symptoms GI Symptoms None Last BM 07/17 x1 Skin Integrity/Comment: Skin: WNL, Intact Durga: 18 Estimated Nutritional Goals BEE in Kcals: Using Current wt Calories/Kcals/Kg 25-30 Kcals Calculated 2316-2908 Protein: Using Current wt Protein g/k.8-1.0 Protein Calculated 53-66 Fluid: ml 3350-9916 ml (25-30 ml/kg) Nutritional Problem 1. Problem Problem Impaired nutrient utilization Etiology r/t endocrine dysfunction Signs/Symptoms: aeb Hx DM. Intervention/Recommendation Comments 1. Continue Mechanical Soft, CCHO 60gm, BEN diet as tolerated. 2. Continue antihyperglycemic medications for glucose control per MD order. Expected Outcomes/Goals Expected Outcomes/Goals 1. PO intake to continue to meet >75% of nutritional needs . 2. Monitor PO intake, wt, nutrition related labs, and skin integrity. 3. F/U as low risk in 7-10 days, 07/26-07/29
--- NOTE | 2019-07-20 03:41 | Progress Notes ---
DATE: 07/19/2019 Dr. Joseph covering for Dr. Gan. SUBJECTIVE: Chart reviewed and the patient interviewed. Also discussed the patient's condition with the staff and reviewed the records and labs. The patient is still impulsive and has unpredictable behavior. The patient also is withdrawn and interacting minimally with others. Also, during interview, the patient has poor eye contact and still needs prompt instructions to answer questions. Also, easily irritable and easily agitated. The patient also still has poor ADLs and still needs close monitoring for his behavior. ASSESSMENT: The patient is still agitated and is still psychotic. TREATMENT PLAN: Continue to monitor the patient's behavior and his condition closely. Also, Dr. Gan increased his Seroquel yesterday to 125 mg with no side effects. We will continue same dose and we will continue to work on his irritability and agitation and we will continue to follow up closely. JOB# [id number]
[2019-07-20] MEDS: INSULIN LISPRO SLIDING SCALE 100 UNITS/ML UNIT SUBQ SCH ×4 (06:30→20:58)
[2019-07-20] MEDS: Benztropine 1 MG TAB PO SCH ×2 (09:13→17:33)
[2019-07-20] MEDS: Insulin Glargine 100 units/ml 10ml Vial SUBQ SCH ×2 (09:57→17:22)
--- NOTE | 2019-07-20 15:57 | General Progress Note ---
Subjective - Review of Systems Service Date: 07/20/19 Subjective: resting comfortably no distress Objective - Physical Exam Vitals and I&O: Vital Signs Temp 97.8 F 07/20/19 06:24 Pulse 66 07/20/19 09:13 Resp 19 07/20/19 06:24 BP 116/64 07/20/19 09:13 Pulse Ox 96 07/20/19 06:24 Intake & Output 07/19/19 07/20/19 07/20/19 18:59 06:59 18:59 Intake Total 1000 480 Output Total 1 Balance 1000 479 Intake: Oral 1000 480 Output: Urine/Stool Mix 1 Other: # Voids 3 1 # Bowel Movements 1 Active Medications: Current Medications Acetaminophen (Tylenol) 650 mg PO Q4H PRN PRN Reason: Pain (Mild 1-3) Stop: 09/13/19 20:11 Last Admin: 07/18/19 06:43 Dose: 650 mg Aspirin (Ecotrin) 81 mg PO DAILY [facility] Stop: 09/14/19 08:59 Last Admin: 07/20/19 09:13 Dose: 81 mg Benazepril HCl (Lotensin) 10 mg PO DAILY [facility] Stop: 09/14/19 08:59 Last Admin: 07/20/19 09:13 Dose: 10 mg Benztropine Mesylate (Cogentin) 1 mg PO BID [facility] Stop: 09/14/19 08:59 Last Admin: 07/20/19 09:13 Dose: 1 mg Carvedilol (Coreg) 12.5 mg PO BID [facility] Stop: 09/14/19 08:59 Last Admin: 07/20/19 09:13 Dose: 12.5 mg Cyanocobalamin (Vitamin B12) 1,000 mcg PO DAILY [facility] Stop: 09/14/19 08:59 Last Admin: 07/20/19 09:13 Dose: 1,000 mcg Dextrose (Glutose 40%) 18.75 gm PO PRN PRN PRN Reason: Blood Glucose less than 70 Stop: 09/13/19 20:15 Escitalopram Oxalate (Lexapro) 10 mg PO DAILY [facility]; Protocol Stop: 09/14/19 08:59 Last Admin: 07/20/19 09:14 Dose: 10 mg Furosemide (Lasix) 40 mg PO MWF [facility] Stop: 09/14/19 08:59 Last Admin: 07/18/19 08:42 Dose: 40 mg Glipizide (Glucotrol) 5 mg PO BID [facility] Stop: 09/14/19 08:59 Last Admin: 07/20/19 09:14 Dose: 5 mg Glucagon (Glucagen) 1 mg IM PRN PRN PRN Reason: Blood Glucose less than 70 Stop: 09/13/19 20:15 Insulin Glargine (Lantus Insulin) 12 units SUBQ BID [facility] Stop: 09/13/19 20:29 Last Admin: 07/20/19 09:57 Dose: 12 units Insulin Human Lispro (Humalog Insulin Sliding Scale) 0 units SUBQ ACHS [facility]; Protocol Stop: 09/13/19 20:59 Last Admin: 07/20/19 12:44 Dose: Not Given Levetiracetam (Keppra) 500 mg PO BID [facility] Stop: 09/14/19 08:59 Last Admin: 07/20/19 09:13 Dose: 500 mg Lorazepam (Ativan) 0.5 mg PO Q4HR PRN; Protocol PRN Reason: Anxiety Stop: 08/14/19 20:27 Metformin HCl (Glucophage) 1,000 mg PO BIDWM [facility] Stop: 09/14/19 07:59 Last Admin: 07/20/19 09:00 Dose: Not Given Quetiapine Fumarate 100 mg/ (Quetiapine Fumarate 25 mg) 125 mg PO BID [facility] Stop: 09/16/19 16:59 Last Admin: 07/20/19 09:14 Dose: 125 mg Simvastatin (Zocor) 20 mg PO HS [facility]; Protocol Stop: 09/13/19 20:59 Last Admin: 07/19/19 21:01 Dose: 20 mg Thiamine HCl (Vitamin B1) 100 mg PO DAILY [facility] Stop: 09/14/19 08:59 Last Admin: 07/20/19 09:13 Dose: 100 mg Zolpidem Tartrate (Ambien) 5 mg PO HS PRN PRN Reason: Insomnia Stop: 09/13/19 19:41 Last Admin: 07/16/19 21:43 Dose: 5 mg General: No acute distress HEENT: PERRLA Neck: Supple, JVD, Thyromegaly Cardiovascular: Regular rate, Normal S1, Normal S2 Lungs: Clear to auscultation Abdomen: Bowel sounds, Soft Assessment/Plan - Assessment Assessment: 1.DM. 2.HTN. 3.HYPERLIPIDEMIA 4.SEIZURE DISORDER 5.PSYCHOSIS - Plan Plan: continue current treatment Nutritional Asmnt/Malnutr-PDOC - Dietary Evaluation Malnutrition Findings (Please click <Entered> for more info): Nutritional Asmnt/Malnutrition Start: 07/19/19 15: 16 Text: Status: Complete Freq: Protocol: Document 07/19/19 15:16 SHAMEKA (Rec: 07/19/19 15:19 [id number]) Nutritional Asmnt/Malnutrition Patient General Information Nutritional Screening Moderate Risk Diagnosis Psychosis Pertinent Medical Hx/Surgical Hx HTN, DM, Hyperlipidemia, Seizure Disorder, Psychosis Subjective Information Pt is a 64-year-old male admitted on 07/15 d/t agitation . Pt is eating 86% of meals Per Meal/Nutrition Activity Record. Dietary is currently providing an estimated 1800 kcals and 86 gm Pro, per Pt PO intake this is providing an estimated 1570 kcals and 74gm Pro to meet 95% kcal and 100+% Pro needs- adequate. Anthropometrics HT: 58 WT: 145 LB (65.91 kg) BMI: 22.05 (Normal) GI/ Skin Integrity GI: WNL, Soft, Non-tender BM: 07/17 x1 I/O: 1200/Not Noted Skin: WNL, Intact Durga: 18 Diet Order: Mechanical Soft, CCHO 60gm, BEN Estimated Energy Needs: ( Geriatric, CBW) 5525-9675 kcals (25-30 kcals/ kg) 53-66g Pro (0.8-1.0 g/kg) 5766-5698 ml (25-30 ml/kg) Current Diet Order/ Nutrition Support Mechanical Soft, CCHO 60gm, BEN Pertinent Medications Coreg, Vitamin B12, Glutose 40 % (PRN), Glucotrol, Glucagen ( PRN), Lantus, INS-SS, Glucophage, Lasix Pertinent Labs POC glucose (last 24 hours): 107, 123, 104, 130, 95 07/15: A1c 5.0%, BUN/Cr 33/1.41 , GFR 54 Nutritional Hx/Data Height 1.73 m Height (Calculated Centimeters) 172.7 Current Weight (lbs) 65.771 kg Weight (Calculated Kilograms) 65.8 Weight (Calculated Grams) 75377.9 [place] Body Weight 154 LB (70 kg) % [place] Body Weight 94 Body Mass Index (BMI) 22.0 Weight Status Approriate GI Symptoms GI Symptoms None Last BM 07/17 x1 Skin Integrity/Comment: Skin: WNL, Intact Durga: 18 Estimated Nutritional Goals BEE in Kcals: Using Current wt Calories/Kcals/Kg 25-30 Kcals Calculated 6226-4499 Protein: Using Current wt Protein g/k.8-1.0 Protein Calculated 53-66 Fluid: ml 6386-9286 ml (25-30 ml/kg) Nutritional Problem 1. Problem Problem Impaired nutrient utilization Etiology r/t endocrine dysfunction Signs/Symptoms: aeb Hx DM. Intervention/Recommendation Comments 1. Continue Mechanical Soft, CCHO 60gm, BEN diet as tolerated. 2. Continue antihyperglycemic medications for glucose control per MD order. Expected Outcomes/Goals Expected Outcomes/Goals 1. PO intake to continue to meet >75% of nutritional needs . 2. Monitor PO intake, wt, nutrition related labs, and skin integrity. 3. F/U as low risk in 7-10 days, 07/26-07/29
--- NOTE | 2019-07-21 02:07 | Progress Notes ---
DATE: 07/20/2019 SUBJECTIVE: Chart was reviewed and the patient interviewed. Also discussed the patient's condition with the staff and reviewed records and labs. The patient is still easily agitated and is still having unpredictable behavior. The patient also is still in angry mood, and he still has difficulty communicating or follow directions. Also, at times, the patient wants to be left alone and does not want to answer questions. Otherwise, the patient continues to comply with taking his medications and no side effects of medications. ASSESSMENT: The patient is still agitated and is still psychotic and needs close monitoring. TREATMENT PLAN: Continue to monitor his behavior and his condition closely. Also, continue adjusting psychotropic medications and working on behavioral modification and continue to follow up closely. [facility]# [id number]
[2019-07-21] MEDS: INSULIN LISPRO SLIDING SCALE 100 UNITS/ML UNIT SUBQ SCH ×4 (06:30→21:15)
[2019-07-21] MEDS: Benztropine 1 MG TAB PO SCH ×2 (09:03→17:06)
[2019-07-21] MEDS: Insulin Glargine 100 units/ml 10ml Vial SUBQ SCH ×2 (09:05→17:01)
--- NOTE | 2019-07-21 17:57 | Internal Medicine Prog Note ---
Internal Medicine Subjective - Subjective Service Date: 07/21/19 Patient seen and examined:: without staff (he feels well) Patient is:: awake, verbal, silke chair, talking, confused Per staff patient has:: no adverse event Internal Medicine Objective - Physical Exam Vitals and I&O: Vital Signs Temp 98.5 F 07/21/19 14:46 Pulse 69 07/21/19 17:10 Resp 18 07/21/19 14:46 BP 100/52 07/21/19 17:10 Pulse Ox 98 07/21/19 14:46 Intake & Output 07/20/19 07/21/19 07/21/19 18:59 06:59 18:59 Intake Total 1000 300 Balance 1000 300 Intake: Oral 1000 300 Other: # Voids 1 # Bowel Movements 1 1 Active Medications: Current Medications Acetaminophen (Tylenol) 650 mg PO Q4H PRN PRN Reason: Pain (Mild 1-3) Stop: 09/13/19 20:11 Last Admin: 07/20/19 18:27 Dose: 650 mg Aspirin (Ecotrin) 81 mg PO DAILY [facility] Stop: 09/14/19 08:59 Last Admin: 07/21/19 09:04 Dose: 81 mg Benazepril HCl (Lotensin) 10 mg PO DAILY [facility] Stop: 09/14/19 08:59 Last Admin: 07/21/19 09:03 Dose: 10 mg Benztropine Mesylate (Cogentin) 1 mg PO BID [facility] Stop: 09/14/19 08:59 Last Admin: 07/21/19 17:06 Dose: 1 mg Carvedilol (Coreg) 12.5 mg PO BID [facility] Stop: 09/14/19 08:59 Last Admin: 07/21/19 17:10 Dose: Not Given Cyanocobalamin (Vitamin B12) 1,000 mcg PO DAILY [facility] Stop: 09/14/19 08:59 Last Admin: 07/21/19 09:04 Dose: 1,000 mcg Dextrose (Glutose 40%) 18.75 gm PO PRN PRN PRN Reason: Blood Glucose less than 70 Stop: 09/13/19 20:15 Escitalopram Oxalate (Lexapro) 10 mg PO DAILY [facility]; Protocol Stop: 09/14/19 08:59 Last Admin: 07/21/19 09:03 Dose: 10 mg Furosemide (Lasix) 40 mg PO F [facility] Stop: 09/14/19 08:59 Last Admin: 07/21/19 09:04 Dose: 40 mg Glipizide (Glucotrol) 5 mg PO BID [facility] Stop: 09/14/19 08:59 Last Admin: 07/21/19 17:06 Dose: 5 mg Glucagon (Glucagen) 1 mg IM PRN PRN PRN Reason: Blood Glucose less than 70 Stop: 09/13/19 20:15 Insulin Glargine (Lantus Insulin) 12 units SUBQ BID [facility] Stop: 09/13/19 20:29 Last Admin: 07/21/19 17:01 Dose: Not Given Insulin Human Lispro (Humalog Insulin Sliding Scale) 0 units SUBQ [facility]; Protocol Stop: 09/13/19 20:59 Last Admin: 07/21/19 17:00 Dose: Not Given Levetiracetam (Keppra) 500 mg PO BID [facility] Stop: 09/14/19 08:59 Last Admin: 07/21/19 17:06 Dose: 500 mg Lorazepam (Ativan) 0.5 mg PO Q4HR PRN; Protocol PRN Reason: Anxiety Stop: 08/14/19 20:27 Metformin HCl (Glucophage) 1,000 mg PO BIDWM [facility] Stop: 09/14/19 07:59 Last Admin: 07/21/19 17:05 Dose: 1,000 mg Quetiapine Fumarate 100 mg/ (Quetiapine Fumarate 25 mg) 125 mg PO BID [facility] Stop: 09/16/19 16:59 Last Admin: 07/21/19 17:06 Dose: 125 mg Simvastatin (Zocor) 20 mg PO HS [facility]; Protocol Stop: 09/13/19 20:59 Last Admin: 07/20/19 20:58 Dose: 20 mg Thiamine HCl (Vitamin B1) 100 mg PO DAILY [facility] Stop: 09/14/19 08:59 Last Admin: 07/21/19 09:04 Dose: 100 mg Zolpidem Tartrate (Ambien) 5 mg PO HS PRN PRN Reason: Insomnia Stop: 09/13/19 19:41 Last Admin: 07/16/19 21:43 Dose: 5 mg General: demented HEENT: NC/AT, PERRLA, EOMI, anicteric sclerae, throat clear Neck: Supple, No JVD, No thyromegaly, +2 carotid pulse wo bruit, No LAD Lungs: CTAB Cardiovascular: RRR, Normal S1, Normal S2, without murmur Abdomen: soft, non-tender, non-distended Extremities: clear Neurological: no change Internal Medicine Assmt/Plan - Assessment Assessment: 1.DM. 2.HTN. 3.HYPERLIPIDEMIA 4.SEIZURE DISORDER 5.PSYCHOSIS - Plan Plan: CONTINUE ON CURRENT MEDICATION AND DIET. Nutritional Asmnt/Malnutr-PDOC - Dietary Evaluation Malnutrition Findings (Please click <Entered> for more info): Nutritional Asmnt/Malnutrition Start: 07/19/19 15: 16 Text: Status: Complete Freq: Protocol: Document 07/19/19 15:16 SHAMEKA (Rec: 07/19/19 15:19 [id number]) Nutritional Asmnt/Malnutrition Patient General Information Nutritional Screening Moderate Risk Diagnosis Psychosis Pertinent Medical Hx/Surgical Hx HTN, DM, Hyperlipidemia, Seizure Disorder, Psychosis Subjective Information Pt is a 64-year-old male admitted on 07/15 d/t agitation . Pt is eating 86% of meals Per Meal/Nutrition Activity Record. Dietary is currently providing an estimated 1800 kcals and 86 gm Pro, per Pt PO intake this is providing an estimated 1570 kcals and 74gm Pro to meet 95% kcal and 100+% Pro needs- adequate. Anthropometrics HT: 58 WT: 145 LB (65.91 kg) BMI: 22.05 (Normal) GI/ Skin Integrity GI: WNL, Soft, Non-tender BM: 07/17 x1 I/O: 1200/Not Noted Skin: WNL, Intact Durga: 18 Diet Order: Mechanical Soft, CCHO 60gm, BEN Estimated Energy Needs: ( Geriatric, CBW) 3422-9005 kcals (25-30 kcals/ kg) 53-66g Pro (0.8-1.0 g/kg) 3227-0202 ml (25-30 ml/kg) Current Diet Order/ Nutrition Support Mechanical Soft, CCHO 60gm, BEN Pertinent Medications Coreg, Vitamin B12, Glutose 40 % (PRN), Glucotrol, Glucagen ( PRN), Lantus, INS-SS, Glucophage, Lasix Pertinent Labs POC glucose (last 24 hours): 107, 123, 104, 130, 95 07/15: A1c 5.0%, BUN/Cr 33/1.41 , GFR 54 Nutritional Hx/Data Height 1.73 m Height (Calculated Centimeters) 172.7 Current Weight (lbs) 65.771 kg Weight (Calculated Kilograms) 65.8 Weight (Calculated Grams) 24851.9 [place] Body Weight 154 LB (70 kg) % [place] Body Weight 94 Body Mass Index (BMI) 22.0 Weight Status Approriate GI Symptoms GI Symptoms None Last BM 07/17 x1 Skin Integrity/Comment: Skin: WNL, Intact Durga: 18 Estimated Nutritional Goals BEE in Kcals: Using Current wt Calories/Kcals/Kg 25-30 Kcals Calculated 0160-0872 Protein: Using Current wt Protein g/k.8-1.0 Protein Calculated 53-66 Fluid: ml 1753-1353 ml (25-30 ml/kg) Nutritional Problem 1. Problem Problem Impaired nutrient utilization Etiology r/t endocrine dysfunction Signs/Symptoms: aeb Hx DM. Intervention/Recommendation Comments 1. Continue Mechanical Soft, CCHO 60gm, BEN diet as tolerated. 2. Continue antihyperglycemic medications for glucose control per MD order. Expected Outcomes/Goals Expected Outcomes/Goals 1. PO intake to continue to meet >75% of nutritional needs . 2. Monitor PO intake, wt, nutrition related labs, and skin integrity. 3. F/U as low risk in 7-10 days, 07/26-07/29
--- NOTE | 2019-07-22 01:38 | Progress Notes ---
DATE: 07/21/2019 Case was discussed with staff of the patient, reviewed records and labs. The patient continues to be easily agitated, continues to be unpredictable. Continues to also being angry, unable to make his wishes known sometimes and that make him frustrated, psychotic, poor insight, needing redirection and help with his ADLs. He is conserved. No side effects with the medication, no sedation, no nausea. He tolerated the increase in Seroquel with no side effects and we will continue to work with the patient in group therapy, milieu therapy, and adjust the medication as needed. JOB# [id number]
[2019-07-22] MEDS: INSULIN LISPRO SLIDING SCALE 100 UNITS/ML UNIT SUBQ SCH ×4 (06:40→20:34)
[2019-07-22] MEDS: Insulin Glargine 100 units/ml 10ml Vial SUBQ SCH ×2 (08:59→17:23)
[2019-07-22] MEDS: Benztropine 1 MG TAB PO SCH ×2 (09:02→17:39)
--- NOTE | 2019-07-22 11:46 | Internal Medicine Prog Note ---
Internal Medicine Subjective - Subjective Service Date: 07/22/19 Patient seen and examined:: without staff (HE IS DOING BETTER) Patient is:: awake, verbal, silke chair, talking, confused Per staff patient has:: no adverse event Internal Medicine Objective - Physical Exam Vitals and I&O: Vital Signs Temp 98.2 F 07/22/19 06:12 Pulse 65 07/22/19 09:04 Resp 20 07/22/19 06:12 BP 119/63 07/22/19 09:04 Pulse Ox 97 07/22/19 06:12 Intake & Output 07/21/19 07/22/19 07/22/19 18:59 06:59 18:59 Intake Total 1000 240 Balance 1000 240 Intake: Oral 1000 240 Other: # Voids 3 2 # Bowel Movements 1 Active Medications: Current Medications Acetaminophen (Tylenol) 650 mg PO Q4H PRN PRN Reason: Pain (Mild 1-3) Stop: 09/13/19 20:11 Last Admin: 07/20/19 18:27 Dose: 650 mg Aspirin (Ecotrin) 81 mg PO DAILY [facility] Stop: 09/14/19 08:59 Last Admin: 07/22/19 09:00 Dose: 81 mg Benazepril HCl (Lotensin) 10 mg PO DAILY [facility] Stop: 09/14/19 08:59 Last Admin: 07/22/19 09:04 Dose: 10 mg Benztropine Mesylate (Cogentin) 1 mg PO BID [facility] Stop: 09/14/19 08:59 Last Admin: 07/22/19 09:02 Dose: 1 mg Carvedilol (Coreg) 12.5 mg PO BID [facility] Stop: 09/14/19 08:59 Last Admin: 07/22/19 09:03 Dose: 12.5 mg Cyanocobalamin (Vitamin B12) 1,000 mcg PO DAILY [facility] Stop: 09/14/19 08:59 Last Admin: 07/22/19 09:01 Dose: 1,000 mcg Dextrose (Glutose 40%) 18.75 gm PO PRN PRN PRN Reason: Blood Glucose less than 70 Stop: 09/13/19 20:15 Escitalopram Oxalate (Lexapro) 10 mg PO DAILY [facility]; Protocol Stop: 09/14/19 08:59 Last Admin: 07/22/19 09:01 Dose: 10 mg Furosemide (Lasix) 40 mg PO MWF [facility] Stop: 09/14/19 08:59 Last Admin: 07/21/19 09:04 Dose: 40 mg Glipizide (Glucotrol) 5 mg PO BID [facility] Stop: 09/14/19 08:59 Last Admin: 07/22/19 09:01 Dose: 5 mg Glucagon (Glucagen) 1 mg IM PRN PRN PRN Reason: Blood Glucose less than 70 Stop: 09/13/19 20:15 Insulin Glargine (Lantus Insulin) 12 units SUBQ BID [facility] Stop: 09/13/19 20:29 Last Admin: 07/22/19 08:59 Dose: Not Given Insulin Human Lispro (Humalog Insulin Sliding Scale) 0 units SUBQ [facility]; Protocol Stop: 09/13/19 20:59 Last Admin: 07/22/19 06:40 Dose: Not Given Levetiracetam (Keppra) 500 mg PO BID [facility] Stop: 09/14/19 08:59 Last Admin: 07/22/19 09:01 Dose: 500 mg Lorazepam (Ativan) 0.5 mg PO Q4HR PRN; Protocol PRN Reason: Anxiety Stop: 08/14/19 20:27 Metformin HCl (Glucophage) 1,000 mg PO BIDWM [facility] Stop: 09/14/19 07:59 Last Admin: 07/22/19 09:00 Dose: 1,000 mg Quetiapine Fumarate 100 mg/ (Quetiapine Fumarate 25 mg) 125 mg PO BID [facility] Stop: 09/16/19 16:59 Last Admin: 07/22/19 09:00 Dose: 125 mg Simvastatin (Zocor) 20 mg PO HS [facility]; Protocol Stop: 09/13/19 20:59 Last Admin: 07/21/19 21:15 Dose: 20 mg Thiamine HCl (Vitamin B1) 100 mg PO DAILY [facility] Stop: 09/14/19 08:59 Last Admin: 07/22/19 09:02 Dose: 100 mg Zolpidem Tartrate (Ambien) 5 mg PO HS PRN PRN Reason: Insomnia Stop: 09/13/19 19:41 Last Admin: 07/16/19 21:43 Dose: 5 mg General: demented HEENT: NC/AT, PERRLA, EOMI, anicteric sclerae, throat clear Neck: Supple, No JVD, No thyromegaly, +2 carotid pulse wo bruit, No LAD Lungs: CTAB Cardiovascular: RRR, Normal S1, Normal S2, without murmur Abdomen: soft, non-tender, non-distended Extremities: clear Neurological: no change Internal Medicine Assmt/Plan - Assessment Assessment: 1.DM. 2.HTN. 3.HYPERLIPIDEMIA 4.SEIZURE DISORDER 5.PSYCHOSIS - Plan Plan: CONTINUE ON CURRENT MEDICATION AND DIET. Nutritional Asmnt/Malnutr-PDOC - Dietary Evaluation Malnutrition Findings (Please click <Entered> for more info): Nutritional Asmnt/Malnutrition Start: 07/19/19 15: 16 Text: Status: Complete Freq: Protocol: Document 07/19/19 15:16 SHAMEKA (Rec: 07/19/19 15:19 [email or web address] [id number]) Nutritional Asmnt/Malnutrition Patient General Information Nutritional Screening Moderate Risk Diagnosis Psychosis Pertinent Medical Hx/Surgical Hx HTN, DM, Hyperlipidemia, Seizure Disorder, Psychosis Subjective Information Pt is a 64-year-old male admitted on 07/15 d/t agitation . Pt is eating 86% of meals Per Meal/Nutrition Activity Record. Dietary is currently providing an estimated 1800 kcals and 86 gm Pro, per Pt PO intake this is providing an estimated 1570 kcals and 74gm Pro to meet 95% kcal and 100+% Pro needs- adequate. Anthropometrics HT: 58 WT: 145 LB (65.91 kg) BMI: 22.05 (Normal) GI/ Skin Integrity GI: WNL, Soft, Non-tender BM: 07/17 x1 I/O: 1200/Not Noted Skin: WNL, Intact Durga: 18 Diet Order: Mechanical Soft, CCHO 60gm, BEN Estimated Energy Needs: ( Geriatric, CBW) 7285-1725 kcals (25-30 kcals/ kg) 53-66g Pro (0.8-1.0 g/kg) 1218-5112 ml (25-30 ml/kg) Current Diet Order/ Nutrition Support Mechanical Soft, CCHO 60gm, BEN Pertinent Medications Coreg, Vitamin B12, Glutose 40 % (PRN), Glucotrol, Glucagen ( PRN), Lantus, INS-SS, Glucophage, Lasix Pertinent Labs POC glucose (last 24 hours): 107, 123, 104, 130, 95 07/15: A1c 5.0%, BUN/Cr 33/1.41 , GFR 54 Nutritional Hx/Data Height 1.73 m Height (Calculated Centimeters) 172.7 Current Weight (lbs) 65.771 kg Weight (Calculated Kilograms) 65.8 Weight (Calculated Grams) 76292.9 [place] Body Weight 154 LB (70 kg) % [place] Body Weight 94 Body Mass Index (BMI) 22.0 Weight Status Approriate GI Symptoms GI Symptoms None Last BM 07/17 x1 Skin Integrity/Comment: Skin: WNL, Intact Durga: 18 Estimated Nutritional Goals BEE in Kcals: Using Current wt Calories/Kcals/Kg 25-30 Kcals Calculated 8479-8148 Protein: Using Current wt Protein g/k.8-1.0 Protein Calculated 53-66 Fluid: ml 3710-2491 ml (25-30 ml/kg) Nutritional Problem 1. Problem Problem Impaired nutrient utilization Etiology r/t endocrine dysfunction Signs/Symptoms: aeb Hx DM. Intervention/Recommendation Comments 1. Continue Mechanical Soft, CCHO 60gm, BEN diet as tolerated. 2. Continue antihyperglycemic medications for glucose control per MD order. Expected Outcomes/Goals Expected Outcomes/Goals 1. PO intake to continue to meet >75% of nutritional needs . 2. Monitor PO intake, wt, nutrition related labs, and skin integrity. 3. F/U as low risk in 7-10 days, 07/26-07/29
--- NOTE | 2019-07-22 23:22 | Progress Notes ---
DATE: Case was discussed with staff of the patient, reviewed records. The patient continues to be internally preoccupied. Continues to have poor insight, unable to make safe plan for self-care. He is sleeping better, eating better. He stays to himself, mostly. No side effects with the medication, no sedation, no nausea, no extrapyramidal symptoms. tolerated Seroquel to 125 mg twice a day. We will continue outpatient group therapy, milieu therapy, adjust medication as needed. JOB# [id number] MTDD
[2019-07-23] MEDS: INSULIN LISPRO SLIDING SCALE 100 UNITS/ML UNIT SUBQ SCH ×4 (06:42→20:41)
[2019-07-23] MEDS: Benztropine 1 MG TAB PO SCH ×2 (08:32→16:13)
[2019-07-23] MEDS: Insulin Glargine 100 units/ml 10ml Vial SUBQ SCH ×2 (08:35→16:15)
--- NOTE | 2019-07-23 14:04 | Progress Notes ---
DATE: 07/23/2019 Case was discussed with staff of the patient, reviewed records. The patient is in a wheelchair. Continues to stay to himself, not socializing much. The patient is conserved. Long history of schizophrenia. Continues to be unable to make safe plan for self-care. Tolerating increase in Seroquel to 125 mg twice a day with no side effects, no sedation or nausea, and no extrapyramidal symptoms. I will be increasing the Seroquel further to 150 mg twice a day. We will continue outpatient group therapy, milieu therapy, and adjust medication as needed. JOB# [id number]
--- NOTE | 2019-07-23 20:34 | Internal Medicine Prog Note ---
Internal Medicine Subjective - Subjective Service Date: 07/23/19 Patient seen and examined:: without staff (HE IS DOING WELL) Patient is:: awake, verbal, silke chair, talking, confused Per staff patient has:: no adverse event Internal Medicine Objective - Physical Exam Vitals and I&O: Vital Signs Temp 97.5 F 07/23/19 14:00 Pulse 68 07/23/19 16:13 Resp 20 07/23/19 14:00 BP 116/73 07/23/19 16:13 Pulse Ox 97 07/23/19 14:00 Intake & Output 07/23/19 07/23/19 07/24/19 06:59 18:59 06:59 Intake Total 120 900 Balance 120 900 Intake: Oral 120 900 Other: # Voids 2 3 # Bowel Movements 0 1 Active Medications: Current Medications Acetaminophen (Tylenol) 650 mg PO Q4H PRN PRN Reason: Pain (Mild 1-3) Stop: 09/13/19 20:11 Last Admin: 07/20/19 18:27 Dose: 650 mg Aspirin (Ecotrin) 81 mg PO DAILY [facility] Stop: 09/14/19 08:59 Last Admin: 07/23/19 08:31 Dose: 81 mg Benazepril HCl (Lotensin) 10 mg PO DAILY [facility] Stop: 09/14/19 08:59 Last Admin: 07/23/19 08:31 Dose: 10 mg Benztropine Mesylate (Cogentin) 1 mg PO BID [facility] Stop: 09/14/19 08:59 Last Admin: 07/23/19 16:13 Dose: 1 mg Carvedilol (Coreg) 12.5 mg PO BID [facility] Stop: 09/14/19 08:59 Last Admin: 07/23/19 16:13 Dose: 12.5 mg Cyanocobalamin (Vitamin B12) 1,000 mcg PO DAILY [facility] Stop: 09/14/19 08:59 Last Admin: 07/23/19 08:33 Dose: 1,000 mcg Dextrose (Glutose 40%) 18.75 gm PO PRN PRN PRN Reason: Blood Glucose less than 70 Stop: 09/13/19 20:15 Escitalopram Oxalate (Lexapro) 10 mg PO DAILY [facility]; Protocol Stop: 09/14/19 08:59 Last Admin: 07/23/19 08:33 Dose: 10 mg Furosemide (Lasix) 40 mg PO MWF [facility] Stop: 09/14/19 08:59 Last Admin: 07/23/19 08:33 Dose: 40 mg Glipizide (Glucotrol) 5 mg PO BID [facility] Stop: 09/14/19 08:59 Last Admin: 07/23/19 16:14 Dose: 5 mg Glucagon (Glucagen) 1 mg IM PRN PRN PRN Reason: Blood Glucose less than 70 Stop: 09/13/19 20:15 Insulin Glargine (Lantus Insulin) 12 units SUBQ BID [facility] Stop: 09/13/19 20:29 Last Admin: 07/23/19 16:15 Dose: Not Given Insulin Human Lispro (Humalog Insulin Sliding Scale) 0 units SUBQ [facility]; Protocol Stop: 09/13/19 20:59 Last Admin: 07/23/19 16:12 Dose: Not Given Levetiracetam (Keppra) 500 mg PO BID [facility] Stop: 09/14/19 08:59 Last Admin: 07/23/19 16:15 Dose: 500 mg Metformin HCl (Glucophage) 1,000 mg PO BIDWM [facility] Stop: 09/14/19 07:59 Last Admin: 07/23/19 17:05 Dose: 1,000 mg Quetiapine Fumarate 100 mg/ (Quetiapine Fumarate 50 mg) 150 mg PO BID [facility] Stop: 09/21/19 16:59 Last Admin: 07/23/19 16:15 Dose: 150 mg Simvastatin (Zocor) 20 mg PO HS [facility]; Protocol Stop: 09/13/19 20:59 Last Admin: 07/22/19 20:34 Dose: 20 mg Thiamine HCl (Vitamin B1) 100 mg PO DAILY [facility] Stop: 09/14/19 08:59 Last Admin: 07/23/19 08:35 Dose: 100 mg General: demented HEENT: NC/AT, PERRLA, EOMI, anicteric sclerae, throat clear Neck: Supple, No JVD, No thyromegaly, +2 carotid pulse wo bruit, No LAD Lungs: CTAB Cardiovascular: RRR, Normal S1, Normal S2, without murmur Abdomen: soft, non-tender, non-distended Extremities: clear Neurological: no change Internal Medicine Assmt/Plan - Assessment Assessment: 1.DM. 2.HTN. 3.HYPERLIPIDEMIA 4.SEIZURE DISORDER 5.PSYCHOSIS - Plan Plan: CONTINUE ON CURRENT MEDICATION AND DIET. Nutritional Asmnt/Malnutr-PDOC - Dietary Evaluation Malnutrition Findings (Please click <Entered> for more info): Nutritional Asmnt/Malnutrition Start: 07/19/19 15: 16 Text: Status: Complete Freq: Protocol: Document 07/19/19 15:16 SHAMEKA (Rec: 07/19/19 15:19 SHAMEKA [id number]) Nutritional Asmnt/Malnutrition Patient General Information Nutritional Screening Moderate Risk Diagnosis Psychosis Pertinent Medical Hx/Surgical Hx HTN, DM, Hyperlipidemia, Seizure Disorder, Psychosis Subjective Information Pt is a 64-year-old male admitted on 07/15 d/t agitation . Pt is eating 86% of meals Per Meal/Nutrition Activity Record. Dietary is currently providing an estimated 1800 kcals and 86 gm Pro, per Pt PO intake this is providing an estimated 1570 kcals and 74gm Pro to meet 95% kcal and 100+% Pro needs- adequate. Anthropometrics HT: 58 WT: 145 LB (65.91 kg) BMI: 22.05 (Normal) GI/ Skin Integrity GI: WNL, Soft, Non-tender BM: 07/17 x1 I/O: 1200/Not Noted Skin: WNL, Intact Durga: 18 Diet Order: Mechanical Soft, CCHO 60gm, BEN Estimated Energy Needs: ( Geriatric, CBW) 0956-9239 kcals (25-30 kcals/ kg) 53-66g Pro (0.8-1.0 g/kg) 7139-7994 ml (25-30 ml/kg) Current Diet Order/ Nutrition Support Mechanical Soft, CCHO 60gm, BEN Pertinent Medications Coreg, Vitamin B12, Glutose 40 % (PRN), Glucotrol, Glucagen ( PRN), Lantus, INS-SS, Glucophage, Lasix Pertinent Labs POC glucose (last 24 hours): 107, 123, 104, 130, 95 07/15: A1c 5.0%, BUN/Cr 33/1.41 , GFR 54 Nutritional Hx/Data Height 1.73 m Height (Calculated Centimeters) 172.7 Current Weight (lbs) 65.771 kg Weight (Calculated Kilograms) 65.8 Weight (Calculated Grams) 90466.9 [place] Body Weight 154 LB (70 kg) % [place] Body Weight 94 Body Mass Index (BMI) 22.0 Weight Status Approriate GI Symptoms GI Symptoms None Last BM 07/17 x1 Skin Integrity/Comment: Skin: WNL, Intact Durga: 18 Estimated Nutritional Goals BEE in Kcals: Using Current wt Calories/Kcals/Kg 25-30 Kcals Calculated 6950-2048 Protein: Using Current wt Protein g/k.8-1.0 Protein Calculated 53-66 Fluid: ml 3427-9846 ml (25-30 ml/kg) Nutritional Problem 1. Problem Problem Impaired nutrient utilization Etiology r/t endocrine dysfunction Signs/Symptoms: aeb Hx DM. Intervention/Recommendation Comments 1. Continue Mechanical Soft, CCHO 60gm, BEN diet as tolerated. 2. Continue antihyperglycemic medications for glucose control per MD order. Expected Outcomes/Goals Expected Outcomes/Goals 1. PO intake to continue to meet >75% of nutritional needs . 2. Monitor PO intake, wt, nutrition related labs, and skin integrity. 3. F/U as low risk in 7-10 days, 07/26-07/29
[2019-07-24] MEDS: INSULIN LISPRO SLIDING SCALE 100 UNITS/ML UNIT SUBQ SCH ×4 (06:40→21:16)
[2019-07-24] MEDS: Benztropine 1 MG TAB PO SCH ×2 (08:15→17:06)
[2019-07-24] MEDS: Insulin Glargine 100 units/ml 10ml Vial SUBQ SCH ×2 (08:17→16:47)
--- NOTE | 2019-07-24 17:29 | Internal Medicine Prog Note ---
Internal Medicine Subjective - Subjective Service Date: 07/24/19 Patient seen and examined:: without staff (he is doing better) Patient is:: awake, verbal, silke chair, talking, confused Per staff patient has:: no adverse event Internal Medicine Objective - Physical Exam Vitals and I&O: Vital Signs Temp 98.0 F 07/24/19 14:00 Pulse 84 07/24/19 17:06 Resp 20 07/24/19 14:00 BP 126/72 07/24/19 17:06 Pulse Ox 97 07/24/19 14:00 Intake & Output 07/23/19 07/24/19 07/24/19 18:59 06:59 18:59 Intake Total 900 120 Balance 900 120 Intake: Oral 900 120 Other: # Voids 3 1 # Bowel Movements 1 0 Active Medications: Current Medications Acetaminophen (Tylenol) 650 mg PO Q4H PRN PRN Reason: Pain (Mild 1-3) Stop: 09/13/19 20:11 Last Admin: 07/20/19 18:27 Dose: 650 mg Aspirin (Ecotrin) 81 mg PO DAILY [facility] Stop: 09/14/19 08:59 Last Admin: 07/24/19 08:15 Dose: 81 mg Benazepril HCl (Lotensin) 10 mg PO DAILY [facility] Stop: 09/14/19 08:59 Last Admin: 07/24/19 08:14 Dose: 10 mg Benztropine Mesylate (Cogentin) 1 mg PO BID [facility] Stop: 09/14/19 08:59 Last Admin: 07/24/19 17:06 Dose: 1 mg Carvedilol (Coreg) 12.5 mg PO BID [facility] Stop: 09/14/19 08:59 Last Admin: 07/24/19 17:06 Dose: 12.5 mg Cyanocobalamin (Vitamin B12) 1,000 mcg PO DAILY [facility] Stop: 09/14/19 08:59 Last Admin: 07/24/19 08:14 Dose: 1,000 mcg Dextrose (Glutose 40%) 18.75 gm PO PRN PRN PRN Reason: Blood Glucose less than 70 Stop: 09/13/19 20:15 Escitalopram Oxalate (Lexapro) 10 mg PO DAILY [facility]; Protocol Stop: 09/14/19 08:59 Last Admin: 07/24/19 08:16 Dose: 10 mg Furosemide (Lasix) 40 mg PO MWF [facility] Stop: 09/14/19 08:59 Last Admin: 07/23/19 08:33 Dose: 40 mg Glipizide (Glucotrol) 5 mg PO BID [facility] Stop: 09/14/19 08:59 Last Admin: 07/24/19 17:06 Dose: 5 mg Glucagon (Glucagen) 1 mg IM PRN PRN PRN Reason: Blood Glucose less than 70 Stop: 09/13/19 20:15 Insulin Glargine (Lantus Insulin) 12 units SUBQ BID [facility] Stop: 09/13/19 20:29 Last Admin: 07/24/19 16:47 Dose: Not Given Insulin Human Lispro (Humalog Insulin Sliding Scale) 0 units SUBQ ACHS [facility]; Protocol Stop: 09/13/19 20:59 Last Admin: 07/24/19 16:46 Dose: Not Given Levetiracetam (Keppra) 500 mg PO BID [facility] Stop: 09/14/19 08:59 Last Admin: 07/24/19 17:04 Dose: 500 mg Metformin HCl (Glucophage) 1,000 mg PO BIDWM [facility] Stop: 09/14/19 07:59 Last Admin: 07/24/19 17:04 Dose: 1,000 mg Quetiapine Fumarate 100 mg/ (Quetiapine Fumarate 50 mg) 150 mg PO BID [facility] Stop: 09/21/19 16:59 Last Admin: 07/24/19 17:05 Dose: 150 mg Simvastatin (Zocor) 20 mg PO HS [facility]; Protocol Stop: 09/13/19 20:59 Last Admin: 07/23/19 20:41 Dose: 20 mg Thiamine HCl (Vitamin B1) 100 mg PO DAILY [facility] Stop: 09/14/19 08:59 Last Admin: 07/24/19 08:15 Dose: 100 mg General: demented HEENT: NC/AT, PERRLA, EOMI, anicteric sclerae, throat clear Neck: Supple, No JVD, No thyromegaly, +2 carotid pulse wo bruit, No LAD Lungs: CTAB Cardiovascular: RRR, Normal S1, Normal S2, without murmur Abdomen: soft, non-tender, non-distended Extremities: clear Neurological: no change Internal Medicine Assmt/Plan - Assessment Assessment: 1.DM. 2.HTN. 3.HYPERLIPIDEMIA 4.SEIZURE DISORDER 5.PSYCHOSIS - Plan Plan: CONTINUE ON CURRENT MEDICATION AND DIET. Nutritional Asmnt/Malnutr-PDOC - Dietary Evaluation Malnutrition Findings (Please click <Entered> for more info): Nutritional Asmnt/Malnutrition Start: 07/19/19 15: 16 Text: Status: Complete Freq: Protocol: Document 07/19/19 15:16 SHAMEKA (Rec: 07/19/19 15:19 [email or web address] [id number]) Nutritional Asmnt/Malnutrition Patient General Information Nutritional Screening Moderate Risk Diagnosis Psychosis Pertinent Medical Hx/Surgical Hx HTN, DM, Hyperlipidemia, Seizure Disorder, Psychosis Subjective Information Pt is a 64-year-old male admitted on 07/15 d/t agitation . Pt is eating 86% of meals Per Meal/Nutrition Activity Record. Dietary is currently providing an estimated 1800 kcals and 86 gm Pro, per Pt PO intake this is providing an estimated 1570 kcals and 74gm Pro to meet 95% kcal and 100+% Pro needs- adequate. Anthropometrics HT: 58 WT: 145 LB (65.91 kg) BMI: 22.05 (Normal) GI/ Skin Integrity GI: WNL, Soft, Non-tender BM: 07/17 x1 I/O: 1200/Not Noted Skin: WNL, Intact Durga: 18 Diet Order: Mechanical Soft, CCHO 60gm, BEN Estimated Energy Needs: ( Geriatric, CBW) 3254-5213 kcals (25-30 kcals/ kg) 53-66g Pro (0.8-1.0 g/kg) 0663-9855 ml (25-30 ml/kg) Current Diet Order/ Nutrition Support Mechanical Soft, CCHO 60gm, BEN Pertinent Medications Coreg, Vitamin B12, Glutose 40 % (PRN), Glucotrol, Glucagen ( PRN), Lantus, INS-SS, Glucophage, Lasix Pertinent Labs POC glucose (last 24 hours): 107, 123, 104, 130, 95 07/15: A1c 5.0%, BUN/Cr 33/1.41 , GFR 54 Nutritional Hx/Data Height 1.73 m Height (Calculated Centimeters) 172.7 Current Weight (lbs) 65.771 kg Weight (Calculated Kilograms) 65.8 Weight (Calculated Grams) 20085.9 [place] Body Weight 154 LB (70 kg) % [place] Body Weight 94 Body Mass Index (BMI) 22.0 Weight Status Approriate GI Symptoms GI Symptoms None Last BM 07/17 x1 Skin Integrity/Comment: Skin: WNL, Intact Durga: 18 Estimated Nutritional Goals BEE in Kcals: Using Current wt Calories/Kcals/Kg 25-30 Kcals Calculated 8899-9843 Protein: Using Current wt Protein g/k.8-1.0 Protein Calculated 53-66 Fluid: ml 5773-4345 ml (25-30 ml/kg) Nutritional Problem 1. Problem Problem Impaired nutrient utilization Etiology r/t endocrine dysfunction Signs/Symptoms: aeb Hx DM. Intervention/Recommendation Comments 1. Continue Mechanical Soft, CCHO 60gm, BEN diet as tolerated. 2. Continue antihyperglycemic medications for glucose control per MD order. Expected Outcomes/Goals Expected Outcomes/Goals 1. PO intake to continue to meet >75% of nutritional needs . 2. Monitor PO intake, wt, nutrition related labs, and skin integrity. 3. F/U as low risk in 7-10 days, 07/26-07/29
--- NOTE | 2019-07-25 05:30 | Progress Notes ---
DATE: 07/24/2019 Case was discussed with staff of the patient, reviewed lab works and medical records. The patient continues to have episodes of agitation at times, responding to internal stimuli. Continues to be unpredictable, impulsive, needing redirection. He is on a wheelchair. Vital signs stable. He tolerated the increase in also Seroquel to 150 mg twice a day with no side effects, no sedation, no nausea, no extrapyramidal symptoms. We will continue to work with the patient in group therapy, milieu therapy, adjust the medication as needed. JOB# [id number]
[2019-07-25] MEDS: INSULIN LISPRO SLIDING SCALE 100 UNITS/ML UNIT SUBQ SCH ×4 (07:37→21:47)
[2019-07-25] MEDS: Insulin Glargine 100 units/ml 10ml Vial SUBQ SCH ×2 (08:36→16:32)
[2019-07-25] MEDS: Benztropine 1 MG TAB PO SCH ×2 (08:36→16:11)
--- NOTE | 2019-07-25 18:50 | Internal Medicine Prog Note ---
Internal Medicine Subjective - Subjective Service Date: 07/25/19 Patient seen and examined:: without staff (HE IS DOING WELL) Patient is:: awake, verbal, silke chair, talking, confused Per staff patient has:: no adverse event Internal Medicine Objective - Physical Exam Vitals and I&O: Vital Signs Temp 97.1 F 07/25/19 14:00 Pulse 69 07/25/19 14:00 Resp 20 07/25/19 14:00 BP 100/61 07/25/19 14:00 Pulse Ox 96 07/25/19 14:00 Intake & Output 07/24/19 07/25/19 07/25/19 18:59 06:59 18:59 Intake Total 1200 360 950 Balance 1200 360 950 Intake: Oral 1200 360 950 Other: # Voids 3 2 3 # Bowel Movements 0 0 1 Active Medications: Current Medications Acetaminophen (Tylenol) 650 mg PO Q4H PRN PRN Reason: Pain (Mild 1-3) Stop: 09/13/19 20:11 Last Admin: 07/25/19 11:23 Dose: 650 mg Aspirin (Ecotrin) 81 mg PO DAILY [facility] Stop: 09/14/19 08:59 Last Admin: 07/25/19 08:32 Dose: 81 mg Benazepril HCl (Lotensin) 10 mg PO DAILY [facility] Stop: 09/14/19 08:59 Last Admin: 07/25/19 08:36 Dose: 10 mg Benztropine Mesylate (Cogentin) 1 mg PO BID [facility] Stop: 09/14/19 08:59 Last Admin: 07/25/19 16:11 Dose: 1 mg Carvedilol (Coreg) 12.5 mg PO BID [facility] Stop: 09/14/19 08:59 Last Admin: 07/25/19 16:11 Dose: Not Given Cyanocobalamin (Vitamin B12) 1,000 mcg PO DAILY [facility] Stop: 09/14/19 08:59 Last Admin: 07/25/19 08:36 Dose: 1,000 mcg Dextrose (Glutose 40%) 18.75 gm PO PRN PRN PRN Reason: Blood Glucose less than 70 Stop: 09/13/19 20:15 Escitalopram Oxalate (Lexapro) 10 mg PO DAILY [facility]; Protocol Stop: 09/14/19 08:59 Last Admin: 07/25/19 08:33 Dose: 10 mg Furosemide (Lasix) 40 mg PO MWF [facility] Stop: 09/14/19 08:59 Last Admin: 07/25/19 08:36 Dose: 40 mg Glipizide (Glucotrol) 5 mg PO BID [facility] Stop: 09/14/19 08:59 Last Admin: 07/25/19 16:12 Dose: 5 mg Glucagon (Glucagen) 1 mg IM PRN PRN PRN Reason: Blood Glucose less than 70 Stop: 09/13/19 20:15 Insulin Glargine (Lantus Insulin) 12 units SUBQ BID [facility] Stop: 09/13/19 20:29 Last Admin: 07/25/19 16:32 Dose: Not Given Insulin Human Lispro (Humalog Insulin Sliding Scale) 0 units SUBQ ACHS [facility]; Protocol Stop: 09/13/19 20:59 Last Admin: 07/25/19 16:32 Dose: Not Given Levetiracetam (Keppra) 500 mg PO BID [facility] Stop: 09/14/19 08:59 Last Admin: 07/25/19 16:11 Dose: 500 mg Metformin HCl (Glucophage) 1,000 mg PO BIDWM [facility] Stop: 09/14/19 07:59 Last Admin: 07/25/19 08:34 Dose: 1,000 mg Quetiapine Fumarate 100 mg/ (Quetiapine Fumarate 50 mg) 150 mg PO BID [facility] Stop: 09/21/19 16:59 Last Admin: 07/25/19 16:11 Dose: 150 mg Simvastatin (Zocor) 20 mg PO HS [facility]; Protocol Stop: 09/13/19 20:59 Last Admin: 07/24/19 21:16 Dose: 20 mg Thiamine HCl (Vitamin B1) 100 mg PO DAILY [facility] Stop: 09/14/19 08:59 Last Admin: 07/25/19 08:34 Dose: 100 mg General: demented HEENT: NC/AT, PERRLA, EOMI, anicteric sclerae, throat clear Neck: Supple, No JVD, No thyromegaly, +2 carotid pulse wo bruit, No LAD Lungs: CTAB Cardiovascular: RRR, Normal S1, Normal S2, without murmur Abdomen: soft, non-tender, non-distended Extremities: clear Neurological: no change Internal Medicine Assmt/Plan - Assessment Assessment: 1.DM. 2.HTN. 3.HYPERLIPIDEMIA 4.SEIZURE DISORDER 5.PSYCHOSIS - Plan Plan: CONTINUE ON CURRENT MEDICATION AND DIET. Nutritional Asmnt/Malnutr-PDOC - Dietary Evaluation Malnutrition Findings (Please click <Entered> for more info): Nutritional Asmnt/Malnutrition Start: 07/19/19 15: 16 Text: Status: Complete Freq: Protocol: Document 07/19/19 15:16 SHAMEKA (Rec: 07/19/19 15:19 [id number]) Nutritional Asmnt/Malnutrition Patient General Information Nutritional Screening Moderate Risk Diagnosis Psychosis Pertinent Medical Hx/Surgical Hx HTN, DM, Hyperlipidemia, Seizure Disorder, Psychosis Subjective Information Pt is a 64-year-old male admitted on 07/15 d/t agitation . Pt is eating 86% of meals Per Meal/Nutrition Activity Record. Dietary is currently providing an estimated 1800 kcals and 86 gm Pro, per Pt PO intake this is providing an estimated 1570 kcals and 74gm Pro to meet 95% kcal and 100+% Pro needs- adequate. Anthropometrics HT: 58 WT: 145 LB (65.91 kg) BMI: 22.05 (Normal) GI/ Skin Integrity GI: WNL, Soft, Non-tender BM: 07/17 x1 I/O: 1200/Not Noted Skin: WNL, Intact Durga: 18 Diet Order: Mechanical Soft, CCHO 60gm, BEN Estimated Energy Needs: ( Geriatric, CBW) 8142-2033 kcals (25-30 kcals/ kg) 53-66g Pro (0.8-1.0 g/kg) 6012-5180 ml (25-30 ml/kg) Current Diet Order/ Nutrition Support Mechanical Soft, CCHO 60gm, BEN Pertinent Medications Coreg, Vitamin B12, Glutose 40 % (PRN), Glucotrol, Glucagen ( PRN), Lantus, INS-SS, Glucophage, Lasix Pertinent Labs POC glucose (last 24 hours): 107, 123, 104, 130, 95 07/15: A1c 5.0%, BUN/Cr 33/1.41 , GFR 54 Nutritional Hx/Data Height 1.73 m Height (Calculated Centimeters) 172.7 Current Weight (lbs) 65.771 kg Weight (Calculated Kilograms) 65.8 Weight (Calculated Grams) 16961.9 [place] Body Weight 154 LB (70 kg) % [place] Body Weight 94 Body Mass Index (BMI) 22.0 Weight Status Approriate GI Symptoms GI Symptoms None Last BM 07/17 x1 Skin Integrity/Comment: Skin: WNL, Intact Durga: 18 Estimated Nutritional Goals BEE in Kcals: Using Current wt Calories/Kcals/Kg 25-30 Kcals Calculated 5878-2395 Protein: Using Current wt Protein g/k.8-1.0 Protein Calculated 53-66 Fluid: ml 5244-6358 ml (25-30 ml/kg) Nutritional Problem 1. Problem Problem Impaired nutrient utilization Etiology r/t endocrine dysfunction Signs/Symptoms: aeb Hx DM. Intervention/Recommendation Comments 1. Continue Mechanical Soft, CCHO 60gm, BEN diet as tolerated. 2. Continue antihyperglycemic medications for glucose control per MD order. Expected Outcomes/Goals Expected Outcomes/Goals 1. PO intake to continue to meet >75% of nutritional needs . 2. Monitor PO intake, wt, nutrition related labs, and skin integrity. 3. F/U as low risk in 7-10 days, 07/26-07/29
--- NOTE | 2019-07-25 23:21 | Progress Notes ---
DATE: 07/25/2019 SUBJECTIVE: Case was discussed with staff of the patient, reviewed records. The patient is on wheelchair. Continues to be internally preoccupied, unable to make safe plan for self-care, unpredictable, impulsive, needing redirection. ___ using Seroquel 250 mg twice a day with no side effects, no sedation, no nausea, no extrapyramidal symptoms. He is on a wheelchair. No side effects with the medication. We will continue to work with the patient in group therapy, milieu therapy, and adjust the medication as needed. JOB# [id number]
[2019-07-26] MEDS: INSULIN LISPRO SLIDING SCALE 100 UNITS/ML UNIT SUBQ SCH ×4 (06:39→21:02)
[2019-07-26] MEDS: Insulin Glargine 100 units/ml 10ml Vial SUBQ SCH ×2 (09:00→17:53)
[2019-07-26] MEDS: Benztropine 1 MG TAB PO SCH ×2 (09:00→17:53)
--- NOTE | 2019-07-26 17:02 | Internal Medicine Prog Note ---
Internal Medicine Subjective - Subjective Service Date: 07/26/19 Patient seen and examined:: without staff (HE IS DOING BETTER) Patient is:: awake, verbal, silke chair, talking, confused Per staff patient has:: no adverse event Internal Medicine Objective - Physical Exam Vitals and I&O: Vital Signs Temp 98.2 F 07/26/19 14:00 Pulse 76 07/26/19 14:00 Resp 20 07/26/19 14:00 BP 106/60 07/26/19 14:00 Pulse Ox 98 07/26/19 14:00 Intake & Output 07/25/19 07/26/19 07/26/19 18:59 06:59 18:59 Intake Total 950 480 Output Total 1 Balance 950 479 Intake: Oral 950 480 Output: Urine/Stool Mix 1 Other: # Voids 3 1 # Bowel Movements 1 Active Medications: Current Medications Acetaminophen (Tylenol) 650 mg PO Q4H PRN PRN Reason: Pain (Mild 1-3) Stop: 09/13/19 20:11 Last Admin: 07/25/19 11:23 Dose: 650 mg Aspirin (Ecotrin) 81 mg PO DAILY [facility] Stop: 09/14/19 08:59 Last Admin: 07/26/19 09:00 Dose: 81 mg Benazepril HCl (Lotensin) 10 mg PO DAILY [facility] Stop: 09/14/19 08:59 Last Admin: 07/26/19 09:00 Dose: 10 mg Benztropine Mesylate (Cogentin) 1 mg PO BID [facility] Stop: 09/14/19 08:59 Last Admin: 07/26/19 09:00 Dose: 1 mg Carvedilol (Coreg) 12.5 mg PO BID [facility] Stop: 09/14/19 08:59 Last Admin: 07/26/19 10:27 Dose: 12.5 mg Cyanocobalamin (Vitamin B12) 1,000 mcg PO DAILY [facility] Stop: 09/14/19 08:59 Last Admin: 07/26/19 10:23 Dose: 1,000 mcg Dextrose (Glutose 40%) 18.75 gm PO PRN PRN PRN Reason: Blood Glucose less than 70 Stop: 09/13/19 20:15 Escitalopram Oxalate (Lexapro) 10 mg PO DAILY [facility]; Protocol Stop: 09/14/19 08:59 Last Admin: 07/26/19 09:00 Dose: 10 mg Furosemide (Lasix) 40 mg PO MWF [facility] Stop: 09/14/19 08:59 Last Admin: 07/25/19 08:36 Dose: 40 mg Glipizide (Glucotrol) 5 mg PO BID [facility] Stop: 09/14/19 08:59 Last Admin: 07/26/19 09:00 Dose: 5 mg Glucagon (Glucagen) 1 mg IM PRN PRN PRN Reason: Blood Glucose less than 70 Stop: 09/13/19 20:15 Insulin Glargine (Lantus Insulin) 12 units SUBQ BID [facility] Stop: 09/13/19 20:29 Last Admin: 07/25/19 16:32 Dose: Not Given Insulin Human Lispro (Humalog Insulin Sliding Scale) 0 units SUBQ ACHS [facility]; Protocol Stop: 09/13/19 20:59 Last Admin: 07/26/19 06:39 Dose: Not Given Levetiracetam (Keppra) 500 mg PO BID [facility] Stop: 09/14/19 08:59 Last Admin: 07/26/19 09:00 Dose: 500 mg Metformin HCl (Glucophage) 1,000 mg PO BIDWM [facility] Stop: 09/14/19 07:59 Last Admin: 07/26/19 08:00 Dose: 1,000 mg Quetiapine Fumarate 100 mg/ (Quetiapine Fumarate 50 mg) 150 mg PO BID [facility] Stop: 09/21/19 16:59 Last Admin: 07/26/19 09:00 Dose: 150 mg Simvastatin (Zocor) 20 mg PO HS [facility]; Protocol Stop: 09/13/19 20:59 Last Admin: 07/25/19 21:13 Dose: 20 mg Thiamine HCl (Vitamin B1) 100 mg PO DAILY [facility] Stop: 09/14/19 08:59 Last Admin: 07/26/19 09:00 Dose: 100 mg General: demented HEENT: NC/AT, PERRLA, EOMI, anicteric sclerae, throat clear Neck: Supple, No JVD, No thyromegaly, +2 carotid pulse wo bruit, No LAD Lungs: CTAB Cardiovascular: RRR, Normal S1, Normal S2, without murmur Abdomen: soft, non-tender, non-distended Extremities: clear Neurological: no change Internal Medicine Assmt/Plan - Assessment Assessment: 1.DM. 2.HTN. 3.HYPERLIPIDEMIA 4.SEIZURE DISORDER 5.PSYCHOSIS - Plan Plan: CONTINUE ON CURRENT MEDICATION AND DIET. Nutritional Asmnt/Malnutr-PDOC - Dietary Evaluation Malnutrition Findings (Please click <Entered> for more info): Nutritional Asmnt/Malnutrition Start: 07/19/19 15: 16 Text: Status: Complete Freq: Protocol: Document 07/19/19 15:16 SHAMEKA (Rec: 07/19/19 15:19 [email or web address] [id number]) Nutritional Asmnt/Malnutrition Patient General Information Nutritional Screening Moderate Risk Diagnosis Psychosis Pertinent Medical Hx/Surgical Hx HTN, DM, Hyperlipidemia, Seizure Disorder, Psychosis Subjective Information Pt is a 64-year-old male admitted on 07/15 d/t agitation . Pt is eating 86% of meals Per Meal/Nutrition Activity Record. Dietary is currently providing an estimated 1800 kcals and 86 gm Pro, per Pt PO intake this is providing an estimated 1570 kcals and 74gm Pro to meet 95% kcal and 100+% Pro needs- adequate. Anthropometrics HT: 58 WT: 145 LB (65.91 kg) BMI: 22.05 (Normal) GI/ Skin Integrity GI: WNL, Soft, Non-tender BM: 07/17 x1 I/O: 1200/Not Noted Skin: WNL, Intact Durga: 18 Diet Order: Mechanical Soft, CCHO 60gm, BEN Estimated Energy Needs: ( Geriatric, CBW) 5135-9949 kcals (25-30 kcals/ kg) 53-66g Pro (0.8-1.0 g/kg) 0215-3378 ml (25-30 ml/kg) Current Diet Order/ Nutrition Support Mechanical Soft, CCHO 60gm, BEN Pertinent Medications Coreg, Vitamin B12, Glutose 40 % (PRN), Glucotrol, Glucagen ( PRN), Lantus, INS-SS, Glucophage, Lasix Pertinent Labs POC glucose (last 24 hours): 107, 123, 104, 130, 95 07/15: A1c 5.0%, BUN/Cr 33/1.41 , GFR 54 Nutritional Hx/Data Height 1.73 m Height (Calculated Centimeters) 172.7 Current Weight (lbs) 65.771 kg Weight (Calculated Kilograms) 65.8 Weight (Calculated Grams) 33840.9 [place] Body Weight 154 LB (70 kg) % [place] Body Weight 94 Body Mass Index (BMI) 22.0 Weight Status Approriate GI Symptoms GI Symptoms None Last BM 07/17 x1 Skin Integrity/Comment: Skin: WNL, Intact Durga: 18 Estimated Nutritional Goals BEE in Kcals: Using Current wt Calories/Kcals/Kg 25-30 Kcals Calculated 8948-6470 Protein: Using Current wt Protein g/k.8-1.0 Protein Calculated 53-66 Fluid: ml 7031-2376 ml (25-30 ml/kg) Nutritional Problem 1. Problem Problem Impaired nutrient utilization Etiology r/t endocrine dysfunction Signs/Symptoms: aeb Hx DM. Intervention/Recommendation Comments 1. Continue Mechanical Soft, CCHO 60gm, BEN diet as tolerated. 2. Continue antihyperglycemic medications for glucose control per MD order. Expected Outcomes/Goals Expected Outcomes/Goals 1. PO intake to continue to meet >75% of nutritional needs . 2. Monitor PO intake, wt, nutrition related labs, and skin integrity. 3. F/U as low risk in 7-10 days, 07/26-07/29
--- NOTE | 2019-07-26 20:47 | Progress Notes ---
DATE: 07/26/2019 Case was discussed with staff of the patient, reviewed records. The patient continues to be internally preoccupied, unable to make safe plan for self-care. Continues to be unpredictable, impulsive, needing redirection. He is on a wheelchair, unable to answer questions appropriately. He is sleeping better, eating better. He is tolerating increase in Seroquel with no side effects, no sedation, no nausea, no extrapyramidal symptoms. We will continue outpatient group therapy, milieu therapy, and adjust medication as needed. JOB# [id number]
[2019-07-27] MEDS: INSULIN LISPRO SLIDING SCALE 100 UNITS/ML UNIT SUBQ SCH ×2 (07:06→22:00)
[2019-07-27] MEDS: Benztropine 1 MG TAB PO SCH ×2 (10:03→17:55)
[2019-07-27] MEDS: Insulin Glargine 100 units/ml 10ml Vial SUBQ SCH (10:05)
--- NOTE | 2019-07-27 14:37 | Progress Notes ---
DATE: 07/27/2019 Case was discussed with staff of the patient, reviewed records. The patient is doing better. He is a little bit more coherent. He is sleeping better, eating better. He is able to be more organized. He denies any intent to harm himself or anybody, he continues to be internally preoccupied, but is responding better to redirection. Continues to have multiple somatic complaints. No side effects with the medication, no sedation, no nausea, no extrapyramidal symptoms. I will increase Seroquel. We will continue outpatient group therapy, milieu therapy, adjust medication as needed. JOB# [id number] MTDErin
--- NOTE | 2019-07-27 19:31 | Internal Medicine Prog Note ---
Internal Medicine Subjective - Subjective Service Date: 07/27/19 Patient seen and examined:: without staff (HE IS DOING WELL) Patient is:: awake, verbal, silke chair, talking, confused Per staff patient has:: no adverse event Internal Medicine Objective - Physical Exam Vitals and I&O: Vital Signs Temp 97.8 F 07/27/19 14:00 Pulse 65 07/27/19 17:57 Resp 18 07/27/19 14:00 BP 140/75 07/27/19 17:57 Pulse Ox 95 07/27/19 14:00 Intake & Output 07/27/19 07/27/19 07/28/19 06:59 18:59 06:59 Intake Total 120 1000 Balance 120 1000 Intake: Oral 120 1000 Other: # Voids 3 Active Medications: Current Medications Acetaminophen (Tylenol) 650 mg PO Q4H PRN PRN Reason: Pain (Mild 1-3) Stop: 09/13/19 20:11 Last Admin: 07/25/19 11:23 Dose: 650 mg Aspirin (Ecotrin) 81 mg PO DAILY [facility] Stop: 09/14/19 08:59 Last Admin: 07/27/19 10:01 Dose: 81 mg Benazepril HCl (Lotensin) 10 mg PO DAILY [facility] Stop: 09/14/19 08:59 Last Admin: 07/27/19 09:58 Dose: 10 mg Benztropine Mesylate (Cogentin) 1 mg PO BID [facility] Stop: 09/14/19 08:59 Last Admin: 07/27/19 17:55 Dose: 1 mg Carvedilol (Coreg) 12.5 mg PO BID [facility] Stop: 09/14/19 08:59 Last Admin: 07/27/19 17:57 Dose: 12.5 mg Cyanocobalamin (Vitamin B12) 1,000 mcg PO DAILY [facility] Stop: 09/14/19 08:59 Last Admin: 07/27/19 09:58 Dose: 1,000 mcg Dextrose (Glutose 40%) 18.75 gm PO PRN PRN PRN Reason: Blood Glucose less than 70 Stop: 09/13/19 20:15 Escitalopram Oxalate (Lexapro) 10 mg PO DAILY [facility]; Protocol Stop: 09/14/19 08:59 Last Admin: 07/27/19 09:57 Dose: 10 mg Furosemide (Lasix) 40 mg PO MWF [facility] Stop: 09/14/19 08:59 Last Admin: 07/25/19 08:36 Dose: 40 mg Glipizide (Glucotrol) 5 mg PO BID [facility] Stop: 09/14/19 08:59 Last Admin: 07/27/19 17:56 Dose: 5 mg Glucagon (Glucagen) 1 mg IM PRN PRN PRN Reason: Blood Glucose less than 70 Stop: 09/13/19 20:15 Insulin Glargine (Lantus Insulin) 12 units SUBQ BID [facility] Stop: 09/13/19 20:29 Last Admin: 07/27/19 10:05 Dose: Not Given Insulin Human Lispro (Humalog Insulin Sliding Scale) 0 units SUBQ ACHS [facility]; Protocol Stop: 09/13/19 20:59 Last Admin: 07/27/19 07:06 Dose: Not Given Levetiracetam (Keppra) 500 mg PO BID [facility] Stop: 09/14/19 08:59 Last Admin: 07/27/19 17:55 Dose: 500 mg Metformin HCl (Glucophage) 1,000 mg PO BIDWM [facility] Stop: 09/14/19 07:59 Last Admin: 07/27/19 10:03 Dose: Not Given Quetiapine Fumarate 100 mg/ (Quetiapine Fumarate 50 mg) 150 mg PO BID [facility] Stop: 09/21/19 16:59 Last Admin: 07/27/19 17:56 Dose: 150 mg Simvastatin (Zocor) 20 mg PO HS [facility]; Protocol Stop: 09/13/19 20:59 Last Admin: 07/26/19 21:03 Dose: 20 mg Thiamine HCl (Vitamin B1) 100 mg PO DAILY [facility] Stop: 09/14/19 08:59 Last Admin: 07/27/19 09:58 Dose: 100 mg General: demented HEENT: NC/AT, PERRLA, EOMI, anicteric sclerae, throat clear Neck: Supple, No JVD, No thyromegaly, +2 carotid pulse wo bruit, No LAD Lungs: CTAB Cardiovascular: RRR, Normal S1, Normal S2, without murmur Abdomen: soft, non-tender, non-distended Extremities: clear Neurological: no change Internal Medicine Assmt/Plan - Assessment Assessment: 1.DM. 2.HTN. 3.HYPERLIPIDEMIA 4.SEIZURE DISORDER 5.PSYCHOSIS - Plan Plan: CONTINUE ON CURRENT MEDICATION AND DIET. Nutritional Asmnt/Malnutr-PDOC - Dietary Evaluation Malnutrition Findings (Please click <Entered> for more info): Nutritional Asmnt/Malnutrition Start: 07/19/19 15: 16 Text: Status: Complete Freq: Protocol: Document 07/19/19 15:16 SHAMEKA (Rec: 07/19/19 15:19 SHAMEKA [id number]) Nutritional Asmnt/Malnutrition Patient General Information Nutritional Screening Moderate Risk Diagnosis Psychosis Pertinent Medical Hx/Surgical Hx HTN, DM, Hyperlipidemia, Seizure Disorder, Psychosis Subjective Information Pt is a 64-year-old male admitted on 07/15 d/t agitation . Pt is eating 86% of meals Per Meal/Nutrition Activity Record. Dietary is currently providing an estimated 1800 kcals and 86 gm Pro, per Pt PO intake this is providing an estimated 1570 kcals and 74gm Pro to meet 95% kcal and 100+% Pro needs- adequate. Anthropometrics HT: 58 WT: 145 LB (65.91 kg) BMI: 22.05 (Normal) GI/ Skin Integrity GI: WNL, Soft, Non-tender BM: 07/17 x1 I/O: 1200/Not Noted Skin: WNL, Intact Durga: 18 Diet Order: Mechanical Soft, CCHO 60gm, BEN Estimated Energy Needs: ( Geriatric, CBW) 3119-0552 kcals (25-30 kcals/ kg) 53-66g Pro (0.8-1.0 g/kg) 4324-2229 ml (25-30 ml/kg) Current Diet Order/ Nutrition Support Mechanical Soft, CCHO 60gm, BEN Pertinent Medications Coreg, Vitamin B12, Glutose 40 % (PRN), Glucotrol, Glucagen ( PRN), Lantus, INS-SS, Glucophage, Lasix Pertinent Labs POC glucose (last 24 hours): 107, 123, 104, 130, 95 07/15: A1c 5.0%, BUN/Cr 33/1.41 , GFR 54 Nutritional Hx/Data Height 1.73 m Height (Calculated Centimeters) 172.7 Current Weight (lbs) 65.771 kg Weight (Calculated Kilograms) 65.8 Weight (Calculated Grams) 39283.9 [place] Body Weight 154 LB (70 kg) % [place] Body Weight 94 Body Mass Index (BMI) 22.0 Weight Status Approriate GI Symptoms GI Symptoms None Last BM 07/17 x1 Skin Integrity/Comment: Skin: WNL, Intact Durga: 18 Estimated Nutritional Goals BEE in Kcals: Using Current wt Calories/Kcals/Kg 25-30 Kcals Calculated 1228-8696 Protein: Using Current wt Protein g/k.8-1.0 Protein Calculated 53-66 Fluid: ml 6529-1400 ml (25-30 ml/kg) Nutritional Problem 1. Problem Problem Impaired nutrient utilization Etiology r/t endocrine dysfunction Signs/Symptoms: aeb Hx DM. Intervention/Recommendation Comments 1. Continue Mechanical Soft, CCHO 60gm, BEN diet as tolerated. 2. Continue antihyperglycemic medications for glucose control per MD order. Expected Outcomes/Goals Expected Outcomes/Goals 1. PO intake to continue to meet >75% of nutritional needs . 2. Monitor PO intake, wt, nutrition related labs, and skin integrity. 3. F/U as low risk in 7-10 days, 07/26-07/29
[2019-07-28] MEDS: INSULIN LISPRO SLIDING SCALE 100 UNITS/ML UNIT SUBQ SCH ×3 (06:41→16:10)
[2019-07-28] MEDS: Insulin Glargine 100 units/ml 10ml Vial SUBQ SCH ×2 (08:34→17:07)
[2019-07-28] MEDS: Benztropine 1 MG TAB PO SCH ×2 (10:34→16:29)
--- NOTE | 2019-07-28 14:03 | Discharge Summary ---
DATE OF DISCHARGE: 07/28/2019 IDENTIFYING INFORMATION: The patient is a 64-year-old male. CHIEF COMPLAINT: "I don't know." HISTORY OF PRESENT ILLNESS: Sent from [place] because of agitation. The patient has a history of schizophrenia. The patient was a poor historian. He admits to a prior suicide attempt; however, refused to tell me when I asked him. The patient is conserved. The patient unable to make safe plan for self-care, unpredictable, impulsive on a wheelchair. COURSE IN THE HOSPITAL: THE PATIENT IS ALLERGIC TO IODINE. The patient was started back on the medication, which included Seroquel, increased the dose to 150 mg twice a day. He was kept on aspirin, benazepril, carvedilol, vitamin B12, and Lexapro was added 10 mg daily, Lasix 40 mg daily, glipizide, glucagon and insulin for his diabetes and he was also kept on Keppra because of seizure disorder, metformin and simvastatin because of high lipids. The patient progressively got better. He was no longer agitated or acting in an unruly manner. He was responding well to redirection, though he continues to be at times, internally preoccupied with poor insight. So, we felt he could be discharged to a lesser level of care. FINAL DIAGNOSIS: Schizoaffective disorder, depressed type. The patient will be going back to [place], will follow up with the psychiatrist and primary care physician there. The patient has a conservator. EXPECTED OUTCOME: Stable if the patient complies with above. JOB# [id number]
== END 2019-07-28 19:20 | DRG 885 ==
LOC: GERO 19:07
PROVIDERS: ADMIT Psychiatry & Neurology Psychiatry; ATTEND Psychiatry & Neurology Psychiatry
DX: F25.1 Schizoaffective disorder, depressive type (principal); F29 Unspecified psychosis not due to a substance or known physiological condition; I10 Essential (primary) hypertension; E78.5 Hyperlipidemia, unspecified; G40.909 Epilepsy, unspecified, not intractable, without status epilepticus; E11.9 Type 2 diabetes mellitus without complications
CPT/HCPCS: 83036-90; G0410; J1815; Z7610